=== PATIENT | male | born 1945 | race Hispanic/Latino ===

== ENCOUNTER 2020-08-02 21:23 | Inpatient (IN) | payer MEDICARE ==
--- NOTE | 2020-08-02 21:51 | Emergency Department Report ---
HPI - General Chief Complaint: Weakness Time Seen by Provider: 08/02/20 21:38 - HPI HPI: Room 26 The patient is a 75-year-old male present with a chief complaint of failure to thrive. Family states that the patient lost his job approximate 3 months ago and since then has "given up." They state that the patient has not been eating or drinking for the past 3 months. The patient has lost an estimated 75 pounds over the past 3 months. Patient has become weak to the point where he cannot stand the patient son had to carry him down the stairs. When asked about this the patient states she just feels as though he is "so full of water when I taken a little bit have to get rid of some." Patient states he finds himself spitting all the time. And this is the reason he has not been eating or drinking. Patient denies nausea or vomiting. Patient denies any other complaints ED Past Medical Hx - Past Medical History Hx Hypertension: Yes - Surgical History Past Surgical History?: No - Family History Family history: no significant - Social History Smoking Status: Former Smoker Substance Use Type: None ED Review of Systems ROS: Stated complaint: FAILURE TO THRIVE Other details as noted in HPI Constitutional: weakness Respiratory: no symptoms reported Endocrine: no symptoms reported Gastrointestinal: denies: nausea, vomiting Physical Exam - Physical Exam Physical Exam: GENERAL: The patient is well-developed thin appearing male lying on stretcher in no acute distress. There is no emesis bag or basin present HEENT: Normocephalic. Atraumatic. Extraocular motions are intact. Patient has moist mucous membranes. NECK: Supple. Trachea midline CHEST/LUNGS: Clear to auscultation. There is no respiratory distress noted. HEART/CARDIOVASCULAR: Regular. There is no tachycardia. There is no gallop rub or murmur. ABDOMEN: Abdomen is soft, nontender. Patient has normal bowel sounds. There is no abdominal distention. SKIN: There is no rash. There is no edema. There is no diaphoresis. NEURO: The patient is awake, alert, and oriented. The patient is cooperative. The patient has no focal neurologic deficits. The patient has normal speech MUSCULOSKELETAL: There is no evidence of acute injury. ED Medical Decision Making - Lab Data Result diagrams: 08/02/20 21:56 08/02/20 21:56 Laboratory Tests 08/02/20 08/02/20 21:56 21:56 WBC 8.9 RBC 5.69 H Hgb 18.2 H Hct 53.3 H MCV 94 MCH 32 MCHC 34 RDW 14.4 Plt Count 175 Lymph % (Auto) 7.9 L Pitkin % (Auto) 6.6 Eos % (Auto) 0.0 Baso % (Auto) 0.1 Lymph # (Auto) 0.7 L Pitkin # (Auto) 0.6 Eos # (Auto) 0.0 Baso # (Auto) 0.0 Seg Neutrophils % 85.4 H Seg Neutrophils # 7.6 Sodium 162 H* Potassium 3.2 L Chloride 116.9 H Carbon Dioxide 21 L Anion Gap 27 BUN 94 H Creatinine 2.4 H Estimated GFR 27 BUN/Creatinine Ratio 39 Glucose 164 H Calcium 10.2 Total Bilirubin 5.50 H AST 53 H ALT 205 H Alkaline Phosphatase 99 Total Creatine Kinase 93 CK-MB (CK-2) 5.3 H CK-MB (CK-2) Rel Index 5.6 H Troponin T 0.048 H Total Protein 6.7 Albumin 4.0 Albumin/Globulin Ratio 1.5 Triglycerides 307 H Cholesterol 232 H LDL Cholesterol Direct 132 H HDL Cholesterol 36 L Cholesterol/HDL Ratio 6.44 Lipase 77 H - EKG Data -: EKG Interpreted by Me EKG shows normal: sinus rhythm Rate: normal - EKG Data When compared to previous EKG there are: previous EKG unavailable Interpretation: nonspecific ST-T wave damien (T wave inversions leads II, 3, aVF, V3, V4, V5, V6. Mild ST segment depressions infero-laterally) - Differential Diagnosis Failure to thrive, depression Critical care attestation.: If time is entered above; I have spent that time in minutes in the direct care of this critically ill patient, excluding procedure time. ED Disposition Clinical Impression: Dehydration, Uremia, Failure to thrive, Acute renal failure, Hypernatremia, Elevated troponin Disposition: DC-09 OP ADMIT IP TO THIS HOSP Is pt being admited?: Yes Does the pt Need Aspirin: No Condition: Stable Referrals: PRIMARY CARE, [Primary Care Provider] - 3-5 Days Time of Disposition: 23:46 (Hospitalist paged (Dr Mitchell))
[2020-08-02 22:21] LABS: Basophils % (Auto) 0.1 % (0.0-1.8); Hematocrit 53.3 % (35.5-45.6); Hemoglobin 18.2 gm/dl (11.8-15.2); Lymphocytes # (Auto) 0.7 K/mm3 (1.2-5.4); Lymphocytes % (Auto) 7.9 % (13.4-35.0); Mean Corpuscular HGB Conc 34 % (32-34); Mean Corpuscular Volume 94 fl (84-94); Monocytes # (Auto) 0.6 K/mm3 (0.0-0.8); Monocytes % (Auto) 6.6 % (0.0-7.3); Platelet Count 175 K/mm3 (140-440); Red Blood Count 5.69 M/mm3 (3.65-5.03); Red Cell Distribution Width 14.4 % (13.2-15.2)
[2020-08-02 22:35] LABS: Creatine Kinase MB 5.3 ng/mL (0.0-4.0)
[2020-08-02 22:36] LABS: Calcium 10.2 mg/dL (8.4-10.2)
[2020-08-02] MEDS ORDERED: SODIUM CHLORIDE 0.9% 1000 ML 1,000 ML IV ONE ×2 (22:41)
[2020-08-02 22:58] LABS: Chol/HDL Ratio 6.44 %
[2020-08-02] MEDS ORDERED: DEXTROSE 5% IN WATER 1,000 ML IV SCH (23:00)
[2020-08-03 00:37] LABS: Bilirubin,Urine SM (Negative); Blood,Urine SM (Negative); Color,Urine Amber (Yellow); Hyaline Casts,Urine 1 /LPF; Protein,Urine <15 mg/dL mg/dL (Negative); RBC,Urine < 1.0 /HPF (0.0-6.0)
[2020-08-03] MEDS ORDERED: SODIUM CHLORIDE 0.9% 1000 ML 1,000 ML IV ONE (00:39)
[2020-08-03 00:48] LABS: Ictotest,Urine Negative (Negative)
[2020-08-03] MEDS ORDERED: ONDANSETRON 4 MG/2 ML INJ IV PRN (01:11)
[2020-08-03] MEDS ORDERED: ACETAMINOPHEN 325 MG TAB PO PRN (01:11)
[2020-08-03] MEDS ORDERED: MAGNESIUM HYDROXIDE (MOM) ORAL LIQD UDC PO PRN (01:11)
[2020-08-03] MEDS ORDERED: SODIUM CHLORIDE 0.9% 1000 ML 1,000 ML IV SCH (01:15)
--- NOTE | 2020-08-03 01:27 | History and Physical Report ---
History of Present Illness Date of examination: 08/03/20 Date of admission: 08/03/2020 Chief complaint: Failure to Thrive History of present illness: 75-year-old male with known history of hypertension presenting to the emergency room today with failure to thrive. Patient has had decreased oral intake since he lost his job about 3 months ago. According to family patient is said to have given up and has not been eating or drinking over the past 3 months. He has also lost about 75 pounds over the past 3 months. He has been feeling generally weak. Upon further evaluation patient admits he has been quite depressed but denies any homicidal or suicidal ideations. He also indicates that he has been having difficulty sleeping. He denies any fever or chills, no chest pain or shortness of breath, no nausea or vomiting, no abdominal pain, denies any sick contacts, denies any recent travel and no contact with anyone with COVID-19. Work-up in the emergency room today reveals elevated BUN and creatinine, elevated troponin and hypernatremia. Patient is being admitted for acute kidney injury with dehydration and hypernatremia. Past History Past Medical History: hypertension Past Surgical History: No surgical history Social history: no significant social history Family history: no significant family history Medications and Allergies Allergies Allergy/AdvReac Type Severity Reaction Status Date / Time No Known Allergies Allergy Verified 08/02/20 22:50 Home Medications Medication Instructions Recorded Confirmed Last Taken Type No Known Home Medications [No 08/03/20 08/03/20 Unknown History Reported Home Medications] Active Meds: Active Medications Acetaminophen (Tylenol) 650 mg PO Q4H PRN PRN Reason: Pain MILD(1-3)/Fever >100.5/PATEL Heparin Sodium (Porcine) (Heparin) 5,000 unit SUB-Q Q8HR LUCRECIA Dextrose (D5w) 1,000 mls @ 150 mls/hr IV DIRECT LUCRECIA Last Admin: 08/02/20 23:57 Dose: 150 mls/hr Documented by: Sodium Chloride (Nacl 0.9% 1000 Ml) 1,000 mls @ 999 mls/hr IV BOLUS ONE Stop: 08/03/20 01:39 Sodium Chloride (Nacl 0.9% 1000 Ml) 1,000 mls @ 125 mls/hr IV DIRECT [facility]CRECIA Magnesium Hydroxide (Milk Of Magnesia) 30 ml PO Q4H PRN PRN Reason: Constipation Ondansetron HCl (Zofran) 4 mg IV Q8H PRN PRN Reason: Nausea And Vomiting Sodium Chloride (Sodium Chloride Flush Syringe 10 Ml) 10 ml IV BID LUCRECIA Sodium Chloride (Sodium Chloride Flush Syringe 10 Ml) 10 ml IV PRN PRN PRN Reason: LINE FLUSH Review of Systems Constitutional: poor appetite, no fever, no chills Ears, nose, mouth and throat: no nasal congestion, no sore throat Cardiovascular: no chest pain, no palpitations Respiratory: no cough, no shortness of breath Gastrointestinal: no abdominal pain, no nausea, no vomiting, no diarrhea Genitourinary Male: no dysuria, no hematuria, no flank pain Musculoskeletal: no neck pain, no low back pain Integumentary: no rash, no pruritis Neurological: no headaches, no confusion Psychiatric: insomnia, depression, hopelessness, no anxiety, no confusion Exam - Constitutional Vitals: Temp Pulse Resp BP Pulse Ox 97.6 F 78 20 145/81 100 08/02/20 21:33 08/02/20 22:31 08/03/20 01:15 08/03/20 01:15 08/03/20 01:15 General appearance: Present: no acute distress, cachectic, other (Dry oral Mucosa) - EENT Eyes: Present: PERRL, EOM intact. Absent: scleral icterus ENT: hearing intact, clear oral mucosa, dentition normal - Neck Neck: Present: supple, normal ROM - Respiratory Respiratory effort: normal Respiratory: bilateral: CTA - Cardiovascular Rhythm: regular Heart Sounds: Present: S1 & S2. Absent: gallop, systolic murmur, diastolic murmur, rub - Extremities Extremities: no ischemia, pulses intact, pulses symmetrical, No edema, Full ROM Peripheral Pulses: within normal limits - Abdominal General gastrointestinal: Present: soft, non-tender, non-distended, normal bowel sounds. Absent: mass - Integumentary Integumentary: Present: clear, warm, dry. Absent: rash - Musculoskeletal Musculoskeletal: strength equal bilaterally - Psychiatric Psychiatric: appropriate mood/affect, intact judgment & insight, memory intact, cooperative, other (Flat affect) - Neurologic Neurologic: CNII-XII intact, no focal deficits, moves all extremities HEART Score - HEART Score Troponin: Troponin T 0.048 ng/mL (0.00-0.029) H 08/02/20 21:56 Results - Labs CBC & Chem 7: 08/02/20 21:56 08/02/20 21:56 Labs: Abnormal lab results 08/02/20 08/02/20 Range/Units 21:56 21:56 RBC 5.69 H (3.65-5.03) M/mm3 Hgb 18.2 H (11.8-15.2) gm/dl Hct 53.3 H (35.5-45.6) % Lymph % (Auto) 7.9 L (13.4-35.0) % Lymph # (Auto) 0.7 L (1.2-5.4) K/mm3 Seg Neutrophils % 85.4 H (40.0-70.0) % Sodium 162 H* (137-145) mmol/L Potassium 3.2 L (3.6-5.0) mmol/L Chloride 116.9 H (98-107) mmol/L Carbon Dioxide 21 L (22-30) mmol/L BUN 94 H (9-20) mg/dL Creatinine 2.4 H (0.8-1.3) mg/dL Glucose 164 H (75-100) mg/dL Total Bilirubin 5.50 H (0.1-1.2) mg/dL AST 53 H (5-40) units/L ALT 205 H (7-56) units/L CK-MB (CK-2) 5.3 H (0.0-4.0) ng/mL CK-MB (CK-2) Rel Index 5.6 H (0-4) Troponin T 0.048 H (0.00-0.029) ng/mL Triglycerides 307 H (2-149) mg/dL Cholesterol 232 H (50-199) mg/dL LDL Cholesterol Direct 132 H (50-130) mg/dL HDL Cholesterol 36 L (40-59) mg/dL Lipase 77 H (13-60) units/L Assessment and Plan - Patient Problems (1) Acute renal failure Current Visit: Yes Status: Acute Plan to address problem: Possibly prerenal. Patient started on IV fluid. Will monitor inputs and outputs. Consult placed to nephrology for evaluation. (2) Dehydration Current Visit: Yes Status: Acute Plan to address problem: Secondary to decreased oral intake. We will continue on IV fluid. (3) Elevated troponin Current Visit: Yes Status: Acute Plan to address problem: Possibly secondary to the renal failure. Patient denies any chest pain (4) Failure to thrive Current Visit: Yes Status: Acute Plan to address problem: We will place dietary consult and case management for evaluation. We will also place consult to mental health as patient appears obviously depressed. (5) Hypernatremia Current Visit: Yes Status: Acute Plan to address problem: We will continue on IV fluid and continue to monitor chemistry. (6) DVT prophylaxis Current Visit: Yes Status: Acute Plan to address problem: Patient placed on subcutaneous heparin. (7) Full code status Current Visit: Yes Status: Acute
[2020-08-03] MEDS: HEPARIN 5,000 UNIT/1 ML VIAL SUB-Q SCH ×3 (05:10→21:15)
[2020-08-03] MEDS ORDERED: D5W/0.45% NACL/KCL 40 MEQ 40 MEQ/1,000 ML BAG IV SCH (10:00)
[2020-08-03] MEDS ORDERED: D5W/0.45% NACL 1,000 ML IV SCH (10:00)
--- NOTE | 2020-08-03 11:41 | Event Note ---
Date: 08/03/20 Sign out received from Dr Mitchell. Patient admitted with failure to thrive. noted to have CHRISTIE, hypernatremia. Psych consulted due to depressed mood. Admission labs reviewed. Awaiting AM labs. Received 2L NS in the ED, his vitals are stable Plan Start hypotonic solution Trend Na Nephrology and psych follow up. Elevated troponin likely from CHRISTIE - he has no chest pain. Will monitor for now.
--- NOTE | 2020-08-03 13:04 | Consultation ---
History of Present Illness - Reason for Consult Consult date: 08/03/20 Reason for consult: depression, failure to thrive - History of Present Psychiatric Illness Colt Ca is a 75y/o male patient who presented to the ER for failure to thrive. During my interview with the patient is lying down in bed. He is a/o x 3. He is calm and cooperative. He is conversational. The patient says he was brought to the hospital because "I kept losing weight." He says, "I didn't want to come but I couldn't keep nothing in my stomach." He says, "I choke off thin liquids." When asked how he was feeling he states, "I've been depressed." He says, "I lost my job back in January and my son lost his too." He says "I was helping my son pay his bills and now I can't help him. My son is panicking over that." The patient denies SI/HI or ever having an attempt. He says "Oh no, I don't want to do anything to myself or anybody." The patient states "It's not that I don't want to eat. I can't." He denies hallucinations of any kind. He says he was seeing a psychiatrist and was started on an antidepressant. He says but "after I lost my job I haven't been taking it." He denies any illicit drug use, alcohol or nicotine. PAST PSYCHIATRIC HISTORY Diagnoses: Denies Suicide attempts or Self-harm behavior: Denies Prior psychiatric hospitalizations: Denies Substance Abuse history: Denies Previous psychiatric medications tried: Denies Outpatient treatment: Denies PAST MEDICAL HISTORY: None reported Family Psychiatric History: None reported SOCIAL HISTORY Marital Status: Living Arrangements: with spouse Employment Status: Retired Access to guns/weapons: Denies Education: History of Abuse: No Legal History: Denies REVIEW OF SYSTEMS Constitutional: Negative for weight loss ENT: Negative for stridor Respiratory: Negative for cough or hemoptysis All other systems reviewed and are negative MENTAL STATUS EXAMINATION General Appearance and Behavior: Age appropriate, good hygiene, wearing appropriate clothes, good contact, calm and cooperative polite with questioning. Cooperation: Participating/engaged Mood: "Depressed" Affect and affective range: Restricted Thought Process: Goal directed Thought Content: Logical Speech: normal tone and pace Suicidal Ideation: Denies Homicidal Ideation: Denies Hallucinations: Denies Delusions: None elicited Insight and Judgment: Limited Memory: Limited Orientation: A/O Assessment and Plan Major Depressive Disorder Treatment Plan MEDICATIONS: Fluoxetine liquid 10mg daily Risks, benefits and alternatives of medications discussed with the patient, questions answered and consent obtained from patient. PSYCHOTHERAPY: Supportive psychotherapy provided MEDICAL: Per primary team DELIRIUM PRECAUTIONS: Please re-orient patient frequently, keep lights on during the day, and minimize benzodiazepines and opiates as these medications could worsen patient's confusion. VERIFY REP: Defer to primary DISPOSITION: Do not Recommend acute inpatient psychiatric hospitalization at this time. The patient understands that if suicidal thoughts or tendencies arise that he is to seek immediate assistance including but not limited to the crisis hotline, 911/ER. The manager fine dining is to give the patient resources for outpatient psychiatry, therapy/counseling and medication assistance. Rescue Boat Operator to further discuss safety plan The patient is to follow up with outpatient psych in 7 to 14 days upon discharge Will sign off. Thank you for the consult. Please contact with any questions and/or concerns. Medications and Allergies Allergies Allergy/AdvReac Type Severity Reaction Status Date / Time No Known Allergies Allergy Verified 08/02/20 22:50 Home Medications Medication Instructions Recorded Confirmed Last Taken Type FLUoxetine [Prozac] 10 mg PO QDAY #1 bottle 08/03/20 Unknown Rx Active Meds: Active Medications Acetaminophen (Tylenol) 650 mg PO Q4H PRN PRN Reason: Pain MILD(1-3)/Fever >100.5/PATEL Heparin Sodium (Porcine) (Heparin) 5,000 unit SUB-Q Q8HR LUCRECIA Last Admin: 08/03/20 05:10 Dose: 5,000 unit Documented by: Sodium Chloride (Nacl 0.9% 1000 Ml) 1,000 mls @ 125 mls/hr IV DIRECT LUCRECIA Last Admin: 08/03/20 02:10 Dose: 125 mls/hr Documented by: Dextrose/Sodium Chloride (D5/0.45ns) 1,000 mls @ 100 mls/hr IV DIRECT LUCRECIA Last Admin: 08/03/20 10:22 Dose: 100 mls/hr Documented by: Magnesium Hydroxide (Milk Of Magnesia) 30 ml PO Q4H PRN PRN Reason: Constipation Ondansetron HCl (Zofran) 4 mg IV Q8H PRN PRN Reason: Nausea And Vomiting Sodium Chloride (Sodium Chloride Flush Syringe 10 Ml) 10 ml IV BID LUCRECIA Last Admin: 08/03/20 10:22 Dose: 10 ml Documented by: Sodium Chloride (Sodium Chloride Flush Syringe 10 Ml) 10 ml IV PRN PRN PRN Reason: LINE FLUSH Mental Status Exam - Vital signs Last Vital Signs Temp 97.6 F 08/03/20 11:30 Pulse 67 08/03/20 11:30 Resp 19 08/03/20 11:30 BP 110/80 08/03/20 11:30 Pulse Ox 100 08/03/20 08:19 Results Result Diagrams: 08/02/20 21:56 08/02/20 21:56 Abnormal lab results 08/02/20 08/02/20 Range/Units 21:56 21:56 RBC 5.69 H (3.65-5.03) M/mm3 Hgb 18.2 H (11.8-15.2) gm/dl Hct 53.3 H (35.5-45.6) % Lymph % (Auto) 7.9 L (13.4-35.0) % Lymph # (Auto) 0.7 L (1.2-5.4) K/mm3 Seg Neutrophils % 85.4 H (40.0-70.0) % Sodium 162 H* (137-145) mmol/L Potassium 3.2 L (3.6-5.0) mmol/L Chloride 116.9 H (98-107) mmol/L Carbon Dioxide 21 L (22-30) mmol/L BUN 94 H (9-20) mg/dL Creatinine 2.4 H (0.8-1.3) mg/dL Glucose 164 H (75-100) mg/dL Total Bilirubin 5.50 H (0.1-1.2) mg/dL AST 53 H (5-40) units/L ALT 205 H (7-56) units/L CK-MB (CK-2) 5.3 H (0.0-4.0) ng/mL CK-MB (CK-2) Rel Index 5.6 H (0-4) Troponin T 0.048 H (0.00-0.029) ng/mL Triglycerides 307 H (2-149) mg/dL Cholesterol 232 H (50-199) mg/dL LDL Cholesterol Direct 132 H (50-130) mg/dL HDL Cholesterol 36 L (40-59) mg/dL Lipase 77 H (13-60) units/L All other labs normal.
[2020-08-03 16:53] LABS: Albumin 3.2 g/dL (3.9-5); Calcium 8.6 mg/dL (8.4-10.2)
[2020-08-03] MEDS ORDERED: POTASSIUM CHLORIDE ER 20 MEQ TAB PO ONE (17:30)
--- NOTE | 2020-08-03 18:05 | Consultation ---
History of Present Illness - Reason for Consult Consult date: 08/03/20 hypernatremia - History of Present Illness This is a 75-year-old with history of hypertension and insomnia who presented with generalized weakness and failure to thrive. He lost his job about 3 months ago and since then he has decreased appetite and oral intake resulting in about 75 pound weight loss. Lab work obtained in the emergency department was notable for acute kidney injury and several electrolyte derangements for which he was admitted. he denies NSAID use. He denies headaches, chest pain, shortness of breath, leg swelling, dysuria and hematuria. Past History Past Medical History: hypertension Past Surgical History: No surgical history Social history: no significant social history Family history: no significant family history Medications and Allergies Allergies Allergy/AdvReac Type Severity Reaction Status Date / Time No Known Allergies Allergy Verified 08/02/20 22:50 Home Medications Medication Instructions Recorded Confirmed Last Taken Type FLUoxetine [Prozac] 10 mg PO QDAY #1 bottle 08/03/20 Unknown Rx Active Meds: Active Medications Acetaminophen (Tylenol) 650 mg PO Q4H PRN PRN Reason: Pain MILD(1-3)/Fever >100.5/PATEL Fluoxetine HCl (Prozac) 10 mg PO QDAY LUCRECIA Heparin Sodium (Porcine) (Heparin) 5,000 unit SUB-Q Q8HR LUCRECIA Last Admin: 08/03/20 13:13 Dose: 5,000 unit Documented by: Sodium Chloride (Nacl 0.9% 1000 Ml) 1,000 mls @ 125 mls/hr IV DIRECT LUCRECIA Last Admin: 08/03/20 02:10 Dose: 125 mls/hr Documented by: Dextrose/Sodium Chloride (D5/0.45ns) 1,000 mls @ 100 mls/hr IV DIRECT LUCRECIA Last Admin: 08/03/20 10:22 Dose: 100 mls/hr Documented by: Potassium Chloride (Kcl 10meq/100ml) 10 meq in 100 mls @ 100 mls/hr IV Q1H LUCRECIA Stop: 08/03/20 21:59 Dextrose (D5w) 1,000 mls @ 125 mls/hr IV DIRECT LUCRECIA Magnesium Hydroxide (Milk Of Magnesia) 30 ml PO Q4H PRN PRN Reason: Constipation Ondansetron HCl (Zofran) 4 mg IV Q8H PRN PRN Reason: Nausea And Vomiting Sodium Chloride (Sodium Chloride Flush Syringe 10 Ml) 10 ml IV BID LUCRECIA Last Admin: 08/03/20 10:22 Dose: 10 ml Documented by: Sodium Chloride (Sodium Chloride Flush Syringe 10 Ml) 10 ml IV PRN PRN PRN Reason: LINE FLUSH Review of Systems Constitutional: weight loss, fatigue, weakness Eyes: right: other (denies loss of vision and discharge) Ears, nose, mouth and throat: other (denies nasal congestion and discharge) Cardiovascular: other (denies chest pain and shortness of breath) Respiratory: other (denies cough and hemoptysis) Gastrointestinal: other (notes loss of appetite) Genitourinary Male: other (denies dysuria and hematuria) Musculoskeletal: other (denies numbness and tingling) Integumentary: other (denies rash and pruritus) Neurological: weakness Psychiatric: change in sleep habits, insomnia Endocrine: weight change Allergic/Immunologic: other (denies urticaria and wheezing) Exam - Vital Signs Vital signs: Vital Signs Temp Pulse Resp BP Pulse Ox 97.6 F 87 22 107/81 99 08/02/20 21:33 08/02/20 21:33 08/02/20 21:33 08/02/20 21:33 08/02/20 21:33 - Physical Exam Narrative exam: Vitals: Reviewed General: No acute distress HEENT: Oral mucosa moist, no pharyngeal erythema, no evidence of epistaxis Neck: Supple, no evidence of any JVD, trachea midline, no thyromegaly Chest: Clear to auscultation, no crackles, rales or wheezes Heart: Regular rate and rhythm, S1-S2 heard, no S3-S4, no pericardial rub Abdomen: Soft, nontender, no renal bruit, no suprapubic masses no CVA tenderness Extremity: No peripheral cyanosis, edema and dry skin Neurological: Alert, awake, no asterixis Dermatology; no skin rashes Back: Nontender thoracolumbar spine, no CVA tenderness Psych: No agitation and aggression Musculoskeletal: No joint effusion noted Results - Lab Results 08/02/20 21:56 08/03/20 15:29 Most recent lab results Calcium 8.6 mg/dL (8.4-10.2) D 08/03/20 15:29 Magnesium 2.80 mg/dL (1.7-2.3) H 08/03/20 15:29 Assessment and Plan Assessment * acute kidney injury * Hypernatremia * Hypokalemia * Hyperchloremia * azotemia * hyperbilirubinemia * Transaminitis * insomnia Recommendations * replete potassium, recheck level following repletion * Continue IV hydration * Encourage by mouth intake * Check abdominal ultrasound for kidney and liver evaluation * Recommend gastroenterology consult for elevated LFTs * psych consult * Strict I's and O's * Avoid nephrotoxins * Renally dose medications
[2020-08-03] MEDS: POTASSIUM CHLORIDE 10 MEQ 10 MEQ/100 ML BAG IV SCH ×3 (18:10→22:52)
[2020-08-03] MEDS: DEXTROSE 5% IN WATER 1,000 ML IV SCH (18:11)
[2020-08-04] MEDS: POTASSIUM CHLORIDE 10 MEQ 10 MEQ/100 ML BAG IV SCH ×8 (01:03→23:09)
[2020-08-04] MEDS: HEPARIN 5,000 UNIT/1 ML VIAL SUB-Q SCH ×4 (05:11→20:59)
[2020-08-04 07:51] LABS: Eosinophils % (Auto) 0.1 % (0.0-4.3); Hematocrit 43.8 % (35.5-45.6); Lymphocytes # (Auto) 0.7 K/mm3 (1.2-5.4); Lymphocytes % (Auto) 14.7 % (13.4-35.0); Mean Corpuscular HGB Conc 34 % (32-34); Mean Corpuscular Volume 94 fl (84-94); Monocytes # (Auto) 0.3 K/mm3 (0.0-0.8); Monocytes % (Auto) 6.7 % (0.0-7.3); Platelet Count 118 K/mm3 (140-440); Red Blood Count 4.68 M/mm3 (3.65-5.03); Red Cell Distribution Width 14.5 % (13.2-15.2)
[2020-08-04] MEDS: DEXTROSE 5% IN WATER 1,000 ML IV SCH ×2 (07:56→16:38)
[2020-08-04 08:00] LABS: INR 1.12 (0.87-1.13)
[2020-08-04 08:11] LABS: Calcium 8.7 mg/dL (8.4-10.2)
[2020-08-04] MEDS: FLUoxetine 20 MG/5 ML ORAL LIQD PO SCH (09:20)
[2020-08-04] MEDS ORDERED: POTASSIUM CHLORIDE ER 20 MEQ TAB PO ONE ×3 (11:12→21:00)
--- NOTE | 2020-08-04 11:17 | Progress Note ---
Assessment and Plan Assessment and plan: 75-year-old male with known history of hypertension presenting to the emergency room today with failure to thrive. Patient has had decreased oral intake since he lost his job about 3 months ago. According to family patient is said to have given up and has not been eating or drinking over the past 3 months. He has also lost about 75 pounds over the past 3 months. He has been feeling generally weak. Upon further evaluation patient admits he has been quite depressed but denies any homicidal or suicidal ideations. He also indicates that he has been having difficulty sleeping. He denies any fever or chills, no chest pain or shortness of breath, no nausea or vomiting, no abdominal pain, denies any sick contacts, denies any recent travel and no contact with anyone with COVID-19. Work-up in the emergency room reveals elevated BUN and creatinine, elevated troponin and hypernatremia. Patient is being admitted for acute kidney injury with dehydration and hypernatremia. 08/04. His sodium is slowly improving on IV fluids. Encourage patient to drink water today. Labs showed elevated bilirubin and AST so ultrasound of the abdomen has been ordered to rule out any liver/ductal problem. His renal function continues to improve. Patient has been seen by psych and will need to follow-up with them in the office after discharge as he he is not a candidate inpatient psych admission. He has been started on fluoxetine daily for now. Problem ---Acute renal failure Current Visit: Yes Status: Acute Plan to address problem: From dehydration [vasomotor nephropathy] Renal function continues to improve on IV hydration ---Dehydration Current Visit: Yes Status: Acute Plan to address problem: Secondary to decreased oral intake. Continue IV hydration ---Elevated troponin Current Visit: Yes Status: Acute Plan to address problem: Possibly secondary to the renal failure. Patient denies any chest pain ---Depression Current Visit: Yes Status: Acute Plan to address problem: Seen by psychiatry and has been started on fluoxetine He will follow-up with psychiatry in the office in 1-2 weeks after discharge Patient is not a candidate for inpatient psych admission ---Failure to thrive Current Visit: Yes Status: Acute Plan to address problem: Depression contributing Started on fluoxetine ---Hypernatremia Current Visit: Yes Status: Acute Plan to address problem: Improving. Continue IV hydration --- Elevated bilirubin and elevated liver function tests Current Visit: Yes Status: Acute Plan to address problem: Bilirubin 5.5 on admission but now trended down to 4.8 LFTs also elevated Ultrasound of the abdomen ordered to rule out any liver/ductal problem Lipase slightly elevated on admission. INR within normal limits Patient needs to follow-up with GI for colonoscopy ---DVT prophylaxis Current Visit: Yes Status: Acute Plan to address problem: Patient placed on subcutaneous heparin. ---Full code status Current Visit: Yes Status: Acute History Interval history: Patient seen and examined at bedside this morning His sodium is gradually improving. Still not drinking enough water Advised patient to drink more water today Nephrology following for hypernatremia Labs have been reviewed-sodium 157, potassium 3.1, creatinine 1.3, bilirubin 4.8 and AST/ALT elevated Ultrasound of the abdomen ordered to rule out CBD dilatation Hospitalist Physical - Physical exam Narrative exam: VITAL SIGNS: Reviewed. GENERAL: Awake and alert on response to questions, cachectic HEAD: No signs of head trauma. EYES: Pupils are equal. Extraocular motions intact. EARS: Hearing grossly intact. MOUTH: Oropharynx is normal. NECK: No adenopathy, no JVD. CHEST: Chest with diminished breath sounds bilaterally. No wheezes, rales, or rhonchi. CARDIAC: Regular rate and rhythm. S1 and S2, without murmurs, gallops, or rub s. VASCULAR: No Edema. Peripheral pulses normal and equal in all extremities. ABDOMEN: Soft, non tender and non distended. No rebound or guarding, and no masses palpated. Bowel Sounds normal. MUSCULOSKELETAL: Good range of motion of all major joints. Extremities without clubbing, cyanosis or edema. NEUROLOGIC EXAM: Alert and oriented x3. No focal neurologic deficits PSYCHIATRIC: Stable mood SKIN: No obvious lesions - Constitutional Vitals: Temp Pulse Resp BP Pulse Ox 97.5 F L 74 20 130/85 100 08/04/20 08:12 08/04/20 08:58 08/04/20 08:12 08/04/20 08:12 08/04/20 08:12 General appearance: Present: other (Dry oral Mucosa) HEART Score - HEART Score Troponin: Troponin T 0.048 ng/mL (0.00-0.029) H 08/02/20 21:56 Results - Labs CBC & Chem 7: 08/04/20 06:26 08/04/20 06:26 Labs: Laboratory Last Values WBC 4.6 K/mm3 (4.5-11.0) 08/04/20 06: RBC 4.68 M/mm3 (3.65-5.03) 08/04/20 06: Hgb 15.0 gm/dl (11.8-15.2) D 08/04/20 06: Hct 43.8 % (35.5-45.6) D 08/04/20: MCV 94 fl (84-94) 08/04/20 06: MCH 32 pg (28-32) 08/04/20 06: MCHC 34 % (32-34) 08/04/20 06: RDW 14.5 % (13.2-15.2) 08/04/20: Plt Count 118 K/mm3 (140-440) L 08/04/20 06: Lymph % (Auto) 14.7 % (13.4-35.0) 08/04/20 06: [place] % (Auto) 6.7 % (0.0-7.3) 08/04/20 06: Eos % (Auto) 0.1 % (0.0-4.3) 08/04/20 06: Baso % (Auto) 0.0 % (0.0-1.8) 08/04/20 06: Lymph # (Auto) 0.7 K/mm3 (1.2-5.4) L 08/04/20 06: [place] # (Auto) 0.3 K/mm3 (0.0-0.8) 08/04/20 06: Eos # (Auto) 0.0 K/mm3 (0.0-0.4) 08/04/20 06: Baso # (Auto) 0.0 K/mm3 (0.0-0.1) 08/04/20 06: Seg Neutrophils % 78.5 % (40.0-70.0) H 08/04/20 06: Seg Neutrophils # 3.6 K/mm3 (1.8-7.7) 08/04/20 06: PT 14.5 Sec. (12.2-14.9) 08/04/20 06: INR 1.12 (0.87-1.13) 08/04/20 06:26 Sodium 157 mmol/L (137-145) H 08/04/20 06:26 Potassium 3.1 mmol/L (3.6-5.0) L 08/04/20 06:26 Chloride 121.3 mmol/L (98-107) H 08/04/20 06:26 Carbon Dioxide 27 mmol/L (22-30) 08/04/20 06:26 Anion Gap 12 mmol/L 08/04/20 06:26 BUN 54 mg/dL (9-20) H 08/04/20 06:26 Creatinine 1.3 mg/dL (0.8-1.3) 08/04/20 06:26 Estimated GFR 54 ml/min 08/04/20 06:26 BUN/Creatinine Ratio 42 % 08/04/20 06:26 Glucose 137 mg/dL (75-100) H 08/04/20 06:26 Calcium 8.7 mg/dL (8.4-10.2) 08/04/20 06:26 Magnesium 2.80 mg/dL (1.7-2.3) H 08/03/20 15:29 Total Bilirubin 4.60 mg/dL (0.1-1.2) H 08/03/20 15:29 AST 51 units/L (5-40) H 08/03/20 15:29 ALT 148 units/L (7-56) H 08/03/20 15:29 Alkaline Phosphatase 75 units/L (35-129) 08/03/20 15:29 Total Creatine Kinase 93 units/L (55-170) 08/02/20 21:56 CK-MB (CK-2) 5.3 ng/mL (0.0-4.0) H 08/02/20 21:56 CK-MB (CK-2) Rel Index 5.6 (0-4) H 08/02/20 21:56 Troponin T 0.048 ng/mL (0.00-0.029) H 08/02/20 21:56 Total Protein 5.1 g/dL (6.3-8.2) L D 08/03/20 15:29 Albumin 3.2 g/dL (3.9-5) L 08/03/20 15:29 Albumin/Globulin Ratio 1.7 % 08/03/20 15:29 Triglycerides 307 mg/dL (2-149) H 08/02/20 21:56 Cholesterol 232 mg/dL (50-199) H 08/02/20 21:56 LDL Cholesterol Direct 132 mg/dL (50-130) H 08/02/20 21:56 HDL Cholesterol 36 mg/dL (40-59) L 08/02/20 21:56 Cholesterol/HDL Ratio 6.44 % 08/02/20 21:56 Lipase 77 units/L (13-60) H 08/02/20 21:56 Urine Color Fifi (Yellow) 08/03/20 00:22 Urine Turbidity Clear (Clear) 08/03/20 00:22 Urine pH 5.0 (5.0-7.0) 08/03/20 00:22 Ur Specific [place] 1.021 (1.003-1.030) 08/03/20 00:22 Urine Protein <15 mg/dl mg/dL (Negative) 08/03/20 00:22 Urine Glucose (UA) Neg mg/dL (Negative) 08/03/20 00:22 Urine Ketones Neg mg/dL (Negative) 08/03/20 00:22 Urine Blood Sm (Negative) 08/03/20 00:22 Urine Nitrite Neg (Negative) 08/03/20 00:22 Urine Bilirubin Sm (Negative) 08/03/20 00:22 Urine Ictotest Negative (Negative) 08/03/20 00:22 Urine Urobilinogen 4.0 mg/dL (<2.0) 08/03/20 00:22 Ur Leukocyte Esterase Neg (Negative) 08/03/20 00:22 Urine WBC (Auto) 2.0 /HPF (0.0-6.0) 08/03/20 00:22 Urine RBC (Auto) < 1.0 /HPF (0.0-6.0) 08/03/20 00:22 U Epithel Cells (Auto) < 1.0 /HPF (0-13.0) 08/03/20 00:22 Hyaline Casts 1 /LPF 08/03/20 00:22 Guillen/IV: Voiding Method Urinal IV Catheter Type [left ac] Peripheral IV Active Medications - Current Medications Current Medications: Generic Name Dose Route Start Last Admin Trade Name Freq PRN Reason Stop Dose Admin Acetaminophen 650 mg 08/03/20 01:11 Tylenol PO Q4H PRN Pain MILD(1-3)/Fever >100.5/PATEL Fluoxetine HCl 10 mg 08/04/20 10:00 08/04/20 09:20 Prozac PO 10 mg QDAY LUCRECIA Administration Heparin Sodium (Porcine) 5,000 unit 08/03/20 06:00 08/04/20 05:11 Heparin SUB-Q 5,000 unit Q8HR LUCRECIA Administration Dextrose 1,000 mls @ 125 mls/hr 08/03/20 18:00 08/04/20 07:56 D5w IV 125 mls/hr DIRECT LUCRECIA Administration Potassium Chloride 10 meq in 100 mls @ 100 mls/hr 08/04/20 12:00 Kcl 10meq/100ml IV 08/04/20 15:59 Q1H LUCRECIA Magnesium Hydroxide 30 ml 08/03/20 01:11 Milk Of Magnesia PO Q4H PRN Constipation Ondansetron HCl 4 mg 08/03/20 01:11 Zofran IV Q8H PRN Nausea And Vomiting Potassium Chloride 40 meq 08/04/20 11:12 K-Dur PO 08/04/20 11:13 ONCE ONE Sodium Chloride 10 ml 08/03/20 10:00 08/03/20 21:15 Sodium Chloride Flush Syringe 10 Ml IV 10 ml BID LUCRECIA Administration Sodium Chloride 10 ml 08/03/20 01:11 Sodium Chloride Flush Syringe 10 Ml IV PRN PRN LINE FLUSH Nutrition/Malnutrition Assess - Dietary Evaluation Nutrition/Malnutrition Findings: Nutrition Notes Start: 08/03/20 11:43 Freq: Status: Active Protocol: Document 08/03/20 11:43 (Rec: 08/03/20 11:56 [id number]) Nutrition Notes Need for Assessment generated from: MD Order,dial lathe operator,MST Initial or Follow up Assessment Current Diagnosis Hypertension Other Pertinent Diagnosis Failure to Thrive, Acute CHRISTIE, Dehydration, Depression Current Diet Cardiac Labs/Tests Na 162 K 3.2 TG 307 Pertinent Medications D5 1/2NS at 100 ml/hr NS at 100 ml/hr Height 5 ft 10 in Weight 63.503 kg Usual Body Weight 97.59 kg Allison Body Weight (kg) 75.45 BMI 20.0 Intake Prior to Admission Poor Weight change and time frame 35% wt loss in 3 mo (per chart ) Weight Status Underweight Subjective/Other Information RN screen for MST and MD order for supplements. Pt reports not eating due to "food not going into the right stomach" causing him to be scared to eat. RD encouraged light foods like soup, ONS and pt's favorite foods but he is unwilling to try. Pt is also concerned of the cost of ONS and its sugar content. Pt may need TF if continues to deny food. Percent of energy/protein needs met: 0%/0% Burn Absent Trauma Absent Current % PO Negligible Minimum of two criteria Yes Energy Intake (non-severe) <75% Estimated Energy Requirement >7 days Interpretation of Weight Loss (severe) >7.5% in 3 months Body Fat Depletion Moderate depletion (severe) Muscle Mass Moderate Depletion (severe) Reduced Emulsion Coater Strength Measurably Reduced (severe) #2 Nutrition Diagnosis Inadequate oral intake Etiology mental status As Evidenced by Signs and Symptoms pt denying all foods for past 3 mo #1 Nutrition Diagnosis Malnutrition Etiology mental status As Evidenced by Signs and Symptoms pt reports being anxious about eating, muscle and fat wasting, 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 No Is Patient Ambulatory and/or Out of Bed No REE-([facility]-confined to bed) 1657.968 Kcal/Kg value to use for calculation 30 Approximate Energy Requirements Using 1905 kcal/Kg Calculation Used for Recommendations Kcal/kg Additional Notes Pro: 73-91 (1.2-1.5 g/kg) Fluid: 1 ml/kcal Nutrition Intervention Change Diet Order: Continue Goal #1 Meet at least 75% of energy and protein needs via PO intakes Goal #2 Weight maintanance/gain Anticipated Discharge Needs: Cardaic with ONS Follow-Up By: 08/05/20 Additional Comments FU for intakes and need for TF
[2020-08-04 14:09] LABS: Calcium 8.5 mg/dL (8.4-10.2)
[2020-08-04] MEDS ORDERED: POTASSIUM CHLORIDE 10 MEQ 10 MEQ/100 ML BAG IV SCH (15:00)
--- NOTE | 2020-08-04 18:48 | Progress Note ---
Assessment and Plan Assessment * acute kidney injury - likely pre-renal, improved with IV hydration * Hypernatremia * Hypokalemia * Hyperchloremia * azotemia * hyperbilirubinemia * Transaminitis * insomnia Recommendations * Continue IV hydration, current free water deficit is 3 L * replete potassium, recheck level following repletion * Check urine potassium * may need addition of Spironolactone once more hemodynamically stable and blood pressure permits * Recommend checking abdominal ultrasound for elevated LFTs * psych consult reviewed * Strict I's and O's * Avoid nephrotoxins * Renally dose medications Subjective Date of service: 08/04/20 Principal diagnosis: failure to thrive Interval history: Patient was seen for his renal issues Nursing, interdisciplinary and consult notes were reviewed Vitals, input and output, medications and labs were reviewed urine output - 400 ml charted, patient states he voided 4-5 x Objective - Exam Narrative Exam: Vitals: Reviewed General: No acute distress HEENT: Oral mucosa moist, no pharyngeal erythema, no evidence of epistaxis Neck: Supple, no evidence of any JVD, trachea midline, no thyromegaly Chest: Clear to auscultation, no crackles, rales or wheezes Heart: Regular rate and rhythm, S1-S2 heard, no S3-S4, no pericardial rub Abdomen: Soft, nontender, no renal bruit, no suprapubic masses no CVA tenderness Extremity: No peripheral cyanosis, edema and dry skin Neurological: Alert, awake, no asterixis Dermatology; no skin rashes Back: Nontender thoracolumbar spine, no CVA tenderness Psych: No agitation and aggression Musculoskeletal: No joint effusion noted - Vital Signs Vital signs: Vital Signs - 12hr 08/04/20 08/04/20 08/04/20 08:12 08:58 11:40 Temperature 97.5 F L 98.3 F Pulse Rate 67 74 66 Respiratory 20 20 Rate Blood Pressure 130/85 97/64 O2 Sat by Pulse 100 100 Oximetry 08/04/20 16:08 Temperature 98.1 F Pulse Rate 64 Respiratory 20 Rate Blood Pressure 115/75 O2 Sat by Pulse 99 Oximetry - Lab 08/04/20 06:26 08/04/20 13:22 Most recent lab results Calcium 8.5 mg/dL (8.4-10.2) 08/04/20 13:22 Magnesium 2.80 mg/dL (1.7-2.3) H 08/03/20 15:29 Medications & Allergies - Medications Allergies/Adverse Reactions: Allergies No Known Allergies Allergy (Verified 08/02/20 22:50) Home Medications: Home Medications Medication Instructions Recorded Confirmed Last Taken Type FLUoxetine [Prozac] 10 mg PO QDAY #1 bottle 08/03/20 Unknown Rx Active Medications: Generic Name Dose Route Start Last Admin Trade Name Freq PRN Reason Stop Dose Admin Acetaminophen 650 mg 08/03/20 01:11 Tylenol PO Q4H PRN Pain MILD(1-3)/Fever >100.5/PATEL Fluoxetine HCl 10 mg 08/04/20 10:00 08/04/20 09:20 Prozac PO 10 mg QDAY LUCRECIA Administration Heparin Sodium (Porcine) 5,000 unit 08/03/20 06:00 08/04/20 13:33 Heparin SUB-Q Not Given Q8HR LUCRECIA Dextrose 1,000 mls @ 125 mls/hr 08/03/20 18:00 08/04/20 16:38 D5w IV 125 mls/hr DIRECT LUCRECIA Administration Magnesium Hydroxide 30 ml 08/03/20 01:11 Milk Of Magnesia PO Q4H PRN Constipation Ondansetron HCl 4 mg 08/03/20 01:11 Zofran IV Q8H PRN Nausea And Vomiting Sodium Chloride 10 ml 08/03/20 10:00 08/04/20 11:46 Sodium Chloride Flush Syringe 10 Ml IV Not Given BID LUCRECIA Sodium Chloride 10 ml 08/03/20 01:11 Sodium Chloride Flush Syringe 10 Ml IV PRN PRN LINE FLUSH
[2020-08-04 19:00] LABS: BUN/Creatinine Ratio 36; Blood Urea Nitrogen 40 mg/dL (9-20); Calcium 8.6 mg/dL (8.4-10.2); Hemolysis Index 0
[2020-08-05] MEDS: POTASSIUM CHLORIDE 10 MEQ 10 MEQ/100 ML BAG IV SCH (00:10)
[2020-08-05] MEDS: DEXTROSE 5% IN WATER 1,000 ML IV SCH ×2 (02:11→22:06)
[2020-08-05 02:12] LABS: BUN/Creatinine Ratio 34; Blood Urea Nitrogen 34 mg/dL (9-20); Calcium 8.4 mg/dL (8.4-10.2); Hemolysis Index 3
[2020-08-05] MEDS: HEPARIN 5,000 UNIT/1 ML VIAL SUB-Q SCH ×3 (06:18→22:06)
[2020-08-05 06:36] LABS: Alanine Aminotransferase 157 units/L (7-56); Albumin 2.9 g/dL (3.9-5); BUN/Creatinine Ratio 32; Blood Urea Nitrogen 29 mg/dL (9-20); Calcium 8.2 mg/dL (8.4-10.2); Hemolysis Index 4
[2020-08-05] MEDS ORDERED: POTASSIUM CHLORIDE ER 20 MEQ TAB PO NR (08:49)
--- NOTE | 2020-08-05 08:55 | Progress Note ---
Assessment and Plan Assessment and plan: --Hypokalemia; Current Visit: Yes Status: Acute Plan to address problem: replenished with oral KCl --Acute renal failure Current Visit: Yes Status: Acute Plan to address problem: From dehydration [vasomotor nephropathy] Resolved, creatinine is normal range ---Dehydration Current Visit: Yes Status: Acute Plan to address problem: Improved, continue current management ---Elevated troponin present on admission Current Visit: Yes Status: Acute Plan to address problem: nonspecific, no cardiac symptoms ---Depression Current Visit: Yes Status: Acute Plan to address problem: Improved , denies suicidal thoughts or ideation psychiatry evaluated, patient is on fluoxetine Outpatient follow-up upon discharge ---Failure to thrive Current Visit: Yes Status: Acute Plan to address problem: On regular cardiac diet, With nutritional supplements ---Hypernatremia Current Visit: Yes Status: Acute Plan to address problem: Resolved, continue to encourage free water --Severe malnutrition/hypoalbuminemia; Current Visit: Yes Status: Acute Plan to address problem: 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 Trending down, follow abdominal ultrasound ---DVT prophylaxis Current Visit: Yes Status: Acute Plan to address problem: subcutaneous heparin. ---Full code status Current Visit: Yes Status: Acute We will closely monitor the patient and adjust management as needed Plan of care reviewed with the patient and his nurse History Interval history: I have seen and examined the patient at the bedside Patient's chart and medications reviewed Patient feels slightly better Vital signs noted Hospitalist Physical - Constitutional Vitals: Temp Pulse Resp BP Pulse Ox 97.4 F L 66 18 114/81 100 08/05/20 03:13 08/05/20 03:13 08/05/20 03:13 08/05/20 03:13 08/05/20 03:13 General appearance: Present: no acute distress, cachectic, disheveled, other (Dry oral Mucosa) - EENT Eyes: Present: PERRL, EOM intact - Neck Neck: Present: supple, normal ROM - Respiratory Respiratory effort: normal Respiratory: bilateral: diminished, negative: rales, rhonchi, wheezing - Cardiovascular Rhythm: regular Heart Sounds: Present: S1 & S2 - Extremities Extremities: no ischemia, No edema - Abdominal General gastrointestinal: soft, non-tender, non-distended, normal bowel sounds - Integumentary Integumentary: Present: clear, warm - Psychiatric Psychiatric: appropriate mood/affect, cooperative - Neurologic Neurologic: moves all extremities HEART Score - HEART Score Troponin: Troponin T 0.048 ng/mL (0.00-0.029) H 08/02/20 21:56 Results - Labs CBC & Chem 7: 08/04/20 06:26 08/05/20 19:59 Labs: Laboratory Last Values WBC 4.6 K/mm3 (4.5-11.0) 08/04/20 06: RBC 4.68 M/mm3 (3.65-5.03) 08/04/20 06: Hgb 15.0 gm/dl (11.8-15.2) D 08/04/20 06: Hct 43.8 % (35.5-45.6) D 08/04/20 06: MCV 94 fl (84-94) 08/04/20 06: MCH 32 pg (28-32) 08/04/20 06: MCHC 34 % (32-34) 08/04/20 06: RDW 14.5 % (13.2-15.2) 08/04/20 06: Plt Count 118 K/mm3 (140-440) L 08/04/20 06: Lymph % (Auto) 14.7 % (13.4-35.0) 08/04/20 06: [place] % (Auto) 6.7 % (0.0-7.3) 08/04/20 06: Eos % (Auto) 0.1 % (0.0-4.3) 08/04/20 06: Baso % (Auto) 0.0 % (0.0-1.8) 08/04/20 06: Lymph # (Auto) 0.7 K/mm3 (1.2-5.4) L 08/04/20 06: [place] # (Auto) 0.3 K/mm3 (0.0-0.8) 08/04/20 06:26 Eos # (Auto) 0.0 K/mm3 (0.0-0.4) 08/04/20 06: Baso # (Auto) 0.0 K/mm3 (0.0-0.1) 08/04/20 06:26 Seg Neutrophils % 78.5 % (40.0-70.0) H 08/04/20 06:26 Seg Neutrophils # 3.6 K/mm3 (1.8-7.7) 08/04/20 06:26 PT 14.5 Sec. (12.2-14.9) 08/04/20 06:26 INR 1.12 (0.87-1.13) 08/04/20 06:26 Sodium 144 mmol/L (137-145) 08/05/20 05:58 Potassium 3.0 mmol/L (3.6-5.0) L 08/05/20 05:58 Chloride 108.4 mmol/L (98-107) H 08/05/20 05:58 Carbon Dioxide 24 mmol/L (22-30) 08/05/20 05:58 Anion Gap 15 mmol/L 08/05/20 05:58 BUN 29 mg/dL (9-20) H 08/05/20 05:58 Creatinine 0.9 mg/dL (0.8-1.3) 08/05/20 05:58 Estimated GFR > 60 ml/min 08/05/20 05:58 BUN/Creatinine Ratio 32 % 08/05/20 05:58 Glucose 153 mg/dL (75-100) H 08/05/20 05:58 Calcium 8.2 mg/dL (8.4-10.2) L 08/05/20 05:58 Magnesium 2.80 mg/dL (1.7-2.3) H 08/03/20 15:29 Total Bilirubin 4.30 mg/dL (0.1-1.2) H 08/05/20 05:58 AST 48 units/L (5-40) H 08/05/20 05:58 ALT 157 units/L (7-56) H 08/05/20 05:58 Alkaline Phosphatase 81 units/L (35-129) 08/05/20 05:58 Total Creatine Kinase 93 units/L (55-170) 08/02/20 21:56 CK-MB (CK-2) 5.3 ng/mL (0.0-4.0) H 08/02/20 21:56 CK-MB (CK-2) Rel Index 5.6 (0-4) H 08/02/20 21:56 Troponin T 0.048 ng/mL (0.00-0.029) H 08/02/20 21:56 Total Protein 4.7 g/dL (6.3-8.2) L 08/05/20 05:58 Albumin 2.9 g/dL (3.9-5) L 08/05/20 05:58 Albumin/Globulin Ratio 1.6 % 08/05/20 05:58 Triglycerides 307 mg/dL (2-149) H 08/02/20 21:56 Cholesterol 232 mg/dL (50-199) H 08/02/20 21:56 LDL Cholesterol Direct 132 mg/dL (50-130) H 08/02/20 21:56 HDL Cholesterol 36 mg/dL (40-59) L 08/02/20 21:56 Cholesterol/HDL Ratio 6.44 % 08/02/20 21:56 Lipase 77 units/L (13-60) H 08/02/20 21:56 Urine Color Fifi (Yellow) 08/03/20 00:22 Urine Turbidity Clear (Clear) 08/03/20 00:22 Urine pH 5.0 (5.0-7.0) 08/03/20 00:22 Ur Specific [place] 1.021 (1.003-1.030) 08/03/20 00:22 Urine Protein <15 mg/dl mg/dL (Negative) 08/03/20 00:22 Urine Glucose (UA) Neg mg/dL (Negative) 08/03/20 00:22 Urine Ketones Neg mg/dL (Negative) 08/03/20 00: Urine Blood Sm (Negative) 08/03/20 00:22 Urine Nitrite Neg (Negative) 08/03/20 00:22 Urine Bilirubin Sm (Negative) 08/03/20 00:22 Urine Ictotest Negative (Negative) 08/03/20 00: Urine Urobilinogen 4.0 mg/dL (<2.0) 08/03/20 00:22 Ur Leukocyte Esterase Neg (Negative) 08/03/20 00:22 Urine WBC (Auto) 2.0 /HPF (0.0-6.0) 08/03/20 00:22 Urine RBC (Auto) < 1.0 /HPF (0.0-6.0) 08/03/20 00:22 U Epithel Cells (Auto) < 1.0 /HPF (0-13.0) 08/03/20 00:22 Hyaline Casts 1 /LPF 08/03/20 00:22 Guillen/IV: Voiding Method Urinal IV Catheter Type [left ac] Peripheral IV Active Medications - Current Medications Current Medications: Generic Name Dose Route Start Last Admin Trade Name Freq PRN Reason Stop Dose Admin Acetaminophen 650 mg 08/03/20 01:11 Tylenol PO Q4H PRN Pain MILD(1-3)/Fever >100.5/PATEL Fluoxetine HCl 10 mg 08/04/20 10:00 08/04/20 09:20 Prozac PO 10 mg QDAY LUCRECIA Administration Heparin Sodium (Porcine) 5,000 unit 08/03/20 06:00 08/05/20 06:18 Heparin SUB-Q 5,000 unit Q8HR LUCRECIA Administration Dextrose 1,000 mls @ 125 mls/hr 08/03/20 18:00 08/05/20 02:11 D5w IV 125 mls/hr DIRECT LUCRECIA Administration Magnesium Hydroxide 30 ml 08/03/20 01:11 Milk Of Magnesia PO Q4H PRN Constipation Ondansetron HCl 4 mg 08/03/20 01:11 Zofran IV Q8H PRN Nausea And Vomiting Potassium Chloride 40 meq 08/05/20 08:49 K-Dur PO 08/05/20 08:50 ONCE ONE Sodium Chloride 10 ml 08/03/20 10:00 08/04/20 21:00 Sodium Chloride Flush Syringe 10 Ml IV 10 ml BID LUCRECIA Administration Sodium Chloride 10 ml 08/03/20 01:11 Sodium Chloride Flush Syringe 10 Ml IV PRN PRN LINE FLUSH Nutrition/Malnutrition Assess - Dietary Evaluation Nutrition/Malnutrition Findings: Nutrition Notes Start: 08/03/20 11:43 Freq: Status: Active Protocol: Document 08/03/20 11:43 LINDEN (Rec: 08/03/20 11:56 LINDEN [id number]) Nutrition Notes Need for Assessment generated from: 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 Pt reports not eating due to "food not going into the right stomach" causing him to be scared to eat. RD encouraged light foods like soup, ONS and pt's favorite foods but he is unwilling to try. Pt is also concerned of the cost of ONS and its sugar content. Pt may need TF if continues to deny food. Percent of energy/protein needs met: 0%/0% Burn Absent Trauma Absent Current % PO Negligible Minimum of two criteria Yes Energy Intake (non-severe) <75% Estimated Energy Requirement >7 days Interpretation of Weight Loss (severe) >7.5% in 3 months Body Fat Depletion Moderate depletion (severe) Muscle Mass Moderate Depletion (severe) Reduced Home And Family Living Professor Strength Measurably Reduced (severe) #2 Nutrition Diagnosis Inadequate oral intake Etiology mental status As Evidenced by Signs and Symptoms pt denying all foods for past 3 mo #1 Nutrition Diagnosis Malnutrition Etiology mental status As Evidenced by Signs and Symptoms pt reports being anxious about eating, muscle and fat wasting, 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 No Is Patient Ambulatory and/or Out of Bed No REE-([place]-confined to bed) 1657.968 Kcal/Kg value to use for calculation 30 Approximate Energy Requirements Using 1905 kcal/Kg Calculation Used for Recommendations Kcal/kg Additional Notes Pro: 73-91 (1.2-1.5 g/kg) Fluid: 1 ml/kcal Nutrition Intervention Change Diet Order: Continue Goal #1 Meet at least 75% of energy and protein needs via PO intakes Goal #2 Weight maintanance/gain Anticipated Discharge Needs: Cardaic with ONS Follow-Up By: 08/05/20 Additional Comments FU for intakes and need for TF
--- NOTE | 2020-08-05 09:39 | Progress Note ---
Subjective Principal diagnosis: failure to thrive Interval history: Patient was seen today for follow-up of multiple renal related issues No complaints of any chest pain pressure or shortness of breath Interdisciplinary notes that also reviewed Events of 24 hours vitals labs intake output medications were reviewed Past medical history: Reviewed Family history: Reviewed Social history: Reviewed Allergies: Reviewed Physical examination: Vitals: Reviewed HEENT: No pallor or icterus oral mucosa moist Neck: Supple no JVD no thyromegaly Chest: Bilateral clear to auscultation anteriorly Heart: Regular rate and rhythm S1-S2 heard no S3-S4 Abdomen: Soft nontender no voluntary guarding rigidity rebound Extremity: Dry skin less than 1+ peripheral edema Psychiatric: No evidence of agitation and aggression noted Dermatology: No petechial rashes Labs and x-rays: Reviewed from today Assessment and plan Acute kidney injury, appears to be doing better with IV hydration alone Hypernatremia: To monitor and follow will periodically check sodium osmolality and uric acid level, if needed current sodium is satisfactory at 144 Hypokalemia: Continue to monitor and follow current potassium 3.0, should benefit from spironolactone therapy, continue to replace and monitor magnesium level periodically Blood pressure seems to be stable Admitted with adult failure to thrive-like picture was not eating or drinking for past 3 months 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 All nonrenal related issues to be followed by primary team Patient was adequately counseled and educated regarding all the renal related issues We'll continue to follow and make recommendation for renal standpoint Objective - Vital Signs Vital signs: Vital Signs - 12hr 08/04/20 08/04/20 08/05/20 22:00 23:01 02:00 Temperature 97.7 F Pulse Rate 62 62 Pulse Rate [ 72 From Monitor] Respiratory 16 18 Rate Blood Pressure 117/77 O2 Sat by Pulse 100 Oximetry 08/05/20 08/05/20 03:13 07:51 Temperature 97.4 F L 97.3 F L Pulse Rate 66 57 L Pulse Rate [ From Monitor] Respiratory 18 18 Rate Blood Pressure 114/81 108/71 O2 Sat by Pulse 100 99 Oximetry - Lab 08/04/20 06:26 08/05/20 14:10 Most recent lab results Calcium 8.2 mg/dL (8.4-10.2) L 08/05/20 05:58 Magnesium 2.80 mg/dL (1.7-2.3) H 08/03/20 15:29 Medications & Allergies - Medications Allergies/Adverse Reactions: Allergies No Known Allergies Allergy (Verified 08/02/20 22:50) Home Medications: Home Medications Medication Instructions Recorded Confirmed Last Taken Type RX: FLUoxetine [Prozac] 10 mg PO QDAY #1 bottle 08/03/20 Unknown Rx Active Medications: Generic Name Dose Route Start Last Admin Trade Name Freq PRN Reason Stop Dose Admin Acetaminophen 650 mg 08/03/20 01:11 Tylenol PO Q4H PRN Pain MILD(1-3)/Fever >100.5/PATEL Fluoxetine HCl 10 mg 08/04/20 10:00 08/04/20 09:20 Prozac PO 10 mg QDAY LUCRECIA Administration Heparin Sodium (Porcine) 5,000 unit 08/03/20 06:00 08/05/20 06:18 Heparin SUB-Q 5,000 unit Q8HR LUCRECIA Administration Dextrose 1,000 mls @ 125 mls/hr 08/03/20 18:00 08/05/20 02:11 D5w IV 125 mls/hr DIRECT ULCRECIA Administration Magnesium Hydroxide 30 ml 08/03/20 01:11 Milk Of Magnesia PO Q4H PRN Constipation Ondansetron HCl 4 mg 08/03/20 01:11 Zofran IV Q8H PRN Nausea And Vomiting Potassium Chloride 40 meq 08/05/20 08:49 K-Dur PO 08/05/20 12:00 ONCE NR Sodium Chloride 10 ml 08/03/20 10:00 08/04/20 21:00 Sodium Chloride Flush Syringe 10 Ml IV 10 ml BID LUCRECIA Administration Sodium Chloride 10 ml 08/03/20 01:11 Sodium Chloride Flush Syringe 10 Ml IV PRN PRN LINE FLUSH
--- NOTE | 2020-08-05 09:46 | Ultrasound Report ---
ULTRASOUND ABDOMEN, COMPLETE INDICATION: Elevate bilirubin - evaluate CBD COMPARISON: None available. FINDINGS: Pancreas: Normal. Abdominal Aorta: Normal. IVC: Normal. Liver: Normal. Gallbladder: The gallbladder is not well-visualized. In the expected location of the gallbladder yg a, there is "dirty shadowing". In addition, there is a 2.2 cm cystic focus with peripheral echogenic focus in the right upper quadrant. Bile ducts: Normal. Common Bile Duct measures 3 mm. Right Kidney: No acute findings. There is a 2.3 cm simple cyst. Left Kidney: Normal. Spleen: Normal. Free fluid: None. Additional Findings: None. IMPRESSION: 1. The gallbladder is not well visualized. In the gallbladder fossa, there is "dirty shadowing" which could be a loop of bowel or diffusely abnormal gallbladder with multiple stones or even gallbladder wall gas. 2.2 cm cystic focus in the right upper quadrant could be the tip of the gallbladder fundus. Given the history of elevated bilirubin, this abnormal appearance, and normal caliber of the common duct, CT with contrast is recommended to better characterize the gallbladder. Signer Name: Moo Cheng MD Signed: 08/05/2020 9:41 AM Workstation Name: [id number]
[2020-08-05] MEDS: FLUoxetine 20 MG/5 ML ORAL LIQD PO SCH (09:59)
[2020-08-05 13:18] LABS: Hepatitis B Surface Antigen Non-Reactive (Negative); Hepatitis C Virus Antibody Non-Reactive (NonReactive)
[2020-08-05 15:13] LABS: BUN/Creatinine Ratio 29; Blood Urea Nitrogen 26 mg/dL (9-20); Calcium 8.1 mg/dL (8.4-10.2); Hemolysis Index 18
[2020-08-05 20:30] LABS: BUN/Creatinine Ratio 34; Blood Urea Nitrogen 27 mg/dL (9-20); Calcium 8.6 mg/dL (8.4-10.2); Hemolysis Index 13
[2020-08-05] MEDS ORDERED: POTASSIUM CHLORIDE ER 20 MEQ TAB PO ONE (21:16)
[2020-08-06] MEDS ORDERED: HEPARIN 5,000 UNIT/1 ML VIAL ONE (05:22)
[2020-08-06] MEDS ORDERED: DIPHENOXYLATE/ATROPINE TAB PO PRN (11:30)
[2020-08-06] MEDS ORDERED: DIPHENOXYLATE/ATROPINE TAB PO ONE (11:30)
[2020-08-06] MEDS: DEXTROSE 5% IN WATER 1,000 ML IV SCH (19:34)
--- NOTE | 2020-08-06 20:00 | Progress Note ---
Assessment and Plan Assessment and plan: --Hypokalemia; Current Visit: Yes Status: Acute Plan to address problem: replenished with oral KCl --Acute renal failure Current Visit: Yes Status: Acute Plan to address problem: From dehydration [vasomotor nephropathy] Resolved, creatinine is normal range ---Dehydration Current Visit: Yes Status: Acute Plan to address problem: Improved, continue current management ---Elevated troponin present on admission Current Visit: Yes Status: Acute Plan to address problem: nonspecific, no cardiac symptoms ---Depression Current Visit: Yes Status: Acute Plan to address problem: Improved , denies suicidal thoughts or ideation psychiatry evaluated, patient is on fluoxetine Outpatient follow-up upon discharge ---Failure to thrive Current Visit: Yes Status: Acute Plan to address problem: On regular cardiac diet, With nutritional supplements ---Hypernatremia Current Visit: Yes Status: Acute Plan to address problem: Resolved, continue to encourage free water --Severe malnutrition/hypoalbuminemia; Current Visit: Yes Status: Acute Plan to address problem: 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 Trending down, follow abdominal ultrasound ---DVT prophylaxis Current Visit: Yes Status: Acute Plan to address problem: subcutaneous heparin. ---Full code status Current Visit: Yes Status: Acute We will closely monitor the patient and adjust management as needed Plan of care reviewed with the patient and his nurse History Interval history: I have seen and examined the patient this morning Patient's chart and medications reviewed Patient is depressed, complains of generalized weakness Vital signs noted Hospitalist Physical - Constitutional Vitals: Temp Pulse Resp BP Pulse Ox 98.0 F 68 16 92/62 99 08/05/20 22:27 08/05/20 22:40 08/05/20 22:27 08/05/20 22:40 08/05/20 22:27 General appearance: Present: no acute distress, cachectic, disheveled - EENT Eyes: Present: PERRL, EOM intact - Neck Neck: Present: supple, normal ROM - Respiratory Respiratory effort: normal Respiratory: bilateral: diminished, negative: rales, rhonchi, wheezing - Cardiovascular Rhythm: regular Heart Sounds: Present: S1 & S2 - Extremities Extremities: no ischemia, No edema - Abdominal General gastrointestinal: soft, non-tender, non-distended, normal bowel sounds - Integumentary Integumentary: Present: clear, warm - Psychiatric Psychiatric: cooperative, depressed - Neurologic Neurologic: moves all extremities HEART Score - HEART Score Troponin: Troponin T 0.048 ng/mL (0.00-0.029) H 08/02/20 21:56 Results - Labs CBC & Chem 7: 08/04/20 06:26 08/07/20 04:41 Labs: Laboratory Last Values WBC 4.6 K/mm3 (4.5-11.0) 08/04/20 06: RBC 4.68 M/mm3 (3.65-5.03) 08/04/20 06: Hgb 15.0 gm/dl (11.8-15.2) D 08/04/20 06: Hct 43.8 % (35.5-45.6) D 08/04/20 06: MCV 94 fl (84-94) 08/04/20 06: MCH 32 pg (28-32) 08/04/20 06: MCHC 34 % (32-34) 08/04/20 06:26 RDW 14.5 % (13.2-15.2) 08/04/20 06:26 Plt Count 118 K/mm3 (140-440) L 08/04/20 06: Lymph % (Auto) 14.7 % (13.4-35.0) 08/04/20 06: [place] % (Auto) 6.7 % (0.0-7.3) 08/04/20 06: Eos % (Auto) 0.1 % (0.0-4.3) 08/04/20 06: Baso % (Auto) 0.0 % (0.0-1.8) 08/04/20 06: Lymph # (Auto) 0.7 K/mm3 (1.2-5.4) L 08/04/20 06: [place] # (Auto) 0.3 K/mm3 (0.0-0.8) 08/04/20 06: Eos # (Auto) 0.0 K/mm3 (0.0-0.4) 08/04/20 06: Baso # (Auto) 0.0 K/mm3 (0.0-0.1) 08/04/20 06:26 Seg Neutrophils % 78.5 % (40.0-70.0) H 08/04/20 06:26 Seg Neutrophils # 3.6 K/mm3 (1.8-7.7) 08/04/20 06:26 PT 14.5 Sec. (12.2-14.9) 08/04/20 06:26 INR 1.12 (0.87-1.13) 08/04/20 06:26 Sodium 142 mmol/L (137-145) 08/05/20 19:59 Potassium 3.4 mmol/L (3.6-5.0) L 08/05/20 19:59 Chloride 106.6 mmol/L (98-107) 08/05/20 19:59 Carbon Dioxide 23 mmol/L (22-30) 08/05/20 19:59 Anion Gap 16 mmol/L 08/05/20 19:59 BUN 27 mg/dL (9-20) H 08/05/20 19:59 Creatinine 0.8 mg/dL (0.8-1.3) 08/05/20 19:59 Estimated GFR > 60 ml/min 08/05/20 19:59 BUN/Creatinine Ratio 34 % 08/05/20 19:59 Glucose 145 mg/dL (75-100) H 08/05/20 19:59 Calcium 8.6 mg/dL (8.4-10.2) 08/05/20 19:59 Magnesium 2.80 mg/dL (1.7-2.3) H 08/03/20 15:29 Total Bilirubin 4.30 mg/dL (0.1-1.2) H 08/05/20 05:58 AST 48 units/L (5-40) H 08/05/20 05:58 ALT 157 units/L (7-56) H 08/05/20 05:58 Alkaline Phosphatase 81 units/L (35-129) 08/05/20 05:58 Total Creatine Kinase 93 units/L (55-170) 08/02/20 21:56 CK-MB (CK-2) 5.3 ng/mL (0.0-4.0) H 08/02/20 21:56 CK-MB (CK-2) Rel Index 5.6 (0-4) H 08/02/20 21:56 Troponin T 0.048 ng/mL (0.00-0.029) H 08/02/20 21:56 Total Protein 4.7 g/dL (6.3-8.2) L 08/05/20 05:58 Albumin 2.9 g/dL (3.9-5) L 08/05/20 05:58 Albumin/Globulin Ratio 1.6 % 08/05/20 05:58 Triglycerides 307 mg/dL (2-149) H 08/02/20 21:56 Cholesterol 232 mg/dL (50-199) H 08/02/20 21:56 LDL Cholesterol Direct 132 mg/dL (50-130) H 08/02/20 21:56 HDL Cholesterol 36 mg/dL (40-59) L 08/02/20 21:56 Cholesterol/HDL Ratio 6.44 % 08/02/20 21:56 Lipase 77 units/L (13-60) H 08/02/20 21:56 Urine Color Fifi (Yellow) 08/03/20 00:22 Urine Turbidity Clear (Clear) 08/03/20 00:22 Urine pH 5.0 (5.0-7.0) 08/03/20 00:22 Ur Specific [place] 1.021 (1.003-1.030) 08/03/20 00:22 Urine Protein <15 mg/dl mg/dL (Negative) 08/03/20:22 Urine Glucose (UA) Neg mg/dL (Negative) 08/03/20 00:22 Urine Ketones Neg mg/dL (Negative) 08/03/20 00: Urine Blood Sm (Negative) 08/03/20: Urine Nitrite Neg (Negative) 08/03/20 00:22 Urine Bilirubin Sm (Negative) 08/03/20 00:22 Urine Ictotest Negative (Negative) 08/03/20: Urine Urobilinogen 4.0 mg/dL (<2.0) 08/03/20:22 Ur Leukocyte Esterase Neg (Negative) 08/03/20 00:22 Urine WBC (Auto) 2.0 /HPF (0.0-6.0) 08/03/20 00:22 Urine RBC (Auto) < 1.0 /HPF (0.0-6.0) 10/24/20 00:22 U Epithel Cells (Auto) < 1.0 /HPF (0-13.0) 08/03/20 00:22 Hyaline Casts 1 /LPF 08/03/20 00:22 Hepatitis A IgM Ab Non-reactive (NonReactive) 08/05/20 09:25 Hep Bs Antigen Non-reactive (Negative) 08/05/20 09:25 Hep B Core IgM Ab Non-reactive (NonReactive) 08/05/20 09:25 Hepatitis C Antibody Non-reactive (NonReactive) 08/05/20 09:25 Guillen/IV: Voiding Method Urinal IV Catheter Type [left ac] Peripheral IV Active Medications - Current Medications Current Medications: Generic Name Dose Route Start Last Admin Trade Name Freq PRN Reason Stop Dose Admin Acetaminophen 650 mg 08/03/20 01:11 Tylenol PO Q4H PRN Pain MILD(1-3)/Fever >100.5/PATEL Fluoxetine HCl 10 mg 08/04/20 10:00 08/05/20 09:59 Prozac PO 10 mg QDAY LUCRECIA Administration Heparin Sodium (Porcine) 5,000 unit 08/03/20 06:00 08/05/20 22:06 Heparin SUB-Q 5,000 unit Q8HR LUCRECIA Administration Dextrose 1,000 mls @ 125 mls/hr 08/03/20 18:00 08/06/20 19:34 D5w IV 125 mls/hr DIRECT LUCRECIA Administration Magnesium Hydroxide 30 ml 08/03/20 01:11 Milk Of Magnesia PO Q4H PRN Constipation Ondansetron HCl 4 mg 08/03/20 01:11 Zofran IV Q8H PRN Nausea And Vomiting Sodium Chloride 10 ml 08/03/20 10:00 08/05/20 22:12 Sodium Chloride Flush Syringe 10 Ml IV 10 ml BID LUCRECIA Administration Sodium Chloride 10 ml 08/03/20 01:11 Sodium Chloride Flush Syringe 10 Ml IV PRN PRN LINE FLUSH Nutrition/Malnutrition Assess - Dietary Evaluation Nutrition/Malnutrition Findings: Nutrition Notes Start: 08/03/20 11:43 Freq: Status: Active Protocol: Document 08/05/20 11:58 MK (Rec: 08/05/20 12:07 [id number]) Nutrition Notes Initial or Follow up Reassessment Current Diagnosis Hypertension Other Pertinent Diagnosis Failure to Thrive, Acute CHRISTIE, Dehydration, Depression Current Diet Cardiac Labs/Tests K 3.0 BUN 29 Pertinent Medications K-Dur 40 mEq D5w at 125 ml/hr Height 5 ft 10 in Weight 62.2 kg [place] Body Weight (kg) 75.45 BMI 19.6 Weight change and time frame 2% wt loss 2 days Weight Status Underweight Subjective/Other Information FU for intakes. Per RN, pt not eating meals. RN observed pt drank 50% of 1 Ensure. Pt states Ensure is going in wrong stomach. RD encourged pt to keep trying to drink and eat. 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 No Is Patient Ambulatory and/or Out of Bed No REE-([place]-confined to bed) 1642.356 Kcal/Kg value to use for calculation 30 Approximate Energy Requirements Using 1866 kcal/Kg Calculation Used for Recommendations Kcal/kg Additional Notes Pro: 73-91 (1.2-1.5 g/kg) Fluid: 1 ml/kcal Nutrition Intervention Change Diet Order: Continue Add Supplement/Snack (indicate name/kcal Ensure Enlive TID /protein ) Provides kCal: 1,050 Provides Protein (gm) 60 Goal #1 Meet at least 75% of energy and protein needs via PO and ONS intakes Goal #2 Weight maintanance/gain Anticipated Discharge Needs: Cardaic with ONS Follow-Up By: 08/07/20 Additional Comments FU for intakes and ONS tolerance
--- NOTE | 2020-08-06 20:51 | Progress Note ---
Subjective Principal diagnosis: failure to thrive Interval history: Patient was seen today for follow-up of multiple renal related issues,around 9:15 in the morning No complaints of any chest pain pressure or shortness of breath Interdisciplinary notes that also reviewed Events of 24 hours vitals labs intake output medications were reviewed Past medical history: Reviewed Family history: Reviewed Social history: Reviewed Allergies: Reviewed Physical examination: Vitals: Reviewed HEENT: No pallor or icterus oral mucosa moist Neck: Supple no JVD no thyromegaly Chest: Bilateral clear to auscultation anteriorly Heart: Regular rate and rhythm S1-S2 heard no S3-S4 Abdomen: Soft nontender no voluntary guarding rigidity rebound Extremity: Dry skin less than 1+ peripheral edema Psychiatric: No evidence of agitation and aggression noted Dermatology: No petechial rashes Labs and x-rays: Reviewed from today Assessment and plan Acute kidney injury, appears to be doing better with IV hydration alone encourage oral hydration as well as nutrition, electrolyte imbalance is to monitor and follow Blood pressure seems to be stable Admitted with adult failure to thrive-like picture was not eating or drinking for past 3 months lost 75 pounds weight reference services head to follow, regarding 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 All nonrenal related issues to be followed by primary team Patient was adequately counseled and educated regarding all the renal related issues We'll continue to follow and make recommendation for renal standpoint Objective - Vital Signs Vital signs: Vital Signs - 12hr 08/06/20 08/06/20 08/06/20 19:05 20:02 20:39 Temperature 97.4 F L Pulse Rate 76 Respiratory 18 20 Rate Blood Pressure 88/64 Blood Pressure 99/69 [right arm] O2 Sat by Pulse 99 Oximetry - Lab 08/04/20 06:26 08/05/20 19:59 Most recent lab results Calcium 8.6 mg/dL (8.4-10.2) 08/05/20 19:59 Magnesium 2.80 mg/dL (1.7-2.3) H 08/03/20 15:29 Medications & Allergies - Medications Allergies/Adverse Reactions: Allergies No Known Allergies Allergy (Verified 08/02/20 22:50) Home Medications: Home Medications Medication Instructions Recorded Confirmed Last Taken Type FLUoxetine [Prozac] 10 mg PO QDAY #1 bottle 08/03/20 Unknown Rx Active Medications: Generic Name Dose Route Start Last Admin Trade Name Freq PRN Reason Stop Dose Admin Acetaminophen 650 mg 08/03/20 01:11 Tylenol PO Q4H PRN Pain MILD(1-3)/Fever >100.5/PATEL Fluoxetine HCl 10 mg 08/04/20 10:00 08/05/20 09:59 Prozac PO 10 mg QDAY LUCRECIA Administration Heparin Sodium (Porcine) 5,000 unit 08/03/20 06:00 08/05/20 22:06 Heparin SUB-Q 5,000 unit Q8HR LUCRECIA Administration Dextrose 1,000 mls @ 125 mls/hr 08/03/20 18:00 08/06/20 19:34 D5w IV 125 mls/hr DIRECT LUCRECIA Administration Magnesium Hydroxide 30 ml 08/03/20 01:11 Milk Of Magnesia PO Q4H PRN Constipation Ondansetron HCl 4 mg 08/03/20 01:11 Zofran IV Q8H PRN Nausea And Vomiting Sodium Chloride 10 ml 08/03/20 10:00 08/05/20 22:12 Sodium Chloride Flush Syringe 10 Ml IV 10 ml BID LUCRECIA Administration Sodium Chloride 10 ml 08/03/20 01:11 Sodium Chloride Flush Syringe 10 Ml IV PRN PRN LINE FLUSH
[2020-08-06] MEDS: HEPARIN 5,000 UNIT/1 ML VIAL SUB-Q SCH ×3 (21:56→22:03)
[2020-08-06] MEDS: FLUoxetine 20 MG/5 ML ORAL LIQD PO SCH (22:04)
[2020-08-07] MEDS: HEPARIN 5,000 UNIT/1 ML VIAL SUB-Q SCH ×3 (05:46→21:02)
[2020-08-07] MEDS: NACL IV SCH ×2 (05:47→22:05)
[2020-08-07] MEDS: D5W IV SCH ×2 (05:47→22:05)
[2020-08-07] MEDS: POTASSIUM CHLORIDE IV SCH ×2 (05:47→22:05)
[2020-08-07 06:10] LABS: Alanine Aminotransferase 104 units/L (7-56); Albumin 2.7 g/dL (3.9-5); BUN/Creatinine Ratio 20; Blood Urea Nitrogen 16 mg/dL (9-20); Calcium 8.1 mg/dL (8.4-10.2); Hemolysis Index 5
--- NOTE | 2020-08-07 08:06 | Progress Note ---
Subjective Principal diagnosis: failure to thrive Interval history: Patient was seen today for follow-up of multiple renal related issues,along with his nurse, he still continues to feel weak appetite remains poor Events of 24 hours vitals labs intake output medications were reviewed Past medical history: Reviewed Family history: Reviewed Social history: Reviewed Allergies: Reviewed Physical examination: Vitals: Reviewed HEENT: No pallor or icterus oral mucosa moist Neck: Supple no JVD no thyromegaly Chest: Bilateral clear to auscultation anteriorly Heart: Regular rate and rhythm S1-S2 heard no S3-S4 Abdomen: Soft nontender no voluntary guarding rigidity rebound Extremity: Dry skin less than 1+ peripheral edema Psychiatric: No evidence of agitation and aggression noted Dermatology: No petechial rashes Labs and x-rays: Reviewed from today Assessment and plan Acute kidney injury: Currently in complete remission Hypokalemia appears to have resolved current potassium is around 3.6 Patient in general feels very weak and tired should be considered for physical therapy and possible rehab Malnutrition current albumin is around 2.7, needs high-protein diet close follow-up May benefit from psychiatric evaluation We will sign off the case please call if needed Objective - Vital Signs Vital signs: Vital Signs - 12hr 08/06/20 08/06/20 08/06/20 20:39 22:00 23:00 Temperature 97.4 F L Pulse Rate 74 75 Respiratory 20 16 Rate Blood Pressure 109/64 O2 Sat by Pulse 99 Oximetry 08/07/20 03:21 Temperature 97.4 F L Pulse Rate 68 Respiratory 16 Rate Blood Pressure 136/94 O2 Sat by Pulse 100 Oximetry - Lab 08/04/20 06:26 08/07/20 04:41 Most recent lab results Calcium 8.1 mg/dL (8.4-10.2) L 08/07/20 04:41 Magnesium 2.80 mg/dL (1.7-2.3) H 08/03/20 15:29 Medications & Allergies - Medications Allergies/Adverse Reactions: Allergies No Known Allergies Allergy (Verified 08/02/20 22:50) Home Medications: Home Medications Medication Instructions Recorded Confirmed Last Taken Type FLUoxetine [Prozac] 10 mg PO QDAY #1 bottle 08/03/20 Unknown Rx Active Medications: Generic Name Dose Route Start Last Admin Trade Name Freq PRN Reason Stop Dose Admin Acetaminophen 650 mg 08/03/20 01:11 Tylenol PO Q4H PRN Pain MILD(1-3)/Fever >100.5/PATEL Diphenoxylate HCl/Atropine 2 tab 08/06/20 11:30 Lomotil PO TID PRN Diarrhea Fluoxetine HCl 10 mg 08/04/20 10:00 08/06/20 22:04 Prozac PO Not Given QDAY LUCRECIA Heparin Sodium (Porcine) 5,000 unit 08/03/20 06:00 08/07/20 05:46 Heparin SUB-Q 5,000 unit Q8HR LUCRECIA Administration Potassium Chloride 40 meq/ 1,020 mls @ 75 mls/hr 08/06/20 21:00 08/07/20 05:47 Dextrose/Sodium Chloride IV 75 mls/hr DIRECT LUCRECIA Administration Magnesium Hydroxide 30 ml 08/03/20 01:11 Milk Of Magnesia PO Q4H PRN Constipation Ondansetron HCl 4 mg 08/03/20 01:11 Zofran IV Q8H PRN Nausea And Vomiting Sodium Chloride 10 ml 08/03/20 10:00 08/06/20 22:04 Sodium Chloride Flush Syringe 10 Ml IV Not Given BID LUCRECIA Sodium Chloride 10 ml 08/03/20 01:11 Sodium Chloride Flush Syringe 10 Ml IV PRN PRN LINE FLUSH
[2020-08-07] MEDS: FLUoxetine 20 MG/5 ML ORAL LIQD PO SCH (09:37)
--- NOTE | 2020-08-07 20:12 | Progress Note ---
Assessment and Plan Assessment and plan: --Hypokalemia; Current Visit: Yes Status: Acute Plan to address problem: Resolved, monitor electrolytes --Acute renal failure Current Visit: Yes Status: Acute Plan to address problem: From dehydration [vasomotor nephropathy] Resolved, avoid nephrotoxins ---Dehydration Current Visit: Yes Status: Acute Plan to address problem: Improved, continue current management ---Elevated troponin present on admission Current Visit: Yes Status: Acute Plan to address problem: nonspecific, no cardiac symptoms ---Depression Current Visit: Yes Status: Acute Plan to address problem: Improved , denies suicidal thoughts or ideation psychiatry evaluated, patient is on fluoxetine Outpatient follow-up upon discharge ---Failure to thrive Current Visit: Yes Status: Acute Plan to address problem: On regular cardiac diet, With nutritional supplements ---Hypernatremia Current Visit: Yes Status: Acute Plan to address problem: Resolved, continue to encourage free water --Severe malnutrition/hypoalbuminemia; Current Visit: Yes Status: Acute Plan to address problem: Nutrition supplements, business management specialist following Supportive care --- Elevated bilirubin and elevated liver function tests Current Visit: Yes Status: Acute Plan to address problem: Transaminitis, hyperbilirubinemia, unknown etiology. Trending down, follow abdominal ultrasound --General debility/failure to thrive in an adult Current Visit: Yes Status: Acute Plan to address problem: physical therapy, Occupational Therapy Evaluated, recommend acute rehab Acute rehab consult placed ---DVT prophylaxis Current Visit: Yes Status: Acute Plan to address problem: subcutaneous heparin. ---Full code status Current Visit: Yes Status: Acute We will closely monitor the patient and adjust management as needed Plan of care reviewed with the patient, case management and his nurse No acute rehab evaluation, and possible discharge to ARU if accepted Hospitalist Physical - Constitutional Vitals: Temp Pulse Resp BP Pulse Ox 98.3 F 74 20 96/63 98 08/07/20 15:03 08/07/20 15:03 08/07/20 15:03 08/07/20 15:03 08/07/20 15:03 General appearance: Present: no acute distress, cachectic, disheveled, other (Depressed) - EENT Eyes: Present: PERRL, EOM intact - Neck Neck: Present: supple, normal ROM - Respiratory Respiratory effort: normal Respiratory: bilateral: diminished, negative: rales, rhonchi, wheezing - Cardiovascular Rhythm: regular Heart Sounds: Present: S1 & S2 - Extremities Extremities: no ischemia, No edema - Abdominal General gastrointestinal: soft, non-tender, non-distended, normal bowel sounds - Integumentary Integumentary: Present: clear, warm - Psychiatric Psychiatric: cooperative, depressed - Neurologic Neurologic: moves all extremities, other (Lysed weakness and general debility) HEART Score - HEART Score Troponin: Troponin T 0.048 ng/mL (0.00-0.029) H 08/02/20 21:56 Results - Labs CBC & Chem 7: 08/04/20 06:26 08/07/20 04:41 Labs: Laboratory Last Values WBC 4.6 K/mm3 (4.5-11.0) 08/04/20 06: RBC 4.68 M/mm3 (3.65-5.03) 08/04/20 06:26 Hgb 15.0 gm/dl (11.8-15.2) D 08/04/20 06: Hct 43.8 % (35.5-45.6) D 08/04/20 06: MCV 94 fl (84-94) 08/04/20 06: MCH 32 pg (28-32) 08/04/20 06: MCHC 34 % (32-34) 08/04/20 06: RDW 14.5 % (13.2-15.2) 08/04/20 06:26 Plt Count 118 K/mm3 (140-440) L 08/04/20 06: Lymph % (Auto) 14.7 % (13.4-35.0) 08/04/20 06: [place] % (Auto) 6.7 % (0.0-7.3) 08/04/20 06: Eos % (Auto) 0.1 % (0.0-4.3) 08/04/20 06: Baso % (Auto) 0.0 % (0.0-1.8) 08/04/20 06: Lymph # (Auto) 0.7 K/mm3 (1.2-5.4) L 08/04/20 06: [place] # (Auto) 0.3 K/mm3 (0.0-0.8) 08/04/20 06:26 Eos # (Auto) 0.0 K/mm3 (0.0-0.4) 08/04/20 06:26 Baso # (Auto) 0.0 K/mm3 (0.0-0.1) 08/04/20 06:26 Seg Neutrophils % 78.5 % (40.0-70.0) H 08/04/20 06:26 Seg Neutrophils # 3.6 K/mm3 (1.8-7.7) 08/04/20 06:26 PT 14.5 Sec. (12.2-14.9) 08/04/20 06:26 INR 1.12 (0.87-1.13) 08/04/20 06:26 Sodium 140 mmol/L (137-145) 08/07/20 04:41 Potassium 3.6 mmol/L (3.6-5.0) 08/07/20 04:41 Chloride 104.5 mmol/L (98-107) 08/07/20 04:41 Carbon Dioxide 28 mmol/L (22-30) 08/07/20 04:41 Anion Gap 11 mmol/L 08/07/20 04:41 BUN 16 mg/dL (9-20) 08/07/20 04:41 Creatinine 0.8 mg/dL (0.8-1.3) 08/07/20 04:41 Estimated GFR > 60 ml/min 08/07/20 04:41 BUN/Creatinine Ratio 20 % 08/07/20 04:41 Glucose 132 mg/dL (75-100) H 08/07/20 04:41 Calcium 8.1 mg/dL (8.4-10.2) L 08/07/20 04:41 Magnesium 2.80 mg/dL (1.7-2.3) H 08/03/20 15:29 Total Bilirubin 3.30 mg/dL (0.1-1.2) H 08/07/20 04:41 AST 25 units/L (5-40) 08/07/20 04:41 ALT 104 units/L (7-56) H 08/07/20 04:41 Alkaline Phosphatase 84 units/L (35-129) 08/07/20 04:41 Total Creatine Kinase 93 units/L (55-170) 08/02/20 21:56 CK-MB (CK-2) 5.3 ng/mL (0.0-4.0) H 08/02/20 21:56 CK-MB (CK-2) Rel Index 5.6 (0-4) H 08/02/20 21:56 Troponin T 0.048 ng/mL (0.00-0.029) H 08/02/20 21:56 Total Protein 4.6 g/dL (6.3-8.2) L 08/07/20 04:41 Albumin 2.7 g/dL (3.9-5) L 08/07/20 04:41 Albumin/Globulin Ratio 1.4 % 08/07/20 04:41 Triglycerides 307 mg/dL (2-149) H 08/02/20 21:56 Cholesterol 232 mg/dL (50-199) H 08/02/20 21:56 LDL Cholesterol Direct 132 mg/dL (50-130) H 08/02/20 21:56 HDL Cholesterol 36 mg/dL (40-59) L 08/02/20 21:56 Cholesterol/HDL Ratio 6.44 % 08/02/20 21:56 Lipase 77 units/L (13-60) H 08/02/20 21:56 Urine Color Fifi (Yellow) 08/03/20 00:22 Urine Turbidity Clear (Clear) 08/03/20 00:22 Urine pH 5.0 (5.0-7.0) 08/03/20 00:22 Ur Specific [place] 1.021 (1.003-1.030) 08/03/20 00:22 Urine Protein <15 mg/dl mg/dL (Negative) 08/03/20 00:22 Urine Glucose (UA) Neg mg/dL (Negative) 08/03/20 00:22 Urine Ketones Neg mg/dL (Negative) 08/03/20 00:22 Urine Blood Sm (Negative) 08/03/20 00:22 Urine Nitrite Neg (Negative) 08/03/20 00: Urine Bilirubin Sm (Negative) 08/03/20:22 Urine Ictotest Negative (Negative) 08/03/20 00:22 Urine Urobilinogen 4.0 mg/dL (<2.0) 08/03/20 00:22 Ur Leukocyte Esterase Neg (Negative) 08/03/20 00:22 Urine WBC (Auto) 2.0 /HPF (0.0-6.0) 08/03/20 00:22 Urine RBC (Auto) < 1.0 /HPF (0.0-6.0) 08/03/20 00:22 U Epithel Cells (Auto) < 1.0 /HPF (0-13.0) 08/03/20 00:22 Hyaline Casts 1 /LPF 08/03/20 00:22 Hepatitis A IgM Ab Non-reactive (NonReactive) 08/05/20 09:25 Hep Bs Antigen Non-reactive (Negative) 08/05/20 09:25 Hep B Core IgM Ab Non-reactive (NonReactive) 08/05/20 09:25 Hepatitis C Antibody Non-reactive (NonReactive) 08/05/20 09:25 Guillen/IV: Voiding Method Urinal IV Catheter Type [left ac] Peripheral IV Active Medications - Current Medications Current Medications: Generic Name Dose Route Start Last Admin Trade Name Freq PRN Reason Stop Dose Admin Acetaminophen 650 mg 08/03/20 01:11 Tylenol PO Q4H PRN Pain MILD(1-3)/Fever >100.5/PATEL Diphenoxylate HCl/Atropine 2 tab 08/06/20 11:30 Lomotil PO TID PRN Diarrhea Fluoxetine HCl 10 mg 08/04/20 10:00 08/07/20 09:37 Prozac PO 10 mg QDAY LUCRECIA Administration Heparin Sodium (Porcine) 5,000 unit 08/03/20 06:00 08/07/20 13:23 Heparin SUB-Q Not Given Q8HR LUCRECIA Potassium Chloride 40 meq/ 1,020 mls @ 75 mls/hr 08/06/20 21:00 08/07/20 05:47 Dextrose/Sodium Chloride IV 75 mls/hr DIRECT LUCRECIA Administration Magnesium Hydroxide 30 ml 08/03/20 01:11 Milk Of Magnesia PO Q4H PRN Constipation Ondansetron HCl 4 mg 08/03/20 01:11 Zofran IV Q8H PRN Nausea And Vomiting Sodium Chloride 10 ml 08/03/20 10:00 08/07/20 09:38 Sodium Chloride Flush Syringe 10 Ml IV 10 ml BID LUCRECIA Administration Sodium Chloride 10 ml 08/03/20 01:11 Sodium Chloride Flush Syringe 10 Ml IV PRN PRN LINE FLUSH Nutrition/Malnutrition Assess - Dietary Evaluation Nutrition/Malnutrition Findings: Nutrition Notes Start: 08/03/20 11:43 Freq: Status: Active Protocol: Document 08/07/20 10:53 KAMI (Rec: 08/07/20 11:03 KAMI [id number]) Co-Sign 08/07/20 10:53 LM Nutrition Notes Initial or Follow up Reassessment Current Diagnosis Hypertension Other Pertinent Diagnosis Failure to Thrive, Acute CHRISTIE, Dehydration, Depression Current Diet Cardiac Labs/Tests Bili 3.3 Pertinent Medications 40 mEq KCl in D5NS at 75 ml/hr Height 5 ft 10 in Weight 64.4 kg [place] Body Weight (kg) 75.45 BMI 20.3 Weight change and time frame 3% wt gain in 2 days Weight Status Underweight Subjective/Other Information F/U for intakes. Pt reports consuming very little PO/ONS. Pt repeated concerns of sugar content in Ensure and expresses having no energy. Pt states his "small stomach can only digest mucus." DI encouraged pt to try to eat and addressed concerns about Ensure. DI observed 2 unopened Ensures in room. Percent of energy/protein needs met: 0%/0% Burn Absent Trauma Absent GI Symptoms None Current % PO Negligible Minimum of two criteria Yes Energy Intake (non-severe) <75% Estimated Energy Requirement >7 days Interpretation of Weight Loss (severe) >7.5% in 3 months Body Fat Depletion Moderate depletion (severe) Muscle Mass Moderate Depletion (severe) Reduced Toll Operator Strength Measurably Reduced (severe) #2 Nutrition Diagnosis Inadequate oral intake As Evidenced by Signs and Symptoms pt consuming 0% PO/ONS Diagnosis Progress(for reassessment Worsened documentation) #1 Nutrition Diagnosis Malnutrition Diagnosis Progress(for reassessment Continues documentation) Is patient on ventilator? No Is Patient Ambulatory and/or Out of Bed No REE-([facility]-confined to bed) 1668.732 Kcal/Kg value to use for calculation 30 Approximate Energy Requirements Using 1932 kcal/Kg Calculation Used for Recommendations Kcal/kg Additional Notes Pro: 73-91 (1.2-1.5 g/kg) Fluid: 1 ml/kcal Nutrition Intervention Change Diet Order: Continue cardiac or TF if pt intakes remain 0% Add Supplement/Snack (indicate name/kcal Ensure Enlive Daily /protein ) Provides kCal: 350 Provides Protein (gm) 20 Goal #1 Meet at least 75% of energy and protein needs via PO and ONS intakes Goal #2 Weight maintanance/gain Anticipated Discharge Needs: Cardiac with ONS Follow-Up By: 10/30/20 Additional Comments F/U for PO/ONS intakes
[2020-08-08] MEDS: HEPARIN 5,000 UNIT/1 ML VIAL SUB-Q SCH ×3 (05:11→21:39)
[2020-08-08] MEDS: FLUoxetine 20 MG/5 ML ORAL LIQD PO SCH (09:26)
[2020-08-08] MEDS: NACL IV SCH (10:59)
[2020-08-08] MEDS: POTASSIUM CHLORIDE IV SCH (10:59)
[2020-08-08] MEDS: D5W IV SCH (10:59)
--- NOTE | 2020-08-08 15:44 | Progress Note ---
Assessment and Plan Assessment and plan: --Hypokalemia; Current Visit: Yes Status: Acute Plan to address problem: Resolved, monitor electrolytes --Acute renal failure Current Visit: Yes Status: Acute Plan to address problem: From dehydration [vasomotor nephropathy] Resolved, avoid nephrotoxins ---Dehydration Current Visit: Yes Status: Acute Plan to address problem: Improved, continue current management ---Elevated troponin present on admission Current Visit: Yes Status: Acute Plan to address problem: nonspecific, no cardiac symptoms ---Depression Current Visit: Yes Status: Acute Plan to address problem: Improved , denies suicidal thoughts or ideation psychiatry evaluated, patient is on fluoxetine Outpatient follow-up upon discharge ---Failure to thrive Current Visit: Yes Status: Acute Plan to address problem: On regular cardiac diet, With nutritional supplements ---Hypernatremia Current Visit: Yes Status: Acute Plan to address problem: Resolved, continue to encourage free water --Severe malnutrition/hypoalbuminemia; Current Visit: Yes Status: Acute Plan to address problem: 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 Trending down, follow abdominal ultrasound --General debility/failure to thrive in an adult Current Visit: Yes Status: Acute Plan to address problem: physical therapy, Occupational Therapy Evaluated, recommend acute rehab Acute rehab consult placed ---DVT prophylaxis Current Visit: Yes Status: Acute Plan to address problem: subcutaneous heparin. ---Full code status Current Visit: Yes Status: Acute We will closely monitor the patient and adjust management as needed Plan of care reviewed with the patient, case management and his nurse No acute rehab evaluation, and possible discharge to ARU if accepted History Interval history: I have seen and examined the patient at the bedside today Patient complains of generalized weakness, reports that he is unable to walk Chronically ill looking cachectic Vital signs noted Hospitalist Physical - Constitutional Vitals: Temp Pulse Resp BP Pulse Ox 97.5 F L 74 20 106/72 100 08/08/20 12:04 08/08/20 13:39 08/08/20 12:04 08/08/20 12:04 08/08/20 12:04 General appearance: Present: no acute distress, cachectic, disheveled, other (Depressed) - EENT Eyes: Present: PERRL, EOM intact - Neck Neck: Present: supple, normal ROM - Respiratory Respiratory effort: normal Respiratory: bilateral: diminished, negative: rales, rhonchi, wheezing - Cardiovascular Rhythm: regular Heart Sounds: Present: S1 & S2 - Extremities Extremities: no ischemia, No edema - Abdominal General gastrointestinal: soft, non-tender, non-distended, normal bowel sounds - Integumentary Integumentary: Present: clear, warm - Psychiatric Psychiatric: appropriate mood/affect, depressed, other - Neurologic Neurologic: moves all extremities HEART Score - HEART Score Troponin: Troponin T 0.048 ng/mL (0.00-0.029) H 08/02/20 21:56 Results - Labs CBC & Chem 7: 08/04/20 06:26 08/07/20 04:41 Labs: Laboratory Last Values WBC 4.6 K/mm3 (4.5-11.0) 08/04/20 06: RBC 4.68 M/mm3 (3.65-5.03) 08/04/20 06:26 Hgb 15.0 gm/dl (11.8-15.2) D 08/04/20 06:26 Hct 43.8 % (35.5-45.6) D 08/04/20 06:26 MCV 94 fl (84-94) 08/04/20 06:26 MCH 32 pg (28-32) 08/04/20 06:26 MCHC 34 % (32-34) 08/04/20 06:26 RDW 14.5 % (13.2-15.2) 08/04/20 06:26 Plt Count 118 K/mm3 (140-440) L 08/04/20 06:26 Lymph % (Auto) 14.7 % (13.4-35.0) 08/04/20 06: [place] % (Auto) 6.7 % (0.0-7.3) 08/04/20 06: Eos % (Auto) 0.1 % (0.0-4.3) 08/04/20 06:26 Baso % (Auto) 0.0 % (0.0-1.8) 08/04/20 06: Lymph # (Auto) 0.7 K/mm3 (1.2-5.4) L 08/04/20 06:26 [place] # (Auto) 0.3 K/mm3 (0.0-0.8) 08/04/20 06:26 Eos # (Auto) 0.0 K/mm3 (0.0-0.4) 08/04/20 06:26 Baso # (Auto) 0.0 K/mm3 (0.0-0.1) 08/04/20 06:26 Seg Neutrophils % 78.5 % (40.0-70.0) H 08/04/20 06:26 Seg Neutrophils # 3.6 K/mm3 (1.8-7.7) 08/04/20 06:26 PT 14.5 Sec. (12.2-14.9) 08/04/20 06:26 INR 1.12 (0.87-1.13) 08/04/20 06:26 Sodium 140 mmol/L (137-145) 08/07/20 04:41 Potassium 3.6 mmol/L (3.6-5.0) 08/07/20 04:41 Chloride 104.5 mmol/L (98-107) 08/07/20 04:41 Carbon Dioxide 28 mmol/L (22-30) 08/07/20 04:41 Anion Gap 11 mmol/L 08/07/20 04:41 BUN 16 mg/dL (9-20) 08/07/20 04:41 Creatinine 0.8 mg/dL (0.8-1.3) 08/07/20 04:41 Estimated GFR > 60 ml/min 08/07/20 04:41 BUN/Creatinine Ratio 20 % 08/07/20 04:41 Glucose 132 mg/dL (75-100) H 08/07/20 04:41 Calcium 8.1 mg/dL (8.4-10.2) L 08/07/20 04:41 Magnesium 2.80 mg/dL (1.7-2.3) H 08/03/20 15:29 Total Bilirubin 3.30 mg/dL (0.1-1.2) H 08/07/20 04:41 AST 25 units/L (5-40) 08/07/20 04:41 ALT 104 units/L (7-56) H 08/07/20 04:41 Alkaline Phosphatase 84 units/L (35-129) 08/07/20 04:41 Total Creatine Kinase 93 units/L (55-170) 08/02/20 21:56 CK-MB (CK-2) 5.3 ng/mL (0.0-4.0) H 08/02/20 21:56 CK-MB (CK-2) Rel Index 5.6 (0-4) H 08/02/20 21:56 Troponin T 0.048 ng/mL (0.00-0.029) H 08/02/20 21:56 Total Protein 4.6 g/dL (6.3-8.2) L 08/07/20 04:41 Albumin 2.7 g/dL (3.9-5) L 08/07/20 04:41 Albumin/Globulin Ratio 1.4 % 08/07/20 04:41 Triglycerides 307 mg/dL (2-149) H 08/02/20 21:56 Cholesterol 232 mg/dL (50-199) H 08/02/20 21:56 LDL Cholesterol Direct 132 mg/dL (50-130) H 08/02/20 21:56 HDL Cholesterol 36 mg/dL (40-59) L 08/02/20 21:56 Cholesterol/HDL Ratio 6.44 % 08/02/20 21:56 Lipase 77 units/L (13-60) H 08/02/20 21:56 Urine Color Fifi (Yellow) 08/03/20: Urine Turbidity Clear (Clear) 08/03/20 00:22 Urine pH 5.0 (5.0-7.0) 08/03/20 00:22 Ur Specific [place] 1.021 (1.003-1.030) 08/03/20: Urine Protein <15 mg/dl mg/dL (Negative) 08/03/20:22 Urine Glucose (UA) Neg mg/dL (Negative) 08/03/20: Urine Ketones Neg mg/dL (Negative) 08/03/20: Urine Blood Sm (Negative) 08/03/20: Urine Nitrite Neg (Negative) 08/03/20: Urine Bilirubin Sm (Negative) 08/03/20: Urine Ictotest Negative (Negative) 08/03/20: Urine Urobilinogen 4.0 mg/dL (<2.0) 10/24/20 00:22 Ur Leukocyte Esterase Neg (Negative) 08/03/20 00:22 Urine WBC (Auto) 2.0 /HPF (0.0-6.0) 08/03/20 00:22 Urine RBC (Auto) < 1.0 /HPF (0.0-6.0) 08/03/20 00:22 U Epithel Cells (Auto) < 1.0 /HPF (0-13.0) 08/03/20 00:22 Hyaline Casts 1 /LPF 08/03/20 00:22 Hepatitis A IgM Ab Non-reactive (NonReactive) 08/05/20 09:25 Hep Bs Antigen Non-reactive (Negative) 08/05/20 09:25 Hep B Core IgM Ab Non-reactive (NonReactive) 08/05/20 09:25 Hepatitis C Antibody Non-reactive (NonReactive) 08/05/20 09:25 Guillen/IV: Voiding Method Incontinent IV Catheter Type [left ac] Peripheral IV Active Medications - Current Medications Current Medications: Generic Name Dose Route Start Last Admin Trade Name Freq PRN Reason Stop Dose Admin Acetaminophen 650 mg 08/03/20 01:11 Tylenol PO Q4H PRN Pain MILD(1-3)/Fever >100.5/PATEL Diphenoxylate HCl/Atropine 2 tab 08/06/20 11:30 08/08/20 09:37 Lomotil PO 2 tab TID PRN Administration Diarrhea Fluoxetine HCl 10 mg 08/04/20 10:00 08/08/20 09:26 Prozac PO 10 mg QDAY LUCRECIA Administration Heparin Sodium (Porcine) 5,000 unit 08/03/20 06:00 08/08/20 13:21 Heparin SUB-Q 5,000 unit Q8HR LUCRECIA Administration Potassium Chloride 40 meq/ 1,020 mls @ 75 mls/hr 08/06/20 21:00 08/08/20 10:59 Dextrose/Sodium Chloride IV 75 mls/hr DIRECT LUCRECIA Administration Magnesium Hydroxide 30 ml 08/03/20 01:11 Milk Of Magnesia PO Q4H PRN Constipation Ondansetron HCl 4 mg 08/03/20 01:11 Zofran IV Q8H PRN Nausea And Vomiting Sodium Chloride 10 ml 08/03/20 10:00 08/08/20 09:28 Sodium Chloride Flush Syringe 10 Ml IV 10 ml BID LUCRECIA Administration Sodium Chloride 10 ml 08/03/20 01:11 Sodium Chloride Flush Syringe 10 Ml IV PRN PRN LINE FLUSH Nutrition/Malnutrition Assess - Dietary Evaluation Nutrition/Malnutrition Findings: Nutrition Notes Start: 08/03/20 11:43 Freq: Status: Active Protocol: Document 08/07/20 10:53 KAMI (Rec: 08/07/20 11:03 KAMI [id number]) Co-Sign 08/07/20 10:53 LM Nutrition Notes Initial or Follow up Reassessment Current Diagnosis Hypertension Other Pertinent Diagnosis Failure to Thrive, Acute CHRISTIE, Dehydration, Depression Current Diet Cardiac Labs/Tests Bili 3.3 Pertinent Medications 40 mEq KCl in D5NS at 75 ml/hr Height 5 ft 10 in Weight 64.4 kg [place] Body Weight (kg) 75.45 BMI 20.3 Weight change and time frame 3% wt gain in 2 days Weight Status Underweight Subjective/Other Information F/U for intakes. Pt reports consuming very little PO/ONS. Pt repeated concerns of sugar content in Ensure and expresses having no energy. Pt states his "small stomach can only digest mucus." DI encouraged pt to try to eat and addressed concerns about Ensure. DI observed 2 unopened Ensures in room. 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 No Is Patient Ambulatory and/or Out of Bed No REE-([facility]-confined to bed) 1668.732 Kcal/Kg value to use for calculation 30 Approximate Energy Requirements Using 1932 kcal/Kg Calculation Used for Recommendations Kcal/kg Additional Notes Pro: 73-91 (1.2-1.5 g/kg) Fluid: 1 ml/kcal Nutrition Intervention Change Diet Order: Continue cardiac or TF if pt intakes remain 0% Add Supplement/Snack (indicate name/kcal Ensure Enlive Daily /protein ) Provides kCal: 350 Provides Protein (gm) 20 Goal #1 Meet at least 75% of energy and protein needs via PO and ONS intakes Goal #2 Weight maintanance/gain Anticipated Discharge Needs: Cardiac with ONS Follow-Up By: 08/09/20 Additional Comments F/U for PO/ONS intakes
[2020-08-09] MEDS: HEPARIN 5,000 UNIT/1 ML VIAL SUB-Q SCH ×3 (05:02→22:11)
--- NOTE | 2020-08-09 09:30 | Progress Note ---
Assessment and Plan Assessment and plan: --Hypokalemia; Current Visit: Yes Status: Acute Plan to address problem: Resolved, monitor electrolytes --Acute renal failure Current Visit: Yes Status: Acute Plan to address problem: From dehydration [vasomotor nephropathy] Resolved, avoid nephrotoxins ---Dehydration Current Visit: Yes Status: Acute Plan to address problem: Improved, continue current management ---Elevated troponin present on admission Current Visit: Yes Status: Acute Plan to address problem: nonspecific, no cardiac symptoms ---Depression Current Visit: Yes Status: Acute Plan to address problem: Improved , denies suicidal thoughts or ideation psychiatry evaluated, patient is on fluoxetine Outpatient follow-up upon discharge ---Failure to thrive Current Visit: Yes Status: Acute Plan to address problem: On regular cardiac diet, With nutritional supplements ---Hypernatremia Current Visit: Yes Status: Acute Plan to address problem: Resolved, continue to encourage free water --Severe malnutrition/hypoalbuminemia; Current Visit: Yes Status: Acute Plan to address problem: 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 Trending down, follow abdominal ultrasound --General debility/failure to thrive in an adult Current Visit: Yes Status: Acute Plan to address problem: physical therapy, Occupational Therapy Evaluated, recommend acute rehab Acute rehab consult placed ---DVT prophylaxis Current Visit: Yes Status: Acute Plan to address problem: subcutaneous heparin. ---Full code status Current Visit: Yes Status: Acute 08/09/2020. Physical therapy recommends acute rehab. Await case management evaluation for placement. History Interval history: No new issues overnight. Hospitalist Physical - Constitutional Vitals: Temp Pulse Resp BP Pulse Ox 97.0 F L 73 20 125/76 99 08/09/20 07:22 08/09/20 07:26 08/09/20 07:22 08/09/20 07:22 08/09/20 07:26 General appearance: Present: no acute distress, cachectic, disheveled, other (Depressed) - EENT Eyes: Present: PERRL, EOM intact ENT: hearing intact, clear oral mucosa, dentition normal - Neck Neck: Present: supple, normal ROM - Respiratory Respiratory effort: normal Respiratory: bilateral: CTA - Cardiovascular Rhythm: regular Heart Sounds: Present: S1 & S2. Absent: gallop, rub - Extremities Extremities: no ischemia, No edema, Full ROM - Abdominal General gastrointestinal: soft, non-tender, non-distended, normal bowel sounds - Integumentary Integumentary: Present: clear, warm, dry - Neurologic Neurologic: CNII-XII intact, moves all extremities HEART Score - HEART Score Troponin: Troponin T 0.048 ng/mL (0.00-0.029) H 08/02/20 21:56 Results - Labs CBC & Chem 7: 08/04/20 06:26 08/07/20 04:41 Labs: Laboratory Last Values WBC 4.6 K/mm3 (4.5-11.0) 08/04/20 06: RBC 4.68 M/mm3 (3.65-5.03) 08/04/20 06:26 Hgb 15.0 gm/dl (11.8-15.2) D 08/04/20 06: Hct 43.8 % (35.5-45.6) D 08/04/20 06: MCV 94 fl (84-94) 08/04/20 06: MCH 32 pg (28-32) 08/04/20 06: MCHC 34 % (32-34) 08/04/20 06: RDW 14.5 % (13.2-15.2) 08/04/20 06:26 Plt Count 118 K/mm3 (140-440) L 08/04/20 06: Lymph % (Auto) 14.7 % (13.4-35.0) 08/04/20 06: [place] % (Auto) 6.7 % (0.0-7.3) 08/04/20 06: Eos % (Auto) 0.1 % (0.0-4.3) 08/04/20 06: Baso % (Auto) 0.0 % (0.0-1.8) 08/04/20 06: Lymph # (Auto) 0.7 K/mm3 (1.2-5.4) L 08/04/20 06: [place] # (Auto) 0.3 K/mm3 (0.0-0.8) 08/04/20 06: Eos # (Auto) 0.0 K/mm3 (0.0-0.4) 08/04/20 06:26 Baso # (Auto) 0.0 K/mm3 (0.0-0.1) 08/04/20 06:26 Seg Neutrophils % 78.5 % (40.0-70.0) H 08/04/20 06:26 Seg Neutrophils # 3.6 K/mm3 (1.8-7.7) 08/04/20 06:26 PT 14.5 Sec. (12.2-14.9) 08/04/20 06:26 INR 1.12 (0.87-1.13) 08/04/20 06:26 Sodium 140 mmol/L (137-145) 08/07/20 04:41 Potassium 3.6 mmol/L (3.6-5.0) 08/07/20 04:41 Chloride 104.5 mmol/L (98-107) 08/07/20 04:41 Carbon Dioxide 28 mmol/L (22-30) 08/07/20 04:41 Anion Gap 11 mmol/L 08/07/20 04:41 BUN 16 mg/dL (9-20) 08/07/20 04:41 Creatinine 0.8 mg/dL (0.8-1.3) 08/07/20 04:41 Estimated GFR > 60 ml/min 08/07/20 04:41 BUN/Creatinine Ratio 20 % 08/07/20 04:41 Glucose 132 mg/dL (75-100) H 08/07/20 04:41 Calcium 8.1 mg/dL (8.4-10.2) L 08/07/20 04:41 Magnesium 2.80 mg/dL (1.7-2.3) H 08/03/20 15:29 Total Bilirubin 3.30 mg/dL (0.1-1.2) H 08/07/20 04:41 AST 25 units/L (5-40) 08/07/20 04:41 ALT 104 units/L (7-56) H 08/07/20 04:41 Alkaline Phosphatase 84 units/L (35-129) 08/07/20 04:41 Total Creatine Kinase 93 units/L (55-170) 08/02/20 21:56 CK-MB (CK-2) 5.3 ng/mL (0.0-4.0) H 08/02/20 21:56 CK-MB (CK-2) Rel Index 5.6 (0-4) H 08/02/20 21:56 Troponin T 0.048 ng/mL (0.00-0.029) H 08/02/20 21:56 Total Protein 4.6 g/dL (6.3-8.2) L 08/07/20 04:41 Albumin 2.7 g/dL (3.9-5) L 08/07/20 04:41 Albumin/Globulin Ratio 1.4 % 08/07/20 04:41 Triglycerides 307 mg/dL (2-149) H 08/02/20 21:56 Cholesterol 232 mg/dL (50-199) H 08/02/20 21:56 LDL Cholesterol Direct 132 mg/dL (50-130) H 08/02/20 21:56 HDL Cholesterol 36 mg/dL (40-59) L 08/02/20 21:56 Cholesterol/HDL Ratio 6.44 % 08/02/20 21:56 Lipase 77 units/L (13-60) H 08/02/20 21:56 Urine Color Fifi (Yellow) 08/03/20 00:22 Urine Turbidity Clear (Clear) 08/03/20:22 Urine pH 5.0 (5.0-7.0) 08/03/20:22 Ur Specific [place] 1.021 (1.003-1.030) 08/03/20 00:22 Urine Protein <15 mg/dl mg/dL (Negative) 08/03/20:22 Urine Glucose (UA) Neg mg/dL (Negative) 08/03/20:22 Urine Ketones Neg mg/dL (Negative) 08/03/20 00:22 Urine Blood Sm (Negative) 08/03/20 00: Urine Nitrite Neg (Negative) 08/03/20: Urine Bilirubin Sm (Negative) 08/03/20: Urine Ictotest Negative (Negative) 08/03/20: Urine Urobilinogen 4.0 mg/dL (<2.0) 08/03/20 00:22 Ur Leukocyte Esterase Neg (Negative) 08/03/20:22 Urine WBC (Auto) 2.0 /HPF (0.0-6.0) 08/03/20 00:22 Urine RBC (Auto) < 1.0 /HPF (0.0-6.0) 08/03/20 00:22 U Epithel Cells (Auto) < 1.0 /HPF (0-13.0) 08/03/20 00:22 Hyaline Casts 1 /LPF 08/03/20 00:22 Hepatitis A IgM Ab Non-reactive (NonReactive) 08/05/20 09:25 Hep Bs Antigen Non-reactive (Negative) 08/05/20 09:25 Hep B Core IgM Ab Non-reactive (NonReactive) 08/05/20 09:25 Hepatitis C Antibody Non-reactive (NonReactive) 08/05/20 09:25 Guillen/IV: Voiding Method Urinal IV Catheter Type [left ac] Peripheral IV Active Medications - Current Medications Current Medications: Generic Name Dose Route Start Last Admin Trade Name Freq PRN Reason Stop Dose Admin Acetaminophen 650 mg 08/03/20 01:11 Tylenol PO Q4H PRN Pain MILD(1-3)/Fever >100.5/PATEL Diphenoxylate HCl/Atropine 2 tab 08/06/20 11:30 08/08/20 09:37 Lomotil PO 2 tab TID PRN Administration Diarrhea Fluoxetine HCl 10 mg 08/04/20 10:00 08/08/20 09:26 Prozac PO 10 mg QDAY LUCRECIA Administration Heparin Sodium (Porcine) 5,000 unit 08/03/20 06:00 08/09/20 05:02 Heparin SUB-Q 5,000 unit Q8HR LUCRECIA Administration Potassium Chloride 40 meq/ 1,020 mls @ 75 mls/hr 08/09/20 01:00 Dextrose/Sodium Chloride IV DIRECT LUCRECIA Magnesium Hydroxide 30 ml 08/03/20 01:11 Milk Of Magnesia PO Q4H PRN Constipation Ondansetron HCl 4 mg 08/03/20 01:11 Zofran IV Q8H PRN Nausea And Vomiting Sodium Chloride 10 ml 08/03/20 10:00 08/08/20 21:39 Sodium Chloride Flush Syringe 10 Ml IV 10 ml BID LUCRECIA Administration Sodium Chloride 10 ml 08/03/20 01:11 Sodium Chloride Flush Syringe 10 Ml IV PRN PRN LINE FLUSH Nutrition/Malnutrition Assess - Dietary Evaluation Nutrition/Malnutrition Findings: Nutrition Notes Start: 08/03/20 11:43 Freq: Status: Active Protocol: Document 08/07/20 10:53 KAMI (Rec: 08/07/20 11:03 KAMI [id number]) Co-Sign 08/07/20 10:53 LM Nutrition Notes Initial or Follow up Reassessment Current Diagnosis Hypertension Other Pertinent Diagnosis Failure to Thrive, Acute CHRISTIE, Dehydration, Depression Current Diet Cardiac Labs/Tests Bili 3.3 Pertinent Medications 40 mEq KCl in D5NS at 75 ml/hr Height 5 ft 10 in Weight 64.4 kg [place] Body Weight (kg) 75.45 BMI 20.3 Weight change and time frame 3% wt gain in 2 days Weight Status Underweight Subjective/Other Information F/U for intakes. Pt reports consuming very little PO/ONS. Pt repeated concerns of sugar content in Ensure and expresses having no energy. Pt states his "small stomach can only digest mucus." DI encouraged pt to try to eat and addressed concerns about Ensure. DI observed 2 unopened Ensures in room. 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 No Is Patient Ambulatory and/or Out of Bed No REE-([facility]-confined to bed) 1668.732 Kcal/Kg value to use for calculation 30 Approximate Energy Requirements Using 1932 kcal/Kg Calculation Used for Recommendations Kcal/kg Additional Notes Pro: 73-91 (1.2-1.5 g/kg) Fluid: 1 ml/kcal Nutrition Intervention Change Diet Order: Continue cardiac or TF if pt intakes remain 0% Add Supplement/Snack (indicate name/kcal Ensure Enlive Daily /protein ) Provides kCal: 350 Provides Protein (gm) 20 Goal #1 Meet at least 75% of energy and protein needs via PO and ONS intakes Goal #2 Weight maintanance/gain Anticipated Discharge Needs: Cardiac with ONS Follow-Up By: 08/09/20 Additional Comments F/U for PO/ONS intakes
[2020-08-09] MEDS: FLUoxetine 20 MG/5 ML ORAL LIQD PO SCH (09:32)
[2020-08-09] MEDS: POTASSIUM CHLORIDE IV SCH (14:55)
[2020-08-09] MEDS: NACL IV SCH (14:55)
[2020-08-09] MEDS: D5W IV SCH (14:55)
[2020-08-10] MEDS: NACL IV SCH ×2 (05:42→17:55)
[2020-08-10] MEDS: D5W IV SCH ×2 (05:42→17:55)
[2020-08-10] MEDS: POTASSIUM CHLORIDE IV SCH ×2 (05:42→17:55)
[2020-08-10] MEDS: HEPARIN 5,000 UNIT/1 ML VIAL SUB-Q SCH ×4 (05:43→21:36)
[2020-08-10] MEDS: FLUoxetine 20 MG/5 ML ORAL LIQD PO SCH (09:37)
--- NOTE | 2020-08-10 10:38 | Progress Note ---
Assessment and Plan Assessment and plan: --Hypokalemia; Resolved, monitor electrolytes --Acute renal failure From dehydration [vasomotor nephropathy] Resolved, avoid nephrotoxins ---Dehydration Improved, continue current management ---Elevated troponin present on admission nonspecific, no cardiac symptoms ---Depression Improved , denies suicidal thoughts or ideation psychiatry evaluated, patient is on fluoxetine Outpatient follow-up upon discharge ---Failure to thrive On regular cardiac diet, With nutritional supplements ---Hypernatremia Resolved, continue to encourage free water --Severe malnutrition/hypoalbuminemia; Nutrition supplements, 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 Trending down, follow abdominal ultrasound --General debility/failure to thrive in an adult physical therapy, Occupational Therapy Evaluated, recommend acute rehab Acute rehab consult placed ---DVT prophylaxis subcutaneous heparin. ---Full code status 08/09/2020. Physical therapy recommends acute rehab. Await case management evaluation for placement. 08/10/2020. Awaiting subacute rehab placement. History Interval history: No new issues overnight. Hospitalist Physical - Constitutional Vitals: Temp Pulse Resp BP Pulse Ox 97.9 F 72 20 127/72 100 08/10/20 05:18 08/10/20 05:18 08/10/20 05:18 08/10/20 05:18 08/10/20 05:18 General appearance: Present: no acute distress, cachectic, disheveled, other (Depressed) - EENT Eyes: Present: PERRL, EOM intact ENT: hearing intact, clear oral mucosa, dentition normal - Neck Neck: Present: supple, normal ROM - Respiratory Respiratory effort: normal Respiratory: bilateral: CTA - Cardiovascular Rhythm: regular Heart Sounds: Present: S1 & S2. Absent: gallop, rub - Extremities Extremities: no ischemia, No edema, Full ROM - Abdominal General gastrointestinal: soft, non-tender, non-distended, normal bowel sounds - Integumentary Integumentary: Present: clear, warm, dry - Neurologic Neurologic: CNII-XII intact, moves all extremities HEART Score - HEART Score Troponin: Troponin T 0.048 ng/mL (0.00-0.029) H 08/02/20 21:56 Results - Labs CBC & Chem 7: 08/04/20 06:26 08/07/20 04:41 Labs: Laboratory Last Values WBC 4.6 K/mm3 (4.5-11.0) 08/04/20 06: RBC 4.68 M/mm3 (3.65-5.03) 08/04/20 06: Hgb 15.0 gm/dl (11.8-15.2) D 08/04/20 06: Hct 43.8 % (35.5-45.6) D 08/04/20 06: MCV 94 fl (84-94) 08/04/20 06: MCH 32 pg (28-32) 08/04/20 06: MCHC 34 % (32-34) 08/04/20 06: RDW 14.5 % (13.2-15.2) 08/04/20 06: Plt Count 118 K/mm3 (140-440) L 08/04/20 06: Lymph % (Auto) 14.7 % (13.4-35.0) 08/04/20 06: [place] % (Auto) 6.7 % (0.0-7.3) 08/04/20 06: Eos % (Auto) 0.1 % (0.0-4.3) 08/04/20 06: Baso % (Auto) 0.0 % (0.0-1.8) 08/04/20 06: Lymph # (Auto) 0.7 K/mm3 (1.2-5.4) L 08/04/20 06: [place] # (Auto) 0.3 K/mm3 (0.0-0.8) 08/04/20 06: Eos # (Auto) 0.0 K/mm3 (0.0-0.4) 08/04/20 06: Baso # (Auto) 0.0 K/mm3 (0.0-0.1) 08/04/20 06: Seg Neutrophils % 78.5 % (40.0-70.0) H 08/04/20 06: Seg Neutrophils # 3.6 K/mm3 (1.8-7.7) 08/04/20 06: PT 14.5 Sec. (12.2-14.9) 08/04/20 06:26 INR 1.12 (0.87-1.13) 08/04/20 06:26 Sodium 140 mmol/L (137-145) 08/07/20 04:41 Potassium 3.6 mmol/L (3.6-5.0) 08/07/20 04:41 Chloride 104.5 mmol/L (98-107) 08/07/20 04:41 Carbon Dioxide 28 mmol/L (22-30) 08/07/20 04:41 Anion Gap 11 mmol/L 08/07/20 04:41 BUN 16 mg/dL (9-20) 08/07/20 04:41 Creatinine 0.8 mg/dL (0.8-1.3) 08/07/20 04:41 Estimated GFR > 60 ml/min 08/07/20 04:41 BUN/Creatinine Ratio 20 % 08/07/20 04:41 Glucose 132 mg/dL (75-100) H 08/07/20 04:41 Calcium 8.1 mg/dL (8.4-10.2) L 08/07/20 04:41 Magnesium 2.80 mg/dL (1.7-2.3) H 08/03/20 15:29 Total Bilirubin 3.30 mg/dL (0.1-1.2) H 08/07/20 04:41 AST 25 units/L (5-40) 08/07/20 04:41 ALT 104 units/L (7-56) H 08/07/20 04:41 Alkaline Phosphatase 84 units/L (35-129) 08/07/20 04:41 Total Creatine Kinase 93 units/L (55-170) 08/02/20 21:56 CK-MB (CK-2) 5.3 ng/mL (0.0-4.0) H 08/02/20 21:56 CK-MB (CK-2) Rel Index 5.6 (0-4) H 08/02/20 21:56 Troponin T 0.048 ng/mL (0.00-0.029) H 08/02/20 21:56 Total Protein 4.6 g/dL (6.3-8.2) L 08/07/20 04:41 Albumin 2.7 g/dL (3.9-5) L 08/07/20 04:41 Albumin/Globulin Ratio 1.4 % 08/07/20 04:41 Triglycerides 307 mg/dL (2-149) H 08/02/20 21:56 Cholesterol 232 mg/dL (50-199) H 08/02/20 21:56 LDL Cholesterol Direct 132 mg/dL (50-130) H 08/02/20 21:56 HDL Cholesterol 36 mg/dL (40-59) L 08/02/20 21:56 Cholesterol/HDL Ratio 6.44 % 08/02/20 21:56 Lipase 77 units/L (13-60) H 08/02/20 21:56 Urine Color Fifi (Yellow) 08/03/20:22 Urine Turbidity Clear (Clear) 08/03/20 00:22 Urine pH 5.0 (5.0-7.0) 08/03/20:22 Ur Specific [place] 1.021 (1.003-1.030) 08/03/20:22 Urine Protein <15 mg/dl mg/dL (Negative) 08/03/20 00:22 Urine Glucose (UA) Neg mg/dL (Negative) 08/03/20 Urine Ketones Neg mg/dL (Negative) 08/03/20: Urine Blood Sm (Negative) 08/03/20: Urine Nitrite Neg (Negative) 08/03/20: Urine Bilirubin Sm (Negative) 08/03/20: Urine Ictotest Negative (Negative) 08/03/20: Urine Urobilinogen 4.0 mg/dL (<2.0) 08/03/20 00:22 Ur Leukocyte Esterase Neg (Negative) 08/03/20 00: Urine WBC (Auto) 2.0 /HPF (0.0-6.0) 08/03/20 00:22 Urine RBC (Auto) < 1.0 /HPF (0.0-6.0) 08/03/20 00: U Epithel Cells (Auto) < 1.0 /HPF (0-13.0) 08/03/20: Hyaline Casts 1 /LPF 08/03/20 00:22 Hepatitis A IgM Ab Non-reactive (NonReactive) 08/05/20 09:25 Hep Bs Antigen Non-reactive (Negative) 08/05/20 09:25 Hep B Core IgM Ab Non-reactive (NonReactive) 08/05/20 09:25 Hepatitis C Antibody Non-reactive (NonReactive) 08/05/20 09:25 Guillen/IV: Voiding Method Condom Catheter IV Catheter Type [left ac] Peripheral IV Active Medications - Current Medications Current Medications: Generic Name Dose Route Start Last Admin Trade Name Freq PRN Reason Stop Dose Admin Acetaminophen 650 mg 08/03/20 01:11 08/09/20 22:17 Tylenol PO 650 mg Q4H PRN Administration Pain MILD(1-3)/Fever >100.5/PATEL Diphenoxylate HCl/Atropine 2 tab 08/06/20 11:30 08/08/20 09:37 Lomotil PO 2 tab TID PRN Administration Diarrhea Fluoxetine HCl 10 mg 08/04/20 10:00 08/10/20 09:37 Prozac PO Not Given QDAY LUCRECIA Heparin Sodium (Porcine) 5,000 unit 08/03/20 06:00 08/10/20 05:45 Heparin SUB-Q Not Given Q8HR LUCRECIA Potassium Chloride 40 meq/ 1,020 mls @ 75 mls/hr 08/09/20 01:00 08/10/20 05:42 Dextrose/Sodium Chloride IV 75 mls/hr DIRECT LUCRECIA Administration Magnesium Hydroxide 30 ml 08/03/20 01:11 Milk Of Magnesia PO Q4H PRN Constipation Ondansetron HCl 4 mg 08/03/20 01:11 Zofran IV Q8H PRN Nausea And Vomiting Sodium Chloride 10 ml 08/03/20 10:00 08/10/20 09:37 Sodium Chloride Flush Syringe 10 Ml IV 10 ml BID LUCRECIA Administration Sodium Chloride 10 ml 08/03/20 01:11 Sodium Chloride Flush Syringe 10 Ml IV PRN PRN LINE FLUSH Nutrition/Malnutrition Assess - Dietary Evaluation Nutrition/Malnutrition Findings: Nutrition Notes Start: 08/03/20 11:43 Freq: Status: Active Protocol: Document 08/09/20 10:25 KAMI (Rec: 08/09/20 10:29 KAMI [id number]) Co-Sign 08/09/20 10:25 LM Nutrition Notes Initial or Follow up Reassessment Current Diagnosis Hypertension Other Pertinent Diagnosis Failure to Thrive, Acute CHRISTIE, Dehydration, Depression Current Diet Cardiac Labs/Tests No new labs Pertinent Medications Reviewed Height 5 ft 10 in Weight 66.4 kg [place] Body Weight (kg) 75.45 BMI 20.9 Weight change and time frame Wt change noted Weight Status Underweight Subjective/Other Information F/U for intakes. DI observed breakfast tray, 0% PO/ONS consumed. Per chart, pt having difficulty swallowing and keeping food down. DOOR TO DOOR LEAD GENERATION evaluation ordered. Percent of energy/protein needs met: 0%/0% Burn Absent Trauma Absent GI Symptoms None Difficulty In Swallowing Current % PO Negligible Minimum of two criteria Yes Energy Intake (non-severe) <75% Estimated Energy Requirement >7 days Interpretation of Weight Loss (severe) >7.5% in 3 months Body Fat Depletion Moderate depletion (severe) Muscle Mass Moderate Depletion (severe) Reduced Jumpbasting Canvas Baster Strength Measurably Reduced (severe) #2 Nutrition Diagnosis Inadequate oral intake Diagnosis Progress(for reassessment Continues documentation) #1 Nutrition Diagnosis Malnutrition Diagnosis Progress(for reassessment Continues documentation) Is patient on ventilator? No Is Patient Ambulatory and/or Out of Bed No REE-([facility]-confined to bed) 1692.708 Kcal/Kg value to use for calculation 30 Approximate Energy Requirements Using 1992 kcal/Kg Calculation Used for Recommendations Kcal/kg Additional Notes Pro: 73-91 (1.2-1.5 g/kg) Fluid: 1 ml/kcal Nutrition Intervention Change Diet Order: Continue Cardiac or per DOOR TO DOOR LEAD GENERATION Add Supplement/Snack (indicate name/kcal Ensure Enlive Daily /protein ) Provides kCal: 350 Provides Protein (gm) 20 Goal #1 Meet at least 75% of energy and protein needs via PO and ONS intakes Goal #2 Weight maintanance/gain Anticipated Discharge Needs: Cardiac with ONS Follow-Up By: 08/13/20 Additional Comments F/U for PO/ONS intakes and DOOR TO DOOR LEAD GENERATION recommendations
[2020-08-11] MEDS: HEPARIN 5,000 UNIT/1 ML VIAL SUB-Q SCH ×4 (05:11→21:36)
[2020-08-11] MEDS: POTASSIUM CHLORIDE IV SCH ×2 (06:15→22:04)
[2020-08-11] MEDS: D5W IV SCH ×2 (06:15→22:04)
[2020-08-11] MEDS: NACL IV SCH ×2 (06:15→22:04)
--- NOTE | 2020-08-11 08:53 | Progress Note ---
Assessment and Plan Assessment and plan: --Hypokalemia; Resolved, monitor electrolytes --Acute renal failure From dehydration [vasomotor nephropathy] Resolved, avoid nephrotoxins ---Dehydration Improved, continue current management ---Elevated troponin present on admission nonspecific, no cardiac symptoms ---Depression Improved , denies suicidal thoughts or ideation psychiatry evaluated, patient is on fluoxetine Outpatient follow-up upon discharge ---Failure to thrive On regular cardiac diet, With nutritional supplements ---Hypernatremia Resolved, continue to encourage free water --Severe malnutrition/hypoalbuminemia; 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 Trending down, follow abdominal ultrasound --General debility/failure to thrive in an adult physical therapy, Occupational Therapy Evaluated, recommend acute rehab Acute rehab consult placed ---DVT prophylaxis subcutaneous heparin. ---Full code status 08/09/2020. Physical therapy recommends acute rehab. Await case management evaluation for placement. 08/10/2020. Awaiting subacute rehab placement. 08/11/2020. Awaiting subacute rehab placement. History Interval history: No new issues overnight. Hospitalist Physical - Constitutional Vitals: Temp Pulse Resp BP Pulse Ox 97.7 F 72 18 120/72 100 08/11/20 07:20 08/11/20 07:20 08/11/20 07:20 08/11/20 07:20 08/11/20 07:20 General appearance: Present: no acute distress, cachectic, disheveled, other (Depressed) - EENT Eyes: Present: PERRL, EOM intact ENT: hearing intact, clear oral mucosa, dentition normal - Neck Neck: Present: supple, normal ROM - Respiratory Respiratory effort: normal Respiratory: bilateral: CTA - Cardiovascular Rhythm: regular Heart Sounds: Present: S1 & S2. Absent: gallop, rub - Extremities Extremities: no ischemia, No edema, Full ROM - Abdominal General gastrointestinal: soft, non-tender, non-distended, normal bowel sounds - Integumentary Integumentary: Present: clear, warm, dry - Neurologic Neurologic: CNII-XII intact, moves all extremities HEART Score - HEART Score Troponin: Troponin T 0.048 ng/mL (0.00-0.029) H 08/02/20 21:56 Results - Labs CBC & Chem 7: 08/04/20 06:26 08/07/20 04:41 Labs: Laboratory Last Values WBC 4.6 K/mm3 (4.5-11.0) 08/04/20 06: RBC 4.68 M/mm3 (3.65-5.03) 08/04/20 06:26 Hgb 15.0 gm/dl (11.8-15.2) D 08/04/20 06: Hct 43.8 % (35.5-45.6) D 08/04/20 06: MCV 94 fl (84-94) 08/04/20 06: MCH 32 pg (28-32) 08/04/20 06: MCHC 34 % (32-34) 08/04/20 06: RDW 14.5 % (13.2-15.2) 08/04/20 06:26 Plt Count 118 K/mm3 (140-440) L 08/04/20 06: Lymph % (Auto) 14.7 % (13.4-35.0) 08/04/20 06: [place] % (Auto) 6.7 % (0.0-7.3) 08/04/20 06: Eos % (Auto) 0.1 % (0.0-4.3) 08/04/20 06: Baso % (Auto) 0.0 % (0.0-1.8) 08/04/20 06: Lymph # (Auto) 0.7 K/mm3 (1.2-5.4) L 08/04/20 06: [place] # (Auto) 0.3 K/mm3 (0.0-0.8) 08/04/20 06: Eos # (Auto) 0.0 K/mm3 (0.0-0.4) 08/04/20 06: Baso # (Auto) 0.0 K/mm3 (0.0-0.1) 08/04/20 06: Seg Neutrophils % 78.5 % (40.0-70.0) H 08/04/20 06: Seg Neutrophils # 3.6 K/mm3 (1.8-7.7) 08/04/20 06: PT 14.5 Sec. (12.2-14.9) 08/04/20 06:26 INR 1.12 (0.87-1.13) 08/04/20 06:26 Sodium 140 mmol/L (137-145) 08/07/20 04:41 Potassium 3.6 mmol/L (3.6-5.0) 08/07/20 04:41 Chloride 104.5 mmol/L (98-107) 08/07/20 04:41 Carbon Dioxide 28 mmol/L (22-30) 08/07/20 04:41 Anion Gap 11 mmol/L 08/07/20 04:41 BUN 16 mg/dL (9-20) 08/07/20 04:41 Creatinine 0.8 mg/dL (0.8-1.3) 08/07/20 04:41 Estimated GFR > 60 ml/min 08/07/20 04:41 BUN/Creatinine Ratio 20 % 08/07/20 04:41 Glucose 132 mg/dL (75-100) H 08/07/20 04:41 Calcium 8.1 mg/dL (8.4-10.2) L 08/07/20 04:41 Magnesium 2.80 mg/dL (1.7-2.3) H 08/03/20 15:29 Total Bilirubin 3.30 mg/dL (0.1-1.2) H 08/07/20 04:41 AST 25 units/L (5-40) 08/07/20 04:41 ALT 104 units/L (7-56) H 08/07/20 04:41 Alkaline Phosphatase 84 units/L (35-129) 08/07/20 04:41 Total Creatine Kinase 93 units/L (55-170) 08/02/20 21:56 CK-MB (CK-2) 5.3 ng/mL (0.0-4.0) H 08/02/20 21:56 CK-MB (CK-2) Rel Index 5.6 (0-4) H 08/02/20 21:56 Troponin T 0.048 ng/mL (0.00-0.029) H 08/02/20 21:56 Total Protein 4.6 g/dL (6.3-8.2) L 08/07/20 04:41 Albumin 2.7 g/dL (3.9-5) L 08/07/20 04:41 Albumin/Globulin Ratio 1.4 % 08/07/20 04:41 Triglycerides 307 mg/dL (2-149) H 08/02/20 21:56 Cholesterol 232 mg/dL (50-199) H 08/02/20 21:56 LDL Cholesterol Direct 132 mg/dL (50-130) H 08/02/20 21:56 HDL Cholesterol 36 mg/dL (40-59) L 08/02/20 21:56 Cholesterol/HDL Ratio 6.44 % 08/02/20 21:56 Lipase 77 units/L (13-60) H 08/02/20 21:56 Urine Color Fifi (Yellow) 08/03/20 00:22 Urine Turbidity Clear (Clear) 08/03/20 00:22 Urine pH 5.0 (5.0-7.0) 08/03/20 00:22 Ur Specific [place] 1.021 (1.003-1.030) 08/03/20 00:22 Urine Protein <15 mg/dl mg/dL (Negative) 08/03/20:22 Urine Glucose (UA) Neg mg/dL (Negative) 08/03/20 00: Urine Ketones Neg mg/dL (Negative) 08/03/20 00:22 Urine Blood Sm (Negative) 08/03/20 00: Urine Nitrite Neg (Negative) 08/03/20:22 Urine Bilirubin Sm (Negative) 08/03/20 00: Urine Ictotest Negative (Negative) 08/03/20 00:22 Urine Urobilinogen 4.0 mg/dL (<2.0) 08/03/20 00:22 Ur Leukocyte Esterase Neg (Negative) 08/03/20 00:22 Urine WBC (Auto) 2.0 /HPF (0.0-6.0) 08/03/20 00:22 Urine RBC (Auto) < 1.0 /HPF (0.0-6.0) 08/03/20 00:22 U Epithel Cells (Auto) < 1.0 /HPF (0-13.0) 08/03/20 00:22 Hyaline Casts 1 /LPF 08/03/20 00:22 Hepatitis A IgM Ab Non-reactive (NonReactive) 08/05/20 09:25 Hep Bs Antigen Non-reactive (Negative) 08/05/20 09:25 Hep B Core IgM Ab Non-reactive (NonReactive) 08/05/20 09:25 Hepatitis C Antibody Non-reactive (NonReactive) 08/05/20 09:25 Guillen/IV: Voiding Method Condom Catheter IV Catheter Type [left ac] Peripheral IV IV Catheter Type [Right Hand] Peripheral IV Active Medications - Current Medications Current Medications: Generic Name Dose Route Start Last Admin Trade Name Freq PRN Reason Stop Dose Admin Acetaminophen 650 mg 08/03/20 01:11 08/09/20 22:17 Tylenol PO 650 mg Q4H PRN Administration Pain MILD(1-3)/Fever >100.5/PATEL Diphenoxylate HCl/Atropine 2 tab 08/06/20 11:30 08/08/20 09:37 Lomotil PO 2 tab TID PRN Administration Diarrhea Fluoxetine HCl 10 mg 08/04/20 10:00 08/10/20 09:37 Prozac PO Not Given QDAY LUCRECIA Heparin Sodium (Porcine) 5,000 unit 08/03/20 06:00 08/11/20 05:11 Heparin SUB-Q 5,000 unit Q8HR LUCRECIA Administration Potassium Chloride 40 meq/ 1,020 mls @ 75 mls/hr 08/09/20 01:00 08/11/20 06:15 Dextrose/Sodium Chloride IV 75 mls/hr DIRECT LUCRECIA Administration Magnesium Hydroxide 30 ml 08/03/20 01:11 Milk Of Magnesia PO Q4H PRN Constipation Ondansetron HCl 4 mg 08/03/20 01:11 Zofran IV Q8H PRN Nausea And Vomiting Sodium Chloride 10 ml 08/03/20 10:00 08/10/20 21:36 Sodium Chloride Flush Syringe 10 Ml IV 10 ml BID LUCRECIA Administration Sodium Chloride 10 ml 08/03/20 01:11 Sodium Chloride Flush Syringe 10 Ml IV PRN PRN LINE FLUSH Nutrition/Malnutrition Assess - Dietary Evaluation Nutrition/Malnutrition Findings: Nutrition Notes Start: 08/03/20 11:43 Freq: Status: Active Protocol: Document 08/09/20 10:25 KAMI (Rec: 08/09/20 10:29 KAMI [id number]) Co-Sign 08/09/20 10:25 LM Nutrition Notes Initial or Follow up Reassessment Current Diagnosis Hypertension Other Pertinent Diagnosis Failure to Thrive, Acute CHRISTIE, Dehydration, Depression Current Diet Cardiac Labs/Tests No new labs Pertinent Medications Reviewed Height 5 ft 10 in Weight 66.4 kg [place] Body Weight (kg) 75.45 BMI 20.9 Weight change and time frame Wt change noted Weight Status Underweight Subjective/Other Information F/U for intakes. DI observed breakfast tray, 0% PO/ONS consumed. Per chart, pt having difficulty swallowing and keeping food down. GROUND SERVICE EQUIPMENT MECHANIC evaluation ordered. Percent of energy/protein needs met: 0%/0% Burn Absent Trauma Absent GI Symptoms None Difficulty In Swallowing Current % PO Negligible Minimum of two criteria Yes Energy Intake (non-severe) <75% Estimated Energy Requirement >7 days Interpretation of Weight Loss (severe) >7.5% in 3 months Body Fat Depletion Moderate depletion (severe) Muscle Mass Moderate Depletion (severe) Reduced Powder Loader Strength Measurably Reduced (severe) #2 Nutrition Diagnosis Inadequate oral intake Diagnosis Progress(for reassessment Continues documentation) #1 Nutrition Diagnosis Malnutrition Diagnosis Progress(for reassessment Continues documentation) Is patient on ventilator? No Is Patient Ambulatory and/or Out of Bed No REE-([place]-confined to bed) 1692.708 Kcal/Kg value to use for calculation 30 Approximate Energy Requirements Using 1992 kcal/Kg Calculation Used for Recommendations Kcal/kg Additional Notes Pro: 73-91 (1.2-1.5 g/kg) Fluid: 1 ml/kcal Nutrition Intervention Change Diet Order: Continue Cardiac or per GROUND SERVICE EQUIPMENT MECHANIC Add Supplement/Snack (indicate name/kcal Ensure Enlive Daily /protein ) Provides kCal: 350 Provides Protein (gm) 20 Goal #1 Meet at least 75% of energy and protein needs via PO and ONS intakes Goal #2 Weight maintanance/gain Anticipated Discharge Needs: Cardiac with ONS Follow-Up By: 08/13/20 Additional Comments F/U for PO/ONS intakes and GROUND SERVICE EQUIPMENT MECHANIC recommendations
[2020-08-11] MEDS: FLUoxetine 20 MG/5 ML ORAL LIQD PO SCH (09:52)
[2020-08-12] MEDS: HEPARIN 5,000 UNIT/1 ML VIAL SUB-Q SCH ×3 (05:14→21:51)
--- NOTE | 2020-08-12 08:39 | Consultation ---
History of Present Illness Consult date: 08/12/20 Requesting physician: AURY CUEVAS Consult reason: arrhythmia (NSVT) History of present illness: Pt is a 75 y.o. male, previously unknown to our practice, who was admitted for mgmt of malnutrition/failure to thrive. Pts son recommended he seek care due to recent decline in activity and decreased PO intake. Pt states he lost his job around January of this year, after which he began experiencing financial difficult ies. He reports feeling depressed over the past several months. Pt previously lived with his ; however, she has since moved in with their son, who also lives in the area. Pt reports decreased appetite and states when I try to eat, food just wont go down. He denies chest pain or chest tightness. Mild SOB reported. Cardiology has been consulted for eval of NSVT. Tele reviewed 33-bt run of VT noted 08/11/20 @ 0710. Pt asymptomatic. Otherwise SR 70-80s. Echo 04/08/2020 - EF 55-60%; grade I diastolic dysfxn; RV mildly dilated; trace MR; mild TR. Lexiscan stress MPI 04/08/2020 - negative for ischemia. Past History Past Medical History: hypertension Social history: , Lives alone. denies: smoking, alcohol abuse Family history: no significant family history Medications and Allergies Allergies Allergy/AdvReac Type Severity Reaction Status Date / Time No Known Allergies Allergy Verified 08/02/20 22:50 Home Medications Medication Instructions Recorded Confirmed Last Taken Type FLUoxetine [Prozac] 10 mg PO QDAY #1 bottle 08/03/20 Unknown Rx Active Meds: Active Medications Acetaminophen (Tylenol) 650 mg PO Q4H PRN PRN Reason: Pain MILD(1-3)/Fever >100.5/PATEL Last Admin: 08/09/20 22:17 Dose: 650 mg Documented by: Diphenoxylate HCl/Atropine (Lomotil) 2 tab PO TID PRN PRN Reason: Diarrhea Last Admin: 08/08/20 09:37 Dose: 2 tab Documented by: Fluoxetine HCl (Prozac) 10 mg PO QDAY [facility] Last Admin: 08/11/20 09:52 Dose: Not Given Documented by: Heparin Sodium (Porcine) (Heparin) 5,000 unit SUB-Q Q8HR [facility] Last Admin: 08/12/20 05:14 Dose: 5,000 unit Documented by: Potassium Chloride 40 meq/ (Dextrose/Sodium Chloride) 1,020 mls @ 75 mls/hr IV DIRECT [facility] Last Admin: 08/11/20 22:04 Dose: 75 mls/hr Documented by: Magnesium Hydroxide (Milk Of Magnesia) 30 ml PO Q4H PRN PRN Reason: Constipation Ondansetron HCl (Zofran) 4 mg IV Q8H PRN PRN Reason: Nausea And Vomiting Sodium Chloride (Sodium Chloride Flush Syringe 10 Ml) 10 ml IV BID [facility] Last Admin: 08/11/20 21:36 Dose: 10 ml Documented by: Sodium Chloride (Sodium Chloride Flush Syringe 10 Ml) 10 ml IV PRN PRN PRN Reason: LINE FLUSH Review of Systems Constitutional: weight loss, fatigue, lethargy, poor appetite, no fever, no chills Ears, nose, mouth and throat: no nasal congestion, no sore throat Cardiovascular: shortness of breath, no chest pain, no orthopnea, no palpitations, no edema, no syncope, no lightheadedness, no dyspnea on exertion, no paroxysmal nocturnal dyspnea, no claudication Respiratory: shortness of breath, no cough, no dyspnea on exertion Gastrointestinal: no abdominal pain, no nausea, no vomiting, no diarrhea, no constipation Genitourinary Male: no dysuria, no flank pain Musculoskeletal: no neck stiffness, no neck pain, no myalgias Integumentary: no rash, no wounds Neurological: no head injury, no paralysis, no weakness, no parathesias, no numbness, no tingling, no seizures, no syncope, no vertigo Endocrine: no cold intolerance, no heat intolerance, no polydipsia, no polyuria Hematologic/Lymphatic: no easy bruising, no easy bleeding Allergic/Immunologic: no urticaria Physical Examination Last Vital Signs Temp 97.5 F L 08/12/20 08:58 Pulse 87 08/12/20 08:58 Resp 18 08/12/20 08:58 BP 97/71 08/12/20 08:58 Pulse Ox 100 08/12/20 08:58 General appearance: no acute distress, cachectic HEENT: Positive: EOMI, Normocephaly Neck: Positive: neck supple, trachea midline. Negative: JVD/HJR Cardiac: Positive: Reg Rate and Rhythm, S1/S2. Negative: Audible Murmur Lungs: Positive: clear to auscultation Neuro: Positive: Grossly Intact Abdomen: Positive: Soft, Active Bowel Sounds. Negative: Tender Skin: Negative: Rash Musculoskeletal: No Fluid Collection Extremities: Present: upper extr. pulses, lower extr. pulses. Absent: edema Results 08/04/20 06:26 08/07/20 04:41 - Imaging and Cardiology Echo: report reviewed (04/08/2020 - EF 55-60%; grade I diastolic dysfxn; RV mildly dilated; trace MR; mild TR) EKG: report reviewed, image reviewed - EKG Interpretation EKG: no acute changes EKG interpretations - Telemetry EKG Rhythm: Sinus Rhythm - EKG Sinus rhythms and dysrhythmias: sinus tachycardia Chamber hypertrophy or enlargement: left ventricular hypertro Assessment and Plan Pt recently underwent cardiac workup at [facility]. He was noted to have a short run of NSVT at that time and was started on a low-dose BB. Hesitant to resume PO Lopressor given borderline BPs. Will recheck CMP and consider initiation of PO Amio if labs WNL. Continue tele monitoring. Closely monitor electrolytes, and replete as needed. Will also add statin to current regimen. Pt seen in conjunction with Dr. Angie Zaragoza, who agrees with the assessment and plan of care. - Patient Problems (1) Failure to thrive Current Visit: Yes Status: Acute Qualifiers: Failure to thrive age range: in adult Qualified Code(s): R62.7 - Adult failure to thrive (2) Malnutrition Current Visit: Yes Status: Acute (3) CHRISTIE (acute kidney injury) Current Visit: Yes Status: Resolved (4) NSVT (nonsustained ventricular tachycardia) Current Visit: Yes Status: Acute Plan to address problem: Asymptomatic (5) NSTEMI (non-ST elevated myocardial infarction) Current Visit: Yes Status: Acute Plan to address problem: Type 2 (Pt denies chest pain. No acute ischemic changes on ECG.) (6) HTN (hypertension) Current Visit: Yes Status: Chronic Qualifiers: Hypertension type: essential hypertension Qualified Code(s): I10 - Essential (primary) hypertension (7) HLD (hyperlipidemia) Current Visit: Yes Status: Chronic Qualifiers: Hyperlipidemia type: mixed hyperlipidemia Qualified Code(s): E78.2 - Mixed hyperlipidemia (8) Depression Current Visit: Yes Status: Chronic
--- NOTE | 2020-08-12 08:52 | Fluoroscopy Report ---
MODIFIED BARIUM SWALLOW INDICATION: Aspiration risk TECHNIQUE: Swallowing was evaluated in the lateral position under direct fluoroscopy. FINDINGS: The patient was evaluated with puree, thin liquids and nectar consistencies. There was significant vallecular and piriform sinus residuals during ingestion of puree, thin liquids and nectar consistencies. No penetration or aspiration was witnessed. Please correlate with the repo rt by speech therapy. IMPRESSION: Vallecular and piriform sinus residuals. No aspiration witnessed. Fluoroscopic time: 1.0 minutes Number of fluoroscopic images: 1 Signer Name: Rg Flores Jr, MD Signed: 08/12/2020 8:47 AM Workstation Name: [id number]
--- NOTE | 2020-08-12 09:29 | Progress Note ---
Assessment and Plan Assessment and plan: --NSVT --hypokalemia; Resolved, monitor electrolytes --Acute renal failure From dehydration [vasomotor nephropathy] Resolved, avoid nephrotoxins ---Dehydration Improved, continue current management ---Elevated troponin present on admission nonspecific, no cardiac symptoms ---Depression Improved , denies suicidal thoughts or ideation psychiatry evaluated, patient is on fluoxetine Outpatient follow-up upon discharge ---Failure to thrive On regular cardiac diet, With nutritional supplements ---Hypernatremia Resolved, continue to encourage free water --Severe malnutrition/hypoalbuminemia; Nutrition supplements, shoemaking cutter following 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 Trending down, follow abdominal ultrasound --General debility/failure to thrive in an adult physical therapy, Occupational Therapy Evaluated, recommend acute rehab Acute rehab consult placed ---DVT prophylaxis subcutaneous heparin. ---Full code status 08/09/2020. Physical therapy recommends acute rehab. Await case management evaluation for placement. 08/10/2020. Awaiting subacute rehab placement. 08/11/2020. Awaiting subacute rehab placement. 08/12/2020. Nurse reports a 30 beat run of V. tach that occurred this morning. Cardiology has been consulted for NSVT. Follow-up electrolytes and check echo cardiogram. Speech therapy evaluated the patient with MBS which demonstrated oral pharyngeal dysphagia with laryngeal elevation, severe valleculae retention and an inability to clear the pharynx. Recommendations were for PEG placement. GI consultation. Awaiting subacute rehab placement History Interval history: No new issues overnight. Hospitalist Physical - Constitutional Vitals: Temp Pulse Resp BP Pulse Ox 97.5 F L 87 18 97/71 100 08/12/20 08:58 08/12/20 08:58 08/12/20 08:58 08/12/20 08:58 08/12/20 08:58 General appearance: Present: no acute distress, cachectic, disheveled, other (Depressed) - EENT Eyes: Present: PERRL, EOM intact ENT: hearing intact, clear oral mucosa, dentition normal - Neck Neck: Present: supple, normal ROM - Respiratory Respiratory effort: normal Respiratory: bilateral: CTA - Cardiovascular Rhythm: regular Heart Sounds: Present: S1 & S2. Absent: gallop, rub - Extremities Extremities: no ischemia, No edema, Full ROM - Abdominal General gastrointestinal: soft, non-tender, non-distended, normal bowel sounds - Integumentary Integumentary: Present: clear, warm, dry - Neurologic Neurologic: CNII-XII intact, moves all extremities HEART Score - HEART Score Troponin: Troponin T 0.048 ng/mL (0.00-0.029) H 08/02/20 21:56 Results - Labs CBC & Chem 7: 08/04/20 06:26 08/07/20 04:41 Labs: Laboratory Last Values WBC 4.6 K/mm3 (4.5-11.0) 08/04/20 06: RBC 4.68 M/mm3 (3.65-5.03) 08/04/20 06: Hgb 15.0 gm/dl (11.8-15.2) D 08/04/20 06: Hct 43.8 % (35.5-45.6) D 08/04/20 06: MCV 94 fl (84-94) 08/04/20 06: MCH 32 pg (28-32) 08/04/20 06: MCHC 34 % (32-34) 08/04/20 06: RDW 14.5 % (13.2-15.2) 08/04/20 06: Plt Count 118 K/mm3 (140-440) L 08/04/20 06: Lymph % (Auto) 14.7 % (13.4-35.0) 08/04/20 06: [place] % (Auto) 6.7 % (0.0-7.3) 08/04/20 06: Eos % (Auto) 0.1 % (0.0-4.3) 08/04/20 06: Baso % (Auto) 0.0 % (0.0-1.8) 08/04/20 06: Lymph # (Auto) 0.7 K/mm3 (1.2-5.4) L 08/04/20 06: [place] # (Auto) 0.3 K/mm3 (0.0-0.8) 08/04/20 06: Eos # (Auto) 0.0 K/mm3 (0.0-0.4) 08/04/20 06:26 Baso # (Auto) 0.0 K/mm3 (0.0-0.1) 08/04/20 06:26 Seg Neutrophils % 78.5 % (40.0-70.0) H 08/04/20 06:26 Seg Neutrophils # 3.6 K/mm3 (1.8-7.7) 08/04/20 06:26 PT 14.5 Sec. (12.2-14.9) 08/04/20 06:26 INR 1.12 (0.87-1.13) 08/04/20 06:26 Sodium 140 mmol/L (137-145) 08/07/20 04:41 Potassium 3.6 mmol/L (3.6-5.0) 08/07/20 04:41 Chloride 104.5 mmol/L (98-107) 08/07/20 04:41 Carbon Dioxide 28 mmol/L (22-30) 08/07/20 04:41 Anion Gap 11 mmol/L 08/07/20 04:41 BUN 16 mg/dL (9-20) 08/07/20 04:41 Creatinine 0.8 mg/dL (0.8-1.3) 08/07/20 04:41 Estimated GFR > 60 ml/min 08/07/20 04:41 BUN/Creatinine Ratio 20 % 08/07/20 04:41 Glucose 132 mg/dL (75-100) H 08/07/20 04:41 Calcium 8.1 mg/dL (8.4-10.2) L 08/07/20 04:41 Magnesium 2.80 mg/dL (1.7-2.3) H 08/03/20 15:29 Total Bilirubin 3.30 mg/dL (0.1-1.2) H 08/07/20 04:41 AST 25 units/L (5-40) 08/07/20 04:41 ALT 104 units/L (7-56) H 08/07/20 04:41 Alkaline Phosphatase 84 units/L (35-129) 08/07/20 04:41 Total Creatine Kinase 93 units/L (55-170) 08/02/20 21:56 CK-MB (CK-2) 5.3 ng/mL (0.0-4.0) H 08/02/20 21:56 CK-MB (CK-2) Rel Index 5.6 (0-4) H 08/02/20 21:56 Troponin T 0.048 ng/mL (0.00-0.029) H 08/02/20 21:56 Total Protein 4.6 g/dL (6.3-8.2) L 08/07/20 04:41 Albumin 2.7 g/dL (3.9-5) L 08/07/20 04:41 Albumin/Globulin Ratio 1.4 % 08/07/20 04:41 Triglycerides 307 mg/dL (2-149) H 08/02/20 21:56 Cholesterol 232 mg/dL (50-199) H 08/02/20 21:56 LDL Cholesterol Direct 132 mg/dL (50-130) H 08/02/20 21:56 HDL Cholesterol 36 mg/dL (40-59) L 08/02/20 21:56 Cholesterol/HDL Ratio 6.44 % 08/02/20 21:56 Lipase 77 units/L (13-60) H 08/02/20 21:56 Urine Color Fifi (Yellow) 08/03/20 00:22 Urine Turbidity Clear (Clear) 08/03/20 00:22 Urine pH 5.0 (5.0-7.0) 08/03/20 00:22 Ur Specific [place] 1.021 (1.003-1.030) 08/03/20 00:22 Urine Protein <15 mg/dl mg/dL (Negative) 08/03/20 00:22 Urine Glucose (UA) Neg mg/dL (Negative) 08/03/20 00:22 Urine Ketones Neg mg/dL (Negative) 08/03/20 00: Urine Blood Sm (Negative) 08/03/20 00:22 Urine Nitrite Neg (Negative) 08/03/20 00:22 Urine Bilirubin Sm (Negative) 08/03/20 00:22 Urine Ictotest Negative (Negative) 08/03/20: Urine Urobilinogen 4.0 mg/dL (<2.0) 08/03/20 00:22 Ur Leukocyte Esterase Neg (Negative) 08/03/20 00:22 Urine WBC (Auto) 2.0 /HPF (0.0-6.0) 08/03/20 00:22 Urine RBC (Auto) < 1.0 /HPF (0.0-6.0) 08/03/20 00:22 U Epithel Cells (Auto) < 1.0 /HPF (0-13.0) 08/03/20 00:22 Hyaline Casts 1 /LPF 08/03/20 00:22 Hepatitis A IgM Ab Non-reactive (NonReactive) 08/05/20 09:25 Hep Bs Antigen Non-reactive (Negative) 08/05/20 09:25 Hep B Core IgM Ab Non-reactive (NonReactive) 08/05/20 09:25 Hepatitis C Antibody Non-reactive (NonReactive) 08/05/20 09:25 Guillen/IV: Voiding Method Condom Catheter IV Catheter Type [left ac] Peripheral IV IV Catheter Type [Right Hand] Peripheral IV Active Medications - Current Medications Current Medications: Generic Name Dose Route Start Last Admin Trade Name Freq PRN Reason Stop Dose Admin Acetaminophen 650 mg 08/03/20 01:11 08/09/20 22:17 Tylenol PO 650 mg Q4H PRN Administration Pain MILD(1-3)/Fever >100.5/PATEL Diphenoxylate HCl/Atropine 2 tab 08/06/20 11:30 08/08/20 09:37 Lomotil PO 2 tab TID PRN Administration Diarrhea Fluoxetine HCl 10 mg 08/04/20 10:00 08/11/20 09:52 Prozac PO Not Given QDAY [facility]CR[facility] Heparin Sodium (Porcine) 5,000 unit 08/03/20 06:00 08/12/20 05:14 Heparin SUB-Q 5,000 unit Q8HR [facility] Administration Potassium Chloride 40 meq/ 1,020 mls @ 75 mls/hr 08/09/20 01:00 08/11/20 22:04 Dextrose/Sodium Chloride IV 75 mls/hr DIRECT [facility] Administration Magnesium Hydroxide 30 ml 08/03/20 01:11 Milk Of Magnesia PO Q4H PRN Constipation Ondansetron HCl 4 mg 08/03/20 01:11 Zofran IV Q8H PRN Nausea And Vomiting Sodium Chloride 10 ml 08/03/20 10:00 08/11/20 21:36 Sodium Chloride Flush Syringe 10 Ml IV 10 ml BID [facility] Administration Sodium Chloride 10 ml 08/03/20 01:11 Sodium Chloride Flush Syringe 10 Ml IV PRN PRN LINE FLUSH Nutrition/Malnutrition Assess - Dietary Evaluation Nutrition/Malnutrition Findings: Nutrition Notes Start: 08/03/20 11:43 Freq: Status: Active Protocol: Document 08/09/20 10:25 BK (Rec: 08/09/20 10:29 KAMI [id number]) Co-Sign 08/09/20 10:25 LM Nutrition Notes Initial or Follow up Reassessment Current Diagnosis Hypertension Other Pertinent Diagnosis Failure to Thrive, Acute CHRISTIE, Dehydration, Depression Current Diet Cardiac Labs/Tests No new labs Pertinent Medications Reviewed Height 5 ft 10 in Weight 66.4 kg [place] Body Weight (kg) 75.45 BMI 20.9 Weight change and time frame Wt change noted Weight Status Underweight Subjective/Other Information F/U for intakes. DI observed breakfast tray, 0% PO/ONS consumed. Per chart, pt having difficulty swallowing and keeping food down. CORK TILE FLOOR LAYER evaluation ordered. Percent of energy/protein needs met: 0%/0% Burn Absent Trauma Absent GI Symptoms None Difficulty In Swallowing Current % PO Negligible Minimum of two criteria Yes Energy Intake (non-severe) <75% Estimated Energy Requirement >7 days Interpretation of Weight Loss (severe) >7.5% in 3 months Body Fat Depletion Moderate depletion (severe) Muscle Mass Moderate Depletion (severe) Reduced Ballistic Expert Strength Measurably Reduced (severe) #2 Nutrition Diagnosis Inadequate oral intake Diagnosis Progress(for reassessment Continues documentation) #1 Nutrition Diagnosis Malnutrition Diagnosis Progress(for reassessment Continues documentation) Is patient on ventilator? No Is Patient Ambulatory and/or Out of Bed No REE-([place]-confined to bed) 1692.708 Kcal/Kg value to use for calculation 30 Approximate Energy Requirements Using 1992 kcal/Kg Calculation Used for Recommendations Kcal/kg Additional Notes Pro: 73-91 (1.2-1.5 g/kg) Fluid: 1 ml/kcal Nutrition Intervention Change Diet Order: Continue Cardiac or per CORK TILE FLOOR LAYER Add Supplement/Snack (indicate name/kcal Ensure Enlive Daily /protein ) Provides kCal: 350 Provides Protein (gm) 20 Goal #1 Meet at least 75% of energy and protein needs via PO and ONS intakes Goal #2 Weight maintanance/gain Anticipated Discharge Needs: Cardiac with ONS Follow-Up By: 08/13/20 Additional Comments F/U for PO/ONS intakes and CORK TILE FLOOR LAYER recommendations
[2020-08-12] MEDS: FLUoxetine 20 MG/5 ML ORAL LIQD PO SCH (10:45)
[2020-08-12 12:14] LABS: Alanine Aminotransferase 78 units/L (7-56); Albumin 2.7 g/dL (3.9-5); Blood Urea Nitrogen 8 mg/dL (9-20); Calcium 7.8 mg/dL (8.4-10.2); Hemolysis Index 30
[2020-08-12 12:15] LABS: BUN/Creatinine Ratio 16
[2020-08-12] MEDS: NACL IV SCH (23:10)
[2020-08-12] MEDS: D5W IV SCH (23:10)
[2020-08-12] MEDS: POTASSIUM CHLORIDE IV SCH (23:10)
[2020-08-13] MEDS: HEPARIN 5,000 UNIT/1 ML VIAL SUB-Q SCH ×3 (05:48→22:57)
--- NOTE | 2020-08-13 08:59 | Progress Note ---
Assessment and Plan Assessment and plan: --NSVT --hypokalemia; Resolved, monitor electrolytes --Acute renal failure From dehydration [vasomotor nephropathy] Resolved, avoid nephrotoxins ---Dehydration Improved, continue current management ---Elevated troponin present on admission nonspecific, no cardiac symptoms ---Depression Improved , denies suicidal thoughts or ideation psychiatry evaluated, patient is on fluoxetine Outpatient follow-up upon discharge ---Failure to thrive On regular cardiac diet, With nutritional supplements ---Hypernatremia Resolved, continue to encourage free water --Severe malnutrition/hypoalbuminemia; Nutrition supplements, 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 Trending down, follow abdominal ultrasound --General debility/failure to thrive in an adult physical therapy, Occupational Therapy Evaluated, recommend acute rehab Acute rehab consult placed ---DVT prophylaxis subcutaneous heparin. ---Full code status 08/09/2020. Physical therapy recommends acute rehab. Await case management evaluation for placement. 08/10/2020. Awaiting subacute rehab placement. 08/11/2020. Awaiting subacute rehab placement. 08/12/2020. Nurse reports a 30 beat run of V. tach that occurred this morning. Cardiology has been consulted for NSVT. Follow-up electrolytes and check echo cardiogram. Speech therapy evaluated the patient with MBS which demonstrated oral pharyngeal dysphagia with laryngeal elevation, severe valleculae retention and an inability to clear the pharynx. Recommendations were for PEG placement. GI consultation. Awaiting subacute rehab placement 08/13/2020; Nurse reports a 30 beat run of V. tach yesterday and cardiology evaluated and put her on amiodarone. Speech therapy evaluated the patient with MBS which demonstrated oral pharyngeal dysphagia with laryngeal elevation, severe valleculae retention and an inability to clear the pharynx. Recommendat ions were for PEG placement. GI consulted and discussed with Dr. Rainey and he said the patient wants more time to think about EGD or PEG tube placement. Patient wants Dr Rainey to talk to his daughter and he tried to reach her. Patient has depression and on fluoxetine. Psych evaluated the patient and signed off. History Interval history: Patient was seen and evaluated this morning patient patient is complaining he is feeling weak and could not function He said he is not doing well Hospitalist Physical - Physical exam Narrative exam: Not in cardiopulmonary distress. The patient appeared well nourished and normally developed. Vital signs as documented. Head exam is unremarkable. No scleral icterus . Neck is without jugular venous distension, thyromegaly, or carotid bruits. Lungs are clear to auscultation. Cardiac exam reveals regular rate and Rhythm. Abdominal exam reveals normal bowel sounds, nontender, no organomegaly. Extremities are nonedematous and both femoral and pedal pulses are normal. MALTSTER: Alert and oriented 3. No focal weakness. - Constitutional Vitals: Temp Pulse Resp BP Pulse Ox 97.4 F L 81 20 116/77 100 08/13/20 07:51 08/13/20 07:51 08/13/20 07:51 08/13/20 07:51 08/13/20 07:51 General appearance: Present: no acute distress, cachectic, disheveled, other (Depressed) HEART Score - HEART Score Troponin: Troponin T 0.048 ng/mL (0.00-0.029) H 08/02/20 21:56 Results - Labs CBC & Chem 7: 08/04/20 06:26 08/12/20 11:15 Labs: Laboratory Last Values WBC 4.6 K/mm3 (4.5-11.0) 08/04/20 06:26 RBC 4.68 M/mm3 (3.65-5.03) 08/04/20 06:26 Hgb 15.0 gm/dl (11.8-15.2) D 08/04/20 06:26 Hct 43.8 % (35.5-45.6) D 08/04/20 06:26 MCV 94 fl (84-94) 08/04/20 06:26 MCH 32 pg (28-32) 08/04/20 06:26 MCHC 34 % (32-34) 08/04/20 06:26 RDW 14.5 % (13.2-15.2) 08/04/20 06:26 Plt Count 118 K/mm3 (140-440) L 08/04/20 06:26 Lymph % (Auto) 14.7 % (13.4-35.0) 08/04/20 06:26 [place] % (Auto) 6.7 % (0.0-7.3) 08/04/20 06:26 Eos % (Auto) 0.1 % (0.0-4.3) 08/04/20 06:26 Baso % (Auto) 0.0 % (0.0-1.8) 08/04/20 06:26 Lymph # (Auto) 0.7 K/mm3 (1.2-5.4) L 08/04/20 06:26 [place] # (Auto) 0.3 K/mm3 (0.0-0.8) 08/04/20 06:26 Eos # (Auto) 0.0 K/mm3 (0.0-0.4) 08/04/20 06: Baso # (Auto) 0.0 K/mm3 (0.0-0.1) 08/04/20 06: Seg Neutrophils % 78.5 % (40.0-70.0) H 08/04/20 06: Seg Neutrophils # 3.6 K/mm3 (1.8-7.7) 08/04/20 06: PT 14.5 Sec. (12.2-14.9) 08/04/20 06: INR 1.12 (0.87-1.13) 08/04/20 06:26 Sodium 136 mmol/L (137-145) L 08/12/20 11:15 Potassium 3.6 mmol/L (3.6-5.0) 08/12/20 11:15 Chloride 104.8 mmol/L (98-107) 08/12/20 11:15 Carbon Dioxide 21 mmol/L (22-30) L 08/12/20 11:15 Anion Gap 14 mmol/L 08/12/20 11:15 BUN 8 mg/dL (9-20) L 08/12/20 11:15 Creatinine 0.5 mg/dL (0.8-1.3) L 08/12/20 11:15 Estimated GFR > 60 ml/min 08/12/20 11:15 BUN/Creatinine Ratio 16 % 08/12/20 11:15 Glucose 98 mg/dL (75-100) 08/12/20 11:15 Calcium 7.8 mg/dL (8.4-10.2) L 08/12/20 11:15 Magnesium 2.80 mg/dL (1.7-2.3) H 08/03/20 15:29 Total Bilirubin 2.40 mg/dL (0.1-1.2) H 08/12/20 11:15 AST 22 units/L (5-40) 08/12/20 11:15 ALT 78 units/L (7-56) H 08/12/20 11:15 Alkaline Phosphatase 92 units/L (35-129) 08/12/20 11:15 Total Creatine Kinase 93 units/L (55-170) 08/02/20 21:56 CK-MB (CK-2) 5.3 ng/mL (0.0-4.0) H 08/02/20 21:56 CK-MB (CK-2) Rel Index 5.6 (0-4) H 08/02/20 21:56 Troponin T 0.048 ng/mL (0.00-0.029) H 08/02/20 21:56 Total Protein 4.8 g/dL (6.3-8.2) L 08/12/20 11:15 Albumin 2.7 g/dL (3.9-5) L 08/12/20 11:15 Albumin/Globulin Ratio 1.3 % 08/12/20 11:15 Triglycerides 307 mg/dL (2-149) H 08/02/20 21:56 Cholesterol 232 mg/dL (50-199) H 08/02/20 21:56 LDL Cholesterol Direct 132 mg/dL (50-130) H 08/02/20 21:56 HDL Cholesterol 36 mg/dL (40-59) L 08/02/20 21:56 Cholesterol/HDL Ratio 6.44 % 08/02/20 21:56 Lipase 77 units/L (13-60) H 08/02/20 21:56 Urine Color Fifi (Yellow) 08/03/20 00:22 Urine Turbidity Clear (Clear) 08/03/20 00:22 Urine pH 5.0 (5.0-7.0) 08/03/20 00:22 Ur Specific [place] 1.021 (1.003-1.030) 08/03/20 00:22 Urine Protein <15 mg/dl mg/dL (Negative) 08/03/20 00:22 Urine Glucose (UA) Neg mg/dL (Negative) 08/03/20 00:22 Urine Ketones Neg mg/dL (Negative) 08/03/20 00:22 Urine Blood Sm (Negative) 08/03/20 00:22 Urine Nitrite Neg (Negative) 08/03/20 00:22 Urine Bilirubin Sm (Negative) 08/03/20 00:22 Urine Ictotest Negative (Negative) 08/03/20 00:22 Urine Urobilinogen 4.0 mg/dL (<2.0) 08/03/20 00:22 Ur Leukocyte Esterase Neg (Negative) 08/03/20 00:22 Urine WBC (Auto) 2.0 /HPF (0.0-6.0) 08/03/20 00:22 Urine RBC (Auto) < 1.0 /HPF (0.0-6.0) 08/03/20 00:22 U Epithel Cells (Auto) < 1.0 /HPF (0-13.0) 08/03/20 00:22 Hyaline Casts 1 /LPF 08/03/20 00:22 Hepatitis A IgM Ab Non-reactive (NonReactive) 08/05/20 09:25 Hep Bs Antigen Non-reactive (Negative) 08/05/20 09:25 Hep B Core IgM Ab Non-reactive (NonReactive) 08/05/20 09:25 Hepatitis C Antibody Non-reactive (NonReactive) 08/05/20 09:25 Guillen/IV: Voiding Method Condom Catheter IV Catheter Type [left ac] Peripheral IV IV Catheter Type [Right Hand] Peripheral IV Active Medications - Current Medications Current Medications: Generic Name Dose Route Start Last Admin Trade Name Freq PRN Reason Stop Dose Admin Acetaminophen 650 mg 08/03/20 01:11 08/09/20 22:17 Tylenol PO 650 mg Q4H PRN Administration Pain MILD(1-3)/Fever >100.5/PATEL Amiodarone HCl 200 mg 08/13/20 10:00 Cordarone PO BID LUCRECIA Diphenoxylate HCl/Atropine 2 tab 08/06/20 11:30 08/08/20 09:37 Lomotil PO 2 tab TID PRN Administration Diarrhea Fluoxetine HCl 10 mg 08/04/20 10:00 08/12/20 10:45 Prozac PO Not Given QDAY LUCRECIA Heparin Sodium (Porcine) 5,000 unit 08/03/20 06:00 08/13/20 05:48 Heparin SUB-Q 5,000 unit Q8HR LUCRECIA Administration Potassium Chloride 40 meq/ 1,020 mls @ 75 mls/hr 08/09/20 01:00 08/12/20 23:10 Dextrose/Sodium Chloride IV 75 mls/hr DIRECT LUCRECIA Administration Magnesium Hydroxide 30 ml 08/03/20 01:11 Milk Of Magnesia PO Q4H PRN Constipation Ondansetron HCl 4 mg 08/03/20 01:11 Zofran IV Q8H PRN Nausea And Vomiting Sodium Chloride 10 ml 08/03/20 10:00 08/12/20 21:51 Sodium Chloride Flush Syringe 10 Ml IV 10 ml BID LUCRECIA Administration Sodium Chloride 10 ml 08/03/20 01:11 Sodium Chloride Flush Syringe 10 Ml IV PRN PRN LINE FLUSH Nutrition/Malnutrition Assess - Dietary Evaluation Nutrition/Malnutrition Findings: Nutrition Notes Start: 08/03/20 11:43 Freq: Status: Active Protocol: Document 08/09/20 10:25 KAMI (Rec: 08/09/20 10:29 KAMI [id number]) Co-Sign 08/09/20 10:25 LM Nutrition Notes Initial or Follow up Reassessment Current Diagnosis Hypertension Other Pertinent Diagnosis Failure to Thrive, Acute CHRISTIE, Dehydration, Depression Current Diet Cardiac Labs/Tests No new labs Pertinent Medications Reviewed Height 5 ft 10 in Weight 66.4 kg [place] Body Weight (kg) 75.45 BMI 20.9 Weight change and time frame Wt change noted Weight Status Underweight Subjective/Other Information F/U for intakes. DI observed breakfast tray, 0% PO/ONS consumed. Per chart, pt having difficulty swallowing and keeping food down. HYDRAULIC STRAINER OPERATOR evaluation ordered. Percent of energy/protein needs met: 0%/0% Burn Absent Trauma Absent GI Symptoms None Difficulty In Swallowing Current % PO Negligible Minimum of two criteria Yes Energy Intake (non-severe) <75% Estimated Energy Requirement >7 days Interpretation of Weight Loss (severe) >7.5% in 3 months Body Fat Depletion Moderate depletion (severe) Muscle Mass Moderate Depletion (severe) Reduced Mark Up Designer Strength Measurably Reduced (severe) #2 Nutrition Diagnosis Inadequate oral intake Diagnosis Progress(for reassessment Continues documentation) #1 Nutrition Diagnosis Malnutrition Diagnosis Progress(for reassessment Continues documentation) Is patient on ventilator? No Is Patient Ambulatory and/or Out of Bed No REE-([facility]-confined to bed) 1692.708 Kcal/Kg value to use for calculation 30 Approximate Energy Requirements Using 1992 kcal/Kg Calculation Used for Recommendations Kcal/kg Additional Notes Pro: 73-91 (1.2-1.5 g/kg) Fluid: 1 ml/kcal Nutrition Intervention Change Diet Order: Continue Cardiac or per HYDRAULIC STRAINER OPERATOR Add Supplement/Snack (indicate name/kcal Ensure Enlive Daily /protein ) Provides kCal: 350 Provides Protein (gm) 20 Goal #1 Meet at least 75% of energy and protein needs via PO and ONS intakes Goal #2 Weight maintanance/gain Anticipated Discharge Needs: Cardiac with ONS Follow-Up By: 08/13/20 Additional Comments F/U for PO/ONS intakes and HYDRAULIC STRAINER OPERATOR recommendations
[2020-08-13] MEDS: AMIODARONE 200 MG TAB PO SCH ×2 (10:20→22:54)
[2020-08-13] MEDS: FLUoxetine 20 MG/5 ML ORAL LIQD PO SCH (10:20)
--- NOTE | 2020-08-13 11:28 | Progress Note ---
Assessment and Plan Recent cardiac workup @ [facility] noted (as below). Continue PO Amio BID for now. Recheck CMP in AM. Will consider initiation of statin prior to discharge pending normalization of LFTs. Pt seen in conjunction with Dr. Angie Zaragoza, who agrees with the assessment and plan of care. - Patient Problems (1) Failure to thrive Current Visit: Yes Status: Acute Qualifiers: Failure to thrive age range: in adult Qualified Code(s): R62.7 - Adult failure to thrive (2) Malnutrition Current Visit: Yes Status: Acute (3) NSVT (nonsustained ventricular tachycardia) Current Visit: Yes Status: Acute Plan to address problem: Asymptomatic (4) NSTEMI (non-ST elevated myocardial infarction) Current Visit: Yes Status: Acute Plan to address problem: Type 2 (Pt denies chest pain. No acute ischemic changes on ECG.) (5) HTN (hypertension) Current Visit: No Status: Chronic Qualifiers: Hypertension type: essential hypertension Qualified Code(s): I10 - Essential (primary) hypertension (6) HLD (hyperlipidemia) Current Visit: Yes Status: Chronic Qualifiers: Hyperlipidemia type: mixed hyperlipidemia Qualified Code(s): E78.2 - Mixed hyperlipidemia (7) Depression Current Visit: Yes Status: Chronic Subjective Date of service: 08/13/20 Principal diagnosis: FTT, NSVT Interval history: Pt resting comfortably in bed upon exam. He states he is doing ok but feels tired. No additional complaints. Tele reviewed - SR 70-80s w/no acute events overnight. Barium swallow study findings noted - pt may require PEG tube. Objective Last Vital Signs Temp 97.4 F L 08/13/20 07:51 Pulse 81 08/13/20 07:51 Resp 20 08/13/20 07:51 BP 116/77 08/13/20 07:51 Pulse Ox 100 08/13/20 07:51 - Physical Examination General: No Apparent Distress, Cachectic HEENT: Positive: EOMI, Normocephaly Neck: Positive: neck supple, trachea midline Cardiac: Positive: Reg Rate and Rhythm, S1/S2 Lungs: Positive: Decreased Breath Sounds Neuro: Positive: Grossly Intact Abdomen: Positive: Soft, Active Bowel Sounds. Negative: Tender Skin: Negative: Rash Musculoskeletal: No Fluid Collection Extremities: Present: upper extr. pulses, lower extr. pulses. Absent: edema - Labs and Meds Cardiac Enzymes 08/12/20 Range/Units 11:15 AST 22 (5-40) units/L Comprehensive Metabolic Panel 08/12/20 Range/Units 11:15 Sodium 136 L (137-145) mmol/L Potassium 3.6 (3.6-5.0) mmol/L Chloride 104.8 (98-107) mmol/L Carbon Dioxide 21 L (22-30) mmol/L BUN 8 L (9-20) mg/dL Creatinine 0.5 L (0.8-1.3) mg/dL Glucose 98 (75-100) mg/dL Calcium 7.8 L (8.4-10.2) mg/dL AST 22 (5-40) units/L ALT 78 H (7-56) units/L Alkaline Phosphatase 92 (35-129) units/L Total Protein 4.8 L (6.3-8.2) g/dL Albumin 2.7 L (3.9-5) g/dL - Imaging and Cardiology EKG: report reviewed, image reviewed Pharmacologic stress test: report reviewed (04/08/2020 - negative for ischemia) Echo: report reviewed (04/08/2020 - EF 55-60%; grade I diastolic dysfxn; RV mildly dilated; trace MR; mild TR) - Telemetry EKG Rhythm: Sinus Rhythm - EKG Sinus rhythms and dysrhythmias: sinus tachycardia Chamber hypertrophy or enlargement: left ventricular hypertro
--- NOTE | 2020-08-13 16:16 | Consultation ---
History of Present Illness - Reason for Consult Consult date: 08/13/20 Dysphagia Requesting physician: ASHA CHIRINOS - History of Present Illness 75 yo WM brought to ER for failure to thrive, and weight loss. Pt was evaluated here and had a modified barium swallow which did not show elmo aspiration, but was thought to be consistent with high risk of aspiration due to oropharyngeal retention with failure to clear. Pt has significant depression, since losing job at [email or web address] in 01/2020. He has been losing weight, and states that he saw his PCP, Dr. Cao several weeks ago, and was advised to undergo hospitalization for depression, but declined to do so. Also, he is currently with his son, as his is in [place], [place] with his daughter, Chloé. Pt states that he has QUIQUE, that when he eats, food goes straight to the bottom of his abdomen, and that he has difficulty swallowing at times. History was difficult to obtain, and rambling, with perseveration noted. He denies abd pain, N/V, F/C/NS, cough with eating. Meds reviewed. Past History Past Medical History: hypertension Past Surgical History: No surgical history Social history: , Lives alone. denies: smoking, alcohol abuse Family history: no significant family history Medications and Allergies Allergies Allergy/AdvReac Type Severity Reaction Status Date / Time No Known Allergies Allergy Verified 08/02/20 22:50 Home Medications Medication Instructions Recorded Confirmed Last Taken Type FLUoxetine [Prozac] 10 mg PO QDAY #1 bottle 08/03/20 Unknown Rx Active Meds: Active Medications Acetaminophen (Tylenol) 650 mg PO Q4H PRN PRN Reason: Pain MILD(1-3)/Fever >100.5/PATEL Last Admin: 08/09/20 22:17 Dose: 650 mg Documented by: Amiodarone HCl (Cordarone) 200 mg PO BID [facility] Last Admin: 08/13/20 10:20 Dose: Not Given Documented by: Diphenoxylate HCl/Atropine (Lomotil) 2 tab PO TID PRN PRN Reason: Diarrhea Last Admin: 08/08/20 09:37 Dose: 2 tab Documented by: Fluoxetine HCl (Prozac) 10 mg PO QDAY [facility] Last Admin: 08/13/20 10:20 Dose: Not Given Documented by: Heparin Sodium (Porcine) (Heparin) 5,000 unit SUB-Q Q8HR [facility] Last Admin: 08/13/20 05:48 Dose: 5,000 unit Documented by: Potassium Chloride 40 meq/ (Dextrose/Sodium Chloride) 1,020 mls @ 75 mls/hr IV DIRECT [facility] Last Admin: 08/12/20 23:10 Dose: 75 mls/hr Documented by: Magnesium Hydroxide (Milk Of Magnesia) 30 ml PO Q4H PRN PRN Reason: Constipation Ondansetron HCl (Zofran) 4 mg IV Q8H PRN PRN Reason: Nausea And Vomiting Sodium Chloride (Sodium Chloride Flush Syringe 10 Ml) 10 ml IV BID [facility] Last Admin: 08/13/20 10:43 Dose: 10 ml Documented by: Sodium Chloride (Sodium Chloride Flush Syringe 10 Ml) 10 ml IV PRN PRN PRN Reason: LINE FLUSH Review of Systems All systems: negative (as noted in HPI. Pt has lost weight.) Exam - Constitutional Vitals: Temp Pulse Resp BP Pulse Ox 97.1 F L 82 20 88/63 100 08/13/20 11:42 08/13/20 11:42 08/13/20 11:42 08/13/20 11:42 08/13/20 11:42 General appearance: Present: no acute distress, other (thin) - EENT Eyes: Present: PERRL, EOM intact ENT: hearing intact - Respiratory Respiratory effort: normal Respiratory: bilateral: CTA - Cardiovascular Rhythm: regular Heart Sounds: Present: S1 & S2 - Extremities Extremities: No edema - Abdominal General gastrointestinal: Present: soft, non-tender - Psychiatric Psychiatric: depressed Results - Labs CBC & Chem 7: 08/04/20 06:26 08/12/20 11:15 Assessment and Plan 1. Abnormal modified barium swallow - may be due to oropharyngeal dysphagia from impending dementia, severe depression, or progressive neurologic disease. Recommendation for G-tube noted. - discussed with pt, and advised that if he improved, he may resume oral diet. - if he does not want PEG placed, offered EGD to exclude other pathology. - pt uncertain, and wants to think it over. Message left on daughterChloé's, phone. Also tried calling sonWes. 2. Weight loss - may be due to above, or to depression. - depression management as per Hospitalist.
[2020-08-13] MEDS: D5W IV SCH (17:52)
[2020-08-13] MEDS: NACL IV SCH (17:52)
[2020-08-13] MEDS: POTASSIUM CHLORIDE IV SCH (17:52)
[2020-08-14 05:55] LABS: Alanine Aminotransferase 55 units/L (7-56); Albumin 2.4 g/dL (3.9-5); Blood Urea Nitrogen 11 mg/dL (9-20); Calcium 7.9 mg/dL (8.4-10.2); Hemolysis Index 4
[2020-08-14 06:00] LABS: BUN/Creatinine Ratio 18
[2020-08-14] MEDS: POTASSIUM CHLORIDE IV SCH (06:09)
[2020-08-14] MEDS: D5W IV SCH (06:09)
[2020-08-14] MEDS: NACL IV SCH (06:09)
[2020-08-14] MEDS: HEPARIN 5,000 UNIT/1 ML VIAL SUB-Q SCH ×3 (06:10→22:24)
--- NOTE | 2020-08-14 09:04 | Progress Note ---
Assessment and Plan Assessment and plan: --NSVT --hypokalemia; Resolved, monitor electrolytes --Acute renal failure From dehydration [vasomotor nephropathy] Resolved, avoid nephrotoxins ---Dehydration Improved, continue current management ---Elevated troponin present on admission nonspecific, no cardiac symptoms ---Depression Improved , denies suicidal thoughts or ideation psychiatry evaluated, patient is on fluoxetine Outpatient follow-up upon discharge ---Failure to thrive On regular cardiac diet, With nutritional supplements ---Hypernatremia Resolved, continue to encourage free water --Severe malnutrition/hypoalbuminemia; 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 Trending down, follow abdominal ultrasound --General debility/failure to thrive in an adult physical therapy, Occupational Therapy Evaluated, recommend acute rehab Acute rehab consult placed ---DVT prophylaxis subcutaneous heparin. ---Full code status 08/09/2020. Physical therapy recommends acute rehab. Await case management evaluation for placement. 08/10/2020. Awaiting subacute rehab placement. 08/11/2020. Awaiting subacute rehab placement. 08/12/2020. Nurse reports a 30 beat run of V. tach that occurred this morning. Cardiology has been consulted for NSVT. Follow-up electrolytes and check echo cardiogram. Speech therapy evaluated the patient with MBS which demonstrated oral pharyngeal dysphagia with laryngeal elevation, severe valleculae retention and an inability to clear the pharynx. Recommendations were for PEG placement. GI consultation. Awaiting subacute rehab placement 08/13/2020; Nurse reports a 30 beat run of V. tach yesterday and cardiology evaluated and put her on amiodarone. Speech therapy evaluated the patient with MBS which demonstrated oral pharyngeal dysphagia with laryngeal elevation, severe valleculae retention and an inability to clear the pharynx. Recommendat ions were for PEG placement. GI consulted and discussed with Dr. Rainey and he said the patient wants more time to think about EGD or PEG tube placement. Patient wants Dr Rainey to talk to his daughter and he tried to reach her. Patient has depression and on fluoxetine. Psych evaluated the patient and signed off. 08/14/2020 Nurse reports a 30 beat run of V. tach yesterday and cardiology carlos luated and put her on amiodarone. Speech therapy evaluated the patient with MBS which demonstrated oral pharyngeal dysphagia with laryngeal elevation, severe valleculae retention and an inability to clear the pharynx. Recommendations were for PEG placement. GI consulted and discussed with Dr. Rainey and he said the patient wants more time to think about EGD or PEG tube placement. Patient wants Dr Rainey to talk to his daughter and he tried to reach her. Patient has depression and on fluoxetine. Psych evaluated the patient and signed off. History Interval history: Patient was seen and evaluated this morning patient patient is complaining he is feeling weak and could not function He said he is not doing well Hospitalist Physical - Physical exam Narrative exam: Not in cardiopulmonary distress. The patient appeared well nourished and normally developed. Vital signs as documented. Head exam is unremarkable. No scleral icterus . Neck is without jugular venous distension, thyromegaly, or carotid bruits. Lungs are clear to auscultation. Cardiac exam reveals regular rate and Rhythm. Abdominal exam reveals normal bowel sounds, nontender, no organomegaly. Extremities are nonedematous and both femoral and pedal pulses are normal. 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 No focal weakness. - Constitutional Vitals: Temp Pulse Resp BP Pulse Ox 98.6 F 74 20 103/63 99 08/14/20 07:41 08/14/20 07:41 08/14/20 07:41 08/14/20 07:41 08/14/20 07:41 General appearance: Present: no acute distress, other (thin) HEART Score - HEART Score Troponin: Troponin T 0.048 ng/mL (0.00-0.029) H 08/02/20 21:56 Results - Labs CBC & Chem 7: 08/04/20 06:26 08/14/20 05:10 Labs: Laboratory Last Values WBC 4.6 K/mm3 (4.5-11.0) 08/04/20 06:26 RBC 4.68 M/mm3 (3.65-5.03) 08/04/20 06:26 Hgb 15.0 gm/dl (11.8-15.2) D 08/04/20 06:26 Hct 43.8 % (35.5-45.6) D 08/04/20 06:26 MCV 94 fl (84-94) 08/04/20 06:26 MCH 32 pg (28-32) 08/04/20 06: MCHC 34 % (32-34) 08/04/20 06:26 RDW 14.5 % (13.2-15.2) 08/04/20 06:26 Plt Count 118 K/mm3 (140-440) L 08/04/20 06:26 Lymph % (Auto) 14.7 % (13.4-35.0) 08/04/20 06:26 [place] % (Auto) 6.7 % (0.0-7.3) 08/04/20 06: Eos % (Auto) 0.1 % (0.0-4.3) 08/04/20 06: Baso % (Auto) 0.0 % (0.0-1.8) 08/04/20 06: Lymph # (Auto) 0.7 K/mm3 (1.2-5.4) L 08/04/20 06:26 [place] # (Auto) 0.3 K/mm3 (0.0-0.8) 08/04/20 06: Eos # (Auto) 0.0 K/mm3 (0.0-0.4) 08/04/20 06:26 Baso # (Auto) 0.0 K/mm3 (0.0-0.1) 08/04/20 06: Seg Neutrophils % 78.5 % (40.0-70.0) H 08/04/20 06: Seg Neutrophils # 3.6 K/mm3 (1.8-7.7) 08/04/20 06: PT 14.5 Sec. (12.2-14.9) 08/04/20 06:26 INR 1.12 (0.87-1.13) 08/04/20 06:26 Sodium 141 mmol/L (137-145) 08/14/20 05:10 Potassium 4.0 mmol/L (3.6-5.0) 08/14/20 05:10 Chloride 108.5 mmol/L (98-107) H 08/14/20 05:10 Carbon Dioxide 24 mmol/L (22-30) 08/14/20 05:10 Anion Gap 13 mmol/L 08/14/20 05:10 BUN 11 mg/dL (9-20) 08/14/20 05:10 Creatinine 0.6 mg/dL (0.8-1.3) L 08/14/20 05:10 Estimated GFR > 60 ml/min 08/14/20 05:10 BUN/Creatinine Ratio 18 % 08/14/20 05:10 Glucose 117 mg/dL (75-100) H 08/14/20 05:10 Calcium 7.9 mg/dL (8.4-10.2) L 08/14/20 05:10 Magnesium 2.80 mg/dL (1.7-2.3) H 08/03/20 15:29 Total Bilirubin 1.80 mg/dL (0.1-1.2) H 08/14/20 05:10 AST 16 units/L (5-40) 08/14/20 05:10 ALT 55 units/L (7-56) 08/14/20 05:10 Alkaline Phosphatase 75 units/L (35-129) 08/14/20 05:10 Total Creatine Kinase 93 units/L (55-170) 08/02/20 21:56 CK-MB (CK-2) 5.3 ng/mL (0.0-4.0) H 08/02/20 21:56 CK-MB (CK-2) Rel Index 5.6 (0-4) H 08/02/20 21:56 Troponin T 0.048 ng/mL (0.00-0.029) H 08/02/20 21:56 Total Protein 4.3 g/dL (6.3-8.2) L 08/14/20 05:10 Albumin 2.4 g/dL (3.9-5) L 08/14/20 05:10 Albumin/Globulin Ratio 1.3 % 08/14/20 05:10 Triglycerides 307 mg/dL (2-149) H 08/02/20 21:56 Cholesterol 232 mg/dL (50-199) H 08/02/20 21:56 LDL Cholesterol Direct 132 mg/dL (50-130) H 08/02/20 21:56 HDL Cholesterol 36 mg/dL (40-59) L 08/02/20 21:56 Cholesterol/HDL Ratio 6.44 % 08/02/20 21:56 Lipase 77 units/L (13-60) H 08/02/20 21:56 Urine Color Fifi (Yellow) 08/03/20 00:22 Urine Turbidity Clear (Clear) 08/03/20 00:22 Urine pH 5.0 (5.0-7.0) 08/03/20 00:22 Ur Specific [place] 1.021 (1.003-1.030) 08/03/20 00:22 Urine Protein <15 mg/dl mg/dL (Negative) 08/03/20 00:22 Urine Glucose (UA) Neg mg/dL (Negative) 08/03/20 00: Urine Ketones Neg mg/dL (Negative) 08/03/20 00: Urine Blood Sm (Negative) 08/03/20: Urine Nitrite Neg (Negative) 08/03/20: Urine Bilirubin Sm (Negative) 08/03/20: Urine Ictotest Negative (Negative) 08/03/20 00: Urine Urobilinogen 4.0 mg/dL (<2.0) 08/03/20 00:22 Ur Leukocyte Esterase Neg (Negative) 08/03/20 00:22 Urine WBC (Auto) 2.0 /HPF (0.0-6.0) 08/03/20 00: Urine RBC (Auto) < 1.0 /HPF (0.0-6.0) 08/03/20 00:22 U Epithel Cells (Auto) < 1.0 /HPF (0-13.0) 08/03/20 00: Hyaline Casts 1 /LPF 08/03/20 00:22 Hepatitis A IgM Ab Non-reactive (NonReactive) 08/05/20 09:25 Hep Bs Antigen Non-reactive (Negative) 08/05/20 09:25 Hep B Core IgM Ab Non-reactive (NonReactive) 08/05/20 09:25 Hepatitis C Antibody Non-reactive (NonReactive) 08/05/20 09:25 Guillen/IV: Voiding Method Condom Catheter IV Catheter Type [left ac] Peripheral IV IV Catheter Type [Right Hand] Peripheral IV Active Medications - Current Medications Current Medications: Generic Name Dose Route Start Last Admin Trade Name Freq PRN Reason Stop Dose Admin Acetaminophen 650 mg 08/03/20 01:11 08/09/20 22:17 Tylenol PO 650 mg Q4H PRN Administration Pain MILD(1-3)/Fever >100.5/PATEL Amiodarone HCl 200 mg 08/13/20 10:00 08/13/20 22:54 Cordarone PO Not Given BID LUCRECIA Diphenoxylate HCl/Atropine 2 tab 08/06/20 11:30 08/08/20 09:37 Lomotil PO 2 tab TID PRN Administration Diarrhea Fluoxetine HCl 10 mg 08/04/20 10:00 08/13/20 10:20 Prozac PO Not Given QDAY LUCRECIA Heparin Sodium (Porcine) 5,000 unit 08/03/20 06:00 08/14/20 06:10 Heparin SUB-Q 5,000 unit Q8HR LUCRECIA Administration Potassium Chloride 40 meq/ 1,020 mls @ 75 mls/hr 08/13/20 17:00 08/14/20 06:09 Dextrose/Sodium Chloride IV 75 mls/hr DIRECT LUCRECIA Administration Magnesium Hydroxide 30 ml 08/03/20 01:11 Milk Of Magnesia PO Q4H PRN Constipation Ondansetron HCl 4 mg 08/03/20 01:11 Zofran IV Q8H PRN Nausea And Vomiting Sodium Chloride 10 ml 08/03/20 10:00 08/13/20 22:57 Sodium Chloride Flush Syringe 10 Ml IV 10 ml BID LUCRECIA Administration Sodium Chloride 10 ml 08/03/20 01:11 Sodium Chloride Flush Syringe 10 Ml IV PRN PRN LINE FLUSH Nutrition/Malnutrition Assess - Dietary Evaluation Nutrition/Malnutrition Findings: Nutrition Notes Start: 08/03/20 11:43 Freq: Status: Active Protocol: Document 08/13/20 12:07 EN (Rec: 08/13/20 12:12 EN [email or web address]) Co-Sign 08/13/20 12:07 LP Nutrition Notes Need for Assessment generated from: MD Order,commodity broker Initial or Follow up Brief Note Current Diagnosis Hypertension Other Pertinent Diagnosis Failure to Thrive, Acute CHRISTIE, Dehydration, Depression Current Diet NPO Subjective/Other Information Pt not in room, RD unable to see. 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
--- NOTE | 2020-08-14 11:23 | Progress Note ---
Assessment and Plan Recent cardiac workup @ [facility] noted (as below). No further evidence of NSVT on tele. Continue PO Amio BID for now. Barium swallow study findings noted. Per GI, pt is currently contemplating PEG vs EGD. LFTs have normalized. Continue to trend labs. Will consider initiation of statin at some point prior to discharge pending clinical course. Pt seen in conjunction with Dr. Angie Zaragoza, who agrees with the assessment and plan of care. - Patient Problems (1) Failure to thrive Current Visit: Yes Status: Acute Qualifiers: Failure to thrive age range: in adult Qualified Code(s): R62.7 - Adult failure to thrive (2) Malnutrition Current Visit: Yes Status: Acute (3) NSVT (nonsustained ventricular tachycardia) Current Visit: Yes Status: Acute Plan to address problem: 33-bt run of VT noted 08/11/20 @ 0710 (asymptomatic) (4) NSTEMI (non-ST elevated myocardial infarction) Current Visit: Yes Status: Acute Plan to address problem: Type 2 (Pt denies chest pain. No acute ischemic changes on ECG.) (5) HTN (hypertension) Current Visit: No Status: Chronic Qualifiers: Hypertension type: essential hypertension Qualified Code(s): I10 - Essential (primary) hypertension (6) HLD (hyperlipidemia) Current Visit: Yes Status: Chronic Qualifiers: Hyperlipidemia type: mixed hyperlipidemia Qualified Code(s): E78.2 - Mixed hyperlipidemia (7) Depression Current Visit: Yes Status: Chronic Subjective Date of service: 08/14/20 Principal diagnosis: Failure To Thrive/Depression, NSVT Interval history: Pt resting comfortably in bed upon exam. He remains tired and removed. No cardiac complaints. Tele reviewed - SR 70-80s w/PACs, no acute events overnight. Objective Last Vital Signs Temp 98.6 F 08/14/20 07:41 Pulse 74 08/14/20 07:41 Resp 20 08/14/20 07:41 BP 103/63 08/14/20 07:41 Pulse Ox 99 08/14/20 07:41 - Physical Examination General: No Apparent Distress, Cachectic HEENT: Positive: EOMI, Normocephaly Neck: Positive: neck supple, trachea midline Cardiac: Positive: Reg Rate and Rhythm, S1/S2 Lungs: Positive: clear to auscultation Neuro: Positive: Grossly Intact Abdomen: Positive: Soft, Active Bowel Sounds. Negative: Tender Skin: Negative: Rash Musculoskeletal: No Fluid Collection Extremities: Present: upper extr. pulses, lower extr. pulses. Absent: edema - Labs and Meds Cardiac Enzymes 08/14/20 Range/Units 05:10 AST 16 (5-40) units/L Comprehensive Metabolic Panel 08/14/20 Range/Units 05:10 Sodium 141 (137-145) mmol/L Potassium 4.0 (3.6-5.0) mmol/L Chloride 108.5 H (98-107) mmol/L Carbon Dioxide 24 (22-30) mmol/L BUN 11 (9-20) mg/dL Creatinine 0.6 L (0.8-1.3) mg/dL Glucose 117 H (75-100) mg/dL Calcium 7.9 L (8.4-10.2) mg/dL AST 16 (5-40) units/L ALT 55 (7-56) units/L Alkaline Phosphatase 75 (35-129) units/L Total Protein 4.3 L (6.3-8.2) g/dL Albumin 2.4 L (3.9-5) g/dL - Imaging and Cardiology EKG: report reviewed, image reviewed Pharmacologic stress test: report reviewed (04/08/2020 - negative for ischemia) Echo: report reviewed (04/08/2020 - EF 55-60%; grade I diastolic dysfxn; RV mildly dilated; trace MR; mild TR) - Telemetry EKG Rhythm: Sinus Rhythm - EKG Sinus rhythms and dysrhythmias: sinus tachycardia Chamber hypertrophy or enlargement: left ventricular hypertro
[2020-08-14] MEDS: FLUoxetine 20 MG/5 ML ORAL LIQD PO SCH ×2 (12:00→13:00)
[2020-08-14] MEDS: AMIODARONE 200 MG TAB PO SCH ×3 (12:00→22:24)
--- NOTE | 2020-08-14 14:51 | Progress Note ---
Assessment and Plan 1. Abnormal modified barium swallow - may be due to oropharyngeal dysphagia from impending dementia, severe depression, or progressive neurologic disease. Recommendation for G-tube noted. - discussed with pt, and advised that if he improved, he may resume oral diet. - discussed risk of aspiration with po intake, and risk of pneumonia - pt states he does NOT want PEG placed, offered EGD to exclude other pathology, and he has agreed, so we will proceed. - Message left again on daughterJesus Alberto, phone, [phone]. 2. Weight loss - may be due to above, or to depression. - depression management as per Hospitalist. Subjective Date of service: 08/14/20 Principal diagnosis: FTT, NSVT Interval history: Pt without complaints. States food goes down to stomach and then comes back up. Objective - Constitutional Vitals: Vital Signs - 12hr 08/14/20 08/14/20 08/14/20 04:31 07:41 11:20 Temperature 98.6 F 98.6 F 98.1 F Pulse Rate 83 74 78 Respiratory 20 20 20 Rate Blood Pressure 117/86 103/63 113/74 O2 Sat by Pulse 100 99 100 Oximetry General appearance: Present: no acute distress, cachectic - EENT Eyes: PERRL, EOM intact ENT: hearing intact - Respiratory Respiratory effort: normal - Gastrointestinal General gastrointestinal: Present: soft, non-tender - Labs CBC & Chem 7: 08/04/20 06:26 08/14/20 05:10 Labs: Abnormal lab results 08/14/20 Range/Units 05:10 Chloride 108.5 H (98-107) mmol/L Creatinine 0.6 L (0.8-1.3) mg/dL Glucose 117 H (75-100) mg/dL Calcium 7.9 L (8.4-10.2) mg/dL Total Bilirubin 1.80 H (0.1-1.2) mg/dL Total Protein 4.3 L (6.3-8.2) g/dL Albumin 2.4 L (3.9-5) g/dL Medications & Allergies - Medications Allergies/Adverse Reactions: Allergies No Known Allergies Allergy (Verified 08/02/20 22:50) Home Medications: Home Medications Medication Instructions Recorded Confirmed Last Taken Type FLUoxetine [Prozac] 10 mg PO QDAY #1 bottle 08/03/20 Unknown Rx Active Medications: Generic Name Dose Route Start Last Admin Trade Name Freq PRN Reason Stop Dose Admin Acetaminophen 650 mg 08/03/20 01:11 08/09/20 22:17 Tylenol PO 650 mg Q4H PRN Administration Pain MILD(1-3)/Fever >100.5/PATEL Amiodarone HCl 200 mg 08/13/20 10:00 08/14/20 12:00 Cordarone PO Not Given BID LUCRECIA Diphenoxylate HCl/Atropine 2 tab 08/06/20 11:30 08/08/20 09:37 Lomotil PO 2 tab TID PRN Administration Diarrhea Fluoxetine HCl 10 mg 08/04/20 10:00 08/14/20 13:00 Prozac PO Not Given QDAY LUCRECIA Heparin Sodium (Porcine) 5,000 unit 08/03/20 06:00 08/14/20 13:14 Heparin SUB-Q 5,000 unit Q8HR LUCRECIA Administration Potassium Chloride 40 meq/ 1,020 mls @ 75 mls/hr 08/13/20 17:00 08/14/20 06:09 Dextrose/Sodium Chloride IV 75 mls/hr DIRECT LUCRECIA Administration Magnesium Hydroxide 30 ml 08/03/20 01:11 Milk Of Magnesia PO Q4H PRN Constipation Ondansetron HCl 4 mg 08/03/20 01:11 Zofran IV Q8H PRN Nausea And Vomiting Sodium Chloride 10 ml 08/03/20 10:00 08/14/20 13:05 Sodium Chloride Flush Syringe 10 Ml IV 10 ml BID LUCRECIA Administration Sodium Chloride 10 ml 08/03/20 01:11 Sodium Chloride Flush Syringe 10 Ml IV PRN PRN LINE FLUSH HEART Score - HEART Score Troponin: Troponin T 0.048 ng/mL (0.00-0.029) H 08/02/20 21:56
[2020-08-15] MEDS: HEPARIN 5,000 UNIT/1 ML VIAL SUB-Q SCH ×3 (05:37→20:09)
--- NOTE | 2020-08-15 08:20 | Progress Note ---
Assessment and Plan Assessment and plan: --NSVT --hypokalemia; Resolved, monitor electrolytes --Acute renal failure From dehydration [vasomotor nephropathy] Resolved, avoid nephrotoxins ---Dehydration Improved, continue current management ---Elevated troponin present on admission nonspecific, no cardiac symptoms ---Depression Improved , denies suicidal thoughts or ideation psychiatry evaluated, patient is on fluoxetine Outpatient follow-up upon discharge ---Failure to thrive On regular cardiac diet, With nutritional supplements ---Hypernatremia Resolved, continue to encourage free water --Severe malnutrition/hypoalbuminemia; Nutrition supplements, director money following 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 Trending down, follow abdominal ultrasound --General debility/failure to thrive in an adult physical therapy, Occupational Therapy Evaluated, recommend acute rehab Acute rehab consult placed ---DVT prophylaxis subcutaneous heparin. ---Full code status 08/09/2020. Physical therapy recommends acute rehab. Await case management evaluation for placement. 08/10/2020. Awaiting subacute rehab placement. 08/11/2020. Awaiting subacute rehab placement. 08/12/2020. Nurse reports a 30 beat run of V. tach that occurred this morning. Cardiology has been consulted for NSVT. Follow-up electrolytes and check echo cardiogram. Speech therapy evaluated the patient with MBS which demonstrated oral pharyngeal dysphagia with laryngeal elevation, severe valleculae retention and an inability to clear the pharynx. Recommendations were for PEG placement. GI consultation. Awaiting subacute rehab placement 08/13/2020; Nurse reports a 30 beat run of V. tach yesterday and cardiology evaluated and put her on amiodarone. Speech therapy evaluated the patient with MBS which demonstrated oral pharyngeal dysphagia with laryngeal elevation, severe valleculae retention and an inability to clear the pharynx. Recommendat ions were for PEG placement. GI consulted and discussed with Dr. Rainey and he said the patient wants more time to think about EGD or PEG tube placement. Patient wants Dr Rainey to talk to his daughter and he tried to reach her. Patient has depression and on fluoxetine. Psych evaluated the patient and signed off. 08/14/2020 Nurse reports a 30 beat run of V. tach yesterday and cardiology carlos luated and put her on amiodarone. Speech therapy evaluated the patient with MBS which demonstrated oral pharyngeal dysphagia with laryngeal elevation, severe valleculae retention and an inability to clear the pharynx. Recommendations were for PEG placement. GI consulted and discussed with Dr. Rainey and he said the patient wants more time to think about EGD or PEG tube placement. Patient wants Dr Rainey to talk to his daughter and he tried to reach her. Patient has depression and on fluoxetine. Psych evaluated the patient and signed off. 08/15/2020; patient refused PEG tube placement but agreed for endoscopy. Plan was endoscopy to be done today. But the daughter called Dr Rainey and insists to have PEG tube to be placed and she claims she has power of immigration attorney. Patient was alert and oriented and looks like he can make his own decision. Patient should have agreed to do the procedure. Endoscopy will be held and risk management will be involved. History Interval history: Patient was seen and evaluated this morning patient patient is complaining he is feeling weak and could not function Hospitalist Physical - Physical exam Narrative exam: Not in cardiopulmonary distress. The patient appeared well nourished and normally developed. Vital signs as documented. Head exam is unremarkable. No scleral icterus . Neck is without jugular venous distension, thyromegaly, or carotid bruits. Lungs are clear to auscultation. Cardiac exam reveals regular rate and Rhythm. Abdominal exam reveals normal bowel sounds, nontender, no organomegaly. Extremities are nonedematous and both femoral and pedal pulses are normal. TELECOMMUNICATIONS SUPPORT: Alert and oriented 3. No focal weakness. - Constitutional Vitals: Temp Pulse Resp BP Pulse Ox 97.9 F 72 20 107/65 99 08/15/20 07:07 08/15/20 07:07 08/15/20 07:07 08/15/20 07:07 08/15/20 07:07 General appearance: Present: no acute distress, cachectic HEART Score - HEART Score Troponin: Troponin T 0.048 ng/mL (0.00-0.029) H 08/02/20 21:56 Results - Labs CBC & Chem 7: 08/04/20 06:26 08/14/20 05:10 Labs: Laboratory Last Values WBC 4.6 K/mm3 (4.5-11.0) 08/04/20 06:26 RBC 4.68 M/mm3 (3.65-5.03) 08/04/20 06: Hgb 15.0 gm/dl (11.8-15.2) D 08/04/20 06: Hct 43.8 % (35.5-45.6) D 08/04/20 06: MCV 94 fl (84-94) 08/04/20 06: MCH 32 pg (28-32) 08/04/20 06: MCHC 34 % (32-34) 08/04/20 06: RDW 14.5 % (13.2-15.2) 08/04/20 06: Plt Count 118 K/mm3 (140-440) L 08/04/20 06: Lymph % (Auto) 14.7 % (13.4-35.0) 08/04/20 06: Collier % (Auto) 6.7 % (0.0-7.3) 08/04/20 06: Eos % (Auto) 0.1 % (0.0-4.3) 08/04/20 06: Baso % (Auto) 0.0 % (0.0-1.8) 08/04/20 06: Lymph # (Auto) 0.7 K/mm3 (1.2-5.4) L 08/04/20 06: Collier # (Auto) 0.3 K/mm3 (0.0-0.8) 08/04/20 06: Eos # (Auto) 0.0 K/mm3 (0.0-0.4) 08/04/20: Baso # (Auto) 0.0 K/mm3 (0.0-0.1) 08/04/20 06: Seg Neutrophils % 78.5 % (40.0-70.0) H 08/04/20 06: Seg Neutrophils # 3.6 K/mm3 (1.8-7.7) 08/04/20 06: PT 14.5 Sec. (12.2-14.9) 08/04/20 06:26 INR 1.12 (0.87-1.13) 08/04/20 06:26 Sodium 141 mmol/L (137-145) 08/14/20 05:10 Potassium 4.0 mmol/L (3.6-5.0) 08/14/20 05:10 Chloride 108.5 mmol/L (98-107) H 08/14/20 05:10 Carbon Dioxide 24 mmol/L (22-30) 08/14/20 05:10 Anion Gap 13 mmol/L 08/14/20 05:10 BUN 11 mg/dL (9-20) 08/14/20 05:10 Creatinine 0.6 mg/dL (0.8-1.3) L 08/14/20 05:10 Estimated GFR > 60 ml/min 08/14/20 05:10 BUN/Creatinine Ratio 18 % 08/14/20 05:10 Glucose 117 mg/dL (75-100) H 08/14/20 05:10 Calcium 7.9 mg/dL (8.4-10.2) L 08/14/20 05:10 Magnesium 2.80 mg/dL (1.7-2.3) H 08/03/20 15:29 Total Bilirubin 1.80 mg/dL (0.1-1.2) H 08/14/20 05:10 AST 16 units/L (5-40) 08/14/20 05:10 ALT 55 units/L (7-56) 08/14/20 05:10 Alkaline Phosphatase 75 units/L (35-129) 08/14/20 05:10 Total Creatine Kinase 93 units/L (55-170) 08/02/20 21:56 CK-MB (CK-2) 5.3 ng/mL (0.0-4.0) H 08/02/20 21:56 CK-MB (CK-2) Rel Index 5.6 (0-4) H 08/02/20 21:56 Troponin T 0.048 ng/mL (0.00-0.029) H 08/02/20 21:56 Total Protein 4.3 g/dL (6.3-8.2) L 08/14/20 05:10 Albumin 2.4 g/dL (3.9-5) L 08/14/20 05:10 Albumin/Globulin Ratio 1.3 % 08/14/20 05:10 Triglycerides 307 mg/dL (2-149) H 08/02/20 21:56 Cholesterol 232 mg/dL (50-199) H 08/02/20 21:56 LDL Cholesterol Direct 132 mg/dL (50-130) H 08/02/20 21:56 HDL Cholesterol 36 mg/dL (40-59) L 08/02/20 21:56 Cholesterol/HDL Ratio 6.44 % 08/02/20 21:56 Lipase 77 units/L (13-60) H 08/02/20 21:56 Urine Color Fifi (Yellow) 08/03/20 00:22 Urine Turbidity Clear (Clear) 08/03/20 00:22 Urine pH 5.0 (5.0-7.0) 08/03/20 00:22 Ur Specific [place] 1.021 (1.003-1.030) 08/03/20:22 Urine Protein <15 mg/dl mg/dL (Negative) 08/03/20: Urine Glucose (UA) Neg mg/dL (Negative) 08/03/20: Urine Ketones Neg mg/dL (Negative) 08/03/20 00:22 Urine Blood Sm (Negative) 08/03/20: Urine Nitrite Neg (Negative) 08/03/20: Urine Bilirubin Sm (Negative) 08/03/20 00: Urine Ictotest Negative (Negative) 08/03/20: Urine Urobilinogen 4.0 mg/dL (<2.0) 08/03/20 00:22 Ur Leukocyte Esterase Neg (Negative) 08/03/20:22 Urine WBC (Auto) 2.0 /HPF (0.0-6.0) 08/03/20 00:22 Urine RBC (Auto) < 1.0 /HPF (0.0-6.0) 08/03/20: U Epithel Cells (Auto) < 1.0 /HPF (0-13.0) 08/03/20: Hyaline Casts 1 /LPF 08/03/20 00:22 Hepatitis A IgM Ab Non-reactive (NonReactive) 08/05/20: Hep Bs Antigen Non-reactive (Negative) 08/05/20: Hep B Core IgM Ab Non-reactive (NonReactive) 08/05/20:25 Hepatitis C Antibody Non-reactive (NonReactive) 08/05/20:25 Guillen/IV: Voiding Method Condom Catheter IV Catheter Type [left ac] Peripheral IV IV Catheter Type [Right Hand] Peripheral IV Active Medications - Current Medications Current Medications: Generic Name Dose Route Start Last Admin Trade Name Freq PRN Reason Stop Dose Admin Acetaminophen 650 mg 08/03/20 01:11 08/09/20 22:17 Tylenol PO 650 mg Q4H PRN Administration Pain MILD(1-3)/Fever >100.5/PATEL Amiodarone HCl 200 mg 08/13/20 10:00 08/14/20 22:24 Cordarone PO Not Given BID LUCRECIA Diphenoxylate HCl/Atropine 2 tab 08/06/20 11:30 08/08/20 09:37 Lomotil PO 2 tab TID PRN Administration Diarrhea Fluoxetine HCl 10 mg 08/04/20 10:00 08/14/20 13:00 Prozac PO Not Given QDAY LUCRECIA Heparin Sodium (Porcine) 5,000 unit 08/03/20 06:00 08/15/20 05:37 Heparin SUB-Q 5,000 unit Q8HR LUCRECIA Administration Potassium Chloride 40 meq/ 1,020 mls @ 75 mls/hr 08/13/20 17:00 08/14/20 06:09 Dextrose/Sodium Chloride IV 75 mls/hr DIRECT LUCRECIA Administration Magnesium Hydroxide 30 ml 08/03/20 01:11 Milk Of Magnesia PO Q4H PRN Constipation Ondansetron HCl 4 mg 08/03/20 01:11 Zofran IV Q8H PRN Nausea And Vomiting Sodium Chloride 10 ml 08/03/20 10:00 08/14/20 22:27 Sodium Chloride Flush Syringe 10 Ml IV 10 ml BID LUCRECIA Administration Sodium Chloride 10 ml 08/03/20 01:11 Sodium Chloride Flush Syringe 10 Ml IV PRN PRN LINE FLUSH Nutrition/Malnutrition Assess - Dietary Evaluation Nutrition/Malnutrition Findings: Nutrition Notes Start: 08/03/20 11:43 Freq: Status: Active Protocol: Document 08/13/20 12:07 EN (Rec: 08/13/20 12:12 EN [email or web address]) Co-Sign 08/13/20 12:07 LP Nutrition Notes Need for Assessment generated from: MD Order,abstract writer Initial or Follow up Brief Note Current Diagnosis Hypertension Other Pertinent Diagnosis Failure to Thrive, Acute CHRISTIE, Dehydration, Depression Current Diet NPO Subjective/Other Information Pt not in room, RD unable to see. CUSTOMER SERVICE ADVISOR recommends PEG placement, waiting for GI consult Nutrition Intervention Follow-Up By: 08/15/20 Additional Comments Follow for possible PEG placement
[2020-08-15] MEDS: AMIODARONE 200 MG TAB PO SCH (10:00)
[2020-08-15] MEDS: FLUoxetine 20 MG/5 ML ORAL LIQD PO SCH (10:13)
[2020-08-15] MEDS ORDERED: SODIUM CHLORIDE 0.9% 1000 ML 1,000 ML ONE ×2 (10:44→13:16)
--- NOTE | 2020-08-15 11:05 | Progress Note ---
Assessment and Plan Recent cardiac workup @ [facility] noted. No further evidence of NSVT on tele. Continue PO Amio BID for now. Barium swallow study findings noted. Per GI, pt is currently contemplating PEG vs EGD. of today, patient refused PEG tube placement but agreed for endoscopy. Endoscopy to be done today. LFTs have normalized. Continue to trend labs. Will consider initiation of statin at some point prior to discharge pending clinical course. Pt seen in conjunction with Dr. Angie Zaragoza, who agrees with the assessment and plan of care. - Patient Problems (1) Failure to thrive Current Visit: Yes Status: Acute Qualifiers: Failure to thrive age range: in adult Qualified Code(s): R62.7 - Adult failure to thrive (2) Malnutrition Current Visit: Yes Status: Acute (3) NSVT (nonsustained ventricular tachycardia) Current Visit: Yes Status: Acute Plan to address problem: 33-bt run of VT noted 08/11/20 @ 0710 (asymptomatic) (4) NSTEMI (non-ST elevated myocardial infarction) Current Visit: Yes Status: Acute Plan to address problem: Type 2 (Pt denies chest pain. No acute ischemic changes on ECG.) (5) HTN (hypertension) Current Visit: No Status: Chronic Qualifiers: Hypertension type: essential hypertension Qualified Code(s): I10 - Essential (primary) hypertension (6) HLD (hyperlipidemia) Current Visit: Yes Status: Chronic Qualifiers: Hyperlipidemia type: mixed hyperlipidemia Qualified Code(s): E78.2 - Mixed hyperlipidemia (7) Depression Current Visit: Yes Status: Chronic Subjective Date of service: 08/15/20 Principal diagnosis: Failure To Thrive/Depression, NSVT Interval history: pt resting in bed, no current cardiac complaints. tele reviewed - in SR HR 70s with [employer] PACs. Objective Last Vital Signs Temp 97.9 F 08/15/20 07:07 Pulse 72 08/15/20 07:07 Resp 20 08/15/20 07:07 BP 107/65 08/15/20 07:07 Pulse Ox 99 08/15/20 07:07 - Physical Examination General: No Apparent Distress, Cachectic HEENT: Positive: EOMI, Normocephaly Neck: Positive: neck supple, trachea midline Cardiac: Positive: Reg Rate and Rhythm, S1/S2 Lungs: Positive: Decreased Breath Sounds Neuro: Positive: Grossly Intact Abdomen: Positive: Soft, Active Bowel Sounds. Negative: Tender Skin: Negative: Rash Musculoskeletal: No Fluid Collection Extremities: Present: upper extr. pulses, lower extr. pulses. Absent: edema - Imaging and Cardiology EKG: report reviewed, image reviewed Echo: report reviewed (04/08/2020 - EF 55-60%; grade I diastolic dysfxn; RV mildly dilated; trace MR; mild TR) - EKG Sinus rhythms and dysrhythmias: sinus tachycardia Chamber hypertrophy or enlargement: left ventricular hypertro
--- NOTE | 2020-08-15 11:07 | Anesthesia Consultation ---
Anesthesia Consult and Med Hx Date of service: 08/15/20 - Airway Anesthetic Teeth Evaluation: Good, Crowns ROM Head & Neck: Adequate Mental/Hyoid Distance: Adequate Mallampati Class: Class II Intubation Access Assessment: Probably Good - Pulmonary Exam CTA: Yes - Cardiac Exam Cardiac Exam: RRR (occasional PVCs/PACs on monitor) - Pre-Operative Health Status ASA Pre-Surgery Classification: ASA3 Proposed Anesthetic Plan: MAC - Pulmonary Hx Smoking: Yes Hx Respiratory Symptoms: No - Cardiovascular System Hx Hypertension: Yes Hx Heart Attack/AMI: No (neg ST and normal EF 03/2020) Hx Percutaneous Transluminal Coronary Angioplasty (PTCA): No Hx Cardia Arrhythmia: Yes (1 episode 30 beat run NSVT this admission; cardiology following) Hx Pacemaker: No Hx Internal Defibrillator: No - Central Nervous System CVA: No Hx Psychiatric Problems: Yes (severe depression) - Gastrointestinal Hx Gastroesophageal Reflux Disease: No - Endocrine Hx Renal Disease: No Hx Liver Disease: No Hx Insulin Dependent Diabetes: No Hx Non-Insulin Dependent Diabetes: No Hx Thyroid Disease: No - Other Systems Hx Obesity: No (failure to thrive) - Additional Comments Anesthesia Medical History Comments: No hx anesthetic complications.
--- NOTE | 2020-08-15 11:07 | Anesthesia Day of Surgery ---
Anesthesia Day of Surgery - Day of Surgery Patient Examined: Yes Patient H&P Reviewed: Yes Patient is NPO: Yes
[2020-08-15] MEDS ORDERED: ONDANSETRON 4 MG/2 ML INJ ONE (12:34)
[2020-08-15] MEDS ORDERED: LIDOCAINE MPF (2%) 20 MG/1 ML VIAL 5 ML ONE (12:34)
[2020-08-15] MEDS ORDERED: propofoL 200 MG/20 ML VIAL IV ONE (12:35)
[2020-08-15] MEDS ORDERED: fentaNYL 100 MCG/2 ML INJ ONE (12:35)
[2020-08-15] MEDS ORDERED: ePHEDrine SULFATE 50 MG/1 ML INJ ONE (12:44)
--- NOTE | 2020-08-15 12:57 | Post Operative Note ---
Pre-op diagnosis: N/V Post-op diagnosis: other (Gastritis, duodenitis) Findings: 1. Moderate gastritis with erythema, biopsied. 2. severe erosive duodenitis, biopsied. 3. Otherwise normal EGD. Procedure: EGD with biopsy Anesthesia: [facility] Surgeon: MARCIAL BURCIAGA Estimated blood loss: none Pathology: list (1. Duodenal biopsy, 2. Gastric biopsy) Specimen disposition: to lab Condition: stable Disposition: floor (PPI bid, adv diet as tolerated since pt refuses PEG tube.)
--- NOTE | 2020-08-15 13:28 | Operative Report ---
PROCEDURE: Upper endoscopy with biopsy. PREOPERATIVE DIAGNOSES: Nausea, vomiting and weight loss. POSTOPERATIVE DIAGNOSIS: Gastritis and duodenitis. SEDATION: MAC by Anesthesia. HISTORY: The patient is a 75-year-old man with severe depression, who failed modified barium swallow in that he did not have elmo aspiration, but was holding things in his mouth, placing him at risk of aspiration. He states that when things go down after a while, he has the urge to have nausea and vomiting. He refused the G-tube, but agreed to endoscopy. This was also discussed with his daughter. DESCRIPTION OF PROCEDURE: Indications, risks, and benefits were explained and consent was obtained. The patient was placed in left lateral decubitus position and sedated. Endoscope was passed through the mouth and oropharynx into the descending duodenum. Scope was then gradually withdrawn with close inspection of the mucosa. FINDINGS: 1. Normal appearing esophagus with sharp Z-line located at 40 cm from the incisors. 2. Moderate gastritis with antral erythema that was patchy. Biopsies obtained. 3. Remainder of stomach is normal appearing. 4. Severe duodenitis with erosions scattered around that were white based. There was edema and erythema as well. Biopsies obtained. Distal duodenum was normal appearing. The patient tolerated the procedure well without immediate complication. IMPRESSION: 1. Gastritis -- biopsied. 2. Duodenitis -- biopsied. 3. Otherwise, normal endoscopy. PLAN: 1. Follow up biopsies. 2. Initiate proton pump inhibitors b.i.d. 3. Repeat psych evaluation per daughter's request if possible. JOB# [id number] HRC/NTS
--- NOTE | 2020-08-15 13:37 | Post Anesthesia Evaluation ---
- Post Anesthesia Evaluation Patient Participated: Yes Airway Patent: Yes Stable Respiratory Function: Yes Nausea/Vomiting: No Temp > 96.8F: Yes Pain Manageable: Yes Adequeate Hydration: Yes Anesthesia Complications: No
[2020-08-15] MEDS: SODIUM CHLORIDE 0.9% 1000 ML 1,000 ML IV SCH (20:08)
[2020-08-16] MEDS: SODIUM CHLORIDE 0.9% 1000 ML 1,000 ML IV SCH ×2 (02:15→21:44)
[2020-08-16] MEDS: AMIODARONE 200 MG TAB PO SCH ×2 (02:17→10:21)
[2020-08-16] MEDS: HEPARIN 5,000 UNIT/1 ML VIAL SUB-Q SCH ×4 (02:17→21:40)
[2020-08-16] MEDS: PANTOPRAZOLE 40 MG INJ IV SCH ×3 (02:20→21:40)
--- NOTE | 2020-08-16 08:37 | Progress Note ---
Assessment and Plan Assessment and plan: --NSVT --hypokalemia; Resolved, monitor electrolytes --Acute renal failure From dehydration [vasomotor nephropathy] Resolved, avoid nephrotoxins ---Dehydration Improved, continue current management ---Elevated troponin present on admission nonspecific, no cardiac symptoms ---Depression Improved , denies suicidal thoughts or ideation psychiatry evaluated, patient is on fluoxetine Outpatient follow-up upon discharge ---Failure to thrive On regular cardiac diet, With nutritional supplements ---Hypernatremia Resolved, continue to encourage free water --Severe malnutrition/hypoalbuminemia; Nutrition supplements, or rn following 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 Trending down, follow abdominal ultrasound --General debility/failure to thrive in an adult physical therapy, Occupational Therapy Evaluated, recommend acute rehab Acute rehab consult placed ---DVT prophylaxis subcutaneous heparin. ---Full code status 08/09/2020. Physical therapy recommends acute rehab. Await case management evaluation for placement. 08/10/2020. Awaiting subacute rehab placement. 08/11/2020. Awaiting subacute rehab placement. 08/12/2020. Nurse reports a 30 beat run of V. tach that occurred this morning. Cardiology has been consulted for NSVT. Follow-up electrolytes and check echo cardiogram. Speech therapy evaluated the patient with MBS which demonstrated oral pharyngeal dysphagia with laryngeal elevation, severe valleculae retention and an inability to clear the pharynx. Recommendations were for PEG placement. GI consultation. Awaiting subacute rehab placement 08/13/2020; Nurse reports a 30 beat run of V. tach yesterday and cardiology evaluated and put her on amiodarone. Speech therapy evaluated the patient with MBS which demonstrated oral pharyngeal dysphagia with laryngeal elevation, severe valleculae retention and an inability to clear the pharynx. Recommendat ions were for PEG placement. GI consulted and discussed with Dr. Rainey and he said the patient wants more time to think about EGD or PEG tube placement. Patient wants Dr Rainey to talk to his daughter and he tried to reach her. Patient has depression and on fluoxetine. Psych evaluated the patient and signed off. 08/14/2020 Nurse reports a 30 beat run of V. tach yesterday and cardiology carlos luated and put her on amiodarone. Speech therapy evaluated the patient with MBS which demonstrated oral pharyngeal dysphagia with laryngeal elevation, severe valleculae retention and an inability to clear the pharynx. Recommendations were for PEG placement. GI consulted and discussed with Dr. Rainey and he said the patient wants more time to think about EGD or PEG tube placement. Patient wants Dr Rainey to talk to his daughter and he tried to reach her. Patient has depression and on fluoxetine. Psych evaluated the patient and signed off. 08/15/2020; patient refused PEG tube placement but agreed for endoscopy. Plan was endoscopy to be done today. But the daughter called Dr Rainey and insists to have PEG tube to be placed and she claims she has power of [place] attorney. Patient was alert and oriented and looks like he can make his own decision. Patient should have agreed to do the procedure. Endoscopy will be held and risk management will be involved. 08/16/2020; patient has EGD yesterday and show extensive esophagitis and gastritis, no other findings. Patient is on IV PPI. Her daughter wants psych placement. Psych have evaluated a week ago and put him on fluoxetine and sign off. I have discussed with psych nurse practitioner Juan Pablo yesterday because the daughter wants to be called by psych and explained to her why he is not going to placed inpatient psych. Juan Pablo said he would let his partner Kristina who saw the patient last week to talk with the patient's daughter. History Interval history: Patient was seen and evaluated this morning patient patient is complaining he is feeling weak and could not function Hospitalist Physical - Physical exam Narrative exam: Not in cardiopulmonary distress. The patient appeared well nourished and normally developed. Vital signs as documented. Head exam is unremarkable. No scleral icterus . Neck is without jugular venous distension, thyromegaly, or carotid bruits. Lungs are clear to auscultation. Cardiac exam reveals regular rate and Rhythm. Abdominal exam reveals normal bowel sounds, nontender, no organomegaly. Extremities are nonedematous and both femoral and pedal pulses are normal. APPLICATION COORDINATOR: Alert and oriented 3. No focal weakness. - Constitutional Vitals: Temp Pulse Resp BP Pulse Ox 98.1 F 45 L 20 110/58 100 08/16/20 00:01 08/16/20 00:01 08/16/20 00:01 08/16/20 00:01 08/16/20 00:01 General appearance: Present: no acute distress, cachectic HEART Score - HEART Score Troponin: Troponin T 0.048 ng/mL (0.00-0.029) H 08/02/20 21:56 Results - Labs CBC & Chem 7: 08/04/20 06:26 08/14/20 05:10 Labs: Laboratory Last Values WBC 4.6 K/mm3 (4.5-11.0) 08/04/20 06: RBC 4.68 M/mm3 (3.65-5.03) 08/04/20 06:26 Hgb 15.0 gm/dl (11.8-15.2) D 08/04/20 06: Hct 43.8 % (35.5-45.6) D 08/04/20 06:26 MCV 94 fl (84-94) 08/04/20 06:26 MCH 32 pg (28-32) 08/04/20 06: MCHC 34 % (32-34) 08/04/20 06: RDW 14.5 % (13.2-15.2) 08/04/20 06:26 Plt Count 118 K/mm3 (140-440) L 08/04/20 06: Lymph % (Auto) 14.7 % (13.4-35.0) 08/04/20 06: Hale % (Auto) 6.7 % (0.0-7.3) 08/04/20 06: Eos % (Auto) 0.1 % (0.0-4.3) 08/04/20 06: Baso % (Auto) 0.0 % (0.0-1.8) 08/04/20 06:26 Lymph # (Auto) 0.7 K/mm3 (1.2-5.4) L 08/04/20 06: Hale # (Auto) 0.3 K/mm3 (0.0-0.8) 08/04/20 06: Eos # (Auto) 0.0 K/mm3 (0.0-0.4) 08/04/20 06:26 Baso # (Auto) 0.0 K/mm3 (0.0-0.1) 08/04/20 06: Seg Neutrophils % 78.5 % (40.0-70.0) H 08/04/20 06:26 Seg Neutrophils # 3.6 K/mm3 (1.8-7.7) 08/04/20 06:26 PT 14.5 Sec. (12.2-14.9) 08/04/20 06:26 INR 1.12 (0.87-1.13) 08/04/20 06:26 Sodium 141 mmol/L (137-145) 08/14/20 05:10 Potassium 4.0 mmol/L (3.6-5.0) 08/14/20 05:10 Chloride 108.5 mmol/L (98-107) H 08/14/20 05:10 Carbon Dioxide 24 mmol/L (22-30) 08/14/20 05:10 Anion Gap 13 mmol/L 08/14/20 05:10 BUN 11 mg/dL (9-20) 08/14/20 05:10 Creatinine 0.6 mg/dL (0.8-1.3) L 08/14/20 05:10 Estimated GFR > 60 ml/min 08/14/20 05:10 BUN/Creatinine Ratio 18 % 08/14/20 05:10 Glucose 117 mg/dL (75-100) H 08/14/20 05:10 Calcium 7.9 mg/dL (8.4-10.2) L 08/14/20 05:10 Magnesium 2.80 mg/dL (1.7-2.3) H 08/03/20 15:29 Total Bilirubin 1.80 mg/dL (0.1-1.2) H 08/14/20 05:10 AST 16 units/L (5-40) 08/14/20 05:10 ALT 55 units/L (7-56) 08/14/20 05:10 Alkaline Phosphatase 75 units/L (35-129) 08/14/20 05:10 Total Creatine Kinase 93 units/L (55-170) 08/02/20 21:56 CK-MB (CK-2) 5.3 ng/mL (0.0-4.0) H 08/02/20 21:56 CK-MB (CK-2) Rel Index 5.6 (0-4) H 08/02/20 21:56 Troponin T 0.048 ng/mL (0.00-0.029) H 08/02/20 21:56 Total Protein 4.3 g/dL (6.3-8.2) L 08/14/20 05:10 Albumin 2.4 g/dL (3.9-5) L 08/14/20 05:10 Albumin/Globulin Ratio 1.3 % 08/14/20 05:10 Triglycerides 307 mg/dL (2-149) H 08/02/20 21:56 Cholesterol 232 mg/dL (50-199) H 08/02/20 21:56 LDL Cholesterol Direct 132 mg/dL (50-130) H 08/02/20 21:56 HDL Cholesterol 36 mg/dL (40-59) L 08/02/20 21:56 Cholesterol/HDL Ratio 6.44 % 08/02/20 21:56 Lipase 77 units/L (13-60) H 08/02/20 21:56 Urine Color Fifi (Yellow) 08/03/20 00:22 Urine Turbidity Clear (Clear) 08/03/20 00:22 Urine pH 5.0 (5.0-7.0) 08/03/20 00:22 Ur Specific [place] 1.021 (1.003-1.030) 08/03/20 00:22 Urine Protein <15 mg/dl mg/dL (Negative) 08/03/20 00:22 Urine Glucose (UA) Neg mg/dL (Negative) 08/03/20 00:22 Urine Ketones Neg mg/dL (Negative) 08/03/20 00:22 Urine Blood Sm (Negative) 08/03/20 00: Urine Nitrite Neg (Negative) 08/03/20 00: Urine Bilirubin Sm (Negative) 08/03/20 00: Urine Ictotest Negative (Negative) 08/03/20 00:22 Urine Urobilinogen 4.0 mg/dL (<2.0) 08/03/20 00:22 Ur Leukocyte Esterase Neg (Negative) 08/03/20 00:22 Urine WBC (Auto) 2.0 /HPF (0.0-6.0) 08/03/20 00:22 Urine RBC (Auto) < 1.0 /HPF (0.0-6.0) 08/03/20 00:22 U Epithel Cells (Auto) < 1.0 /HPF (0-13.0) 08/03/20 00:22 Hyaline Casts 1 /LPF 08/03/20 00:22 Hepatitis A IgM Ab Non-reactive (NonReactive) 08/05/20 09:25 Hep Bs Antigen Non-reactive (Negative) 08/05/20 09:25 Hep B Core IgM Ab Non-reactive (NonReactive) 08/05/20 09:25 Hepatitis C Antibody Non-reactive (NonReactive) 08/05/20 09:25 Guillen/IV: Voiding Method Condom Catheter IV Catheter Type [left ac] Peripheral IV IV Catheter Type [Right Hand] Peripheral IV Active Medications - Current Medications Current Medications: Generic Name Dose Route Start Last Admin Trade Name Freq PRN Reason Stop Dose Admin Acetaminophen 650 mg 08/03/20 01:11 08/09/20 22:17 Tylenol PO 650 mg Q4H PRN Administration Pain MILD(1-3)/Fever >100.5/PATEL Amiodarone HCl 200 mg 08/13/20 10:00 08/16/20 02:17 Cordarone PO Not Given BID [facility] Diphenoxylate HCl/Atropine 2 tab 08/06/20 11:30 08/08/20 09:37 Lomotil PO 2 tab TID PRN Administration Diarrhea Fluoxetine HCl 10 mg 08/04/20 10:00 08/15/20 10:13 Prozac PO Not Given QDAY [facility] Heparin Sodium (Porcine) 5,000 unit 08/03/20 06:00 08/16/20 06:08 Heparin SUB-Q 5,000 unit Q8HR [facility] Administration Sodium Chloride 1,000 mls @ 50 mls/hr 08/15/20 10:00 08/16/20 02:15 Nacl 0.9% 1000 Ml IV 50 mls/hr DIRECT [facility] Administration Magnesium Hydroxide 30 ml 08/03/20 01:11 Milk Of Magnesia PO Q4H PRN Constipation Ondansetron HCl 4 mg 08/03/20 01:11 Zofran IV Q8H PRN Nausea And Vomiting Pantoprazole Sodium 40 mg 08/16/20 01:34 08/16/20 02:20 Protonix IV 40 mg BID [facility] Administration Sodium Chloride 10 ml 08/03/20 10:00 08/16/20 02:20 Sodium Chloride Flush Syringe 10 Ml IV 10 ml BID [facility] Administration Sodium Chloride 10 ml 08/03/20 01:11 Sodium Chloride Flush Syringe 10 Ml IV PRN PRN LINE FLUSH Nutrition/Malnutrition Assess - Dietary Evaluation Nutrition/Malnutrition Findings: Nutrition Notes Start: 08/03/20 11:43 Freq: Status: Active Protocol: Document 08/15/20 10:08 EN (Rec: 08/15/20 10:13 EN [email or web address]) Co-Sign 08/15/20 10:08 LM Nutrition Notes Initial or Follow up Brief Note Current Diagnosis Hypertension Other Pertinent Diagnosis Failure to Thrive, Acute CHRISTIE, Dehydration, Depression Current Diet NPO Subjective/Other Information Pt currently NPO. GI recommended PEG placement. Pt would like more time to think about it before making a decision. Pt awaiting EGD. Nutrition Intervention Follow-Up By: 08/19/20 Additional Comments Follow for possible PEG placement
[2020-08-16] MEDS: FLUoxetine 20 MG/5 ML ORAL LIQD PO SCH (10:22)
--- NOTE | 2020-08-16 10:40 | Progress Note ---
Assessment and Plan Recent cardiac workup @ [facility] noted. S/p endoscopy yesterday, pt refusing PEG. Diet advanced per GI team. Currently stable cardiac status. Reduce PO amio to 200mg daily. Nothing further to add from cardiac perspective at this time. Will sign off. Recommend follow up in our office with Dr. Vernell Zaragoza within 2 weeks of discharge ([phone]). Pt seen in conjunction with Dr. Angie Zaragoza, who agrees with the assessment and plan of care. - Patient Problems (1) Failure to thrive Current Visit: Yes Status: Acute Qualifiers: Failure to thrive age range: in adult Qualified Code(s): R62.7 - Adult failure to thrive (2) Malnutrition Current Visit: Yes Status: Acute (3) Hypokalemia Current Visit: Yes Status: Resolved (4) Hypernatremia Current Visit: Yes Status: Resolved (5) NSVT (nonsustained ventricular tachycardia) Current Visit: Yes Status: Acute Plan to address problem: longest run 33 beats noted 08/11/20 @ 0710 (asymptomatic) (6) NSTEMI (non-ST elevated myocardial infarction) Current Visit: Yes Status: Acute Plan to address problem: Type 2 (Pt denies chest pain. No acute ischemic changes on ECG.) (7) HTN (hypertension) Current Visit: No Status: Chronic Qualifiers: Hypertension type: essential hypertension Qualified Code(s): I10 - Essential (primary) hypertension (8) HLD (hyperlipidemia) Current Visit: Yes Status: Chronic Qualifiers: Hyperlipidemia type: mixed hyperlipidemia Qualified Code(s): E78.2 - Mixed hyperlipidemia (9) Depression Current Visit: Yes Status: Chronic Subjective Date of service: 08/16/20 Principal diagnosis: Failure To Thrive/Depression, NSVT Interval history: pt resting in bed, no current cardiac complaints. tele reviewed - in SR HR 70s with freq PACs, 2 bouts of 2 beat NSVT noted overnight, pt asymptomatic. Objective Last Vital Signs Temp 97.6 F 08/16/20 08:26 Pulse 88 08/16/20 08:26 Resp 18 08/16/20 08:26 BP 114/60 08/16/20 08:26 Pulse Ox 90 08/16/20 08:26 - Physical Examination General: No Apparent Distress, Cachectic HEENT: Positive: EOMI, Normocephaly Neck: Positive: neck supple, trachea midline Cardiac: Positive: Reg Rate and Rhythm, S1/S2 Lungs: Positive: Decreased Breath Sounds Neuro: Positive: Grossly Intact Abdomen: Positive: Soft, Active Bowel Sounds. Negative: Tender Skin: Negative: Rash Musculoskeletal: No Fluid Collection Extremities: Present: upper extr. pulses, lower extr. pulses. Absent: edema - Imaging and Cardiology EKG: report reviewed, image reviewed Echo: report reviewed (04/08/2020 - EF 55-60%; grade I diastolic dysfxn; RV mildly dilated; trace MR; mild TR) - EKG Sinus rhythms and dysrhythmias: sinus tachycardia Chamber hypertrophy or enlargement: left ventricular hypertro
--- NOTE | 2020-08-16 12:11 | Consultation ---
History of Present Illness - Reason for Consult Consult date: 08/16/20 Reason for consult: depression - History of Present Psychiatric Illness Colt Ca is a 75y/o male patient who presented to the ER for failure to thrive. He is known to me from a consult during this hospital stay. During my interview with the patient is lying down in bed. He is a/o x 3. He is calm and cooperative. He is conversational. The patient verbalizes that he is "depressed because I lost my job." But he consistently denies SI/HI. He says "I really feel like I've been in here too long." He says "my family dependant on me and me having a job, but I'm not suicidal behind it." He denies hallucinations of any kind. I called the patient's daughter to discuss with her the patient's psychiatric condition and progress. She did not picker / packer. Left her a voice message. PAST PSYCHIATRIC HISTORY Diagnoses: Denies Suicide attempts or Self-harm behavior: Denies Prior psychiatric hospitalizations: Denies Substance Abuse history: Denies Previous psychiatric medications tried: Denies Outpatient treatment: Denies PAST MEDICAL HISTORY: None reported Family Psychiatric History: None reported SOCIAL HISTORY Marital Status: Living Arrangements: with spouse Employment Status: Retired Access to guns/weapons: Denies Education: History of Abuse: No Legal History: Denies REVIEW OF SYSTEMS Constitutional: Negative for weight loss ENT: Negative for stridor Respiratory: Negative for cough or hemoptysis All other systems reviewed and are negative MENTAL STATUS EXAMINATION General Appearance and Behavior: Age appropriate, good hygiene, wearing appropriate clothes, good contact, calm and cooperative polite with questioning. Cooperation: Participating/engaged Mood: "Depressed" Affect and affective range: Restricted Thought Process: Goal directed Thought Content: Logical Speech: normal tone and pace Suicidal Ideation: Denies Homicidal Ideation: Denies Hallucinations: Denies Delusions: None elicited Insight and Judgment: Limited Memory: Limited Orientation: A/O Assessment and Plan Major Depressive Disorder Treatment Plan MEDICATIONS: Increase Fluoxetine liquid 20mg daily Risks, benefits and alternatives of medications discussed with the patient, questions answered and consent obtained from patient. PSYCHOTHERAPY: Supportive psychotherapy provided MEDICAL: Per primary team DELIRIUM PRECAUTIONS: Please re-orient patient frequently, keep lights on during the day, and minimize benzodiazepines and opiates as these medications could worsen patient's confusion. UTILIZATION SPECIALIST: Defer to primary DISPOSITION: TBD Will follow. Medications and Allergies Allergies Allergy/AdvReac Type Severity Reaction Status Date / Time No Known Allergies Allergy Verified 08/02/20 22:50 Home Medications Medication Instructions Recorded Confirmed Last Taken Type FLUoxetine [Prozac] 10 mg PO QDAY #1 bottle 08/03/20 Unknown Rx Active Meds: Active Medications Acetaminophen (Tylenol) 650 mg PO Q4H PRN PRN Reason: Pain MILD(1-3)/Fever >100.5/PATEL Last Admin: 08/09/20 22:17 Dose: 650 mg Documented by: Amiodarone HCl (Cordarone) 200 mg PO DAILY [facility] Diphenoxylate HCl/Atropine (Lomotil) 2 tab PO TID PRN PRN Reason: Diarrhea Last Admin: 08/08/20 09:37 Dose: 2 tab Documented by: Fluoxetine HCl (Prozac) 10 mg PO QDAY [facility] Last Admin: 08/16/20 10:22 Dose: Not Given Documented by: Heparin Sodium (Porcine) (Heparin) 5,000 unit SUB-Q Q8HR [facility] Last Admin: 08/16/20 06:08 Dose: 5,000 unit Documented by: Sodium Chloride (Nacl 0.9% 1000 Ml) 1,000 mls @ 50 mls/hr IV DIRECT [facility] Last Admin: 08/16/20 02:15 Dose: 50 mls/hr Documented by: Magnesium Hydroxide (Milk Of Magnesia) 30 ml PO Q4H PRN PRN Reason: Constipation Ondansetron HCl (Zofran) 4 mg IV Q8H PRN PRN Reason: Nausea And Vomiting Pantoprazole Sodium (Protonix) 40 mg IV BID [facility] Last Admin: 08/16/20 10:22 Dose: 40 mg Documented by: Sodium Chloride (Sodium Chloride Flush Syringe 10 Ml) 10 ml IV BID [facility] Last Admin: 08/16/20 02:20 Dose: 10 ml Documented by: Sodium Chloride (Sodium Chloride Flush Syringe 10 Ml) 10 ml IV PRN PRN PRN Reason: LINE FLUSH Mental Status Exam - Vital signs Last Vital Signs Temp 97.6 F 08/16/20 08:26 Pulse 88 08/16/20 08:26 Resp 18 08/16/20 08:26 BP 114/60 08/16/20 08:26 Pulse Ox 90 08/16/20 08:26 Results Result Diagrams: 08/04/20 06:26 08/14/20 05:10 All other labs normal.
[2020-08-16] MEDS ORDERED: FLUoxetine 20 MG/5 ML ORAL LIQD PO ONE (14:16)
--- NOTE | 2020-08-16 14:52 | Progress Note ---
Assessment and Plan 1. Abnormal modified barium swallow - likely due to depression and failure to initiate swallow properly. - discussed with pt, and advised that if he improved, he may resume oral diet. - discussed risk of aspiration with po intake, and risk of pneumonia - pt states he does NOT want PEG placed - EGD shows no esophageal pathology 2. Weight loss - may be due to above, or to depression. - depression management as per Hospitalist/Psychiatry. - pt refusing to eat, and if medications ineffective, or he refuses to take them, options are G-tube vs TPN vs Dobhoff - can consider Marinol to stimulate appetite when pt willing to swallow 3. Duodenitis - on PPI IV. - change to po when able Will sign off. Please call if decision made for G-tube, or can be of further assistance. Subjective Date of service: 08/16/20 Principal diagnosis: Failure To Thrive/Depression, NSVT Interval history: Pt depressed. Per RN, refusing to eat. Objective - Constitutional Vitals: Vital Signs - 12hr 08/16/20 08:26 Temperature 97.6 F Pulse Rate 88 Respiratory 18 Rate Blood Pressure 114/60 O2 Sat by Pulse 90 Oximetry General appearance: Present: no acute distress - EENT Eyes: PERRL, EOM intact ENT: hearing intact - Respiratory Respiratory effort: normal - Gastrointestinal General gastrointestinal: Present: soft, non-tender - Labs CBC & Chem 7: 08/04/20 06:26 08/14/20 05:10 Medications & Allergies - Medications Allergies/Adverse Reactions: Allergies No Known Allergies Allergy (Verified 08/02/20 22:50) Home Medications: Home Medications Medication Instructions Recorded Confirmed Last Taken Type FLUoxetine [Prozac] 10 mg PO QDAY #1 bottle 08/03/20 Unknown Rx Active Medications: Generic Name Dose Route Start Last Admin Trade Name Freq PRN Reason Stop Dose Admin Acetaminophen 650 mg 08/03/20 01:11 08/09/20 22:17 Tylenol PO 650 mg Q4H PRN Administration Pain MILD(1-3)/Fever >100.5/PATEL Amiodarone HCl 200 mg 08/17/20 10:00 Cordarone PO DAILY [facility] Diphenoxylate HCl/Atropine 2 tab 08/06/20 11:30 08/08/20 09:37 Lomotil PO 2 tab TID PRN Administration Diarrhea Heparin Sodium (Porcine) 5,000 unit 08/03/20 06:00 08/16/20 14:39 Heparin SUB-Q 5,000 unit Q8HR [facility] Administration Sodium Chloride 1,000 mls @ 50 mls/hr 08/15/20 10:00 08/16/20 02:15 Nacl 0.9% 1000 Ml IV 50 mls/hr DIRECT [facility] Administration Magnesium Hydroxide 30 ml 08/03/20 01:11 Milk Of Magnesia PO Q4H PRN Constipation Ondansetron HCl 4 mg 08/03/20 01:11 Zofran IV Q8H PRN Nausea And Vomiting Pantoprazole Sodium 40 mg 08/16/20 01:34 08/16/20 10:22 Protonix IV 40 mg BID [facility] Administration Sodium Chloride 10 ml 08/03/20 10:00 08/16/20 02:20 Sodium Chloride Flush Syringe 10 Ml IV 10 ml BID [facility] Administration Sodium Chloride 10 ml 08/03/20 01:11 Sodium Chloride Flush Syringe 10 Ml IV PRN PRN LINE FLUSH HEART Score - HEART Score Troponin: Troponin T 0.048 ng/mL (0.00-0.029) H 08/02/20 21:56
[2020-08-17] MEDS: HEPARIN 5,000 UNIT/1 ML VIAL SUB-Q SCH ×3 (05:14→21:33)
--- NOTE | 2020-08-17 08:25 | Progress Note ---
Assessment and Plan Assessment and plan: --NSVT --hypokalemia; Resolved, monitor electrolytes --Acute renal failure From dehydration [vasomotor nephropathy] Resolved, avoid nephrotoxins ---Dehydration Improved, continue current management ---Elevated troponin present on admission nonspecific, no cardiac symptoms ---Depression Improved , denies suicidal thoughts or ideation psychiatry evaluated, patient is on fluoxetine Outpatient follow-up upon discharge ---Failure to thrive On regular cardiac diet, With nutritional supplements ---Hypernatremia Resolved, continue to encourage free water --Severe malnutrition/hypoalbuminemia; Nutrition supplements, nurse transitional following 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 Trending down, follow abdominal ultrasound --General debility/failure to thrive in an adult physical therapy, Occupational Therapy Evaluated, recommend acute rehab Acute rehab consult placed ---DVT prophylaxis subcutaneous heparin. ---Full code status 08/09/2020. Physical therapy recommends acute rehab. Await case management evaluation for placement. 08/10/2020. Awaiting subacute rehab placement. 08/11/2020. Awaiting subacute rehab placement. 08/12/2020. Nurse reports a 30 beat run of V. tach that occurred this morning. Cardiology has been consulted for NSVT. Follow-up electrolytes and check echo cardiogram. Speech therapy evaluated the patient with MBS which demonstrated oral pharyngeal dysphagia with laryngeal elevation, severe valleculae retention and an inability to clear the pharynx. Recommendations were for PEG placement. GI consultation. Awaiting subacute rehab placement 08/13/2020; Nurse reports a 30 beat run of V. tach yesterday and cardiology evaluated and put her on amiodarone. Speech therapy evaluated the patient with MBS which demonstrated oral pharyngeal dysphagia with laryngeal elevation, severe valleculae retention and an inability to clear the pharynx. Recommendat ions were for PEG placement. GI consulted and discussed with Dr. Rainey and he said the patient wants more time to think about EGD or PEG tube placement. Patient wants Dr Rainey to talk to his daughter and he tried to reach her. Patient has depression and on fluoxetine. Psych evaluated the patient and signed off. 08/14/2020 Nurse reports a 30 beat run of V. tach yesterday and cardiology carlos luated and put her on amiodarone. Speech therapy evaluated the patient with MBS which demonstrated oral pharyngeal dysphagia with laryngeal elevation, severe valleculae retention and an inability to clear the pharynx. Recommendations were for PEG placement. GI consulted and discussed with Dr. Rainey and he said the patient wants more time to think about EGD or PEG tube placement. Patient wants Dr Rainey to talk to his daughter and he tried to reach her. Patient has depression and on fluoxetine. Psych evaluated the patient and signed off. 08/15/2020; patient refused PEG tube placement but agreed for endoscopy. Plan was endoscopy to be done today. But the daughter called Dr Rainey and insists to have PEG tube to be placed and she claims she has power of civil litigation attorney. Patient was alert and oriented and looks like he can make his own decision. Patient should have agreed to do the procedure. Endoscopy will be held and risk management will be involved. 08/16/2020; patient has EGD yesterday and show extensive esophagitis and gastritis, no other findings. Patient is on IV PPI. Her daughter wants psych placement. Psych have evaluated a week ago and put him on fluoxetine and sign off. I have discussed with psych nurse practitioner Juan Pablo yesterday because the daughter wants to be called by psych and explained to her why he is not going to placed inpatient psych. Juan Pablo said he would let his partner Kristina who saw the patient last week to talk with the patient's daughter. 08/17/2020; patient had EGD and showed extensive esophagitis, and patient is on PPI. Patient is not eating well and refused PEG tube placement. Patient has social issues and he is more concerned about financial difficulties and living situations. Case management and social insurance specialist consulted. Patient has severe depression and is currently on fluoxetine. Daughter has questions about why the patient is not placed to inpatient psych, I reconsulted psych and they try to reach to the daughter to explain that the daughter did not peanut picker the phone. His diet is advanced full liquid diet, patient is on Marinol to increase her appetite. Follow-up with case management. History Interval history: Patient was seen and evaluated this morning patient patient is complaining he is feeling weak and could not function Hospitalist Physical - Physical exam Narrative exam: Not in cardiopulmonary distress. The patient appeared well nourished and normally developed. Vital signs as documented. Head exam is unremarkable. No scleral icterus . Neck is without jugular venous distension, thyromegaly, or carotid bruits. Lungs are clear to auscultation. Cardiac exam reveals regular rate and Rhythm. Abdominal exam reveals normal bowel sounds, nontender, no organomegaly. Extremities are nonedematous and both femoral and pedal pulses are normal. 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 No focal weakness. - Constitutional Vitals: Temp Pulse Resp BP Pulse Ox 97.6 F 64 18 113/59 100 08/17/20 08:11 08/17/20 08:11 08/17/20 08:11 08/17/20 08:11 08/17/20 08:11 General appearance: Present: no acute distress HEART Score - HEART Score Troponin: Troponin T 0.048 ng/mL (0.00-0.029) H 08/02/20 21:56 Results - Labs CBC & Chem 7: 08/04/20 06:26 08/14/20 05:10 Labs: Laboratory Last Values WBC 4.6 K/mm3 (4.5-11.0) 08/04/20 06:26 RBC 4.68 M/mm3 (3.65-5.03) 08/04/20 06:26 Hgb 15.0 gm/dl (11.8-15.2) D 08/04/20 06:26 Hct 43.8 % (35.5-45.6) D 08/04/20 06:26 MCV 94 fl (84-94) 08/04/20 06:26 MCH 32 pg (28-32) 08/04/20 06:26 MCHC 34 % (32-34) 08/04/20 06:26 RDW 14.5 % (13.2-15.2) 08/04/20 06:26 Plt Count 118 K/mm3 (140-440) L 08/04/20 06:26 Lymph % (Auto) 14.7 % (13.4-35.0) 08/04/20 06:26 Mclean % (Auto) 6.7 % (0.0-7.3) 08/04/20 06:26 Eos % (Auto) 0.1 % (0.0-4.3) 08/04/20 06:26 Baso % (Auto) 0.0 % (0.0-1.8) 08/04/20 06:26 Lymph # (Auto) 0.7 K/mm3 (1.2-5.4) L 08/04/20 06:26 Mclean # (Auto) 0.3 K/mm3 (0.0-0.8) 08/04/20 06:26 Eos # (Auto) 0.0 K/mm3 (0.0-0.4) 08/04/20 06:26 Baso # (Auto) 0.0 K/mm3 (0.0-0.1) 08/04/20 06:26 Seg Neutrophils % 78.5 % (40.0-70.0) H 08/04/20 06:26 Seg Neutrophils # 3.6 K/mm3 (1.8-7.7) 08/04/20 06:26 PT 14.5 Sec. (12.2-14.9) 08/04/20 06:26 INR 1.12 (0.87-1.13) 08/04/20 06:26 Sodium 141 mmol/L (137-145) 08/14/20 05:10 Potassium 4.0 mmol/L (3.6-5.0) 08/14/20 05:10 Chloride 108.5 mmol/L (98-107) H 08/14/20 05:10 Carbon Dioxide 24 mmol/L (22-30) 08/14/20 05:10 Anion Gap 13 mmol/L 08/14/20 05:10 BUN 11 mg/dL (9-20) 08/14/20 05:10 Creatinine 0.6 mg/dL (0.8-1.3) L 08/14/20 05:10 Estimated GFR > 60 ml/min 08/14/20 05:10 BUN/Creatinine Ratio 18 % 08/14/20 05:10 Glucose 117 mg/dL (75-100) H 08/14/20 05:10 Calcium 7.9 mg/dL (8.4-10.2) L 08/14/20 05:10 Magnesium 2.80 mg/dL (1.7-2.3) H 08/03/20 15:29 Total Bilirubin 1.80 mg/dL (0.1-1.2) H 08/14/20 05:10 AST 16 units/L (5-40) 08/14/20 05:10 ALT 55 units/L (7-56) 08/14/20 05:10 Alkaline Phosphatase 75 units/L (35-129) 08/14/20 05:10 Total Creatine Kinase 93 units/L (55-170) 08/02/20 21:56 CK-MB (CK-2) 5.3 ng/mL (0.0-4.0) H 08/02/20 21:56 CK-MB (CK-2) Rel Index 5.6 (0-4) H 08/02/20 21:56 Troponin T 0.048 ng/mL (0.00-0.029) H 08/02/20 21:56 Total Protein 4.3 g/dL (6.3-8.2) L 08/14/20 05:10 Albumin 2.4 g/dL (3.9-5) L 08/14/20 05:10 Albumin/Globulin Ratio 1.3 % 08/14/20 05:10 Triglycerides 307 mg/dL (2-149) H 08/02/20 21:56 Cholesterol 232 mg/dL (50-199) H 08/02/20 21:56 LDL Cholesterol Direct 132 mg/dL (50-130) H 08/02/20 21:56 HDL Cholesterol 36 mg/dL (40-59) L 08/02/20 21:56 Cholesterol/HDL Ratio 6.44 % 08/02/20 21:56 Lipase 77 units/L (13-60) H 08/02/20 21:56 Urine Color Fifi (Yellow) 08/03/20 00:22 Urine Turbidity Clear (Clear) 08/03/20 00:22 Urine pH 5.0 (5.0-7.0) 08/03/20 00:22 Ur Specific [place] 1.021 (1.003-1.030) 08/03/20 00:22 Urine Protein <15 mg/dl mg/dL (Negative) 08/03/20 00:22 Urine Glucose (UA) Neg mg/dL (Negative) 08/03/20 00:22 Urine Ketones Neg mg/dL (Negative) 08/03/20 00:22 Urine Blood Sm (Negative) 08/03/20 00:22 Urine Nitrite Neg (Negative) 08/03/20 00:22 Urine Bilirubin Sm (Negative) 08/03/20 00:22 Urine Ictotest Negative (Negative) 08/03/20 00:22 Urine Urobilinogen 4.0 mg/dL (<2.0) 08/03/20 00:22 Ur Leukocyte Esterase Neg (Negative) 08/03/20 00:22 Urine WBC (Auto) 2.0 /HPF (0.0-6.0) 08/03/20 00:22 Urine RBC (Auto) < 1.0 /HPF (0.0-6.0) 08/03/20 00:22 U Epithel Cells (Auto) < 1.0 /HPF (0-13.0) 08/03/20 00:22 Hyaline Casts 1 /LPF 08/03/20 00:22 Hepatitis A IgM Ab Non-reactive (NonReactive) 08/05/20 09:25 Hep Bs Antigen Non-reactive (Negative) 08/05/20 09:25 Hep B Core IgM Ab Non-reactive (NonReactive) 08/05/20 09:25 Hepatitis C Antibody Non-reactive (NonReactive) 08/05/20 09:25 Guillen/IV: Voiding Method External Female Catheter IV Catheter Type [left ac] Peripheral IV IV Catheter Type [Right Hand] Peripheral IV Active Medications - Current Medications Current Medications: Generic Name Dose Route Start Last Admin Trade Name Freq PRN Reason Stop Dose Admin Acetaminophen 650 mg 08/03/20 01:11 08/09/20 22:17 Tylenol PO 650 mg Q4H PRN Administration Pain MILD(1-3)/Fever >100.5/PATEL Amiodarone HCl 200 mg 08/17/20 10:00 Cordarone PO DAILY LUCRECIA Diphenoxylate HCl/Atropine 2 tab 08/06/20 11:30 08/08/20 09:37 Lomotil PO 2 tab TID PRN Administration Diarrhea Dronabinol 2.5 mg 08/17/20 10:00 Marinol PO BID LUCRECIA Heparin Sodium (Porcine) 5,000 unit 08/03/20 06:00 08/17/20 05:14 Heparin SUB-Q 5,000 unit Q8HR LUCRECIA Administration Sodium Chloride 1,000 mls @ 50 mls/hr 08/15/20 10:00 08/16/20 21:44 Nacl 0.9% 1000 Ml IV 50 mls/hr DIRECT LUCRECIA Administration Magnesium Hydroxide 30 ml 08/03/20 01:11 Milk Of Magnesia PO Q4H PRN Constipation Ondansetron HCl 4 mg 08/03/20 01:11 Zofran IV Q8H PRN Nausea And Vomiting Pantoprazole Sodium 40 mg 08/16/20 01:34 08/16/20 21:40 Protonix IV 40 mg BID LUCRECIA Administration Sodium Chloride 10 ml 08/03/20 10:00 08/17/20 07:08 Sodium Chloride Flush Syringe 10 Ml IV Not Given BID LUCRECIA Sodium Chloride 10 ml 08/03/20 01:11 Sodium Chloride Flush Syringe 10 Ml IV PRN PRN LINE FLUSH Nutrition/Malnutrition Assess - Dietary Evaluation Nutrition/Malnutrition Findings: Nutrition Notes Start: 08/03/20 11: 43 Freq: Status: Active Protocol: Document 08/15/20 10:08 EN (Rec: 08/15/20 10:13 EN [email or web address]) Co-Sign 08/15/20 10:08 LM Nutrition Notes Initial or Follow up Brief Note Current Diagnosis Hypertension Other Pertinent Diagnosis Failure to Thrive, Acute CHRISTIE, Dehydration, Depression Current Diet NPO Subjective/Other Information Pt currently NPO. GI recommended PEG placement. Pt would like more time to think about it before making a decision. Pt awaiting EGD. Nutrition Intervention Follow-Up By: 08/19/20 Additional Comments Follow for possible PEG placement
[2020-08-17] MEDS: PANTOPRAZOLE 40 MG INJ IV SCH (09:51)
[2020-08-17] MEDS: AMIODARONE 200 MG TAB PO SCH (09:51)
[2020-08-17] MEDS ORDERED: DRONABINOL 2.5 MG CAP PO SCH (10:00)
--- NOTE | 2020-08-17 10:49 | Progress Note ---
Subjective - Reason for Consult Consult date: 08/17/20 Reason for consult: depression - Chief Complaint Chief complaint: During my interview with the patient, he is lying in bed awake. He is a/o x 3. He is calm and cooperative. When asking the patient how he was feeling he states, "I just cant seem to get anything to stay down." He says "I spit up a lot no matter what it is." The patient says "I feel stable mentally. My mind is normal, but I can't seem to get my stomach together." He has consistently denied SI/HI, stating, "I want to live. I don't' want to hurt myself." He says, "I lost my job and that has me depressed cause I need to help my ." He says, "but my daughter has been helping her so that relives me some." He denies hallucinations of any kind. He says "It's just my appetite that is the problem." REVIEW OF SYSTEMS Constitutional: Negative for weight loss ENT: Negative for stridor Respiratory: Negative for cough or hemoptysis All other systems reviewed and are negative MENTAL STATUS EXAMINATION General Appearance and Behavior: Age appropriate, good hygiene, wearing appropriate clothes, good eye contact, calm and cooperative polite with questioning. Cooperation: Participating/engaged Mood: "Depressed" Affect and affective range: Restricted Thought Process: Goal directed Thought Content: Logical Speech: normal tone and pace Suicidal Ideation: Denies Homicidal Ideation: Denies Hallucinations: Denies Delusions: None elicited Insight and Judgment: Limited Memory: Limited Orientation: A/O Assessment and Plan Major Depressive Disorder Treatment Plan MEDICATIONS: Continue current fluoxetine dose Risks, benefits and alternatives of medications discussed with the patient, questions answered and consent obtained from patient. PSYCHOTHERAPY: Supportive psychotherapy provided MEDICAL: Per primary team DELIRIUM PRECAUTIONS: Please re-orient patient frequently, keep lights on during the day, and minimize benzodiazepines and opiates as these medications could worsen patient's confusion. 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 The patient has consistently denies any thoughts or fear of self harm. He is lucid and has not exhibited any psychosis. He understands that if feeling of endangerment or thoughts of self harm arise, he is to seek immediate assistance, including but not limited to the crisis hotline, 911/ER. The patient's depression can be managed on an outpatient basis. The special duty nurse to further discuss the safety plan, give outpatient resources. The patient is to follow up with outpatient psych in 7 to 14 days upon discharge. Will sign off. Please re-consult if needed at a later date. Thank you for this consult. Mental Status Exam - Vital signs Last Vital Signs Temp 97.6 F 08/17/20 08:11 Pulse 64 08/17/20 08:11 Resp 18 08/17/20 08:11 BP 113/59 08/17/20 08:11 Pulse Ox 100 08/17/20 08:11
[2020-08-17] MEDS: DRONABINOL 2.5 MG CAP PO SCH ×2 (12:07→18:00)
--- NOTE | 2020-08-17 17:54 | Gastroenterology Progress Note ---
Assessment and Plan - Patient Problems (1) Abnormal loss of weight Current Visit: Yes Status: Acute Plan to address problem: - Patient with significant depression (on tx) but no signs of organic disease at present. - Will get CT of A/P given elevated LFTs (patient says he had at [facility], but I find no record of this). - Will advance diet, and add librax for the abdominal cramps. - Add nutritional supplements and MVI daily. - BMI > 20, so no critical need for assisted feeding at present. (2) Elevated liver enzymes Current Visit: Yes Status: Acute Plan to address problem: - Hepatitis panel negative, and RUQ US negative. - Will monitor, raad with patient on amiodarone. - Will check TSH, given weight loss as well. Subjective Date of service: 08/17/20 Principal diagnosis: Abnormal Loss of Weight Interval history: The patient is tolerating a clear liquid diet, though he states his stomach if "full" and can't handle the food. There has been no witnessed vomiting, and today he had a large BM without blood. He denies abdominal pain, just discomfort from the bloating. Objective - Constitutional Vitals: Temp Pulse Resp BP Pulse Ox 98.3 F 70 20 87/47 100 08/17/20 12:20 08/17/20 12:20 08/17/20 12:20 08/17/20 12:22 08/17/20 12:20 General appearance: no acute distress - Neck Neck: supple, normal ROM - Respiratory Respiratory effort: normal Respiratory: bilateral: CTA - Cardiovascular Rhythm: regular Heart Sounds: Present: S1 & S2 - Extremities Extremities: no ischemia, No edema - Gastrointestinal General gastrointestinal: Present: soft, non-tender, non-distended - Labs CBC & Chem 7: 08/04/20 06:26 08/14/20 05:10
[2020-08-17] MEDS: SODIUM CHLORIDE 0.9% 1000 ML 1,000 ML IV SCH ×2 (18:00→23:43)
--- NOTE | 2020-08-17 20:46 | Cat Scan Report ---
CT ABDOMEN AND PELVIS WITH CONTRAST INDICATION / CLINICAL INFORMATION: weight loss, abdominal pain. TECHNIQUE: Axial CT images were obtained through the abdomen and pelvis after 100 mL Omnipaque [address] scans at this location are performed using CT dose reduction for ALARA by means of automated exposure control. COMPARISON: Abdominal ultrasound 08/04/2020 FINDINGS: LOWER CHEST: Small right pleural effusion and small pericardial effusion. LIVER: No significant abnormality. BILIARY SYSTEM: The gallbladder is distended but without evidence of wall thickening or pericholecyst ic inflammation. The appearance of the gallbladder on recent ultrasound was likely secondary to sludg e within the lumen. PANCREAS: No significant abnormality. SPLEEN: No significant abnormality. ADRENALS: There is a 2.4 cm benign-appearing cyst in the right adrenal gland with a mural calcificati on. KIDNEYS and URETERS: No significant abnormality. STOMACH / BOWEL: No significant abnormality. PERITONEUM: Small ascites. No free air. No fluid collection. LYMPH NODES: No significant adenopathy. VASCULAR STRUCTURES: No significant abnormality. URINARY BLADDER: Mildly distended but otherwise unremarkable. REPRODUCTIVE ORGANS: Coarse prostatic calcifications. ADDITIONAL FINDINGS: None. SKELETAL SYSTEM: Multilevel degenerative change of the spine. Mild wedging of the superior endplate o f L1. IMPRESSION: 1. No acute process identified within the abdomen or pelvis to account for patient's abdominal pain a nd weight loss. 2. The gallbladder is mildly distended and filled with sludge. This likely accounts for the recent so nographic finding. 3. Small right pleural effusion, small pericardial effusion, and small ascites. Signer Name: Mine Tejeda MD Signed: 08/17/2020 8:41 PM Workstation Name: [id number]
[2020-08-18 00:33] LABS: Blood Urea Nitrogen 9 mg/dL (9-20); Hemolysis Index 5
[2020-08-18 01:12] LABS: BUN/Creatinine Ratio 18
[2020-08-18] MEDS ORDERED: POTASSIUM PHOSPHATE 40 MMOL in SODIUM CHLORIDE 0.9% 500 ML 500 ML IV ONE (01:56)
[2020-08-18] MEDS ORDERED: POTASSIUM CHLORIDE ER 20 MEQ TAB PO ONE (01:57)
[2020-08-18] MEDS ORDERED: MAGNESIUM SULFATE 4 GM/100 ML BAG IV ONE (01:57)
[2020-08-18] MEDS: HEPARIN 5,000 UNIT/1 ML VIAL SUB-Q SCH ×3 (05:23→21:00)
[2020-08-18] MEDS ORDERED: PANTOPRAZOLE 40 MG TAB PO SCH (10:00)
[2020-08-18] MEDS: AMIODARONE 200 MG TAB PO SCH (10:57)
[2020-08-18] MEDS: MULTIVITAMINS ,THERAPEUTIC TAB PO SCH (10:57)
[2020-08-18] MEDS: DRONABINOL 2.5 MG CAP PO SCH ×2 (10:57→16:03)
[2020-08-18] MEDS: PANTOPRAZOLE 40 MG TAB PO SCH (10:57)
--- NOTE | 2020-08-18 13:47 | Progress Note ---
Assessment and Plan . Physical therapy recommends acute rehab. Await case management evaluation for placement. 08/10/2020. Awaiting subacute rehab placement. 08/11/2020. Awaiting subacute rehab placement. 08/12/2020. Nurse reports a 30 beat run of V. tach that occurred this morning. Cardiology has been consulted for NSVT. Follow-up electrolytes and check echocardiogram. Speech therapy evaluated the patient with MBS which demonstrated oral pharyngeal dysphagia with laryngeal elevation, severe valleculae retention and an inability to clear the pharynx. Recommendations were for PEG placement. GI consultation. Awaiting subacute rehab placement 08/13/2020; Nurse reports a 30 beat run of V. tach yesterday and cardiology evaluated and put her on amiodarone. Speech therapy evaluated the patient with MBS which demonstrated oral pharyngeal dysphagia with laryngeal elevation, severe valleculae retention and an inability to clear the pharynx. Recommendations were for PEG placement. GI consulted and discussed with Dr. Rainey and he said the patient wants more time to think about EGD or PEG tube placement. Patient wants Dr Rainey to talk to his daughter and he tried to reach her. Patient has depression and on fluoxetine. Psych evaluated the patient and signed off. 08/14/2020 Nurse reports a 30 beat run of V. tach yesterday and cardiology evaluated and put her on amiodarone. Speech therapy evaluated the patient with MBS which demonstrated oral pharyngeal dysphagia with laryngeal elevation, severe valleculae retention and an inability to clear the pharynx. Recommendations were for PEG placement. GI consulted and discussed with Dr. Rainey and he said the patient wants more time to think about EGD or PEG tube placement. Patient wants Dr Rainey to talk to his daughter and he tried to reach her. Patient has depression and on fluoxetine. Psych evaluated the patient and signed off. 08/15/2020; patient refused PEG tube placement but agreed for endoscopy. Plan was endoscopy to be done today. But the daughter called Dr Rainey and insists to have PEG tube to be placed and she claims she has power of assistant attorney general. Patient was alert and oriented and looks like he can make his own decision. Patient should have agreed to do the procedure. Endoscopy will be held and risk management will be involved. 08/16/2020; patient has EGD yesterday and show extensive esophagitis and gastritis, no other findings. Patient is on IV PPI. Her daughter wants psych placement. Psych have evaluated a week ago and put him on fluoxetine and sign off. I have discussed with psych nurse practitioner Juan Pablo yesterday because t he daughter wants to be called by psych and explained to her why he is not going to placed inpatient psych. Juan Pablo said he would let his partner Kristina who saw the patient last week to talk with the patient's daughter. 08/17/2020; patient had EGD and showed extensive esophagitis, and patient is on PPI. Patient is not eating well and refused PEG tube placement. Patient has social issues and he is more concerned about financial difficulties and living situations. Case management and social security assessor consulted. Patient has severe depression and is currently on fluoxetine. Daughter has questions about why the patient is not placed to inpatient psych, I reconsulted psych and they try to re ach to the daughter to explain that the daughter did not cotton picker the phone. His diet is advanced full liquid diet, patient is on Marinol to increase her appetite. Follow-up with case management. August 18, 2020. EGD showed extensive esophagitis. Placed on PPI most likely reason patient is not eating. Patient does not want a PEG tube placement just wants rehab. Discussed this again. Patient states depression is not causing him not to eat. Currently being treated for depression. Tolerating advancing diet at this point. History - Patient Problems (1) Abnormal loss of weight Current Visit: Yes Status: Acute Plan to address problem: Patient maintaining weight continue diabetic supplementation. Most likely secondary to decreased p.o. intake from severe gastritis. On PPI now. (2) Acute renal failure Current Visit: Yes Status: Acute Plan to address problem: Secondary to prerenal azotemia ATN. Vasomotor nephropathy. Corrected with IV antibiotics which she is getting now. (3) Dehydration Current Visit: Yes Status: Acute Plan to address problem: Resolved. (4) Failure to thrive Current Visit: Yes Status: Acute Qualifiers: Failure to thrive age range: in adult Qualified Code(s): R62.7 - Adult failure to thrive Plan to address problem: Multifactorial depression present gastritis. Patient now on Marinol as well as being treated for depression with fluoxetine. Should improve. Should take lenka ral weeks. (5) Malnutrition Current Visit: Yes Status: Acute (6) Depression Current Visit: Yes Status: Chronic Plan to address problem: Patient on serotonin reuptake inhibitor. Not a candidate for inpatient psych. Would benefit from long term facility. Subjective Date of service: 08/18/20 Principal diagnosis: Abnormal Loss of Weight Interval history: Patient presents with abnormal weight loss and debility unable to hold food down. Patient states he still is unable to hold food down. Patient was treated for depression. Currently has dietitian supplementation. Seems to be doing fairly well. Current plan have patient to long term facility for further rehab. Objective - Constitutional Vitals: Vital Signs - 12hr 08/18/20 08/18/20 08/18/20 05:05 07:30 07:45 Temperature 98.0 F 98.0 F Pulse Rate 83 78 81 Respiratory 18 20 Rate Blood Pressure 98/69 116/73 O2 Sat by Pulse 99 100 Oximetry 08/18/20 11:24 Temperature 97.8 F Pulse Rate 84 Respiratory 20 Rate Blood Pressure 104/64 O2 Sat by Pulse 100 Oximetry General appearance: Present: no acute distress, well-nourished - EENT Eyes: PERRL, EOM intact ENT: hearing intact, clear oral mucosa Ears: bilateral: normal - Neck Neck: supple, normal ROM - Respiratory Respiratory effort: normal Respiratory: bilateral: CTA - Breasts Breasts: normal - Cardiovascular Rhythm: regular Heart Sounds: Present: S1 & S2. Absent: gallop, rub Extremities: pulses intact, No edema, normal color, Full ROM Extremity abnormal: other (Atrophy at calf and quadricep muscles. Minimal.) - Gastrointestinal General gastrointestinal: Present: soft, non-tender, non-distended, normal bowel sounds - Genitourinary Male genitourinary: normal - Integumentary Integumentary: clear, warm, dry - Musculoskeletal Musculoskeletal: 1, strength equal bilaterally - Neurologic Neurologic: moves all extremities - Psychiatric Psychiatric: memory intact, appropriate mood/affect, intact judgment & insight - Labs CBC & Chem 7: 08/04/20 06:26 08/17/20 23:35 Labs: Abnormal lab results 08/17/20 08/17/20 Range/Units 23:35 23:35 Potassium 2.6 L* D (3.6-5.0) mmol/L Carbon Dioxide 19 L (22-30) mmol/L Creatinine 0.5 L (0.8-1.3) mg/dL Calcium 8.0 L (8.4-10.2) mg/dL Phosphorus 2.10 L (2.5-4.5) mg/dL Magnesium 1.20 L (1.7-2.3) mg/dL HEART Score - HEART Score Troponin: Troponin T 0.048 ng/mL (0.00-0.029) H 08/02/20 21:56
--- NOTE | 2020-08-18 14:58 | Gastroenterology Progress Note ---
Assessment and Plan - Patient Problems (1) Abnormal loss of weight Current Visit: Yes Status: Acute Plan to address problem: - Patient with significant depression (on tx) but no signs of organic disease at present. - CT of A/P negative. - Will continue regular diet, and marinol as markedly improved in last 24 hours. - Add nutritional supplements and MVI daily. - BMI > 20, so no critical need for assisted feeding at present. - Inability to eat appears resolved, and I am OK with d/c to Rehab or Psych facility tomorrow. (2) Elevated liver enzymes Current Visit: Yes Status: Acute Plan to address problem: - Hepatitis panel negative, and RUQ US as well as CT negative. - Will monitor, raad with patient on amiodarone. - TSH WNL. Subjective Date of service: 08/18/20 Principal diagnosis: Abnormal Loss of Weight Interval history: The patient tolerated at least 50% of his lunch, and all of his breakfast (as well as can of Enlive). He says his stomach feels better today, and the CT scan was reviewed with him. Objective - Constitutional Vitals: Temp Pulse Resp BP Pulse Ox 97.8 F 84 20 104/64 100 08/18/20 11:24 08/18/20 11:24 08/18/20 11:24 08/18/20 11:24 08/18/20 11:24 General appearance: no acute distress - Respiratory Respiratory effort: normal Respiratory: bilateral: CTA - Cardiovascular Rhythm: regular Heart Sounds: Present: S1 & S2 - Gastrointestinal General gastrointestinal: Present: soft, non-tender, non-distended - Labs CBC & Chem 7: 08/04/20 06:26 08/17/20 23:35 Labs: Laboratory Results - last 24 hr 08/17/20 08/17/20 08/18/20 23:35 23:35 05:36 Sodium 139 Potassium 2.6 L* D Chloride 102.7 Carbon Dioxide 19 L Anion Gap 20 BUN 9 Creatinine 0.5 L Estimated GFR > 60 BUN/Creatinine Ratio 18 Glucose 82 Calcium 8.0 L Phosphorus 2.10 L Magnesium 1.20 L TSH 2.380
[2020-08-19] MEDS: HEPARIN 5,000 UNIT/1 ML VIAL SUB-Q SCH ×3 (05:06→21:03)
[2020-08-19] MEDS: SODIUM CHLORIDE 0.9% 1000 ML 1,000 ML IV SCH ×2 (05:07→23:54)
[2020-08-19] MEDS: PANTOPRAZOLE 40 MG TAB PO SCH (08:30)
[2020-08-19] MEDS: MULTIVITAMINS ,THERAPEUTIC TAB PO SCH (10:56)
[2020-08-19] MEDS: AMIODARONE 200 MG TAB PO SCH (10:56)
[2020-08-19] MEDS: DRONABINOL 2.5 MG CAP PO SCH ×2 (10:57→16:01)
--- NOTE | 2020-08-19 12:25 | Progress Note ---
Assessment and Plan . Physical therapy recommends acute rehab. Await case management evaluation for placement. 08/10/2020. Awaiting subacute rehab placement. 08/11/2020. Awaiting subacute rehab placement. 08/12/2020. Nurse reports a 30 beat run of V. tach that occurred this morning. Cardiology has been consulted for NSVT. Follow-up electrolytes and check echocardiogram. Speech therapy evaluated the patient with MBS which demonstrated oral pharyngeal dysphagia with laryngeal elevation, severe valleculae retention and an inability to clear the pharynx. Recommendations were for PEG placement. GI consultation. Awaiting subacute rehab placement 08/13/2020; Nurse reports a 30 beat run of V. tach yesterday and cardiology evaluated and put her on amiodarone. Speech therapy evaluated the patient with MBS which demonstrated oral pharyngeal dysphagia with laryngeal elevation, severe valleculae retention and an inability to clear the pharynx. Recommendations were for PEG placement. GI consulted and discussed with Dr. Rainey and he said the patient wants more time to think about EGD or PEG tube placement. Patient wants Dr Rainey to talk to his daughter and he tried to reach her. Patient has depression and on fluoxetine. Psych evaluated the patient and signed off. 08/14/2020 Nurse reports a 30 beat run of V. tach yesterday and cardiology evaluated and put her on amiodarone. Speech therapy evaluated the patient with MBS which demonstrated oral pharyngeal dysphagia with laryngeal elevation, severe valleculae retention and an inability to clear the pharynx. Recommendations were for PEG placement. GI consulted and discussed with Dr. Rainey and he said the patient wants more time to think about EGD or PEG tube placement. Patient wants Dr Rainey to talk to his daughter and he tried to reach her. Patient has depression and on fluoxetine. Psych evaluated the patient and signed off. 08/15/2020; patient refused PEG tube placement but agreed for endoscopy. Plan was endoscopy to be done today. But the daughter called Dr Rainey and insists to have PEG tube to be placed and she claims she has power of commonwealth attorney. Patient was alert and oriented and looks like he can make his own decision. Patient should have agreed to do the procedure. Endoscopy will be held and risk management will be involved. 08/16/2020; patient has EGD yesterday and show extensive esophagitis and gastritis, no other findings. Patient is on IV PPI. Her daughter wants psych placement. Psych have evaluated a week ago and put him on fluoxetine and sign off. I have discussed with psych nurse practitioner Juan Pablo yesterday because t he daughter wants to be called by psych and explained to her why he is not going to placed inpatient psych. Juan Pablo said he would let his partner Kristina who saw the patient last week to talk with the patient's daughter. 08/17/2020; patient had EGD and showed extensive esophagitis, and patient is on PPI. Patient is not eating well and refused PEG tube placement. Patient has social issues and he is more concerned about financial difficulties and living situations. Case management and child protective services social worker consulted. Patient has severe depression and is currently on fluoxetine. Daughter has questions about why the patient is not placed to inpatient psych, I reconsulted psych and they try to re ach to the daughter to explain that the daughter did not slate picker the phone. His diet is advanced full liquid diet, patient is on Marinol to increase her appetite. Follow-up with case management. August 18, 2020. EGD showed extensive esophagitis. Placed on PPI most likely reason patient is not eating. Patient does not want a PEG tube placement just wants rehab. Discussed this again. Patient states depression is not causing him not to eat. Currently being treated for depression. Tolerating advancing diet at this point. History aug pt is doing better clinically about the same awaiting placement - Patient Problems (1) Abnormal loss of weight Current Visit: Yes Status: Acute Plan to address problem: Patient maintaining weight continue diabetic supplementation. Most likely secondary to decreased p.o. intake from severe gastritis. On PPI now. (2) Acute renal failure Current Visit: Yes Status: Acute Plan to address problem: Secondary to prerenal azotemia ATN. Vasomotor nephropathy. Corrected with IV antibiotics which she is getting now. (3) Dehydration Current Visit: Yes Status: Acute Plan to address problem: resolved (4) Failure to thrive Current Visit: Yes Status: Acute Qualifiers: Failure to thrive age range: in adult Qualified Code(s): R62.7 - Adult failure to thrive Plan to address problem: Multifactorial depression present gastritis. Patient now on Marinol as well as being treated for depression with fluoxetine. Should improve. Should take several weeks. (5) Malnutrition Current Visit: Yes Status: Acute (6) Depression Current Visit: Yes Status: Chronic Plan to address problem: seems yo be more depressed today Subjective Date of service: 08/19/20 Principal diagnosis: Abnormal Loss of Weight Interval history: no new concerns pat states can not walk ok to go to rehab Objective - Constitutional Vitals: Vital Signs - 12hr 08/19/20 08/19/20 08/19/20 00:23 05:17 08:14 Temperature 98.0 F 98.0 F 98.0 F Pulse Rate 70 72 72 Respiratory 18 18 20 Rate Blood Pressure 110/56 118/75 97/60 Blood Pressure [right arm] O2 Sat by Pulse 99 100 96 Oximetry 08/19/20 12:01 Temperature 97.8 F Pulse Rate 86 Respiratory 15 Rate Blood Pressure Blood Pressure 134/86 [right arm] O2 Sat by Pulse 97 Oximetry General appearance: Present: no acute distress, well-nourished - EENT Eyes: PERRL, EOM intact ENT: hearing intact, clear oral mucosa Ears: bilateral: normal - Neck Neck: supple, normal ROM - Respiratory Respiratory effort: normal Respiratory: bilateral: CTA - Breasts Breasts: normal - Cardiovascular Rhythm: regular Heart Sounds: Present: S1 & S2. Absent: gallop, rub Extremities: pulses intact, No edema, normal color, Full ROM - Gastrointestinal General gastrointestinal: Present: soft, non-tender, non-distended, hypoactive bowel sounds - Genitourinary Male genitourinary: normal - Integumentary Integumentary: clear, warm, dry - Musculoskeletal Musculoskeletal: strength equal bilaterally, generalized weakness - Neurologic Neurologic: moves all extremities - Psychiatric Psychiatric: memory intact, appropriate mood/affect, intact judgment & insight - Labs CBC & Chem 7: 08/04/20 06:26 08/17/20 23:35 HEART Score - HEART Score Troponin: Troponin T 0.048 ng/mL (0.00-0.029) H 08/02/20 21:56
--- NOTE | 2020-08-19 14:53 | Gastroenterology Progress Note ---
Assessment and Plan - Patient Problems (1) Abnormal loss of weight Current Visit: Yes Status: Acute Plan to address problem: - Patient with significant depression (on tx) but no signs of organic disease at present. - CT of A/P negative. - Will continue regular diet, and marinol as markedly improved in last 24 hours. - Add nutritional supplements and MVI daily. - BMI > 20, so no critical need for assisted feeding at present. - Inability to eat appears resolved, and I am OK with d/c to Rehab or Psych facility tomorrow. - Will sign off; please call if needed. (2) Elevated liver enzymes Current Visit: Yes Status: Acute Plan to address problem: - Hepatitis panel negative, and RUQ US as well as CT negative. - Will monitor, raad with patient on amiodarone. - TSH WNL. Subjective Date of service: 08/19/20 Principal diagnosis: Abnormal Loss of Weight Interval history: The patient again ate over 50% of his tray today. He still c/o intermittent abdominal pain, but there is no emesis, and he is having a BM daily without blood. Objective - Constitutional Vitals: Temp Pulse Resp BP Pulse Ox 97.8 F 86 15 134/86 97 08/19/20 12:01 08/19/20 12:01 08/19/20 12:01 08/19/20 12:01 08/19/20 12:01 General appearance: no acute distress - Respiratory Respiratory effort: normal Respiratory: bilateral: CTA - Cardiovascular Rhythm: regular Heart Sounds: Present: S1 & S2 - Gastrointestinal General gastrointestinal: Present: soft, non-tender, non-distended - Labs CBC & Chem 7: 08/04/20 06:26 08/17/20 23:35
[2020-08-19 16:50] LABS: Alanine Aminotransferase 30 units/L (7-56); Albumin 2.3 g/dL (3.9-5); Blood Urea Nitrogen 11 mg/dL (9-20); Calcium 7.6 mg/dL (8.4-10.2); Hemolysis Index 12
[2020-08-19 16:54] LABS: BUN/Creatinine Ratio 22
[2020-08-19] MEDS: POTASSIUM CHLORIDE 10 MEQ 10 MEQ/100 ML BAG IV SCH ×4 (17:39→21:03)
[2020-08-20] MEDS: HEPARIN 5,000 UNIT/1 ML VIAL SUB-Q SCH ×3 (05:00→22:05)
[2020-08-20] MEDS: MULTIVITAMINS ,THERAPEUTIC TAB PO SCH (09:48)
[2020-08-20] MEDS: AMIODARONE 200 MG TAB PO SCH (09:49)
[2020-08-20] MEDS: PANTOPRAZOLE 40 MG TAB PO SCH (09:49)
[2020-08-20] MEDS: DRONABINOL 2.5 MG CAP PO SCH ×2 (12:02→15:28)
--- NOTE | 2020-08-20 19:13 | Progress Note ---
Assessment and Plan . Physical therapy recommends acute rehab. Await case management evaluation for placement. 08/10/2020. Awaiting subacute rehab placement. 08/11/2020. Awaiting subacute rehab placement. 08/12/2020. Nurse reports a 30 beat run of V. tach that occurred this morning. Cardiology has been consulted for NSVT. Follow-up electrolytes and check echocardiogram. Speech therapy evaluated the patient with MBS which demonstrated oral pharyngeal dysphagia with laryngeal elevation, severe valleculae retention and an inability to clear the pharynx. Recommendations were for PEG placement. GI consultation. Awaiting subacute rehab placement 08/13/2020; Nurse reports a 30 beat run of V. tach yesterday and cardiology evaluated and put her on amiodarone. Speech therapy evaluated the patient with MBS which demonstrated oral pharyngeal dysphagia with laryngeal elevation, severe valleculae retention and an inability to clear the pharynx. Recommendations were for PEG placement. GI consulted and discussed with Dr. Rainey and he said the patient wants more time to think about EGD or PEG tube placement. Patient wants Dr Rainey to talk to his daughter and he tried to reach her. Patient has depression and on fluoxetine. Psych evaluated the patient and signed off. 08/14/2020 Nurse reports a 30 beat run of V. tach yesterday and cardiology evaluated and put her on amiodarone. Speech therapy evaluated the patient with MBS which demonstrated oral pharyngeal dysphagia with laryngeal elevation, severe valleculae retention and an inability to clear the pharynx. Recommendations were for PEG placement. GI consulted and discussed with Dr. Rainey and he said the patient wants more time to think about EGD or PEG tube placement. Patient wants Dr Rainey to talk to his daughter and he tried to reach her. Patient has depression and on fluoxetine. Psych evaluated the patient and signed off. 08/15/2020; patient refused PEG tube placement but agreed for endoscopy. Plan was endoscopy to be done today. But the daughter called Dr Rainey and insists to have PEG tube to be placed and she claims she has power of finance attorney. Patient was alert and oriented and looks like he can make his own decision. Patient should have agreed to do the procedure. Endoscopy will be held and risk management will be involved. 08/16/2020; patient has EGD yesterday and show extensive esophagitis and gastritis, no other findings. Patient is on IV PPI. Her daughter wants psych placement. Psych have evaluated a week ago and put him on fluoxetine and sign off. I have discussed with psych nurse practitioner Juan Pablo yesterday because t he daughter wants to be called by psych and explained to her why he is not going to placed inpatient psych. Juan Pablo said he would let his partner Kristina who saw the patient last week to talk with the patient's daughter. 08/17/2020; patient had EGD and showed extensive esophagitis, and patient is on PPI. Patient is not eating well and refused PEG tube placement. Patient has social issues and he is more concerned about financial difficulties and living situations. Case management and social work supervisor consulted. Patient has severe depression and is currently on fluoxetine. Daughter has questions about why the patient is not placed to inpatient psych, I reconsulted psych and they try to re ach to the daughter to explain that the daughter did not garbage pick up worker the phone. His diet is advanced full liquid diet, patient is on Marinol to increase her appetite. Follow-up with case management. August 18, 2020. EGD showed extensive esophagitis. Placed on PPI most likely reason patient is not eating. Patient does not want a PEG tube placement just wants rehab. Discussed this again. Patient states depression is not causing him not to eat. Currently being treated for depression. Tolerating advancing diet at this point. History aug pt is doing better clinically about the same awaiting placement - Patient Problems (1) Abnormal loss of weight Current Visit: Yes Status: Acute Plan to address problem: Patient maintaining weight continue diabetic supplementation. Most likely secondary to decreased p.o. intake from severe gastritis. On PPI now. (2) Acute renal failure Current Visit: Yes Status: Acute Plan to address problem: Secondary to prerenal azotemia ATN. Vasomotor nephropathy. Corrected with IV antibiotics which she is getting now. (3) Dehydration Current Visit: Yes Status: Acute Plan to address problem: resolved (4) Failure to thrive Current Visit: Yes Status: Acute Qualifiers: Failure to thrive age range: in adult Qualified Code(s): R62.7 - Adult failure to thrive Plan to address problem: Multifactorial depression present gastritis. Patient now on Marinol as well as being treated for depression with fluoxetine. Should improve. Should take several weeks. (5) Malnutrition Current Visit: Yes Status: Acute Plan to address problem: Patient appetite appears to be improving with Marinol. His depression may not say so however patient has witnessed meal. (6) Depression Current Visit: Yes Status: Chronic Plan to address problem: Continue antidepressants at this time. Continue mental health. (7) Hypokalemia Current Visit: Yes Status: Acute Plan to address problem: We will treat with 40 mEq IV today. Recheck a.m. Subjective Date of service: 08/20/20 Principal diagnosis: Abnormal Loss of Weight Interval history: no new concerns pending transfer patient awaiting transfer to shelter facility. Patient is currently eating better. Appetite is picked up. Objective - Constitutional Vitals: Vital Signs - 12hr 08/20/20 08/20/20 08/20/20 07:50 10:00 11:47 Temperature 96.8 F L 98.0 F Pulse Rate 84 77 Pulse Rate [ Left Dorsalis Pedis] Pulse Rate [ Left Radial] Pulse Rate [ Right Dorsalis Pedis] Pulse Rate [ Right Radial] Respiratory 16 18 Rate Blood Pressure 106/58 106/70 Blood Pressure [right arm] O2 Sat by Pulse 98 Oximetry 08/20/20 08/20/20 14:24 17:18 Temperature 98.1 F Pulse Rate 77 Pulse Rate [ 79 Left Dorsalis Pedis] Pulse Rate [ 79 Left Radial] Pulse Rate [ 79 Right Dorsalis Pedis] Pulse Rate [ 79 Right Radial] Respiratory 16 16 Rate Blood Pressure Blood Pressure 118/66 [right arm] O2 Sat by Pulse 99 99 Oximetry General appearance: Present: no acute distress, well-nourished - EENT Eyes: PERRL, EOM intact - Respiratory Respiratory effort: normal Respiratory: bilateral: CTA - Cardiovascular Rhythm: regular Heart Sounds: Present: S1 & S2. Absent: gallop, rub Extremities: pulses intact, No edema, normal color, Full ROM - Gastrointestinal General gastrointestinal: Present: soft, non-tender, non-distended, normal bowel sounds - Neurologic Neurologic: moves all extremities - Psychiatric Psychiatric: memory intact, appropriate mood/affect, intact judgment & insight - Labs CBC & Chem 7: 08/04/20 06:26 08/19/20 15:55 HEART Score - HEART Score Troponin: Troponin T 0.048 ng/mL (0.00-0.029) H 08/02/20 21:56
[2020-08-20 20:07] LABS: Alanine Aminotransferase 30 units/L (7-56); Albumin 2.2 g/dL (3.9-5); Blood Urea Nitrogen 14 mg/dL (9-20); Calcium 7.7 mg/dL (8.4-10.2); Hemolysis Index 11
[2020-08-20 20:08] LABS: BUN/Creatinine Ratio 28
[2020-08-20] MEDS ORDERED: POTASSIUM CHLORIDE ER 20 MEQ TAB PO ONE (21:54)
[2020-08-20] MEDS: POTASSIUM CHLORIDE 10 MEQ 10 MEQ/100 ML BAG IV SCH ×2 (22:06→23:01)
[2020-08-21] MEDS: POTASSIUM CHLORIDE 10 MEQ 10 MEQ/100 ML BAG IV SCH ×2 (00:08→01:08)
[2020-08-21] MEDS: HEPARIN 5,000 UNIT/1 ML VIAL SUB-Q SCH ×3 (06:22→21:42)
[2020-08-21 07:04] LABS: Blood Urea Nitrogen 10 mg/dL (9-20); Calcium 7.9 mg/dL (8.4-10.2); Hemolysis Index 9
[2020-08-21 07:14] LABS: BUN/Creatinine Ratio 25
[2020-08-21] MEDS: MULTIVITAMINS ,THERAPEUTIC TAB PO SCH (10:57)
[2020-08-21] MEDS: PANTOPRAZOLE 40 MG TAB PO SCH (11:06)
[2020-08-21] MEDS: AMIODARONE 200 MG TAB PO SCH (11:07)
[2020-08-21] MEDS: DRONABINOL 2.5 MG CAP PO SCH ×2 (11:18→17:52)
--- NOTE | 2020-08-21 13:06 | Progress Note ---
Assessment and Plan Assessment and plan - Patient Problems (1) Abnormal loss of weight Current Visit: Yes Status: Acute Plan to address problem: Patient maintaining weight continue diabetic supplementation. Most likely secondary to decreased p.o. intake from severe gastritis. On PPI now. Patient waiting for subacute rehab Coronavirus PCR ordered for tomorrow (2) Acute renal failure Current Visit: Yes Status: Acute Plan to address problem: Secondary to prerenal azotemia ATN. Vasomotor nephropathy. Corrected with IV antibiotics which she is getting now. (3) Dehydration Current Visit: Yes Status: Acute Plan to address problem: resolved (4) Failure to thrive Current Visit: Yes Status: Acute Qualifiers: Failure to thrive age range: in adult Qualified Code(s): R62.7 - Adult failure to thrive Plan to address problem: Multifactorial depression present gastritis. Patient now on Marinol as well as being treated for depression with fluoxetine. Should improve. Should take several weeks. (5) Malnutrition Current Visit: Yes Status: Acute Plan to address problem: Patient appetite appears to be improving with Marinol. His depression may not say so however patient has witnessed meal. (6) Depression Current Visit: Yes Status: Chronic Plan to address problem: Continue antidepressants at this time. Continue mental health.b 7)Hypokalemia supplement 8)Discharge planning issues waiting for subacute rehab placement 9)DVT prophylaxis On heparin and GI prophylaxis I Subjective Date of service: 08/21/20 Principal diagnosis: Abnormal Loss of Weight Interval history: Subjective 08/19/2020 75-year-old male with known history of hypertension presenting to the emergency room today with failure to thrive. Patient has had decreased oral intake since he lost his job about 3 months ago. According to family patient is said to have given up and has not been eating or drinking over the past 3 months. He has also lost about 75 pounds over the past 3 months. He has been feeling generally weak. Upon further evaluation patient admits he has been quite depressed but denies any homicidal or suicidal ideations. He also indicates that he has been having difficulty sleeping. He denies any fever or chills, no chest pain or shortness of breath, no nausea or vomiting, no abdominal pain, denies any sick contacts, denies any recent travel and no contact with anyone with COVID-19. Work-up in the emergency room today reveals elevated BUN and creatinine, elevated troponin and hypernatremia. Patient is being admitted for acute kidney injury with dehydration and hypernatremia. 08/09/2020. Physical therapy recommends acute rehab. Await case management evaluation for placement. 08/10/2020. Awaiting subacute rehab placement. 08/11/2020. Awaiting subacute rehab placement. 08/12/2020. Nurse reports a 30 beat run of V. tach that occurred this morning. Cardiology has been consulted for NSVT. Follow-up electrolytes and check echocardiogram. Speech therapy evaluated the patient with MBS which demonstrated oral pharyngeal dysphagia with laryngeal elevation, severe valleculae retention and an inability to clear the pharynx. Recommendations were for PEG placement. GI consultation. Awaiting subacute rehab placement 08/13/2020; Nurse reports a 30 beat run of V. tach yesterday and cardiology evaluated and put her on amiodarone. Speech therapy evaluated the patient with MBS which demonstrated oral pharyngeal dysphagia with laryngeal elevation, severe valleculae retention and an inability to clear the pharynx. Recommendations were for PEG placement. GI consulted and discussed with Dr. aRiney and he said the patient wants more time to think about EGD or PEG tube placement. Patient wants Dr Rainey to talk to his daughter and he tried to reach her. Patient has depression and on fluoxetine. Psych evaluated the patient and signed off. 08/14/2020 Nurse reports a 30 beat run of V. tach yesterday and cardiology evaluated and put her on amiodarone. Speech therapy evaluated the patient with MBS which demonstrated oral pharyngeal dysphagia with laryngeal elevation, severe valleculae retention and an inability to clear the pharynx. Recommendations were for PEG placement. GI consulted and discussed with Dr. Rainey and he said the patient wants more time to think about EGD or PEG tube placement. Patient wants Dr Rainey to talk to his daughter and he tried to reach her. Patient has depression and on fluoxetine. Psych evaluated the patient and signed off. 08/15/2020; patient refused PEG tube placement but agreed for endoscopy. Plan was endoscopy to be done today. But the daughter called Dr Rainey and insists to have PEG tube to be placed and she claims she has power of contracts attorney. Patient was alert and oriented and looks like he can make his own decision. Patient should have agreed to do the procedure. Endoscopy will be held and risk management will be involved. 08/16/2020; patient has EGD yesterday and show extensive esophagitis and gastritis, no other findings. Patient is on IV PPI. Her daughter wants psych placement. Psych have evaluated a week ago and put him on fluoxetine and sign off. I have discussed with psych nurse practitioner Juan Pablo yesterday because the daughter wants to be called by psych and explained to her why he is not going to placed inpatient psych. Juan Pablo said he would let his partner Kristina who saw the patient last week to talk with the patient's daughter. 08/17/2020; patient had EGD and showed extensive esophagitis, and patient is on PPI. Patient is not eating well and refused PEG tube placement. Patient has social issues and he is more concerned about financial difficulties and living situations. Case management and social media campaign manager consulted. Patient has severe depression and is currently on fluoxetine. Daughter has questions about why the patient is not placed to inpatient psych, I reconsulted psych and they try to reach to the daughter to explain that the daughter did not apple picker the phone. His diet is advanced full liquid diet, patient is on Marinol to increase her appetite. Follow-up with case management. August 18, 2020. EGD showed extensive esophagitis. Placed on PPI most likely reason patient is not eating. Patient does not want a PEG tube placement just wants rehab. Discussed this again. Patient states depression is not causing him not to eat. Currently being treated for depression. Tolerating advancing diet at this point. 08/30/2020 Patient had extensive erosive esophagitis Patient refuses PEG Patient waiting for subacute rehab Coronavirus test ordered in case he gets accepted at any subacute facility May have to be repeated again depending on when he is accepted Objective - Constitutional Vitals: Vital Signs - 12hr 08/21/20 08/21/20 03:25 08:33 Temperature 98.1 F 98.1 F Pulse Rate 72 77 Respiratory 16 18 Rate Blood Pressure 113/72 109/68 O2 Sat by Pulse 100 99 Oximetry General appearance: Present: no acute distress, well-nourished - EENT Eyes: PERRL, EOM intact ENT: hearing intact, clear oral mucosa Ears: bilateral: normal - Neck Neck: supple, normal ROM - Respiratory Respiratory effort: normal Respiratory: bilateral: CTA - Breasts Breasts: normal - Cardiovascular Heart rate: 78 Rhythm: regular Heart Sounds: Present: S1 & S2. Absent: gallop, rub Extremities: pulses intact, No edema, normal color, Full ROM - Gastrointestinal General gastrointestinal: Present: soft, non-tender, non-distended, normal bowel sounds - Genitourinary Male genitourinary: deferred, normal - Integumentary Integumentary: clear, warm, dry - Musculoskeletal Musculoskeletal: 1, strength equal bilaterally - Neurologic Neurologic: moves all extremities - Psychiatric Psychiatric: memory intact, appropriate mood/affect, intact judgment & insight - Labs CBC & Chem 7: 08/04/20 06:26 08/21/20 05:53 Labs: Abnormal lab results 08/20/20 08/21/20 Range/Units 19:24 05:53 Sodium 136 L (137-145) mmol/L Potassium 2.7 L* 3.4 L D (3.6-5.0) mmol/L Chloride 107.6 H (98-107) mmol/L Carbon Dioxide 21 L (22-30) mmol/L Creatinine 0.5 L 0.4 L (0.8-1.3) mg/dL Calcium 7.7 L 7.9 L (8.4-10.2) mg/dL Total Protein 4.1 L (6.3-8.2) g/dL Albumin 2.2 L (3.9-5) g/dL HEART Score - HEART Score Troponin: Troponin T 0.048 ng/mL (0.00-0.029) H 08/02/20 21:56
[2020-08-21] MEDS ORDERED: POTASSIUM CHLORIDE ER 20 MEQ TAB PO ONE (14:14)
[2020-08-21] MEDS: SODIUM CHLORIDE 0.9% 1000 ML 1,000 ML IV SCH (17:52)
[2020-08-22] MEDS: HEPARIN 5,000 UNIT/1 ML VIAL SUB-Q SCH ×3 (05:38→21:32)
[2020-08-22 06:14] LABS: Blood Urea Nitrogen 10 mg/dL (9-20); Calcium 8.2 mg/dL (8.4-10.2); Hemolysis Index 6
[2020-08-22 06:16] LABS: BUN/Creatinine Ratio 20
--- NOTE | 2020-08-22 09:11 | Progress Note ---
Assessment and Plan Assessment and plan: --NSVT --hypokalemia; Resolved, monitor electrolytes --Acute renal failure From dehydration [vasomotor nephropathy] Resolved, avoid nephrotoxins ---Dehydration Improved, continue current management ---Elevated troponin present on admission nonspecific, no cardiac symptoms ---Depression Improved , denies suicidal thoughts or ideation psychiatry evaluated, patient is on fluoxetine Outpatient follow-up upon discharge ---Failure to thrive/abnormal weight loss Patient maintaining weight continue diabetic supplementation. Most likely secondary to decreased p.o. intake from severe gastritis. On PPI now. 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 Trending down, follow abdominal ultrasound --General debility/failure to thrive in an adult physical therapy, Occupational Therapy Evaluated, recommend acute rehab Acute rehab consult placed ---DVT prophylaxis subcutaneous heparin. ---Full code status 08/09/2020. Physical therapy recommends acute rehab. Await case management evaluation for placement. 08/10/2020. Awaiting subacute rehab placement. 08/11/2020. Awaiting subacute rehab placement. 08/12/2020. Nurse reports a 30 beat run of V. tach that occurred this morning. Cardiology has been consulted for NSVT. Follow-up electrolytes and check echocardiogram. Speech therapy evaluated the patient with MBS which demonstrated oral pharyngeal dysphagia with laryngeal elevation, severe valleculae retention and an inability to clear the pharynx. Recommendations were for PEG placement. GI consultation. Awaiting subacute rehab placement 08/13/2020; Nurse reports a 30 beat run of V. tach yesterday and cardiology evaluated and put her on amiodarone. Speech therapy evaluated the patient with MBS which demonstrated oral pharyngeal dysphagia with laryngeal elevation, severe valleculae retention and an inability to clear the pharynx. Recommendations were for PEG placement. GI consulted and discussed with Dr. Rainey and he said the patient wants more time to think about EGD or PEG tube placement. Patient wants Dr Rainey to talk to his daughter and he tried to reach her. Patient has depression and on fluoxetine. Psych evaluated the patient and signed off. 08/14/2020 Nurse reports a 30 beat run of V. tach yesterday and cardiology evaluated and put her on amiodarone. Speech therapy evaluated the patient with MBS which demonstrated oral pharyngeal dysphagia with laryngeal elevation, severe valleculae retention and an inability to clear the pharynx. Recommendations were for PEG placement. GI consulted and discussed with Dr. Rainey and he said the patient wants more time to think about EGD or PEG tube placement. Patient wants Dr Rainey to talk to his daughter and he tried to reach her. Patient has depression and on fluoxetine. Psych evaluated the patient and signed off. 08/15/2020; patient refused PEG tube placement but agreed for endoscopy. Plan was endoscopy to be done today. But the daughter called Dr Rainey and insists to have PEG tube to be placed and she claims she has power of commercial real estate attorney. Patient was alert and oriented and looks like he can make his own decision. Patient should have agreed to do the procedure. Endoscopy will be held and risk management will be involved. 08/16/2020; patient has EGD yesterday and show extensive esophagitis and gastritis, no other findings. Patient is on IV PPI. Her daughter wants psych placement. Psych have evaluated a week ago and put him on fluoxetine and sign off. I have discussed with psych nurse practitioner Juan Pablo yesterday because the daughter wants to be called by psych and explained to her why he is not going to placed inpatient psych. Juan Pablo said he would let his partner Kristina who saw the patient last week to talk with the patient's daughter. 08/17/2020; patient had EGD and showed extensive esophagitis, and patient is on PPI. Patient is not eating well and refused PEG tube placement. Patient has social issues and he is more concerned about financial difficulties and living situations. Case management and social service director consulted. Patient has severe depression and is currently on fluoxetine. Daughter has questions about why the patient is not placed to inpatient psych, I reconsulted psych and they try to reach to the daughter to explain that the daughter did not quill picking machine operator the phone. His diet is advanced full liquid diet, patient is on Marinol to increase her appetite. Follow-up with case management. August 18, 2020. EGD showed extensive esophagitis. Placed on PPI most likely reason patient is not eating. Patient does not want a PEG tube placement just wants rehab. Discussed this again. Patient states depression is not causing him not to eat. Currently being treated for depression. Tolerating advancing diet at this point. 08/21/2020 Patient had extensive erosive esophagitis Patient refuses PEG Patient waiting for subacute rehab Coronavirus test ordered in case he gets accepted at any subacute facility May have to be repeated again depending on when he is accepted 08/21/2020. GI with work-up of abnormal weight loss/adult failure to thrive. CT abdomen pelvis was negative. GI recommends continue regular diet and Marinol with evidence of improvement last 48 hours. Continue nutritional supplements and MVI daily. BMI > 20, so no critical need for assisted feeding at present. Inability to eat appears resolved, and GI OK with d/c to Rehab. History Interval history: No new issues overnight. Hospitalist Physical - Constitutional Vitals: Temp Pulse Resp BP Pulse Ox 98.0 F 79 20 103/62 98 08/22/20 07:41 08/22/20 07:41 08/22/20 07:41 08/22/20 07:41 08/22/20 07:41 General appearance: Present: no acute distress, well-nourished - EENT Eyes: Present: PERRL, EOM intact ENT: hearing intact, clear oral mucosa, dentition normal - Neck Neck: Present: supple, normal ROM - Respiratory Respiratory effort: normal Respiratory: bilateral: CTA - Cardiovascular Rhythm: regular Heart Sounds: Present: S1 & S2. Absent: gallop, rub - Extremities Extremities: no ischemia, No edema, Full ROM - Abdominal General gastrointestinal: soft, non-tender, non-distended, normal bowel sounds - Integumentary Integumentary: Present: clear, warm, dry - Neurologic Neurologic: CNII-XII intact, moves all extremities HEART Score - HEART Score Troponin: Troponin T 0.048 ng/mL (0.00-0.029) H 08/02/20 21:56 Results - Labs CBC & Chem 7: 08/04/20 06:26 08/22/20 05:32 Labs: Laboratory Last Values WBC 4.6 K/mm3 (4.5-11.0) 08/04/20 06:26 RBC 4.68 M/mm3 (3.65-5.03) 08/04/20 06:26 Hgb 15.0 gm/dl (11.8-15.2) D 08/04/20 06:26 Hct 43.8 % (35.5-45.6) D 08/04/20 06: MCV 94 fl (84-94) 08/04/20 06: MCH 32 pg (28-32) 08/04/20 06: MCHC 34 % (32-34) 08/04/20 06: RDW 14.5 % (13.2-15.2) 08/04/20 06:26 Plt Count 118 K/mm3 (140-440) L 08/04/20 06:26 Lymph % (Auto) 14.7 % (13.4-35.0) 08/04/20 06: [place] % (Auto) 6.7 % (0.0-7.3) 08/04/20 06: Eos % (Auto) 0.1 % (0.0-4.3) 08/04/20 06: Baso % (Auto) 0.0 % (0.0-1.8) 08/04/20 06: Lymph # (Auto) 0.7 K/mm3 (1.2-5.4) L 08/04/20 06:26 [place] # (Auto) 0.3 K/mm3 (0.0-0.8) 08/04/20 06: Eos # (Auto) 0.0 K/mm3 (0.0-0.4) 08/04/20 06:26 Baso # (Auto) 0.0 K/mm3 (0.0-0.1) 08/04/20 06: Seg Neutrophils % 78.5 % (40.0-70.0) H 08/04/20 06: Seg Neutrophils # 3.6 K/mm3 (1.8-7.7) 08/04/20 06:26 PT 14.5 Sec. (12.2-14.9) 08/04/20 06:26 INR 1.12 (0.87-1.13) 08/04/20 06:26 Sodium 138 mmol/L (137-145) 08/22/20 05:32 Potassium 3.2 mmol/L (3.6-5.0) L 08/22/20 05:32 Chloride 106.4 mmol/L (98-107) 08/22/20 05:32 Carbon Dioxide 23 mmol/L (22-30) 08/22/20 05:32 Anion Gap 12 mmol/L 08/22/20 05:32 BUN 10 mg/dL (9-20) 08/22/20 05:32 Creatinine 0.5 mg/dL (0.8-1.3) L 08/22/20 05:32 Estimated GFR > 60 ml/min 08/22/20 05:32 BUN/Creatinine Ratio 20 % 08/22/20 05:32 Glucose 91 mg/dL (75-100) 08/22/20 05:32 Calcium 8.2 mg/dL (8.4-10.2) L 08/22/20 05:32 Phosphorus 2.10 mg/dL (2.5-4.5) L 08/17/20 23:35 Magnesium 1.20 mg/dL (1.7-2.3) L 08/17/20 23:35 Total Bilirubin 1.00 mg/dL (0.1-1.2) 08/20/20 19:24 AST 17 units/L (5-40) 08/20/20 19:24 ALT 30 units/L (7-56) 08/20/20 19:24 Alkaline Phosphatase 63 units/L (35-129) 08/20/20 19:24 Total Creatine Kinase 93 units/L (55-170) 08/02/20 21:56 CK-MB (CK-2) 5.3 ng/mL (0.0-4.0) H 08/02/20 21:56 CK-MB (CK-2) Rel Index 5.6 (0-4) H 08/02/20 21:56 Troponin T 0.048 ng/mL (0.00-0.029) H 08/02/20 21:56 Total Protein 4.1 g/dL (6.3-8.2) L 08/20/20 19:24 Albumin 2.2 g/dL (3.9-5) L 08/20/20 19:24 Albumin/Globulin Ratio 1.2 % 08/20/20 19:24 Triglycerides 307 mg/dL (2-149) H 08/02/20 21:56 Cholesterol 232 mg/dL (50-199) H 08/02/20 21:56 LDL Cholesterol Direct 132 mg/dL (50-130) H 08/02/20 21:56 HDL Cholesterol 36 mg/dL (40-59) L 08/02/20 21:56 Cholesterol/HDL Ratio 6.44 % 08/02/20 21:56 Lipase 77 units/L (13-60) H 08/02/20 21:56 TSH 2.380 mlU/mL (0.270-4.200) 08/18/20 05:36 Total Cortisol 25.5 mcg/dL () 08/18/20 05:36 Urine Color Fifi (Yellow) 08/03/20 00:22 Urine Turbidity Clear (Clear) 08/03/20 00:22 Urine pH 5.0 (5.0-7.0) 08/03/20 00:22 Ur Specific [place] 1.021 (1.003-1.030) 08/03/20 00: Urine Protein <15 mg/dl mg/dL (Negative) 08/03/20 00:22 Urine Glucose (UA) Neg mg/dL (Negative) 08/03/20 00: Urine Ketones Neg mg/dL (Negative) 08/03/20 00: Urine Blood Sm (Negative) 08/03/20 00: Urine Nitrite Neg (Negative) 08/03/20 00: Urine Bilirubin Sm (Negative) 08/03/20 00: Urine Ictotest Negative (Negative) 08/03/20 00: Urine Urobilinogen 4.0 mg/dL (<2.0) 08/03/20 00:22 Ur Leukocyte Esterase Neg (Negative) 08/03/20 00:22 Urine WBC (Auto) 2.0 /HPF (0.0-6.0) 08/03/20 00:22 Urine RBC (Auto) < 1.0 /HPF (0.0-6.0) 08/03/20 00:22 U Epithel Cells (Auto) < 1.0 /HPF (0-13.0) 08/03/20: Hyaline Casts 1 /LPF 08/03/20 00:22 Hepatitis A IgM Ab Non-reactive (NonReactive) 08/05/20 09:25 Hep Bs Antigen Non-reactive (Negative) 08/05/20 09:25 Hep B Core IgM Ab Non-reactive (NonReactive) 08/05/20 09:25 Hepatitis C Antibody Non-reactive (NonReactive) 08/05/20 09:25 Guillen/IV: Voiding Method Toilet IV Catheter Type [left ac] Peripheral IV IV Catheter Type [Right Peripheral IV Forearm] IV Catheter Type [Right Hand] Peripheral IV Active Medications - Current Medications Current Medications: Generic Name Dose Route Start Last Admin Trade Name Freq PRN Reason Stop Dose Admin Acetaminophen 650 mg 08/03/20 01:11 08/09/20 22:17 Tylenol PO 650 mg Q4H PRN Administration Pain MILD(1-3)/Fever >100.5/PATEL Amiodarone HCl 200 mg 08/17/20 10:00 08/21/20 11:07 Cordarone PO 200 mg DAILY LUCRECIA Administration Dronabinol 2.5 mg 08/17/20 11:05 08/21/20 17:52 Marinol PO 2.5 mg BID@1100,1600 LUCRECIA Administration Heparin Sodium (Porcine) 5,000 unit 08/03/20 06:00 08/22/20 05:38 Heparin SUB-Q 5,000 unit Q8HR LUCRECIA Administration Sodium Chloride 1,000 mls @ 50 mls/hr 08/15/20 10:00 08/21/20 17:52 Nacl 0.9% 1000 Ml IV 50 mls/hr DIRECT LUCRECIA Administration Magnesium Hydroxide 30 ml 08/03/20 01:11 Milk Of Magnesia PO Q4H PRN Constipation Multivitamins 1 each 08/18/20 10:00 08/21/20 10:57 Theragran Tab PO 1 each QDAY LUCRECIA Administration Ondansetron HCl 4 mg 08/03/20 01:11 Zofran IV Q8H PRN Nausea And Vomiting Pantoprazole Sodium 40 mg 08/18/20 07:30 08/21/20 11:06 Protonix PO 40 mg QDAC LUCRECIA Administration Sodium Chloride 10 ml 08/03/20 10:00 08/21/20 21:42 Sodium Chloride Flush Syringe 10 Ml IV 10 ml BID LUCRECIA Administration Sodium Chloride 10 ml 08/03/20 01:11 Sodium Chloride Flush Syringe 10 Ml IV PRN PRN LINE FLUSH Nutrition/Malnutrition Assess - Dietary Evaluation Nutrition/Malnutrition Findings: Nutrition Notes Start: 08/03/20 11:43 Freq: Status: Active Protocol: Document 08/21/20 11:37 EN (Rec: 08/21/20 11:49 EN [email or web address]) Co-Sign 08/21/20 11:37 LM Nutrition Notes Initial or Follow up Reassessment Current Diagnosis Hypertension Other Pertinent Diagnosis Failure to Thrive, Acute CHRISTIE, Dehydration, Depression, Esophagitis,Gastritis Current Diet Regular + Ensure Enlive Chocolate daily Labs/Tests KCl 10meq in 100ml at 100 ml/ hr Pertinent Medications K+ 3.4, Cr 0.4 Height 5 ft 10 in Weight 66.9 kg [place] Body Weight (kg) 75.45 BMI 21.1 Weight change and time frame Wt change noted Weight Status Underweight Subjective/Other Information F/u for plan of care and intakes. Pt declining PEG at this time. Pt states that he does not have difficulty chewing or swallowing. Pt reports good appetite. Pt states that when he eats or drinks, he has a bowel movement. Pt believes that he is not able to eat or drink because of this. Pt declines N /V/D and reports tolerating 50 -75% of a chicken lunch two days ago. Pt states that he does not have any issues with the Ensure and that he would like to drink it, but that he cannot because he would have a bowel movement and his "other systems would not work properly". Ensure unopened at bedside. 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 No Is Patient Ambulatory and/or Out of Bed No REE-([facility]-confined to bed) 1698.696 Kcal/Kg value to use for calculation 30 Approximate Energy Requirements Using 2007 kcal/Kg Calculation Used for Recommendations Kcal/kg Additional Notes Pro: 80-100 (1.2-1.5 g/kg) Fluid: 1 ml/kcal Nutrition Intervention Change Diet Order: Continue current or TF if pt gives consent Add Supplement/Snack (indicate name/kcal Ensure Enlive Daily /protein ) Provides kCal: 350 Provides Protein (gm) 20 Goal #1 Meet at least 75% of energy and protein needs via PO and ONS intakes Goal #2 Weight gain/maintanance Anticipated Discharge Needs: Cardiac with ONS or TF Follow-Up By: 08/23/20 Additional Comments FU for plan of care and intakes
[2020-08-22] MEDS: SODIUM CHLORIDE 0.9% 1000 ML 1,000 ML IV SCH (09:14)
[2020-08-22] MEDS: AMIODARONE 200 MG TAB PO SCH (09:14)
[2020-08-22] MEDS: PANTOPRAZOLE 40 MG TAB PO SCH (09:15)
[2020-08-22] MEDS: MULTIVITAMINS ,THERAPEUTIC TAB PO SCH (09:15)
[2020-08-22] MEDS: DRONABINOL 2.5 MG CAP PO SCH (13:35)
[2020-08-23] MEDS: HEPARIN 5,000 UNIT/1 ML VIAL SUB-Q SCH ×3 (06:25→22:05)
[2020-08-23] MEDS: SODIUM CHLORIDE 0.9% 1000 ML 1,000 ML IV SCH (06:25)
[2020-08-23] MEDS: MULTIVITAMINS ,THERAPEUTIC TAB PO SCH (09:18)
[2020-08-23] MEDS: PANTOPRAZOLE 40 MG TAB PO SCH (09:18)
[2020-08-23] MEDS: AMIODARONE 200 MG TAB PO SCH (09:19)
--- NOTE | 2020-08-23 10:16 | Progress Note ---
Assessment and Plan Assessment and plan: --NSVT --hypokalemia; Resolved, monitor electrolytes --Acute renal failure From dehydration [vasomotor nephropathy] Resolved, avoid nephrotoxins ---Dehydration Improved, continue current management ---Elevated troponin present on admission nonspecific, no cardiac symptoms ---Depression Improved , denies suicidal thoughts or ideation psychiatry evaluated, patient is on fluoxetine Outpatient follow-up upon discharge ---Failure to thrive/abnormal weight loss Patient maintaining weight continue diabetic supplementation. Most likely secondary to decreased p.o. intake from severe gastritis. On PPI now. 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 Trending down, follow abdominal ultrasound --General debility/failure to thrive in an adult physical therapy, Occupational Therapy Evaluated, recommend acute rehab Acute rehab consult placed ---DVT prophylaxis subcutaneous heparin. ---Full code status 08/09/2020. Physical therapy recommends acute rehab. Await case management evaluation for placement. 08/10/2020. Awaiting subacute rehab placement. 08/11/2020. Awaiting subacute rehab placement. 08/12/2020. Nurse reports a 30 beat run of V. tach that occurred this morning. Cardiology has been consulted for NSVT. Follow-up electrolytes and check echocardiogram. Speech therapy evaluated the patient with MBS which demonstrated oral pharyngeal dysphagia with laryngeal elevation, severe valleculae retention and an inability to clear the pharynx. Recommendations were for PEG placement. GI consultation. Awaiting subacute rehab placement 08/13/2020; Nurse reports a 30 beat run of V. tach yesterday and cardiology evaluated and put her on amiodarone. Speech therapy evaluated the patient with MBS which demonstrated oral pharyngeal dysphagia with laryngeal elevation, severe valleculae retention and an inability to clear the pharynx. Recommendations were for PEG placement. GI consulted and discussed with Dr. Rainey and he said the patient wants more time to think about EGD or PEG tube placement. Patient wants Dr Rainey to talk to his daughter and he tried to reach her. Patient has depression and on fluoxetine. Psych evaluated the patient and signed off. 08/14/2020 Nurse reports a 30 beat run of V. tach yesterday and cardiology evaluated and put her on amiodarone. Speech therapy evaluated the patient with MBS which demonstrated oral pharyngeal dysphagia with laryngeal elevation, severe valleculae retention and an inability to clear the pharynx. Recommendations were for PEG placement. GI consulted and discussed with Dr. Rainey and he said the patient wants more time to think about EGD or PEG tube placement. Patient wants Dr Rainey to talk to his daughter and he tried to reach her. Patient has depression and on fluoxetine. Psych evaluated the patient and signed off. 08/15/2020; patient refused PEG tube placement but agreed for endoscopy. Plan was endoscopy to be done today. But the daughter called Dr Rainey and insists to have PEG tube to be placed and she claims she has power of immigration attorney. Patient was alert and oriented and looks like he can make his own decision. Patient should have agreed to do the procedure. Endoscopy will be held and risk management will be involved. 08/16/2020; patient has EGD yesterday and show extensive esophagitis and gastritis, no other findings. Patient is on IV PPI. Her daughter wants psych placement. Psych have evaluated a week ago and put him on fluoxetine and sign off. I have discussed with psych nurse practitioner Juan Pablo yesterday because the daughter wants to be called by psych and explained to her why he is not going to placed inpatient psych. Juan Pablo said he would let his partner Kristina who saw the patient last week to talk with the patient's daughter. 08/17/2020; patient had EGD and showed extensive esophagitis, and patient is on PPI. Patient is not eating well and refused PEG tube placement. Patient has social issues and he is more concerned about financial difficulties and living situations. Case management and social services designee consulted. Patient has severe depression and is currently on fluoxetine. Daughter has questions about why the patient is not placed to inpatient psych, I reconsulted psych and they try to reach to the daughter to explain that the daughter did not brain picker the phone. His diet is advanced full liquid diet, patient is on Marinol to increase her appetite. Follow-up with case management. August 18, 2020. EGD showed extensive esophagitis. Placed on PPI most likely reason patient is not eating. Patient does not want a PEG tube placement just wants rehab. Discussed this again. Patient states depression is not causing him not to eat. Currently being treated for depression. Tolerating advancing diet at this point. 08/21/2020 Patient had extensive erosive esophagitis Patient refuses PEG Patient waiting for subacute rehab Coronavirus test ordered in case he gets accepted at any subacute facility May have to be repeated again depending on when he is accepted 08/21/2020. GI with work-up of abnormal weight loss/adult failure to thrive. CT abdomen pelvis was negative. GI recommends continue regular diet and Marinol with evidence of improvement last 48 hours. Continue nutritional supplements and MVI daily. BMI > 20, so no critical need for assisted feeding at present. Inability to eat appears resolved, and GI OK with d/c to Rehab. 08/22/2020. Await rehab placement. History Interval history: No new issues overnight. Hospitalist Physical - Constitutional Vitals: Temp Pulse Resp BP Pulse Ox 97.9 F 75 18 105/64 100 08/23/20 07:25 08/23/20 07:25 08/23/20 07:25 08/23/20 07:25 08/23/20 07:25 General appearance: Present: no acute distress, well-nourished - EENT Eyes: Present: PERRL, EOM intact ENT: hearing intact, clear oral mucosa, dentition normal - Neck Neck: Present: supple, normal ROM - Respiratory Respiratory effort: normal Respiratory: bilateral: CTA - Cardiovascular Rhythm: regular Heart Sounds: Present: S1 & S2. Absent: gallop, rub - Extremities Extremities: no ischemia, No edema, Full ROM - Abdominal General gastrointestinal: soft, non-tender, non-distended, normal bowel sounds - Integumentary Integumentary: Present: clear, warm, dry - Neurologic Neurologic: CNII-XII intact, moves all extremities HEART Score - HEART Score Troponin: Troponin T 0.048 ng/mL (0.00-0.029) H 08/02/20 21:56 Results - Labs CBC & Chem 7: 08/04/20 06:26 08/22/20 05:32 Labs: Laboratory Last Values WBC 4.6 K/mm3 (4.5-11.0) 08/04/20 06:26 RBC 4.68 M/mm3 (3.65-5.03) 08/04/20 06:26 Hgb 15.0 gm/dl (11.8-15.2) D 10/25/20 06: Hct 43.8 % (35.5-45.6) D 08/04/20 06: MCV 94 fl (84-94) 08/04/20 06: MCH 32 pg (28-32) 08/04/20 06: MCHC 34 % (32-34) 08/04/20 06: RDW 14.5 % (13.2-15.2) 08/04/20 06: Plt Count 118 K/mm3 (140-440) L 08/04/20 06:26 Lymph % (Auto) 14.7 % (13.4-35.0) 08/04/20 06: [place] % (Auto) 6.7 % (0.0-7.3) 08/04/20 06: Eos % (Auto) 0.1 % (0.0-4.3) 08/04/20 06: Baso % (Auto) 0.0 % (0.0-1.8) 08/04/20 06: Lymph # (Auto) 0.7 K/mm3 (1.2-5.4) L 08/04/20 06:26 [place] # (Auto) 0.3 K/mm3 (0.0-0.8) 08/04/20 06:26 Eos # (Auto) 0.0 K/mm3 (0.0-0.4) 08/04/20 06: Baso # (Auto) 0.0 K/mm3 (0.0-0.1) 08/04/20 06: Seg Neutrophils % 78.5 % (40.0-70.0) H 08/04/20 06: Seg Neutrophils # 3.6 K/mm3 (1.8-7.7) 08/04/20 06: PT 14.5 Sec. (12.2-14.9) 08/04/20 06:26 INR 1.12 (0.87-1.13) 08/04/20 06:26 Sodium 138 mmol/L (137-145) 08/22/20 05:32 Potassium 3.2 mmol/L (3.6-5.0) L 08/22/20 05:32 Chloride 106.4 mmol/L (98-107) 08/22/20 05:32 Carbon Dioxide 23 mmol/L (22-30) 08/22/20 05:32 Anion Gap 12 mmol/L 08/22/20 05:32 BUN 10 mg/dL (9-20) 08/22/20 05:32 Creatinine 0.5 mg/dL (0.8-1.3) L 08/22/20 05:32 Estimated GFR > 60 ml/min 08/22/20 05:32 BUN/Creatinine Ratio 20 % 08/22/20 05:32 Glucose 91 mg/dL (75-100) 08/22/20 05:32 Calcium 8.2 mg/dL (8.4-10.2) L 08/22/20 05:32 Phosphorus 2.10 mg/dL (2.5-4.5) L 08/17/20 23:35 Magnesium 1.20 mg/dL (1.7-2.3) L 08/17/20 23:35 Total Bilirubin 1.00 mg/dL (0.1-1.2) 08/20/20 19:24 AST 17 units/L (5-40) 08/20/20 19:24 ALT 30 units/L (7-56) 08/20/20 19:24 Alkaline Phosphatase 63 units/L (35-129) 08/20/20 19:24 Total Creatine Kinase 93 units/L (55-170) 08/02/20 21:56 CK-MB (CK-2) 5.3 ng/mL (0.0-4.0) H 08/02/20 21:56 CK-MB (CK-2) Rel Index 5.6 (0-4) H 08/02/20 21:56 Troponin T 0.048 ng/mL (0.00-0.029) H 08/02/20 21:56 Total Protein 4.1 g/dL (6.3-8.2) L 08/20/20 19:24 Albumin 2.2 g/dL (3.9-5) L 08/20/20 19:24 Albumin/Globulin Ratio 1.2 % 08/20/20 19:24 Triglycerides 307 mg/dL (2-149) H 08/02/20 21:56 Cholesterol 232 mg/dL (50-199) H 08/02/20 21:56 LDL Cholesterol Direct 132 mg/dL (50-130) H 08/02/20 21:56 HDL Cholesterol 36 mg/dL (40-59) L 08/02/20 21:56 Cholesterol/HDL Ratio 6.44 % 08/02/20 21:56 Lipase 77 units/L (13-60) H 08/02/20 21:56 TSH 2.380 mlU/mL (0.270-4.200) 08/18/20 05:36 Total Cortisol 25.5 mcg/dL () 08/18/20 05:36 Urine Color Fifi (Yellow) 08/03/20 00:22 Urine Turbidity Clear (Clear) 08/03/20 00:22 Urine pH 5.0 (5.0-7.0) 08/03/20 00:22 Ur Specific [place] 1.021 (1.003-1.030) 08/03/20 00:22 Urine Protein <15 mg/dl mg/dL (Negative) 08/03/20 00:22 Urine Glucose (UA) Neg mg/dL (Negative) 08/03/20 00: Urine Ketones Neg mg/dL (Negative) 08/03/20 00:22 Urine Blood Sm (Negative) 08/03/20 00: Urine Nitrite Neg (Negative) 08/03/20 00: Urine Bilirubin Sm (Negative) 08/03/20:22 Urine Ictotest Negative (Negative) 08/03/20 00: Urine Urobilinogen 4.0 mg/dL (<2.0) 08/03/20 00:22 Ur Leukocyte Esterase Neg (Negative) 08/03/20 00:22 Urine WBC (Auto) 2.0 /HPF (0.0-6.0) 08/03/20 00:22 Urine RBC (Auto) < 1.0 /HPF (0.0-6.0) 08/03/20 00:22 U Epithel Cells (Auto) < 1.0 /HPF (0-13.0) 08/03/20:22 Hyaline Casts 1 /LPF 08/03/20 00:22 Hepatitis A IgM Ab Non-reactive (NonReactive) 08/05/20 09:25 Hep Bs Antigen Non-reactive (Negative) 08/05/20 09:25 Hep B Core IgM Ab Non-reactive (NonReactive) 08/05/20 09:25 Hepatitis C Antibody Non-reactive (NonReactive) 08/05/20 09:25 Guillen/IV: Voiding Method Urinal IV Catheter Type [left ac] Peripheral IV IV Catheter Type [Right Peripheral IV Forearm] IV Catheter Type [Right Hand] Peripheral IV Active Medications - Current Medications Current Medications: Generic Name Dose Route Start Last Admin Trade Name Freq PRN Reason Stop Dose Admin Acetaminophen 650 mg 08/03/20 01:11 08/09/20 22:17 Tylenol PO 650 mg Q4H PRN Administration Pain MILD(1-3)/Fever >100.5/PATEL Amiodarone HCl 200 mg 08/17/20 10:00 08/23/20 09:19 Cordarone PO 200 mg DAILY LUCRECIA Administration Dronabinol 2.5 mg 08/17/20 11:05 08/22/20 13:35 Marinol PO Not Given BID@1100,1600 LUCRECIA Heparin Sodium (Porcine) 5,000 unit 08/03/20 06:00 08/23/20 06:25 Heparin SUB-Q 5,000 unit Q8HR LUCRECIA Administration Sodium Chloride 1,000 mls @ 50 mls/hr 08/15/20 10:00 08/23/20 06:25 Nacl 0.9% 1000 Ml IV 50 mls/hr DIRECT LUCRECIA Administration Magnesium Hydroxide 30 ml 08/03/20 01:11 Milk Of Magnesia PO Q4H PRN Constipation Multivitamins 1 each 08/18/20 10:00 08/23/20 09:18 Theragran Tab PO 1 each QDAY LUCRECIA Administration Ondansetron HCl 4 mg 08/03/20 01:11 Zofran IV Q8H PRN Nausea And Vomiting Pantoprazole Sodium 40 mg 08/18/20 07:30 08/23/20 09:18 Protonix PO 40 mg QDAC LUCRECIA Administration Sodium Chloride 10 ml 08/03/20 10:00 08/23/20 09:19 Sodium Chloride Flush Syringe 10 Ml IV 10 ml BID LUCRECIA Administration Sodium Chloride 10 ml 08/03/20 01:11 Sodium Chloride Flush Syringe 10 Ml IV PRN PRN LINE FLUSH Nutrition/Malnutrition Assess - Dietary Evaluation Nutrition/Malnutrition Findings: Nutrition Notes Start: 08/03/20 11:43 Freq: Status: Active Protocol: Document 08/21/20 11:37 EN (Rec: 08/21/20 11:49 EN [email or web address]) Co-Sign 08/21/20 11:37 LM Nutrition Notes Initial or Follow up Reassessment Current Diagnosis Hypertension Other Pertinent Diagnosis Failure to Thrive, Acute CHRISTIE, Dehydration, Depression, Esophagitis,Gastritis Current Diet Regular + Ensure Enlive Chocolate daily Labs/Tests KCl 10meq in 100ml at 100 ml/ hr Pertinent Medications K+ 3.4, Cr 0.4 Height 5 ft 10 in Weight 66.9 kg [place] Body Weight (kg) 75.45 BMI 21.1 Weight change and time frame Wt change noted Weight Status Underweight Subjective/Other Information F/u for plan of care and intakes. Pt declining PEG at this time. Pt states that he does not have difficulty chewing or swallowing. Pt reports good appetite. Pt states that when he eats or drinks, he has a bowel movement. Pt believes that he is not able to eat or drink because of this. Pt declines N /V/D and reports tolerating 50 -75% of a chicken lunch two days ago. Pt states that he does not have any issues with the Ensure and that he would like to drink it, but that he cannot because he would have a bowel movement and his "other systems would not work properly". Ensure unopened at bedside. ADL report states 25- 50% meal consumption Percent of energy/protein needs met: 46%/45% average of the last 3 days Burn Absent Trauma Absent GI Symptoms None Food Allergy No Current % PO Poor (25-49%) Minimum of two criteria Yes Energy Intake (non-severe) <75% Estimated Energy Requirement >7 days Interpretation of Weight Loss (severe) >7.5% in 3 months Body Fat Depletion Moderate depletion (severe) Muscle Mass Moderate Depletion (severe) Reduced Airline Reservation Agent Strength Measurably Reduced (severe) #2 Nutrition Diagnosis Inadequate oral intake Diagnosis Progress(for reassessment Continues documentation) #1 Nutrition Diagnosis Malnutrition Diagnosis Progress(for reassessment Continues documentation) Is patient on ventilator? No Is Patient Ambulatory and/or Out of Bed No REE-([facility]-confined to bed) 5678.696 Kcal/Kg value to use for calculation 30 Approximate Energy Requirements Using 2007 kcal/Kg Calculation Used for Recommendations Kcal/kg Additional Notes Pro: 80-100 (1.2-1.5 g/kg) Fluid: 1 ml/kcal Nutrition Intervention Change Diet Order: Continue current or TF if pt gives consent Add Supplement/Snack (indicate name/kcal Ensure Enlive Daily /protein ) Provides kCal: 350 Provides Protein (gm) 20 Goal #1 Meet at least 75% of energy and protein needs via PO and ONS intakes Goal #2 Weight gain/maintanance Anticipated Discharge Needs: Cardiac with ONS or TF Follow-Up By: 08/23/20 Additional Comments FU for plan of care and intakes
[2020-08-23] MEDS: DRONABINOL 2.5 MG CAP PO SCH ×2 (12:02→16:02)
[2020-08-24] MEDS: HEPARIN 5,000 UNIT/1 ML VIAL SUB-Q SCH ×3 (05:29→22:00)
[2020-08-24] MEDS: MULTIVITAMINS ,THERAPEUTIC TAB PO SCH (11:02)
[2020-08-24] MEDS: AMIODARONE 200 MG TAB PO SCH (11:02)
[2020-08-24] MEDS: PANTOPRAZOLE 40 MG TAB PO SCH (11:03)
[2020-08-24] MEDS: DRONABINOL 2.5 MG CAP PO SCH ×2 (11:04→15:52)
--- NOTE | 2020-08-24 11:09 | Progress Note ---
Assessment and Plan Assessment and plan: --NSVT --hypokalemia; Resolved, monitor electrolytes --Acute renal failure From dehydration [vasomotor nephropathy] Resolved, avoid nephrotoxins ---Dehydration Improved, continue current management ---Elevated troponin present on admission nonspecific, no cardiac symptoms ---Depression Improved , denies suicidal thoughts or ideation psychiatry evaluated, patient is on fluoxetine Outpatient follow-up upon discharge ---Failure to thrive/abnormal weight loss Patient maintaining weight continue diabetic supplementation. Most likely secondary to decreased p.o. intake from severe gastritis. On PPI now. 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 Trending down, follow abdominal ultrasound --General debility/failure to thrive in an adult physical therapy, Occupational Therapy Evaluated, recommend acute rehab Acute rehab consult placed ---DVT prophylaxis subcutaneous heparin. ---Full code status 08/09/2020. Physical therapy recommends acute rehab. Await case management evaluation for placement. 08/10/2020. Awaiting subacute rehab placement. 08/11/2020. Awaiting subacute rehab placement. 08/12/2020. Nurse reports a 30 beat run of V. tach that occurred this morning. Cardiology has been consulted for NSVT. Follow-up electrolytes and check echocardiogram. Speech therapy evaluated the patient with MBS which demonstrated oral pharyngeal dysphagia with laryngeal elevation, severe valleculae retention and an inability to clear the pharynx. Recommendations were for PEG placement. GI consultation. Awaiting subacute rehab placement 08/13/2020; Nurse reports a 30 beat run of V. tach yesterday and cardiology evaluated and put her on amiodarone. Speech therapy evaluated the patient with MBS which demonstrated oral pharyngeal dysphagia with laryngeal elevation, severe valleculae retention and an inability to clear the pharynx. Recommendations were for PEG placement. GI consulted and discussed with Dr. Rainey and he said the patient wants more time to think about EGD or PEG tube placement. Patient wants Dr Rainey to talk to his daughter and he tried to reach her. Patient has depression and on fluoxetine. Psych evaluated the patient and signed off. 08/14/2020 Nurse reports a 30 beat run of V. tach yesterday and cardiology evaluated and put her on amiodarone. Speech therapy evaluated the patient with MBS which demonstrated oral pharyngeal dysphagia with laryngeal elevation, severe valleculae retention and an inability to clear the pharynx. Recommendations were for PEG placement. GI consulted and discussed with Dr. Rainey and he said the patient wants more time to think about EGD or PEG tube placement. Patient wants Dr Rainey to talk to his daughter and he tried to reach her. Patient has depression and on fluoxetine. Psych evaluated the patient and signed off. 08/15/2020; patient refused PEG tube placement but agreed for endoscopy. Plan was endoscopy to be done today. But the daughter called Dr Rainey and insists to have PEG tube to be placed and she claims she has power of commonwealth attorney. Patient was alert and oriented and looks like he can make his own decision. Patient should have agreed to do the procedure. Endoscopy will be held and risk management will be involved. 08/16/2020; patient has EGD yesterday and show extensive esophagitis and gastritis, no other findings. Patient is on IV PPI. Her daughter wants psych placement. Psych have evaluated a week ago and put him on fluoxetine and sign off. I have discussed with psych nurse practitioner Juan Pablo yesterday because the daughter wants to be called by psych and explained to her why he is not going to placed inpatient psych. Juan Pablo said he would let his partner Kristina who saw the patient last week to talk with the patient's daughter. 08/17/2020; patient had EGD and showed extensive esophagitis, and patient is on PPI. Patient is not eating well and refused PEG tube placement. Patient has social issues and he is more concerned about financial difficulties and living situations. Case management and social work nurse consulted. Patient has severe depression and is currently on fluoxetine. Daughter has questions about why the patient is not placed to inpatient psych, I reconsulted psych and they try to reach to the daughter to explain that the daughter did not pickers material handlers the phone. His diet is advanced full liquid diet, patient is on Marinol to increase her appetite. Follow-up with case management. August 18, 2020. EGD showed extensive esophagitis. Placed on PPI most likely reason patient is not eating. Patient does not want a PEG tube placement just wants rehab. Discussed this again. Patient states depression is not causing him not to eat. Currently being treated for depression. Tolerating advancing diet at this point. 08/21/2020 Patient had extensive erosive esophagitis Patient refuses PEG Patient waiting for subacute rehab Coronavirus test ordered in case he gets accepted at any subacute facility May have to be repeated again depending on when he is accepted 08/21/2020. GI with work-up of abnormal weight loss/adult failure to thrive. CT abdomen pelvis was negative. GI recommends continue regular diet and Marinol with evidence of improvement last 48 hours. Continue nutritional supplements and MVI daily. BMI > 20, so no critical need for assisted feeding at present. Inability to eat appears resolved, and GI OK with d/c to Rehab. 08/22/2020. Await rehab placement. 08/23/2020. Awaiting rehab placement. I discussed with case management who reports Met with patient's spouse to further discuss subacute rehab placement. Provided spouse a listing of potential facilities who could provide services to patient. Several facilities are reviewing patient's therapy notes to determine whether they can meet her needs. Spouse's preference was [facility], however, upon contact they did not have a female bed available. Continue to follow. History Interval history: No new issues overnight. Hospitalist Physical - Constitutional Vitals: Temp Pulse Resp BP Pulse Ox 97.6 F 77 20 109/67 99 08/24/20 04:19 08/24/20 04:19 08/24/20 04:19 08/24/20 04:19 08/24/20 04:19 General appearance: Present: no acute distress, well-nourished - EENT Eyes: Present: PERRL, EOM intact ENT: hearing intact, clear oral mucosa, dentition normal - Neck Neck: Present: supple, normal ROM - Respiratory Respiratory effort: normal Respiratory: bilateral: CTA - Cardiovascular Rhythm: regular Heart Sounds: Present: S1 & S2. Absent: gallop, rub - Extremities Extremities: no ischemia, No edema, Full ROM - Abdominal General gastrointestinal: soft, non-tender, non-distended, normal bowel sounds - Integumentary Integumentary: Present: clear, warm, dry - Neurologic Neurologic: CNII-XII intact, moves all extremities HEART Score - HEART Score Troponin: Troponin T 0.048 ng/mL (0.00-0.029) H 08/02/20 21:56 Results - Labs CBC & Chem 7: 08/04/20 06:26 08/22/20 05:32 Labs: Laboratory Last Values WBC 4.6 K/mm3 (4.5-11.0) 08/04/20 06: RBC 4.68 M/mm3 (3.65-5.03) 08/04/20 06:26 Hgb 15.0 gm/dl (11.8-15.2) D 08/04/20 06: Hct 43.8 % (35.5-45.6) D 08/04/20 06:26 MCV 94 fl (84-94) 08/04/20 06: MCH 32 pg (28-32) 08/04/20 06: MCHC 34 % (32-34) 08/04/20 06: RDW 14.5 % (13.2-15.2) 08/04/20 06:26 Plt Count 118 K/mm3 (140-440) L 08/04/20 06: Lymph % (Auto) 14.7 % (13.4-35.0) 08/04/20 06: [place] % (Auto) 6.7 % (0.0-7.3) 08/04/20 06: Eos % (Auto) 0.1 % (0.0-4.3) 08/04/20 06: Baso % (Auto) 0.0 % (0.0-1.8) 08/04/20 06: Lymph # (Auto) 0.7 K/mm3 (1.2-5.4) L 08/04/20 06: [place] # (Auto) 0.3 K/mm3 (0.0-0.8) 08/04/20 06: Eos # (Auto) 0.0 K/mm3 (0.0-0.4) 08/04/20 06: Baso # (Auto) 0.0 K/mm3 (0.0-0.1) 08/04/20 06: Seg Neutrophils % 78.5 % (40.0-70.0) H 08/04/20 06: Seg Neutrophils # 3.6 K/mm3 (1.8-7.7) 08/04/20 06: PT 14.5 Sec. (12.2-14.9) 08/04/20 06:26 INR 1.12 (0.87-1.13) 08/04/20 06:26 Sodium 138 mmol/L (137-145) 08/22/20 05:32 Potassium 3.2 mmol/L (3.6-5.0) L 08/22/20 05:32 Chloride 106.4 mmol/L (98-107) 08/22/20 05:32 Carbon Dioxide 23 mmol/L (22-30) 08/22/20 05:32 Anion Gap 12 mmol/L 08/22/20 05:32 BUN 10 mg/dL (9-20) 08/22/20 05:32 Creatinine 0.5 mg/dL (0.8-1.3) L 08/22/20 05:32 Estimated GFR > 60 ml/min 08/22/20 05:32 BUN/Creatinine Ratio 20 % 08/22/20 05:32 Glucose 91 mg/dL (75-100) 08/22/20 05:32 Calcium 8.2 mg/dL (8.4-10.2) L 08/22/20 05:32 Phosphorus 2.10 mg/dL (2.5-4.5) L 08/17/20 23:35 Magnesium 1.20 mg/dL (1.7-2.3) L 08/17/20 23:35 Total Bilirubin 1.00 mg/dL (0.1-1.2) 08/20/20 19:24 AST 17 units/L (5-40) 08/20/20 19:24 ALT 30 units/L (7-56) 08/20/20 19:24 Alkaline Phosphatase 63 units/L (35-129) 08/20/20 19:24 Total Creatine Kinase 93 units/L (55-170) 08/02/20 21:56 CK-MB (CK-2) 5.3 ng/mL (0.0-4.0) H 08/02/20 21:56 CK-MB (CK-2) Rel Index 5.6 (0-4) H 08/02/20 21:56 Troponin T 0.048 ng/mL (0.00-0.029) H 08/02/20 21:56 Total Protein 4.1 g/dL (6.3-8.2) L 08/20/20 19:24 Albumin 2.2 g/dL (3.9-5) L 08/20/20 19:24 Albumin/Globulin Ratio 1.2 % 08/20/20 19:24 Triglycerides 307 mg/dL (2-149) H 08/02/20 21:56 Cholesterol 232 mg/dL (50-199) H 08/02/20 21:56 LDL Cholesterol Direct 132 mg/dL (50-130) H 08/02/20 21:56 HDL Cholesterol 36 mg/dL (40-59) L 08/02/20 21:56 Cholesterol/HDL Ratio 6.44 % 08/02/20 21:56 Lipase 77 units/L (13-60) H 08/02/20 21:56 TSH 2.380 mlU/mL (0.270-4.200) 08/18/20 05:36 Total Cortisol 25.5 mcg/dL () 08/18/20 05:36 Urine Color Fifi (Yellow) 08/03/20 00:22 Urine Turbidity Clear (Clear) 08/03/20 00:22 Urine pH 5.0 (5.0-7.0) 08/03/20 00:22 Ur Specific [place] 1.021 (1.003-1.030) 08/03/20 00:22 Urine Protein <15 mg/dl mg/dL (Negative) 08/03/20 00:22 Urine Glucose (UA) Neg mg/dL (Negative) 08/03/20 00:22 Urine Ketones Neg mg/dL (Negative) 08/03/20 00:22 Urine Blood Sm (Negative) 08/03/20 00:22 Urine Nitrite Neg (Negative) 08/03/20 00:22 Urine Bilirubin Sm (Negative) 08/03/20 00:22 Urine Ictotest Negative (Negative) 08/03/20 00: Urine Urobilinogen 4.0 mg/dL (<2.0) 08/03/20 00:22 Ur Leukocyte Esterase Neg (Negative) 08/03/20 00:22 Urine WBC (Auto) 2.0 /HPF (0.0-6.0) 08/03/20 00:22 Urine RBC (Auto) < 1.0 /HPF (0.0-6.0) 08/03/20 00:22 U Epithel Cells (Auto) < 1.0 /HPF (0-13.0) 08/03/20 00:22 Hyaline Casts 1 /LPF 08/03/20 00:22 Hepatitis A IgM Ab Non-reactive (NonReactive) 08/05/20 09:25 Hep Bs Antigen Non-reactive (Negative) 08/05/20 09:25 Hep B Core IgM Ab Non-reactive (NonReactive) 08/05/20 09:25 Hepatitis C Antibody Non-reactive (NonReactive) 08/05/20 09:25 Guillen/IV: Voiding Method Condom Catheter IV Catheter Type [left ac] Peripheral IV IV Catheter Type [Right Peripheral IV Forearm] IV Catheter Type [Right Hand] Peripheral IV Active Medications - Current Medications Current Medications: Generic Name Dose Route Start Last Admin Trade Name Freq PRN Reason Stop Dose Admin Acetaminophen 650 mg 08/03/20 01:11 08/09/20 22:17 Tylenol PO 650 mg Q4H PRN Administration Pain MILD(1-3)/Fever >100.5/PATEL Amiodarone HCl 200 mg 08/17/20 10:00 08/24/20 11:02 Cordarone PO 200 mg DAILY LUCRECIA Administration Dronabinol 2.5 mg 08/17/20 11:05 08/24/20 11:04 Marinol PO Not Given BID@1100,1600 LUCRECIA Heparin Sodium (Porcine) 5,000 unit 08/03/20 06:00 08/24/20 05:29 Heparin SUB-Q 5,000 unit Q8HR LUCRECIA Administration Sodium Chloride 1,000 mls @ 50 mls/hr 08/15/20 10:00 08/23/20 06:25 Nacl 0.9% 1000 Ml IV 50 mls/hr DIRECT LUCRECIA Administration Magnesium Hydroxide 30 ml 08/03/20 01:11 Milk Of Magnesia PO Q4H PRN Constipation Multivitamins 1 each 08/18/20 10:00 08/24/20 11:02 Theragran Tab PO 1 each QDAY LUCRECIA Administration Ondansetron HCl 4 mg 08/03/20 01:11 Zofran IV Q8H PRN Nausea And Vomiting Pantoprazole Sodium 40 mg 08/18/20 07:30 08/24/20 11:03 Protonix PO 40 mg QDAC LUCRECIA Administration Sodium Chloride 10 ml 08/03/20 10:00 08/24/20 11:02 Sodium Chloride Flush Syringe 10 Ml IV 10 ml BID LUCRECIA Administration Sodium Chloride 10 ml 08/03/20 01:11 Sodium Chloride Flush Syringe 10 Ml IV PRN PRN LINE FLUSH Nutrition/Malnutrition Assess - Dietary Evaluation Nutrition/Malnutrition Findings: Nutrition Notes Start: 08/03/20 11:43 Freq: Status: Active Protocol: Document 08/23/20 11:31 EN (Rec: 08/23/20 11:39 EN [email or web address]) Co-Sign 08/23/20 11:31 LM Nutrition Notes Initial or Follow up Reassessment Current Diagnosis Hypertension Other Pertinent Diagnosis Failure to Thrive, Acute CHRISTIE, Dehydration, Depression, Esophagitis,Gastritis Current Diet Regular + Ensure Enlive Chocolate daily Labs/Tests 08/22: K+ 3.2, Cr 0.5 Pertinent Medications Ns at 50 ml/hr Height 5 ft 10 in Weight 69 kg Bowman Body Weight (kg) 75.45 BMI 21.8 Weight change and time frame Wt change noted Weight Status Underweight Subjective/Other Information F/u for intakes. Pt reports eating 100% of breakfast and drinking 100% of Ensure this morning. Pt reports eating 0% of dinner and drinking 0% of supplement yesterday. Pt denies N/V/D and states that he will continue to try to eat . Percent of energy/protein needs met: 64%/66% average of the last 2 days Burn Absent Trauma Absent GI Symptoms None Food Allergy No Current % PO Fair (50-74%) Minimum of two criteria Yes Energy Intake (non-severe) <75% Estimated Energy Requirement >7 days Interpretation of Weight Loss (severe) >7.5% in 3 months Body Fat Depletion Moderate depletion (severe) Muscle Mass Moderate Depletion (severe) Reduced Put In Beat Adjuster Strength Measurably Reduced (severe) #2 Nutrition Diagnosis Inadequate oral intake As Evidenced by Signs and Symptoms Pt consuming 50% meals and 50% ONS average over the past 2 days Diagnosis Progress(for reassessment Improved documentation) #1 Nutrition Diagnosis Malnutrition Diagnosis Progress(for reassessment Continues documentation) Is patient on ventilator? No Is Patient Ambulatory and/or Out of Bed No REE-([facility]-confined to bed) 1723.872 Kcal/Kg value to use for calculation 30 Approximate Energy Requirements Using 2070 kcal/Kg Calculation Used for Recommendations Kcal/kg Additional Notes Pro: 83-104 (1.2-1.5 g/kg) Fluid: 1 ml/kcal Nutrition Intervention Change Diet Order: Continue current Add Supplement/Snack (indicate name/kcal Ensure Enlive Daily /protein ) Provides kCal: 350 Provides Protein (gm) 20 Goal #1 Meet at least 75% of energy and protein needs via PO and ONS intakes Goal #2 Weight gain/maintanance Anticipated Discharge Needs: Cardiac with ONS as needed Follow-Up By: 08/28/20 Additional Comments FU for plan of care and intakes
[2020-08-25] MEDS: HEPARIN 5,000 UNIT/1 ML VIAL SUB-Q SCH ×3 (05:15→21:43)
--- NOTE | 2020-08-25 09:05 | Progress Note ---
Assessment and Plan Assessment and plan: --NSVT --hypokalemia; Resolved, monitor electrolytes --Acute renal failure From dehydration [vasomotor nephropathy] Resolved, avoid nephrotoxins ---Dehydration Improved, continue current management ---Elevated troponin present on admission nonspecific, no cardiac symptoms ---Depression Improved , denies suicidal thoughts or ideation psychiatry evaluated, patient is on fluoxetine Outpatient follow-up upon discharge ---Failure to thrive/abnormal weight loss Patient maintaining weight continue diabetic supplementation. Most likely secondary to decreased p.o. intake from severe gastritis. On PPI now. ---Hypernatremia Resolved, continue to encourage free water --Severe malnutrition/hypoalbuminemia; Nutrition supplements, manager architecture following 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 Trending down, follow abdominal ultrasound --General debility/failure to thrive in an adult physical therapy, Occupational Therapy Evaluated, recommend acute rehab Acute rehab consult placed ---DVT prophylaxis subcutaneous heparin. ---Full code status 08/09/2020. Physical therapy recommends acute rehab. Await case management evaluation for placement. 08/10/2020. Awaiting subacute rehab placement. 08/11/2020. Awaiting subacute rehab placement. 08/12/2020. Nurse reports a 30 beat run of V. tach that occurred this morning. Cardiology has been consulted for NSVT. Follow-up electrolytes and check echocardiogram. Speech therapy evaluated the patient with MBS which demonstrated oral pharyngeal dysphagia with laryngeal elevation, severe valleculae retention and an inability to clear the pharynx. Recommendations were for PEG placement. GI consultation. Awaiting subacute rehab placement 08/13/2020; Nurse reports a 30 beat run of V. tach yesterday and cardiology evaluated and put her on amiodarone. Speech therapy evaluated the patient with MBS which demonstrated oral pharyngeal dysphagia with laryngeal elevation, severe valleculae retention and an inability to clear the pharynx. Recommendations were for PEG placement. GI consulted and discussed with Dr. Rainey and he said the patient wants more time to think about EGD or PEG tube placement. Patient wants Dr Rainey to talk to his daughter and he tried to reach her. Patient has depression and on fluoxetine. Psych evaluated the patient and signed off. 08/14/2020 Nurse reports a 30 beat run of V. tach yesterday and cardiology evaluated and put her on amiodarone. Speech therapy evaluated the patient with MBS which demonstrated oral pharyngeal dysphagia with laryngeal elevation, severe valleculae retention and an inability to clear the pharynx. Recommendations were for PEG placement. GI consulted and discussed with Dr. Rainey and he said the patient wants more time to think about EGD or PEG tube placement. Patient wants Dr Rainey to talk to his daughter and he tried to reach her. Patient has depression and on fluoxetine. Psych evaluated the patient and signed off. 08/15/2020; patient refused PEG tube placement but agreed for endoscopy. Plan was endoscopy to be done today. But the daughter called Dr Rainey and insists to have PEG tube to be placed and she claims she has power of commercial attorney. Patient was alert and oriented and looks like he can make his own decision. Patient should have agreed to do the procedure. Endoscopy will be held and risk management will be involved. 08/16/2020; patient has EGD yesterday and show extensive esophagitis and gastritis, no other findings. Patient is on IV PPI. Her daughter wants psych placement. Psych have evaluated a week ago and put him on fluoxetine and sign off. I have discussed with psych nurse practitioner Juan Pablo yesterday because the daughter wants to be called by psych and explained to her why he is not going to placed inpatient psych. Juan Pablo said he would let his partner Kristina who saw the patient last week to talk with the patient's daughter. 08/17/2020; patient had EGD and showed extensive esophagitis, and patient is on PPI. Patient is not eating well and refused PEG tube placement. Patient has social issues and he is more concerned about financial difficulties and living situations. Case management and social media marketing specialist consulted. Patient has severe depression and is currently on fluoxetine. Daughter has questions about why the patient is not placed to inpatient psych, I reconsulted psych and they try to reach to the daughter to explain that the daughter did not cone picker the phone. His diet is advanced full liquid diet, patient is on Marinol to increase her appetite. Follow-up with case management. August 18, 2020. EGD showed extensive esophagitis. Placed on PPI most likely reason patient is not eating. Patient does not want a PEG tube placement just wants rehab. Discussed this again. Patient states depression is not causing him not to eat. Currently being treated for depression. Tolerating advancing diet at this point. 08/21/2020 Patient had extensive erosive esophagitis Patient refuses PEG Patient waiting for subacute rehab Coronavirus test ordered in case he gets accepted at any subacute facility May have to be repeated again depending on when he is accepted 08/21/2020. GI with work-up of abnormal weight loss/adult failure to thrive. CT abdomen pelvis was negative. GI recommends continue regular diet and Marinol with evidence of improvement last 48 hours. Continue nutritional supplements and MVI daily. BMI > 20, so no critical need for assisted feeding at present. Inability to eat appears resolved, and GI OK with d/c to Rehab. 08/22/2020. Await rehab placement. 08/24/2020. Awaiting rehab placement. Case management reports meeting with patient's spouse to further discuss subacute rehab placement. Provided spouse a listing of potential facilities who could provide services to patient. Several facilities are reviewing patient's therapy notes to determine whether they can meet her needs. Spouse's preference was [facility], however, upon contact they did not have a female bed available. Continue to follow. 08/25/2020. No new issues overnight. Await rehab placement and recommendations by case management History Interval history: No new issues overnight. Hospitalist Physical - Constitutional Vitals: Temp Pulse Resp BP Pulse Ox 98.1 F 71 18 123/77 99 08/25/20 07:31 08/25/20 07:31 08/25/20 07:31 08/25/20 07:31 08/25/20 07:31 General appearance: Present: no acute distress, well-nourished - EENT Eyes: Present: PERRL, EOM intact ENT: hearing intact, clear oral mucosa, dentition normal - Neck Neck: Present: supple, normal ROM - Respiratory Respiratory effort: normal Respiratory: bilateral: CTA - Cardiovascular Rhythm: regular Heart Sounds: Present: S1 & S2. Absent: gallop, rub - Extremities Extremities: no ischemia, No edema, Full ROM - Abdominal General gastrointestinal: soft, non-tender, non-distended, normal bowel sounds - Integumentary Integumentary: Present: clear, warm, dry - Neurologic Neurologic: CNII-XII intact, moves all extremities HEART Score - HEART Score Troponin: Troponin T 0.048 ng/mL (0.00-0.029) H 08/02/20 21:56 Results - Labs CBC & Chem 7: 08/04/20 06:26 08/22/20 05:32 Labs: Laboratory Last Values WBC 4.6 K/mm3 (4.5-11.0) 08/04/20 06:26 RBC 4.68 M/mm3 (3.65-5.03) 08/04/20 06:26 Hgb 15.0 gm/dl (11.8-15.2) D 08/04/20 06:26 Hct 43.8 % (35.5-45.6) D 08/04/20 06:26 MCV 94 fl (84-94) 08/04/20 06: MCH 32 pg (28-32) 08/04/20 06: MCHC 34 % (32-34) 08/04/20 06: RDW 14.5 % (13.2-15.2) 08/04/20 06:26 Plt Count 118 K/mm3 (140-440) L 08/04/20 06: Lymph % (Auto) 14.7 % (13.4-35.0) 08/04/20 06: [place] % (Auto) 6.7 % (0.0-7.3) 08/04/20 06: Eos % (Auto) 0.1 % (0.0-4.3) 08/04/20 06: Baso % (Auto) 0.0 % (0.0-1.8) 08/04/20 06: Lymph # (Auto) 0.7 K/mm3 (1.2-5.4) L 08/04/20 06: [place] # (Auto) 0.3 K/mm3 (0.0-0.8) 08/04/20 06:26 Eos # (Auto) 0.0 K/mm3 (0.0-0.4) 08/04/20 06: Baso # (Auto) 0.0 K/mm3 (0.0-0.1) 08/04/20 06: Seg Neutrophils % 78.5 % (40.0-70.0) H 08/04/20 06: Seg Neutrophils # 3.6 K/mm3 (1.8-7.7) 08/04/20 06:26 PT 14.5 Sec. (12.2-14.9) 08/04/20 06:26 INR 1.12 (0.87-1.13) 08/04/20 06:26 Sodium 138 mmol/L (137-145) 08/22/20 05:32 Potassium 3.2 mmol/L (3.6-5.0) L 08/22/20 05:32 Chloride 106.4 mmol/L (98-107) 08/22/20 05:32 Carbon Dioxide 23 mmol/L (22-30) 08/22/20 05:32 Anion Gap 12 mmol/L 08/22/20 05:32 BUN 10 mg/dL (9-20) 08/22/20 05:32 Creatinine 0.5 mg/dL (0.8-1.3) L 08/22/20 05:32 Estimated GFR > 60 ml/min 08/22/20 05:32 BUN/Creatinine Ratio 20 % 08/22/20 05:32 Glucose 91 mg/dL (75-100) 08/22/20 05:32 Calcium 8.2 mg/dL (8.4-10.2) L 08/22/20 05:32 Phosphorus 2.10 mg/dL (2.5-4.5) L 08/17/20 23:35 Magnesium 1.20 mg/dL (1.7-2.3) L 08/17/20 23:35 Total Bilirubin 1.00 mg/dL (0.1-1.2) 08/20/20 19:24 AST 17 units/L (5-40) 08/20/20 19:24 ALT 30 units/L (7-56) 08/20/20 19:24 Alkaline Phosphatase 63 units/L (35-129) 08/20/20 19:24 Total Creatine Kinase 93 units/L (55-170) 08/02/20 21:56 CK-MB (CK-2) 5.3 ng/mL (0.0-4.0) H 08/02/20 21:56 CK-MB (CK-2) Rel Index 5.6 (0-4) H 08/02/20 21:56 Troponin T 0.048 ng/mL (0.00-0.029) H 08/02/20 21:56 Total Protein 4.1 g/dL (6.3-8.2) L 08/20/20 19:24 Albumin 2.2 g/dL (3.9-5) L 08/20/20 19:24 Albumin/Globulin Ratio 1.2 % 08/20/20 19:24 Triglycerides 307 mg/dL (2-149) H 08/02/20 21:56 Cholesterol 232 mg/dL (50-199) H 08/02/20 21:56 LDL Cholesterol Direct 132 mg/dL (50-130) H 08/02/20 21:56 HDL Cholesterol 36 mg/dL (40-59) L 08/02/20 21:56 Cholesterol/HDL Ratio 6.44 % 08/02/20 21:56 Lipase 77 units/L (13-60) H 08/02/20 21:56 TSH 2.380 mlU/mL (0.270-4.200) 08/18/20 05:36 Total Cortisol 25.5 mcg/dL () 08/18/20 05:36 Urine Color Ffii (Yellow) 08/03/20 00:22 Urine Turbidity Clear (Clear) 08/03/20 00:22 Urine pH 5.0 (5.0-7.0) 08/03/20 00:22 Ur Specific [place] 1.021 (1.003-1.030) 08/03/20 00:22 Urine Protein <15 mg/dl mg/dL (Negative) 08/03/20 00:22 Urine Glucose (UA) Neg mg/dL (Negative) 08/03/20 00:22 Urine Ketones Neg mg/dL (Negative) 08/03/20 00: Urine Blood Sm (Negative) 08/03/20 00:22 Urine Nitrite Neg (Negative) 08/03/20 00:22 Urine Bilirubin Sm (Negative) 08/03/20 00:22 Urine Ictotest Negative (Negative) 08/03/20 00: Urine Urobilinogen 4.0 mg/dL (<2.0) 08/03/20 00:22 Ur Leukocyte Esterase Neg (Negative) 08/03/20 00:22 Urine WBC (Auto) 2.0 /HPF (0.0-6.0) 08/03/20 00:22 Urine RBC (Auto) < 1.0 /HPF (0.0-6.0) 08/03/20 00:22 U Epithel Cells (Auto) < 1.0 /HPF (0-13.0) 08/03/20 00:22 Hyaline Casts 1 /LPF 08/03/20 00:22 Hepatitis A IgM Ab Non-reactive (NonReactive) 08/05/20 09:25 Hep Bs Antigen Non-reactive (Negative) 08/05/20 09:25 Hep B Core IgM Ab Non-reactive (NonReactive) 08/05/20 09:25 Hepatitis C Antibody Non-reactive (NonReactive) 08/05/20 09:25 Guillen/IV: Voiding Method Toilet IV Catheter Type [left ac] Peripheral IV IV Catheter Type [Right Peripheral IV Forearm] IV Catheter Type [Right Hand] Peripheral IV Active Medications - Current Medications Current Medications: Generic Name Dose Route Start Last Admin Trade Name Freq PRN Reason Stop Dose Admin Acetaminophen 650 mg 08/03/20 01:11 08/09/20 22:17 Tylenol PO 650 mg Q4H PRN Administration Pain MILD(1-3)/Fever >100.5/PATEL Amiodarone HCl 200 mg 08/17/20 10:00 08/24/20 11:02 Cordarone PO 200 mg DAILY LUCRECIA Administration Dronabinol 2.5 mg 08/17/20 11:05 08/24/20 15:52 Marinol PO Not Given BID@1100,1600 LUCRECIA Heparin Sodium (Porcine) 5,000 unit 08/03/20 06:00 08/25/20 05:15 Heparin SUB-Q 5,000 unit Q8HR LUCRECIA Administration Magnesium Hydroxide 30 ml 08/03/20 01:11 Milk Of Magnesia PO Q4H PRN Constipation Multivitamins 1 each 08/18/20 10:00 08/24/20 11:02 Theragran Tab PO 1 each QDAY LUCRECIA Administration Ondansetron HCl 4 mg 08/03/20 01:11 Zofran IV Q8H PRN Nausea And Vomiting Pantoprazole Sodium 40 mg 08/18/20 07:30 08/24/20 11:03 Protonix PO 40 mg QDAC LUCRECIA Administration Sodium Chloride 10 ml 08/03/20 10:00 08/24/20 22:33 Sodium Chloride Flush Syringe 10 Ml IV 10 ml BID LUCRECIA Administration Sodium Chloride 10 ml 08/03/20 01:11 Sodium Chloride Flush Syringe 10 Ml IV PRN PRN LINE FLUSH Nutrition/Malnutrition Assess - Dietary Evaluation Nutrition/Malnutrition Findings: Nutrition Notes Start: 08/03/20 11:43 Freq: Status: Active Protocol: Document 08/23/20 11:31 EN (Rec: 08/23/20 11:39 EN [email or web address]) Co-Sign 08/23/20 11:31 LM Nutrition Notes Initial or Follow up Reassessment Current Diagnosis Hypertension Other Pertinent Diagnosis Failure to Thrive, Acute CHRISTIE, Dehydration, Depression, Esophagitis,Gastritis Current Diet Regular + Ensure Enlive Chocolate daily Labs/Tests 08/22: K+ 3.2, Cr 0.5 Pertinent Medications Ns at 50 ml/hr Height 5 ft 10 in Weight 69 kg [place] Body Weight (kg) 75.45 BMI 21.8 Weight change and time frame Wt change noted Weight Status Underweight Subjective/Other Information F/u for intakes. Pt reports eating 100% of breakfast and drinking 100% of Ensure this morning. Pt reports eating 0% of dinner and drinking 0% of supplement yesterday. Pt denies N/V/D and states that he will continue to try to eat . Percent of energy/protein needs met: 64%/66% average of the last 2 days Burn Absent Trauma Absent GI Symptoms None Food Allergy No Current % PO Fair (50-74%) Minimum of two criteria Yes Energy Intake (non-severe) <75% Estimated Energy Requirement >7 days Interpretation of Weight Loss (severe) >7.5% in 3 months Body Fat Depletion Moderate depletion (severe) Muscle Mass Moderate Depletion (severe) Reduced [place] Strength Measurably Reduced (severe) #2 Nutrition Diagnosis Inadequate oral intake As Evidenced by Signs and Symptoms Pt consuming 50% meals and 50% ONS average over the past 2 days Diagnosis Progress(for reassessment Improved documentation) #1 Nutrition Diagnosis Malnutrition Diagnosis Progress(for reassessment Continues documentation) Is patient on ventilator? No Is Patient Ambulatory and/or Out of Bed No REE-([facility]-confined to bed) 1723.872 Kcal/Kg value to use for calculation 30 Approximate Energy Requirements Using 2070 kcal/Kg Calculation Used for Recommendations Kcal/kg Additional Notes Pro: 83-104 (1.2-1.5 g/kg) Fluid: 1 ml/kcal Nutrition Intervention Change Diet Order: Continue current Add Supplement/Snack (indicate name/kcal Ensure Enlive Daily /protein ) Provides kCal: 350 Provides Protein (gm) 20 Goal #1 Meet at least 75% of energy and protein needs via PO and ONS intakes Goal #2 Weight gain/maintanance Anticipated Discharge Needs: Cardiac with ONS as needed Follow-Up By: 08/28/20 Additional Comments FU for plan of care and intakes
[2020-08-25] MEDS: DRONABINOL 2.5 MG CAP PO SCH ×2 (10:25→17:41)
[2020-08-25] MEDS: MULTIVITAMINS ,THERAPEUTIC TAB PO SCH (10:26)
[2020-08-25] MEDS: AMIODARONE 200 MG TAB PO SCH (10:26)
[2020-08-25] MEDS: PANTOPRAZOLE 40 MG TAB PO SCH (10:28)
[2020-08-26] MEDS: HEPARIN 5,000 UNIT/1 ML VIAL SUB-Q SCH ×3 (05:44→21:25)
--- NOTE | 2020-08-26 10:34 | Event Note ---
Date: 09/02/20 hypokalemia noted, no labs since 08/22, will repeat stat labs today and follow up
[2020-08-26] MEDS: AMIODARONE 200 MG TAB PO SCH (11:04)
[2020-08-26] MEDS: PANTOPRAZOLE 40 MG TAB PO SCH (11:04)
[2020-08-26] MEDS: MULTIVITAMINS ,THERAPEUTIC TAB PO SCH (11:04)
[2020-08-26] MEDS: DRONABINOL 2.5 MG CAP PO SCH ×2 (11:05→15:55)
--- NOTE | 2020-08-26 11:34 | Progress Note ---
Assessment and Plan Assessment and plan: --NSVT --hypokalemia; Resolved, monitor electrolytes --Acute renal failure From dehydration [vasomotor nephropathy] Resolved, avoid nephrotoxins ---Dehydration Improved, continue current management ---Elevated troponin present on admission nonspecific, no cardiac symptoms ---Depression Improved , denies suicidal thoughts or ideation psychiatry evaluated, patient is on fluoxetine Outpatient follow-up upon discharge ---Failure to thrive/abnormal weight loss Patient maintaining weight continue diabetic supplementation. Most likely secondary to decreased p.o. intake from severe gastritis. On PPI now. 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 Trending down, follow abdominal ultrasound --General debility/failure to thrive in an adult physical therapy, Occupational Therapy Evaluated, recommend acute rehab Acute rehab consult placed ---DVT prophylaxis subcutaneous heparin. ---Full code status 08/09/2020. Physical therapy recommends acute rehab. Await case management evaluation for placement. 08/10/2020. Awaiting subacute rehab placement. 08/11/2020. Awaiting subacute rehab placement. 08/12/2020. Nurse reports a 30 beat run of V. tach that occurred this morning. Cardiology has been consulted for NSVT. Follow-up electrolytes and check echocardiogram. Speech therapy evaluated the patient with MBS which demonstrated oral pharyngeal dysphagia with laryngeal elevation, severe valleculae retention and an inability to clear the pharynx. Recommendations were for PEG placement. GI consultation. Awaiting subacute rehab placement 08/13/2020; Nurse reports a 30 beat run of V. tach yesterday and cardiology evaluated and put her on amiodarone. Speech therapy evaluated the patient with MBS which demonstrated oral pharyngeal dysphagia with laryngeal elevation, severe valleculae retention and an inability to clear the pharynx. Recommendations were for PEG placement. GI consulted and discussed with Dr. Rainey and he said the patient wants more time to think about EGD or PEG tube placement. Patient wants Dr Rainey to talk to his daughter and he tried to reach her. Patient has depression and on fluoxetine. Psych evaluated the patient and signed off. 08/14/2020 Nurse reports a 30 beat run of V. tach yesterday and cardiology evaluated and put her on amiodarone. Speech therapy evaluated the patient with MBS which demonstrated oral pharyngeal dysphagia with laryngeal elevation, severe valleculae retention and an inability to clear the pharynx. Recommendations were for PEG placement. GI consulted and discussed with Dr. Rainey and he said the patient wants more time to think about EGD or PEG tube placement. Patient wants Dr Rainey to talk to his daughter and he tried to reach her. Patient has depression and on fluoxetine. Psych evaluated the patient and signed off. 08/15/2020; patient refused PEG tube placement but agreed for endoscopy. Plan was endoscopy to be done today. But the daughter called Dr Rainey and insists to have PEG tube to be placed and she claims she has power of estate attorney. Patient was alert and oriented and looks like he can make his own decision. Patient should have agreed to do the procedure. Endoscopy will be held and risk management will be involved. 08/16/2020; patient has EGD yesterday and show extensive esophagitis and gastritis, no other findings. Patient is on IV PPI. Her daughter wants psych placement. Psych have evaluated a week ago and put him on fluoxetine and sign off. I have discussed with psych nurse practitioner Juan Pablo yesterday because the daughter wants to be called by psych and explained to her why he is not going to placed inpatient psych. Juan Pablo said he would let his partner Kristina who saw the patient last week to talk with the patient's daughter. 08/17/2020; patient had EGD and showed extensive esophagitis, and patient is on PPI. Patient is not eating well and refused PEG tube placement. Patient has social issues and he is more concerned about financial difficulties and living situations. Case management and pediatric social worker consulted. Patient has severe depression and is currently on fluoxetine. Daughter has questions about why the patient is not placed to inpatient psych, I reconsulted psych and they try to reach to the daughter to explain that the daughter did not berry picker machine operator the phone. His diet is advanced full liquid diet, patient is on Marinol to increase her appetite. Follow-up with case management. August 18, 2020. EGD showed extensive esophagitis. Placed on PPI most likely reason patient is not eating. Patient does not want a PEG tube placement just wants rehab. Discussed this again. Patient states depression is not causing him not to eat. Currently being treated for depression. Tolerating advancing diet at this point. 08/21/2020 Patient had extensive erosive esophagitis Patient refuses PEG Patient waiting for subacute rehab Coronavirus test ordered in case he gets accepted at any subacute facility May have to be repeated again depending on when he is accepted 08/21/2020. GI with work-up of abnormal weight loss/adult failure to thrive. CT abdomen pelvis was negative. GI recommends continue regular diet and Marinol with evidence of improvement last 48 hours. Continue nutritional supplements and MVI daily. BMI > 20, so no critical need for assisted feeding at present. Inability to eat appears resolved, and GI OK with d/c to Rehab. 08/22/2020. Await rehab placement. 08/24/2020. Awaiting rehab placement. Case management reports meeting with patient's spouse to further discuss subacute rehab placement. Provided spouse a listing of potential facilities who could provide services to patient. Several facilities are reviewing patient's therapy notes to determine whether they can meet her needs. Spouse's preference was [facility], however, upon contact they did not have a female bed available. Continue to follow. 08/25/2020. No new issues overnight. Await rehab placement and recommendations by case management 08/26/2020. Awaiting rehab placement. History Interval history: No new issues overnight. Hospitalist Physical - Constitutional Vitals: Temp Pulse Resp BP Pulse Ox 97.5 F L 68 18 106/61 99 08/26/20 08:00 08/26/20 08:00 08/26/20 08:00 08/26/20 08:00 08/26/20 03:26 General appearance: Present: no acute distress, well-nourished - EENT Eyes: Present: PERRL, EOM intact ENT: hearing intact, clear oral mucosa, dentition normal - Neck Neck: Present: supple, normal ROM - Respiratory Respiratory effort: normal Respiratory: bilateral: CTA - Cardiovascular Rhythm: regular Heart Sounds: Present: S1 & S2. Absent: gallop, rub - Extremities Extremities: no ischemia, No edema, Full ROM - Abdominal General gastrointestinal: soft, non-tender, non-distended, normal bowel sounds - Integumentary Integumentary: Present: clear, warm, dry - Neurologic Neurologic: CNII-XII intact, moves all extremities HEART Score - HEART Score Troponin: Troponin T 0.048 ng/mL (0.00-0.029) H 08/02/20 21:56 Results - Labs CBC & Chem 7: 08/04/20 06:26 08/22/20 05:32 Labs: Laboratory Last Values WBC 4.6 K/mm3 (4.5-11.0) 08/04/20 06: RBC 4.68 M/mm3 (3.65-5.03) 08/04/20 06:26 Hgb 15.0 gm/dl (11.8-15.2) D 08/04/20 06:26 Hct 43.8 % (35.5-45.6) D 08/04/20 06:26 MCV 94 fl (84-94) 08/04/20 06:26 MCH 32 pg (28-32) 08/04/20 06: MCHC 34 % (32-34) 08/04/20 06:26 RDW 14.5 % (13.2-15.2) 08/04/20 06:26 Plt Count 118 K/mm3 (140-440) L 08/04/20 06: Lymph % (Auto) 14.7 % (13.4-35.0) 08/04/20 06: [place] % (Auto) 6.7 % (0.0-7.3) 08/04/20 06: Eos % (Auto) 0.1 % (0.0-4.3) 08/04/20 06: Baso % (Auto) 0.0 % (0.0-1.8) 08/04/20 06: Lymph # (Auto) 0.7 K/mm3 (1.2-5.4) L 08/04/20 06: [place] # (Auto) 0.3 K/mm3 (0.0-0.8) 08/04/20 06: Eos # (Auto) 0.0 K/mm3 (0.0-0.4) 08/04/20 06: Baso # (Auto) 0.0 K/mm3 (0.0-0.1) 08/04/20 06: Seg Neutrophils % 78.5 % (40.0-70.0) H 08/04/20 06:26 Seg Neutrophils # 3.6 K/mm3 (1.8-7.7) 08/04/20 06:26 PT 14.5 Sec. (12.2-14.9) 08/04/20 06:26 INR 1.12 (0.87-1.13) 08/04/20 06:26 Sodium 138 mmol/L (137-145) 08/22/20 05:32 Potassium 3.2 mmol/L (3.6-5.0) L 08/22/20 05:32 Chloride 106.4 mmol/L (98-107) 08/22/20 05:32 Carbon Dioxide 23 mmol/L (22-30) 08/22/20 05:32 Anion Gap 12 mmol/L 08/22/20 05:32 BUN 10 mg/dL (9-20) 08/22/20 05:32 Creatinine 0.5 mg/dL (0.8-1.3) L 08/22/20 05:32 Estimated GFR > 60 ml/min 08/22/20 05:32 BUN/Creatinine Ratio 20 % 08/22/20 05:32 Glucose 91 mg/dL (75-100) 08/22/20 05:32 Calcium 8.2 mg/dL (8.4-10.2) L 08/22/20 05:32 Phosphorus 2.10 mg/dL (2.5-4.5) L 08/17/20 23:35 Magnesium 1.20 mg/dL (1.7-2.3) L 08/17/20 23:35 Total Bilirubin 1.00 mg/dL (0.1-1.2) 08/20/20 19:24 AST 17 units/L (5-40) 08/20/20 19:24 ALT 30 units/L (7-56) 08/20/20 19:24 Alkaline Phosphatase 63 units/L (35-129) 08/20/20 19:24 Total Creatine Kinase 93 units/L (55-170) 08/02/20 21:56 CK-MB (CK-2) 5.3 ng/mL (0.0-4.0) H 08/02/20 21:56 CK-MB (CK-2) Rel Index 5.6 (0-4) H 08/02/20 21:56 Troponin T 0.048 ng/mL (0.00-0.029) H 08/02/20 21:56 Total Protein 4.1 g/dL (6.3-8.2) L 08/20/20 19:24 Albumin 2.2 g/dL (3.9-5) L 08/20/20 19:24 Albumin/Globulin Ratio 1.2 % 08/20/20 19:24 Triglycerides 307 mg/dL (2-149) H 08/02/20 21:56 Cholesterol 232 mg/dL (50-199) H 08/02/20 21:56 LDL Cholesterol Direct 132 mg/dL (50-130) H 08/02/20 21:56 HDL Cholesterol 36 mg/dL (40-59) L 08/02/20 21:56 Cholesterol/HDL Ratio 6.44 % 08/02/20 21:56 Lipase 77 units/L (13-60) H 08/02/20 21:56 TSH 2.380 mlU/mL (0.270-4.200) 08/18/20 05:36 Total Cortisol 25.5 mcg/dL () 08/18/20 05:36 Urine Color Fifi (Yellow) 08/03/20 00:22 Urine Turbidity Clear (Clear) 08/03/20 00:22 Urine pH 5.0 (5.0-7.0) 08/03/20 00:22 Ur Specific Sanders 1.021 (1.003-1.030) 08/03/20 00:22 Urine Protein <15 mg/dl mg/dL (Negative) 08/03/20 00:22 Urine Glucose (UA) Neg mg/dL (Negative) 08/03/20 00:22 Urine Ketones Neg mg/dL (Negative) 08/03/20 00:22 Urine Blood Sm (Negative) 08/03/20 00:22 Urine Nitrite Neg (Negative) 08/03/20 00:22 Urine Bilirubin Sm (Negative) 08/03/20 00:22 Urine Ictotest Negative (Negative) 08/03/20 00:22 Urine Urobilinogen 4.0 mg/dL (<2.0) 08/03/20 00:22 Ur Leukocyte Esterase Neg (Negative) 08/03/20 00:22 Urine WBC (Auto) 2.0 /HPF (0.0-6.0) 08/03/20 00:22 Urine RBC (Auto) < 1.0 /HPF (0.0-6.0) 08/03/20 00:22 U Epithel Cells (Auto) < 1.0 /HPF (0-13.0) 08/03/20 00:22 Hyaline Casts 1 /LPF 08/03/20 00:22 Hepatitis A IgM Ab Non-reactive (NonReactive) 08/05/20 09:25 Hep Bs Antigen Non-reactive (Negative) 08/05/20 09:25 Hep B Core IgM Ab Non-reactive (NonReactive) 08/05/20 09:25 Hepatitis C Antibody Non-reactive (NonReactive) 08/05/20 09:25 Guillen/IV: Voiding Method Condom Catheter IV Catheter Type [left ac] Peripheral IV IV Catheter Type [Right Peripheral IV Forearm] IV Catheter Type [Right Hand] Peripheral IV Active Medications - Current Medications Current Medications: Generic Name Dose Route Start Last Admin Trade Name Freq PRN Reason Stop Dose Admin Acetaminophen 650 mg 08/03/20 01:11 08/09/20 22:17 Tylenol PO 650 mg Q4H PRN Administration Pain MILD(1-3)/Fever >100.5/PATEL Amiodarone HCl 200 mg 08/17/20 10:00 08/26/20 11:04 Cordarone PO 200 mg DAILY LUCRECIA Administration Dronabinol 2.5 mg 08/17/20 11:05 08/26/20 11:05 Marinol PO Not Given BID@1100,1600 LUCRECIA Heparin Sodium (Porcine) 5,000 unit 08/03/20 06:00 08/26/20 05:44 Heparin SUB-Q 5,000 unit Q8HR LUCRECIA Administration Magnesium Hydroxide 30 ml 08/03/20 01:11 Milk Of Magnesia PO Q4H PRN Constipation Multivitamins 1 each 08/18/20 10:00 08/26/20 11:04 Theragran Tab PO 1 each QDAY LUCRECIA Administration Ondansetron HCl 4 mg 08/03/20 01:11 Zofran IV Q8H PRN Nausea And Vomiting Pantoprazole Sodium 40 mg 08/18/20 07:30 08/26/20 11:04 Protonix PO 40 mg QDAC LUCRECIA Administration Sodium Chloride 10 ml 08/03/20 10:00 08/26/20 11:04 Sodium Chloride Flush Syringe 10 Ml IV 10 ml BID LUCRECIA Administration Sodium Chloride 10 ml 08/03/20 01:11 Sodium Chloride Flush Syringe 10 Ml IV PRN PRN LINE FLUSH Nutrition/Malnutrition Assess - Dietary Evaluation Nutrition/Malnutrition Findings: Nutrition Notes Start: 08/03/20 11:43 Freq: Status: Active Protocol: Document 08/23/20 11:31 EN (Rec: 08/23/20 11:39 EN [email or web address]) Co-Sign 08/23/20 11:31 LM Nutrition Notes Initial or Follow up Reassessment Current Diagnosis Hypertension Other Pertinent Diagnosis Failure to Thrive, Acute CHRISTIE, Dehydration, Depression, Esophagitis,Gastritis Current Diet Regular + Ensure Enlive Chocolate daily Labs/Tests 08/22: K+ 3.2, Cr 0.5 Pertinent Medications Ns at 50 ml/hr Height 5 ft 10 in Weight 69 kg [place] Body Weight (kg) 75.45 BMI 21.8 Weight change and time frame Wt change noted Weight Status Underweight Subjective/Other Information F/u for intakes. Pt reports eating 100% of breakfast and drinking 100% of Ensure this morning. Pt reports eating 0% of dinner and drinking 0% of supplement yesterday. Pt denies N/V/D and states that he will continue to try to eat . Percent of energy/protein needs met: 64%/66% average of the last 2 days Burn Absent Trauma Absent GI Symptoms None Food Allergy No Current % PO Fair (50-74%) Minimum of two criteria Yes Energy Intake (non-severe) <75% Estimated Energy Requirement >7 days Interpretation of Weight Loss (severe) >7.5% in 3 months Body Fat Depletion Moderate depletion (severe) Muscle Mass Moderate Depletion (severe) Reduced Chief Lending Officer Strength Measurably Reduced (severe) #2 Nutrition Diagnosis Inadequate oral intake As Evidenced by Signs and Symptoms Pt consuming 50% meals and 50% ONS average over the past 2 days Diagnosis Progress(for reassessment Improved documentation) #1 Nutrition Diagnosis Malnutrition Diagnosis Progress(for reassessment Continues documentation) Is patient on ventilator? No Is Patient Ambulatory and/or Out of Bed No REE-([facility]-confined to bed) 1723.872 Kcal/Kg value to use for calculation 30 Approximate Energy Requirements Using 2070 kcal/Kg Calculation Used for Recommendations Kcal/kg Additional Notes Pro: 83-104 (1.2-1.5 g/kg) Fluid: 1 ml/kcal Nutrition Intervention Change Diet Order: Continue current Add Supplement/Snack (indicate name/kcal Ensure Enlive Daily /protein ) Provides kCal: 350 Provides Protein (gm) 20 Goal #1 Meet at least 75% of energy and protein needs via PO and ONS intakes Goal #2 Weight gain/maintanance Anticipated Discharge Needs: Cardiac with ONS as needed Follow-Up By: 08/28/20 Additional Comments FU for plan of care and intakes
[2020-08-26 15:52] LABS: Blood Urea Nitrogen 11 mg/dL (9-20); Hemolysis Index 15
[2020-08-26 15:58] LABS: BUN/Creatinine Ratio 16
[2020-08-26] MEDS ORDERED: POTASSIUM CHLORIDE ER 20 MEQ TAB PO ONE ×2 (17:14→21:15)
[2020-08-27 05:34] LABS: Blood Urea Nitrogen 11 mg/dL (9-20); Calcium 8.5 mg/dL (8.4-10.2); Hemolysis Index 22
[2020-08-27 05:43] LABS: BUN/Creatinine Ratio 16
[2020-08-27] MEDS: HEPARIN 5,000 UNIT/1 ML VIAL SUB-Q SCH ×3 (06:13→21:05)
[2020-08-27] MEDS: PANTOPRAZOLE 40 MG TAB PO SCH (07:30)
--- NOTE | 2020-08-27 09:03 | Progress Note ---
Assessment and Plan Assessment and plan: --NSVT --hypokalemia; Resolved, monitor electrolytes --Acute renal failure From dehydration [vasomotor nephropathy] Resolved, avoid nephrotoxins ---Dehydration Improved, continue current management ---Elevated troponin present on admission nonspecific, no cardiac symptoms ---Depression Improved , denies suicidal thoughts or ideation psychiatry evaluated, patient is on fluoxetine Outpatient follow-up upon discharge ---Failure to thrive On regular cardiac diet, With nutritional supplements ---Hypernatremia Resolved, continue to encourage free water --Severe malnutrition/hypoalbuminemia; Nutrition supplements, nurse case management following 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 Trending down, follow abdominal ultrasound --General debility/failure to thrive in an adult physical therapy, Occupational Therapy Evaluated, recommend acute rehab Acute rehab consult placed ---DVT prophylaxis subcutaneous heparin. ---Full code status 08/09/2020. Physical therapy recommends acute rehab. Await case management evaluation for placement. 08/10/2020. Awaiting subacute rehab placement. 08/11/2020. Awaiting subacute rehab placement. 08/12/2020. Nurse reports a 30 beat run of V. tach that occurred this morning. Cardiology has been consulted for NSVT. Follow-up electrolytes and check echo cardiogram. Speech therapy evaluated the patient with MBS which demonstrated oral pharyngeal dysphagia with laryngeal elevation, severe valleculae retention and an inability to clear the pharynx. Recommendations were for PEG placement. GI consultation. Awaiting subacute rehab placement 08/13/2020; Nurse reports a 30 beat run of V. tach yesterday and cardiology evaluated and put her on amiodarone. Speech therapy evaluated the patient with MBS which demonstrated oral pharyngeal dysphagia with laryngeal elevation, severe valleculae retention and an inability to clear the pharynx. Recommendat ions were for PEG placement. GI consulted and discussed with Dr. Rainey and he said the patient wants more time to think about EGD or PEG tube placement. Patient wants Dr Rainey to talk to his daughter and he tried to reach her. Patient has depression and on fluoxetine. Psych evaluated the patient and signed off. 08/14/2020 Nurse reports a 30 beat run of V. tach yesterday and cardiology carlos luated and put her on amiodarone. Speech therapy evaluated the patient with MBS which demonstrated oral pharyngeal dysphagia with laryngeal elevation, severe valleculae retention and an inability to clear the pharynx. Recommendations were for PEG placement. GI consulted and discussed with Dr. Rainey and he said the patient wants more time to think about EGD or PEG tube placement. Patient wants Dr Rainey to talk to his daughter and he tried to reach her. Patient has depression and on fluoxetine. Psych evaluated the patient and signed off. 08/15/2020; patient refused PEG tube placement but agreed for endoscopy. Plan was endoscopy to be done today. But the daughter called Dr Rainey and insists to have PEG tube to be placed and she claims she has power of ip technology transactions attorney. Patient was alert and oriented and looks like he can make his own decision. Patient should have agreed to do the procedure. Endoscopy will be held and risk management will be involved. 08/16/2020; patient has EGD yesterday and show extensive esophagitis and gastritis, no other findings. Patient is on IV PPI. Her daughter wants psych placement. Psych have evaluated a week ago and put him on fluoxetine and sign off. I have discussed with psych nurse practitioner Juan Pablo yesterday because the daughter wants to be called by psych and explained to her why he is not going to placed inpatient psych. Juan Pablo said he would let his partner Kristina who saw the patient last week to talk with the patient's daughter. 08/17/2020; patient had EGD and showed extensive esophagitis, and patient is on PPI. Patient is not eating well and refused PEG tube placement. Patient has social issues and he is more concerned about financial difficulties and living situations. Case management and social worker psychiatric consulted. Patient has severe depression and is currently on fluoxetine. Daughter has questions about why the patient is not placed to inpatient psych, I reconsulted psych and they try to reach to the daughter to explain that the daughter did not nut picker the phone. His diet is advanced full liquid diet, patient is on Marinol to increase her appetite. Follow-up with case management. August 18, 2020. EGD showed extensive esophagitis. Placed on PPI most likely reason patient is not eating. Patient does not want a PEG tube placement just wants rehab. Discussed this again. Patient states depression is not causing him not to eat. Currently being treated for depression. Tolerating advancing diet at this point. 08/21/2020 Patient had extensive erosive esophagitis Patient refuses PEG Patient waiting for subacute rehab Coronavirus test ordered in case he gets accepted at any subacute facility May have to be repeated again depending on when he is accepted 08/21/2020. GI with work-up of abnormal weight loss/adult failure to thrive. CT abdomen pelvis was negative. GI recommends continue regular diet and Marinol with evidence of improvement last 48 hours. Continue nutritional supplements and MVI daily. BMI > 20, so no critical need for assisted feeding at present. Inability to eat appears resolved, and GI OK with d/c to Rehab. 08/22/2020. Await rehab placement. 08/24/2020. Awaiting rehab placement. Case management reports meeting with patient's spouse to further discuss subacute rehab placement. Provided spouse a listing of potential facilities who could provide services to patient. Several facilities are reviewing patient's therapy notes to determine whether they can meet her needs. Spouse's preference was [facility], however, upon contact they did not have a female bed available. Continue to follow. 08/25/2020. No new issues overnight. Await rehab placement and recommendations by case management 08/26/2020. Awaiting rehab placement. 08/27/20; awaiting rehab placement. History Interval history: Patient was seen and evaluated this morning patient Patient said he started to eat and drink Ensure Hospitalist Physical - Physical exam Narrative exam: Not in cardiopulmonary distress. The patient appeared well nourished and normally developed. Vital signs as documented. Head exam is unremarkable. No scleral icterus . Neck is without jugular venous distension, thyromegaly, or carotid bruits. Lungs are clear to auscultation. Cardiac exam reveals regular rate and Rhythm. Abdominal exam reveals normal bowel sounds, nontender, no organomegaly. Extremities are nonedematous and both femoral and pedal pulses are normal. RN CARE MANAGER: Alert and oriented 3. No focal weakness. - Constitutional Vitals: Temp Pulse Resp BP Pulse Ox 98.1 F 70 17 92/51 100 08/27/20 03:29 08/27/20 03:29 08/27/20 03:29 08/27/20 03:29 08/27/20 03:29 General appearance: Present: no acute distress, well-nourished HEART Score - HEART Score Troponin: Troponin T 0.048 ng/mL (0.00-0.029) H 08/02/20 21:56 Results - Labs CBC & Chem 7: 08/04/20 06:26 08/27/20 04:39 Labs: Laboratory Last Values WBC 4.6 K/mm3 (4.5-11.0) 08/04/20 06: RBC 4.68 M/mm3 (3.65-5.03) 08/04/20 06:26 Hgb 15.0 gm/dl (11.8-15.2) D 08/04/20 06:26 Hct 43.8 % (35.5-45.6) D 08/04/20 06:26 MCV 94 fl (84-94) 08/04/20 06: MCH 32 pg (28-32) 08/04/20 06: MCHC 34 % (32-34) 08/04/20 06: RDW 14.5 % (13.2-15.2) 08/04/20 06:26 Plt Count 118 K/mm3 (140-440) L 08/04/20 06: Lymph % (Auto) 14.7 % (13.4-35.0) 08/04/20 06: [place] % (Auto) 6.7 % (0.0-7.3) 08/04/20 06: Eos % (Auto) 0.1 % (0.0-4.3) 08/04/20 06: Baso % (Auto) 0.0 % (0.0-1.8) 08/04/20 06: Lymph # (Auto) 0.7 K/mm3 (1.2-5.4) L 08/04/20 06:26 [place] # (Auto) 0.3 K/mm3 (0.0-0.8) 08/04/20 06: Eos # (Auto) 0.0 K/mm3 (0.0-0.4) 08/04/20 06: Baso # (Auto) 0.0 K/mm3 (0.0-0.1) 08/04/20 06: Seg Neutrophils % 78.5 % (40.0-70.0) H 08/04/20 06: Seg Neutrophils # 3.6 K/mm3 (1.8-7.7) 08/04/20 06:26 PT 14.5 Sec. (12.2-14.9) 08/04/20 06:26 INR 1.12 (0.87-1.13) 08/04/20 06:26 Sodium 141 mmol/L (137-145) 08/27/20 04:39 Potassium 4.0 mmol/L (3.6-5.0) D 08/27/20 04:39 Chloride 105.5 mmol/L (98-107) 08/27/20 04:39 Carbon Dioxide 27 mmol/L (22-30) 08/27/20 04:39 Anion Gap 13 mmol/L 08/27/20 04:39 BUN 11 mg/dL (9-20) 08/27/20 04:39 Creatinine 0.7 mg/dL (0.8-1.3) L 08/27/20 04:39 Estimated GFR > 60 ml/min 08/27/20 04:39 BUN/Creatinine Ratio 16 % 08/27/20 04:39 Glucose 89 mg/dL (75-100) 08/27/20 04:39 Calcium 8.5 mg/dL (8.4-10.2) 08/27/20 04:39 Phosphorus 2.10 mg/dL (2.5-4.5) L 08/17/20 23:35 Magnesium 1.60 mg/dL (1.7-2.3) L 08/26/20 14:05 Total Bilirubin 1.00 mg/dL (0.1-1.2) 08/20/20 19:24 AST 17 units/L (5-40) 08/20/20 19:24 ALT 30 units/L (7-56) 08/20/20 19:24 Alkaline Phosphatase 63 units/L (35-129) 08/20/20 19:24 Total Creatine Kinase 93 units/L (55-170) 08/02/20 21:56 CK-MB (CK-2) 5.3 ng/mL (0.0-4.0) H 08/02/20 21:56 CK-MB (CK-2) Rel Index 5.6 (0-4) H 08/02/20 21:56 Troponin T 0.048 ng/mL (0.00-0.029) H 08/02/20 21:56 Total Protein 4.1 g/dL (6.3-8.2) L 08/20/20 19:24 Albumin 2.2 g/dL (3.9-5) L 08/20/20 19:24 Albumin/Globulin Ratio 1.2 % 08/20/20 19:24 Triglycerides 307 mg/dL (2-149) H 08/02/20 21:56 Cholesterol 232 mg/dL (50-199) H 08/02/20 21:56 LDL Cholesterol Direct 132 mg/dL (50-130) H 08/02/20 21:56 HDL Cholesterol 36 mg/dL (40-59) L 08/02/20 21:56 Cholesterol/HDL Ratio 6.44 % 08/02/20 21:56 Lipase 77 units/L (13-60) H 08/02/20 21:56 TSH 2.380 mlU/mL (0.270-4.200) 08/18/20 05:36 Total Cortisol 25.5 mcg/dL () 08/18/20 05:36 Urine Color Fifi (Yellow) 08/03/20 00:22 Urine Turbidity Clear (Clear) 08/03/20 00:22 Urine pH 5.0 (5.0-7.0) 08/03/20 00:22 Ur Specific [place] 1.021 (1.003-1.030) 08/03/20 00:22 Urine Protein <15 mg/dl mg/dL (Negative) 08/03/20 00:22 Urine Glucose (UA) Neg mg/dL (Negative) 08/03/20 00:22 Urine Ketones Neg mg/dL (Negative) 08/03/20 00:22 Urine Blood Sm (Negative) 08/03/20 00:22 Urine Nitrite Neg (Negative) 08/03/20 00:22 Urine Bilirubin Sm (Negative) 08/03/20 00:22 Urine Ictotest Negative (Negative) 08/03/20 00: Urine Urobilinogen 4.0 mg/dL (<2.0) 08/03/20 00:22 Ur Leukocyte Esterase Neg (Negative) 08/03/20 00:22 Urine WBC (Auto) 2.0 /HPF (0.0-6.0) 08/03/20 00:22 Urine RBC (Auto) < 1.0 /HPF (0.0-6.0) 08/03/20 00:22 U Epithel Cells (Auto) < 1.0 /HPF (0-13.0) 08/03/20 00:22 Hyaline Casts 1 /LPF 08/03/20 00:22 Hepatitis A IgM Ab Non-reactive (NonReactive) 08/05/20 09:25 Hep Bs Antigen Non-reactive (Negative) 08/05/20 09:25 Hep B Core IgM Ab Non-reactive (NonReactive) 08/05/20 09:25 Hepatitis C Antibody Non-reactive (NonReactive) 08/05/20 09:25 Guill[place]/IV: Voiding Method Condom Catheter IV Catheter Type [left ac] Peripheral IV IV Catheter Type [Right Peripheral IV Forearm] IV Catheter Type [Right Hand] Peripheral IV Active Medications - Current Medications Current Medications: Generic Name Dose Route Start Last Admin Trade Name Freq PRN Reason Stop Dose Admin Acetaminophen 650 mg 08/03/20 01:11 08/09/20 22:17 Tylenol PO 650 mg Q4H PRN Administration Pain MILD(1-3)/Fever >100.5/PATEL Amiodarone HCl 200 mg 08/17/20 10:00 08/26/20 11:04 Cordarone PO 200 mg DAILY LUCRECIA Administration Dronabinol 2.5 mg 08/17/20 11:05 08/26/20 15:55 Marinol PO Not Given BID@1100,1600 LUCRECIA Heparin Sodium (Porcine) 5,000 unit 08/03/20 06:00 08/27/20 06:13 Heparin SUB-Q 5,000 unit Q8HR LUCRECIA Administration Magnesium Hydroxide 30 ml 08/03/20 01:11 Milk Of Magnesia PO Q4H PRN Constipation Multivitamins 1 each 08/18/20 10:00 08/26/20 11:04 Theragran Tab PO 1 each QDAY LUCRECIA Administration Ondansetron HCl 4 mg 08/03/20 01:11 Zofran IV Q8H PRN Nausea And Vomiting Pantoprazole Sodium 40 mg 08/18/20 07:30 08/26/20 11:04 Protonix PO 40 mg QDAC LUCRECIA Administration Sodium Chloride 10 ml 08/03/20 10:00 08/26/20 21:26 Sodium Chloride Flush Syringe 10 Ml IV 10 ml BID LUCRECIA Administration Sodium Chloride 10 ml 08/03/20 01:11 Sodium Chloride Flush Syringe 10 Ml IV PRN PRN LINE FLUSH Nutrition/Malnutrition Assess - Dietary Evaluation Nutrition/Malnutrition Findings: Nutrition Notes Start: 08/03/20 11:43 Freq: Status: Active Protocol: Document 08/23/20 11:31 EN (Rec: 08/23/20 11:39 EN [email or web address]) Co-Sign 08/23/20 11:31 LM Nutrition Notes Initial or Follow up Reassessment Current Diagnosis Hypertension Other Pertinent Diagnosis Failure to Thrive, Acute CHRISTIE, Dehydration, Depression, Esophagitis,Gastritis Current Diet Regular + Ensure Enlive Chocolate daily Labs/Tests 08/22: K+ 3.2, Cr 0.5 Pertinent Medications Ns at 50 ml/hr Height 5 ft 10 in Weight 69 kg [place] Body Weight (kg) 75.45 BMI 21.8 Weight change and time frame Wt change noted Weight Status Underweight Subjective/Other Information F/u for intakes. Pt reports eating 100% of breakfast and drinking 100% of Ensure this morning. Pt reports eating 0% of dinner and drinking 0% of supplement yesterday. Pt denies N/V/D and states that he will continue to try to eat . Percent of energy/protein needs met: 64%/66% average of the last 2 days Burn Absent Trauma Absent GI Symptoms None Food Allergy No Current % PO Fair (50-74%) Minimum of two criteria Yes Energy Intake (non-severe) <75% Estimated Energy Requirement >7 days Interpretation of Weight Loss (severe) >7.5% in 3 months Body Fat Depletion Moderate depletion (severe) Muscle Mass Moderate Depletion (severe) Reduced Panel Maker Strength Measurably Reduced (severe) #2 Nutrition Diagnosis Inadequate oral intake As Evidenced by Signs and Symptoms Pt consuming 50% meals and 50% ONS average over the past 2 days Diagnosis Progress(for reassessment Improved documentation) #1 Nutrition Diagnosis Malnutrition Diagnosis Progress(for reassessment Continues documentation) Is patient on ventilator? No Is Patient Ambulatory and/or Out of Bed No REE-([facility]-confined to bed) 1723.872 Kcal/Kg value to use for calculation 30 Approximate Energy Requirements Using 2070 kcal/Kg Calculation Used for Recommendations Kcal/kg Additional Notes Pro: 83-104 (1.2-1.5 g/kg) Fluid: 1 ml/kcal Nutrition Intervention Change Diet Order: Continue current Add Supplement/Snack (indicate name/kcal Ensure Enlive Daily /protein ) Provides kCal: 350 Provides Protein (gm) 20 Goal #1 Meet at least 75% of energy and protein needs via PO and ONS intakes Goal #2 Weight gain/maintanance Anticipated Discharge Needs: Cardiac with ONS as needed Follow-Up By: 08/28/20 Additional Comments FU for plan of care and intakes
[2020-08-27] MEDS: MULTIVITAMINS ,THERAPEUTIC TAB PO SCH (10:18)
[2020-08-27] MEDS: AMIODARONE 200 MG TAB PO SCH (10:19)
[2020-08-27] MEDS: DRONABINOL 2.5 MG CAP PO SCH ×2 (13:56→18:03)
[2020-08-28] MEDS: HEPARIN 5,000 UNIT/1 ML VIAL SUB-Q SCH ×3 (05:21→21:46)
[2020-08-28 06:13] LABS: Blood Urea Nitrogen 12 mg/dL (9-20); Calcium 9.1 mg/dL (8.4-10.2); Hemolysis Index 3
[2020-08-28 06:14] LABS: BUN/Creatinine Ratio 17
[2020-08-28] MEDS: PANTOPRAZOLE 40 MG TAB PO SCH (08:00)
--- NOTE | 2020-08-28 08:37 | Progress Note ---
Assessment and Plan Assessment and plan: --NSVT --hypokalemia; Resolved, monitor electrolytes --Acute renal failure From dehydration [vasomotor nephropathy] Resolved, avoid nephrotoxins ---Dehydration Improved, continue current management ---Elevated troponin present on admission nonspecific, no cardiac symptoms ---Depression Improved , denies suicidal thoughts or ideation psychiatry evaluated, patient is on fluoxetine Outpatient follow-up upon discharge ---Failure to thrive On regular cardiac diet, With nutritional supplements ---Hypernatremia Resolved, continue to encourage free water --Severe malnutrition/hypoalbuminemia; Nutrition supplements, circulation clerk following 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 Trending down, follow abdominal ultrasound --General debility/failure to thrive in an adult physical therapy, Occupational Therapy Evaluated, recommend acute rehab Acute rehab consult placed ---DVT prophylaxis subcutaneous heparin. ---Full code status 08/09/2020. Physical therapy recommends acute rehab. Await case management evaluation for placement. 08/10/2020. Awaiting subacute rehab placement. 08/11/2020. Awaiting subacute rehab placement. 08/12/2020. Nurse reports a 30 beat run of V. tach that occurred this morning. Cardiology has been consulted for NSVT. Follow-up electrolytes and check echo cardiogram. Speech therapy evaluated the patient with MBS which demonstrated oral pharyngeal dysphagia with laryngeal elevation, severe valleculae retention and an inability to clear the pharynx. Recommendations were for PEG placement. GI consultation. Awaiting subacute rehab placement 08/13/2020; Nurse reports a 30 beat run of V. tach yesterday and cardiology evaluated and put her on amiodarone. Speech therapy evaluated the patient with MBS which demonstrated oral pharyngeal dysphagia with laryngeal elevation, severe valleculae retention and an inability to clear the pharynx. Recommendat ions were for PEG placement. GI consulted and discussed with Dr. Rainey and he said the patient wants more time to think about EGD or PEG tube placement. Patient wants Dr Rainey to talk to his daughter and he tried to reach her. Patient has depression and on fluoxetine. Psych evaluated the patient and signed off. 08/14/2020 Nurse reports a 30 beat run of V. tach yesterday and cardiology carlos luated and put her on amiodarone. Speech therapy evaluated the patient with MBS which demonstrated oral pharyngeal dysphagia with laryngeal elevation, severe valleculae retention and an inability to clear the pharynx. Recommendations were for PEG placement. GI consulted and discussed with Dr. Rainey and he said the patient wants more time to think about EGD or PEG tube placement. Patient wants Dr Rainey to talk to his daughter and he tried to reach her. Patient has depression and on fluoxetine. Psych evaluated the patient and signed off. 08/15/2020; patient refused PEG tube placement but agreed for endoscopy. Plan was endoscopy to be done today. But the daughter called Dr Rainey and insists to have PEG tube to be placed and she claims she has power of talend etl developer. Patient was alert and oriented and looks like he can make his own decision. Patient should have agreed to do the procedure. Endoscopy will be held and risk management will be involved. 08/16/2020; patient has EGD yesterday and show extensive esophagitis and gastritis, no other findings. Patient is on IV PPI. Her daughter wants psych placement. Psych have evaluated a week ago and put him on fluoxetine and sign off. I have discussed with psych nurse practitioner Juan Pablo yesterday because the daughter wants to be called by psych and explained to her why he is not going to placed inpatient psych. Juan Pablo said he would let his partner Kristina who saw the patient last week to talk with the patient's daughter. 08/17/2020; patient had EGD and showed extensive esophagitis, and patient is on PPI. Patient is not eating well and refused PEG tube placement. Patient has social issues and he is more concerned about financial difficulties and living situations. Case management and clinical social worker consulted. Patient has severe depression and is currently on fluoxetine. Daughter has questions about why the patient is not placed to inpatient psych, I reconsulted psych and they try to reach to the daughter to explain that the daughter did not picker feeder the phone. His diet is advanced full liquid diet, patient is on Marinol to increase her appetite. Follow-up with case management. August 18, 2020. EGD showed extensive esophagitis. Placed on PPI most likely reason patient is not eating. Patient does not want a PEG tube placement just wants rehab. Discussed this again. Patient states depression is not causing him not to eat. Currently being treated for depression. Tolerating advancing diet at this point. 08/21/2020 Patient had extensive erosive esophagitis Patient refuses PEG Patient waiting for subacute rehab Coronavirus test ordered in case he gets accepted at any subacute facility May have to be repeated again depending on when he is accepted 08/21/2020. GI with work-up of abnormal weight loss/adult failure to thrive. CT abdomen pelvis was negative. GI recommends continue regular diet and Marinol with evidence of improvement last 48 hours. Continue nutritional supplements and MVI daily. BMI > 20, so no critical need for assisted feeding at present. Inability to eat appears resolved, and GI OK with d/c to Rehab. 08/22/2020. Await rehab placement. 08/24/2020. Awaiting rehab placement. Case management reports meeting with patient's spouse to further discuss subacute rehab placement. Provided spouse a listing of potential facilities who could provide services to patient. Several facilities are reviewing patient's therapy notes to determine whether they can meet her needs. Spouse's preference was [facility], however, upon contact they did not have a female bed available. Continue to follow. 08/25/2020. No new issues overnight. Await rehab placement and recommendations by case management 08/26/2020. Awaiting rehab placement. 08/27/20; awaiting rehab placement. 08/28/2020; patient did not participate with physical therapy yesterday but today he was sitting on side of the bed and willing to participate. Discussed the management plan in detail with the patient and his daughter on the phone. Patient is pending subacute rehab placement. Psych consulted psych and they put him on doxepin and mirtazapine, psych signed off and does not need to be seen as inpatient. Patient can follow-up as an outpatient in 2 weeks. History Interval history: Patient was seen and evaluated this morning patient Patient said he started to eat and drink Ensure Patient was sitting on side of the bed, I have discussed the need to be involved in physical therapy and he agreed Hospitalist Physical - Physical exam Narrative exam: Not in cardiopulmonary distress. The patient appeared well nourished and normally developed. Vital signs as documented. Head exam is unremarkable. No scleral icterus . Neck is without jugular venous distension, thyromegaly, or carotid bruits. Lungs are clear to auscultation. Cardiac exam reveals regular rate and Rhythm. Abdominal exam reveals normal bowel sounds, nontender, no organomegaly. Extremities are nonedematous and both femoral and pedal pulses are normal. COMMISSIONING EDITOR: Alert and oriented 3. No focal weakness. - Constitutional Vitals: Temp Pulse Resp BP Pulse Ox 98.0 F 69 18 97/60 100 08/28/20 04:21 08/28/20 04:21 08/28/20 04:21 08/28/20 04:21 08/28/20 04:21 General appearance: Present: no acute distress, well-nourished HEART Score - HEART Score Troponin: Troponin T 0.048 ng/mL (0.00-0.029) H 08/02/20 21:56 Results - Labs CBC & Chem 7: 08/04/20 06:26 08/28/20 04:35 Labs: Laboratory Last Values WBC 4.6 K/mm3 (4.5-11.0) 08/04/20 06:26 RBC 4.68 M/mm3 (3.65-5.03) 08/04/20 06:26 Hgb 15.0 gm/dl (11.8-15.2) D 08/04/20 06:26 Hct 43.8 % (35.5-45.6) D 08/04/20 06:26 MCV 94 fl (84-94) 08/04/20 06:26 MCH 32 pg (28-32) 08/04/20 06:26 MCHC 34 % (32-34) 08/04/20 06:26 RDW 14.5 % (13.2-15.2) 08/04/20 06:26 Plt Count 118 K/mm3 (140-440) L 08/04/20 06:26 Lymph % (Auto) 14.7 % (13.4-35.0) 08/04/20 06:26 [place] % (Auto) 6.7 % (0.0-7.3) 08/04/20 06:26 Eos % (Auto) 0.1 % (0.0-4.3) 08/04/20 06:26 Baso % (Auto) 0.0 % (0.0-1.8) 08/04/20 06:26 Lymph # (Auto) 0.7 K/mm3 (1.2-5.4) L 08/04/20 06:26 [place] # (Auto) 0.3 K/mm3 (0.0-0.8) 08/04/20 06:26 Eos # (Auto) 0.0 K/mm3 (0.0-0.4) 08/04/20 06:26 Baso # (Auto) 0.0 K/mm3 (0.0-0.1) 08/04/20 06:26 Seg Neutrophils % 78.5 % (40.0-70.0) H 08/04/20 06:26 Seg Neutrophils # 3.6 K/mm3 (1.8-7.7) 08/04/20 06:26 PT 14.5 Sec. (12.2-14.9) 08/04/20 06:26 INR 1.12 (0.87-1.13) 08/04/20 06:26 Sodium 141 mmol/L (137-145) 08/28/20 04:35 Potassium 4.7 mmol/L (3.6-5.0) 08/28/20 04:35 Chloride 104.2 mmol/L (98-107) 08/28/20 04:35 Carbon Dioxide 27 mmol/L (22-30) 08/28/20 04:35 Anion Gap 15 mmol/L 08/28/20 04:35 BUN 12 mg/dL (9-20) 08/28/20 04:35 Creatinine 0.7 mg/dL (0.8-1.3) L 08/28/20 04:35 Estimated GFR > 60 ml/min 08/28/20 04:35 BUN/Creatinine Ratio 17 % 08/28/20 04:35 Glucose 82 mg/dL (75-100) 08/28/20 04:35 Calcium 9.1 mg/dL (8.4-10.2) 08/28/20 04:35 Phosphorus 2.10 mg/dL (2.5-4.5) L 08/17/20 23:35 Magnesium 1.60 mg/dL (1.7-2.3) L 08/26/20 14:05 Total Bilirubin 1.00 mg/dL (0.1-1.2) 08/20/20 19:24 AST 17 units/L (5-40) 08/20/20 19:24 ALT 30 units/L (7-56) 08/20/20 19:24 Alkaline Phosphatase 63 units/L (35-129) 08/20/20 19:24 Total Creatine Kinase 93 units/L (55-170) 08/02/20 21:56 CK-MB (CK-2) 5.3 ng/mL (0.0-4.0) H 08/02/20 21:56 CK-MB (CK-2) Rel Index 5.6 (0-4) H 08/02/20 21:56 Troponin T 0.048 ng/mL (0.00-0.029) H 08/02/20 21:56 Total Protein 4.1 g/dL (6.3-8.2) L 08/20/20 19:24 Albumin 2.2 g/dL (3.9-5) L 08/20/20 19:24 Albumin/Globulin Ratio 1.2 % 08/20/20 19:24 Triglycerides 307 mg/dL (2-149) H 08/02/20 21:56 Cholesterol 232 mg/dL (50-199) H 08/02/20 21:56 LDL Cholesterol Direct 132 mg/dL (50-130) H 08/02/20 21:56 HDL Cholesterol 36 mg/dL (40-59) L 08/02/20 21:56 Cholesterol/HDL Ratio 6.44 % 08/02/20 21:56 Lipase 77 units/L (13-60) H 08/02/20 21:56 TSH 2.380 mlU/mL (0.270-4.200) 08/18/20 05:36 Total Cortisol 25.5 mcg/dL () 08/18/20 05:36 Urine Color Fifi (Yellow) 08/03/20 00:22 Urine Turbidity Clear (Clear) 08/03/20 00:22 Urine pH 5.0 (5.0-7.0) 08/03/20 00:22 Ur Specific [place] 1.021 (1.003-1.030) 08/03/20 00:22 Urine Protein <15 mg/dl mg/dL (Negative) 08/03/20 00:22 Urine Glucose (UA) Neg mg/dL (Negative) 08/03/20 00:22 Urine Ketones Neg mg/dL (Negative) 08/03/20 00:22 Urine Blood Sm (Negative) 08/03/20 00:22 Urine Nitrite Neg (Negative) 08/03/20 00:22 Urine Bilirubin Sm (Negative) 08/03/20 00:22 Urine Ictotest Negative (Negative) 08/03/20 00:22 Urine Urobilinogen 4.0 mg/dL (<2.0) 08/03/20 00:22 Ur Leukocyte Esterase Neg (Negative) 08/03/20 00:22 Urine WBC (Auto) 2.0 /HPF (0.0-6.0) 08/03/20 00:22 Urine RBC (Auto) < 1.0 /HPF (0.0-6.0) 08/03/20 00:22 U Epithel Cells (Auto) < 1.0 /HPF (0-13.0) 08/03/20 00:22 Hyaline Casts 1 /LPF 08/03/20 00:22 Hepatitis A IgM Ab Non-reactive (NonReactive) 08/05/20 09:25 Hep Bs Antigen Non-reactive (Negative) 08/05/20 09:25 Hep B Core IgM Ab Non-reactive (NonReactive) 08/05/20 09:25 Hepatitis C Antibody Non-reactive (NonReactive) 08/05/20 09:25 Guillen/IV: Voiding Method Urinal IV Catheter Type [left ac] Peripheral IV IV Catheter Type [Right Peripheral IV Forearm] IV Catheter Type [Right Hand] Peripheral IV Active Medications - Current Medications Current Medications: Generic Name Dose Route Start Last Admin Trade Name Freq PRN Reason Stop Dose Admin Acetaminophen 650 mg 08/03/20 01:11 08/09/20 22:17 Tylenol PO 650 mg Q4H PRN Administration Pain MILD(1-3)/Fever >100.5/PATEL Amiodarone HCl 200 mg 08/17/20 10:00 08/27/20 10:19 Cordarone PO 200 mg DAILY LUCRECIA Administration Dronabinol 2.5 mg 08/17/20 11:05 08/27/20 18:03 Marinol PO Not Given BID@1100,1600 LUCRECIA Heparin Sodium (Porcine) 5,000 unit 08/03/20 06:00 08/28/20 05:21 Heparin SUB-Q 5,000 unit Q8HR LUCRECIA Administration Magnesium Hydroxide 30 ml 08/03/20 01:11 Milk Of Magnesia PO Q4H PRN Constipation Multivitamins 1 each 08/18/20 10:00 08/27/20 10:18 Theragran Tab PO 1 each QDAY LUCRECIA Administration Ondansetron HCl 4 mg 08/03/20 01:11 Zofran IV Q8H PRN Nausea And Vomiting Pantoprazole Sodium 40 mg 08/18/20 07:30 08/27/20 07:30 Protonix PO 40 mg QDAC LUCRECIA Administration Sodium Chloride 10 ml 08/03/20 10:00 08/27/20 21:05 Sodium Chloride Flush Syringe 10 Ml IV 10 ml BID LUCRECIA Administration Sodium Chloride 10 ml 08/03/20 01:11 Sodium Chloride Flush Syringe 10 Ml IV PRN PRN LINE FLUSH Nutrition/Malnutrition Assess - Dietary Evaluation Nutrition/Malnutrition Findings: Nutrition Notes Start: 08/03/20 11:43 Freq: Status: Active Protocol: Document 08/23/20 11:31 EN (Rec: 08/23/20 11:39 EN [email or web address]) Co-Sign 08/23/20 11:31 LM Nutrition Notes Initial or Follow up Reassessment Current Diagnosis Hypertension Other Pertinent Diagnosis Failure to Thrive, Acute CHRISTIE, Dehydration, Depression, Esophagitis,Gastritis Current Diet Regular + Ensure Enlive Chocolate daily Labs/Tests 08/22: K+ 3.2, Cr 0.5 Pertinent Medications Ns at 50 ml/hr Height 5 ft 10 in Weight 69 kg [place] Body Weight (kg) 75.45 BMI 21.8 Weight change and time frame Wt change noted Weight Status Underweight Subjective/Other Information F/u for intakes. Pt reports eating 100% of breakfast and drinking 100% of Ensure this morning. Pt reports eating 0% of dinner and drinking 0% of supplement yesterday. Pt denies N/V/D and states that he will continue to try to eat . Percent of energy/protein needs met: 64%/66% average of the last 2 days Burn Absent Trauma Absent GI Symptoms None Food Allergy No Current % PO Fair (50-74%) Minimum of two criteria Yes Energy Intake (non-severe) <75% Estimated Energy Requirement >7 days Interpretation of Weight Loss (severe) >7.5% in 3 months Body Fat Depletion Moderate depletion (severe) Muscle Mass Moderate Depletion (severe) Reduced Special Service Representative Strength Measurably Reduced (severe) #2 Nutrition Diagnosis Inadequate oral intake As Evidenced by Signs and Symptoms Pt consuming 50% meals and 50% ONS average over the past 2 days Diagnosis Progress(for reassessment Improved documentation) #1 Nutrition Diagnosis Malnutrition Diagnosis Progress(for reassessment Continues documentation) Is patient on ventilator? No Is Patient Ambulatory and/or Out of Bed No REE-([place]-St. or-confined to bed) 1723.872 Kcal/Kg value to use for calculation 30 Approximate Energy Requirements Using 2070 kcal/Kg Calculation Used for Recommendations Kcal/kg Additional Notes Pro: 83-104 (1.2-1.5 g/kg) Fluid: 1 ml/kcal Nutrition Intervention Change Diet Order: Continue current Add Supplement/Snack (indicate name/kcal Ensure Enlive Daily /protein ) Provides kCal: 350 Provides Protein (gm) 20 Goal #1 Meet at least 75% of energy and protein needs via PO and ONS intakes Goal #2 Weight gain/maintanance Anticipated Discharge Needs: Cardiac with ONS as needed Follow-Up By: 08/28/20 Additional Comments FU for plan of care and intakes
[2020-08-28] MEDS: AMIODARONE 200 MG TAB PO SCH (09:11)
[2020-08-28] MEDS: MULTIVITAMINS ,THERAPEUTIC TAB PO SCH (09:11)
--- NOTE | 2020-08-28 10:34 | Progress Note ---
Subjective - Reason for Consult Consult date: 08/28/20 Reason for consult: MHE Requesting physician: ASHA CHIRINOS - Chief Complaint Chief complaint: Psych progress Patient is a pleasant 75-year-old male who has been seen and evaluated before by the psych which repeat consult for medication reconciliation. Today patient admits to depression says he is worried about all the medical bills that has some drop so far while he has been admitted to this facility, says the money just keeps piling up but he denies suicidal thoughts or suicidal ideations. Patient states that he would like to be discharged from the facility so that he does not have to accrue anymore hospital related bills. Patient also complains of insomnia, as he is tried Ambien in the past REVIEW OF SYSTEMS Constitutional: Negative for weight loss ENT: Negative for stridor Respiratory: Negative for cough or hemoptysis All other systems reviewed and are negative MENTAL STATUS EXAMINATION General Appearance and Behavior: Age appropriate, good hygiene, wearing appropriate clothes, good eye contact, calm and cooperative polite with questioning. Cooperation: Participating/engaged Mood: "Depressed" Affect and affective range: Restricted Thought Process: Goal directed Thought Content: Logical Speech: normal tone and pace Suicidal Ideation: Denies Homicidal Ideation: Denies Hallucinations: Denies Delusions: None elicited Insight and Judgment: Limited Memory: Limited Orientation: A/O Assessment and Plan Major Depressive Disorder Treatment Plan MEDICATIONS: Continue current fluoxetine dose at 20, add doxepin 6mg for sleep maintenance, and remeron 30 QHS Risks, benefits and alternatives of medications discussed with the patient, questions answered and consent obtained from patient. PSYCHOTHERAPY: Supportive psychotherapy provided MEDICAL: Per primary team DELIRIUM PRECAUTIONS: Please re-orient patient frequently, keep lights on during the day, and minimize benzodiazepines and opiates as these medications could worsen patient's confusion. MACHINE I COREMAKER: Defer to primary DISPOSITION: Do not recommend acute inpatient psychiatric treatment. The patient has consistently denies any thoughts or fear of self harm. He is lucid and has not exhibited any psychosis. He understands that if feeling of endangerment or thoughts of self harm arise, he is to seek immediate assistance, including but not limited to the crisis hotline, 911/ER. The patient's depression can be managed on an outpatient basis. The grooming salon manager to further discuss the safety plan, give outpatient resources. The patient is to follow up with outpatient psych in 7 to 14 days upon discharge. Will sign off. Please re-consult if needed at a later date. Thank you for this consult. Mental Status Exam - Vital signs Last Vital Signs Temp 98.0 F 08/28/20 08:15 Pulse 70 08/28/20 08:15 Resp 18 08/28/20 08:15 BP 131/73 08/28/20 08:15 Pulse Ox 100 08/28/20 08:15
[2020-08-28] MEDS: DRONABINOL 2.5 MG CAP PO SCH ×2 (11:00→17:11)
[2020-08-28] MEDS: FLUoxetine 20 MG/5 ML ORAL LIQD PO SCH (12:19)
[2020-08-28] MEDS: MIRTAZAPINE 30 MG TAB PO SCH (21:46)
[2020-08-28] MEDS: DOXEPIN 10 MG CAP PO SCH (21:46)
[2020-08-28] MEDS ORDERED: ZOLPIDEM 5 MG TAB PO SCH (22:00)
[2020-08-28] MEDS ORDERED: MELATONIN 5 MG TAB PO PRN (22:00)
[2020-08-28] MEDS ORDERED: MIRTAZAPINE 15 MG TAB PO SCH (22:00)
[2020-08-29] MEDS: HEPARIN 5,000 UNIT/1 ML VIAL SUB-Q SCH ×3 (05:03→21:21)
[2020-08-29 05:41] LABS: Blood Urea Nitrogen 16 mg/dL (9-20); Calcium 8.8 mg/dL (8.4-10.2); Hemolysis Index 4
[2020-08-29 05:45] LABS: BUN/Creatinine Ratio 23
[2020-08-29] MEDS: PANTOPRAZOLE 40 MG TAB PO SCH (08:00)
--- NOTE | 2020-08-29 08:36 | Progress Note ---
Assessment and Plan Assessment and plan: --NSVT --hypokalemia; Resolved, monitor electrolytes --Acute renal failure From dehydration [vasomotor nephropathy] Resolved, avoid nephrotoxins ---Dehydration Improved, continue current management ---Elevated troponin present on admission nonspecific, no cardiac symptoms ---Depression Improved , denies suicidal thoughts or ideation psychiatry evaluated, patient is on fluoxetine Outpatient follow-up upon discharge ---Failure to thrive On regular cardiac diet, With nutritional supplements ---Hypernatremia Resolved, continue to encourage free water --Severe malnutrition/hypoalbuminemia; Nutrition supplements, phd internship following 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 Trending down, follow abdominal ultrasound --General debility/failure to thrive in an adult physical therapy, Occupational Therapy Evaluated, recommend acute rehab Acute rehab consult placed ---DVT prophylaxis subcutaneous heparin. ---Full code status 08/09/2020. Physical therapy recommends acute rehab. Await case management evaluation for placement. 08/10/2020. Awaiting subacute rehab placement. 08/11/2020. Awaiting subacute rehab placement. 08/12/2020. Nurse reports a 30 beat run of V. tach that occurred this morning. Cardiology has been consulted for NSVT. Follow-up electrolytes and check echo cardiogram. Speech therapy evaluated the patient with MBS which demonstrated oral pharyngeal dysphagia with laryngeal elevation, severe valleculae retention and an inability to clear the pharynx. Recommendations were for PEG placement. GI consultation. Awaiting subacute rehab placement 08/13/2020; Nurse reports a 30 beat run of V. tach yesterday and cardiology evaluated and put her on amiodarone. Speech therapy evaluated the patient with MBS which demonstrated oral pharyngeal dysphagia with laryngeal elevation, severe valleculae retention and an inability to clear the pharynx. Recommendat ions were for PEG placement. GI consulted and discussed with Dr. Rainey and he said the patient wants more time to think about EGD or PEG tube placement. Patient wants Dr Rainey to talk to his daughter and he tried to reach her. Patient has depression and on fluoxetine. Psych evaluated the patient and signed off. 08/14/2020 Nurse reports a 30 beat run of V. tach yesterday and cardiology carlos luated and put her on amiodarone. Speech therapy evaluated the patient with MBS which demonstrated oral pharyngeal dysphagia with laryngeal elevation, severe valleculae retention and an inability to clear the pharynx. Recommendations were for PEG placement. GI consulted and discussed with Dr. Rainey and he said the patient wants more time to think about EGD or PEG tube placement. Patient wants Dr Rainey to talk to his daughter and he tried to reach her. Patient has depression and on fluoxetine. Psych evaluated the patient and signed off. 08/15/2020; patient refused PEG tube placement but agreed for endoscopy. Plan was endoscopy to be done today. But the daughter called Dr Rainey and insists to have PEG tube to be placed and she claims she has power of finance attorney. Patient was alert and oriented and looks like he can make his own decision. Patient should have agreed to do the procedure. Endoscopy will be held and risk management will be involved. 08/16/2020; patient has EGD yesterday and show extensive esophagitis and gastritis, no other findings. Patient is on IV PPI. Her daughter wants psych placement. Psych have evaluated a week ago and put him on fluoxetine and sign off. I have discussed with psych nurse practitioner Juan Pablo yesterday because the daughter wants to be called by psych and explained to her why he is not going to placed inpatient psych. Juan Pablo said he would let his partner Kristina who saw the patient last week to talk with the patient's daughter. 08/17/2020; patient had EGD and showed extensive esophagitis, and patient is on PPI. Patient is not eating well and refused PEG tube placement. Patient has social issues and he is more concerned about financial difficulties and living situations. Case management and delinquency prevention social worker consulted. Patient has severe depression and is currently on fluoxetine. Daughter has questions about why the patient is not placed to inpatient psych, I reconsulted psych and they try to reach to the daughter to explain that the daughter did not pickers material handlers the phone. His diet is advanced full liquid diet, patient is on Marinol to increase her appetite. Follow-up with case management. August 18, 2020. EGD showed extensive esophagitis. Placed on PPI most likely reason patient is not eating. Patient does not want a PEG tube placement just wants rehab. Discussed this again. Patient states depression is not causing him not to eat. Currently being treated for depression. Tolerating advancing diet at this point. 08/21/2020 Patient had extensive erosive esophagitis Patient refuses PEG Patient waiting for subacute rehab Coronavirus test ordered in case he gets accepted at any subacute facility May have to be repeated again depending on when he is accepted 08/21/2020. GI with work-up of abnormal weight loss/adult failure to thrive. CT abdomen pelvis was negative. GI recommends continue regular diet and Marinol with evidence of improvement last 48 hours. Continue nutritional supplements and MVI daily. BMI > 20, so no critical need for assisted feeding at present. Inability to eat appears resolved, and GI OK with d/c to Rehab. 08/22/2020. Await rehab placement. 08/24/2020. Awaiting rehab placement. Case management reports meeting with patient's spouse to further discuss subacute rehab placement. Provided spouse a listing of potential facilities who could provide services to patient. Several facilities are reviewing patient's therapy notes to determine whether they can meet her needs. Spouse's preference was [facility], however, upon contact they did not have a female bed available. Continue to follow. 08/25/2020. No new issues overnight. Await rehab placement and recommendations by case management 08/26/2020. Awaiting rehab placement. 08/27/20; awaiting rehab placement. 08/28/2020; patient did not participate with physical therapy yesterday but today he was sitting on side of the bed and willing to participate. Discussed the management plan in detail with the patient and his daughter on the phone. Patient is pending subacute rehab placement. Psych consulted psych and they put him on doxepin and mirtazapine, psych signed off and does not need to be seen as inpatient. Patient can follow-up as an outpatient in 2 weeks. 08/29/2020; patient is declined by subacute rehab. Daughter was notified by general management. She said she will call [facility] for the patient to be transferred there. Will follow. History Interval history: Patient was seen and evaluated this morning patient Patient said he started to eat and drink Ensure Patient was sitting on side of the bed, I have discussed the need to be involved in physical therapy and he agreed Hospitalist Physical - Physical exam Narrative exam: Not in cardiopulmonary distress. The patient appeared well nourished and normally developed. Vital signs as documented. Head exam is unremarkable. No scleral icterus . Neck is without jugular venous distension, thyromegaly, or carotid bruits. Lungs are clear to auscultation. Cardiac exam reveals regular rate and Rhythm. Abdominal exam reveals normal bowel sounds, nontender, no organomegaly. Extremities are nonedematous and both femoral and pedal pulses are normal. 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 No focal weakness. - Constitutional Vitals: Temp Pulse Resp BP Pulse Ox 97.9 F 70 16 123/81 100 08/29/20 08:27 08/29/20 08:27 08/29/20 08:27 08/29/20 08:27 08/29/20 08:27 General appearance: Present: no acute distress, well-nourished HEART Score - HEART Score Troponin: Troponin T 0.048 ng/mL (0.00-0.029) H 08/02/20 21:56 Results - Labs CBC & Chem 7: 08/04/20 06:26 08/29/20 05:02 Labs: Laboratory Last Values WBC 4.6 K/mm3 (4.5-11.0) 08/04/20 06:26 RBC 4.68 M/mm3 (3.65-5.03) 08/04/20 06:26 Hgb 15.0 gm/dl (11.8-15.2) D 08/04/20 06:26 Hct 43.8 % (35.5-45.6) D 08/04/20 06:26 MCV 94 fl (84-94) 08/04/20 06:26 MCH 32 pg (28-32) 08/04/20 06:26 MCHC 34 % (32-34) 08/04/20 06:26 RDW 14.5 % (13.2-15.2) 08/04/20 06:26 Plt Count 118 K/mm3 (140-440) L 08/04/20 06:26 Lymph % (Auto) 14.7 % (13.4-35.0) 08/04/20 06:26 [place] % (Auto) 6.7 % (0.0-7.3) 08/04/20 06:26 Eos % (Auto) 0.1 % (0.0-4.3) 08/04/20 06:26 Baso % (Auto) 0.0 % (0.0-1.8) 08/04/20 06:26 Lymph # (Auto) 0.7 K/mm3 (1.2-5.4) L 08/04/20 06:26 [place] # (Auto) 0.3 K/mm3 (0.0-0.8) 08/04/20 06:26 Eos # (Auto) 0.0 K/mm3 (0.0-0.4) 08/04/20 06:26 Baso # (Auto) 0.0 K/mm3 (0.0-0.1) 08/04/20 06:26 Seg Neutrophils % 78.5 % (40.0-70.0) H 08/04/20 06:26 Seg Neutrophils # 3.6 K/mm3 (1.8-7.7) 08/04/20 06:26 PT 14.5 Sec. (12.2-14.9) 08/04/20 06:26 INR 1.12 (0.87-1.13) 08/04/20 06:26 Sodium 143 mmol/L (137-145) 08/29/20 05:02 Potassium 3.3 mmol/L (3.6-5.0) L D 08/29/20 05:02 Chloride 106.7 mmol/L (98-107) 08/29/20 05:02 Carbon Dioxide 28 mmol/L (22-30) 08/29/20 05:02 Anion Gap 12 mmol/L 08/29/20 05:02 BUN 16 mg/dL (9-20) 08/29/20 05:02 Creatinine 0.7 mg/dL (0.8-1.3) L 08/29/20 05:02 Estimated GFR > 60 ml/min 08/29/20 05:02 BUN/Creatinine Ratio 23 % 08/29/20 05:02 Glucose 105 mg/dL (75-100) H 08/29/20 05:02 Calcium 8.8 mg/dL (8.4-10.2) 08/29/20 05:02 Phosphorus 2.10 mg/dL (2.5-4.5) L 08/17/20 23:35 Magnesium 1.60 mg/dL (1.7-2.3) L 08/26/20 14:05 Total Bilirubin 1.00 mg/dL (0.1-1.2) 08/20/20 19:24 AST 17 units/L (5-40) 08/20/20 19:24 ALT 30 units/L (7-56) 08/20/20 19:24 Alkaline Phosphatase 63 units/L (35-129) 08/20/20 19:24 Total Creatine Kinase 93 units/L (55-170) 08/02/20 21:56 CK-MB (CK-2) 5.3 ng/mL (0.0-4.0) H 08/02/20 21:56 CK-MB (CK-2) Rel Index 5.6 (0-4) H 08/02/20 21:56 Troponin T 0.048 ng/mL (0.00-0.029) H 08/02/20 21:56 Total Protein 4.1 g/dL (6.3-8.2) L 08/20/20 19:24 Albumin 2.2 g/dL (3.9-5) L 08/20/20 19:24 Albumin/Globulin Ratio 1.2 % 08/20/20 19:24 Triglycerides 307 mg/dL (2-149) H 08/02/20 21:56 Cholesterol 232 mg/dL (50-199) H 08/02/20 21:56 LDL Cholesterol Direct 132 mg/dL (50-130) H 08/02/20 21:56 HDL Cholesterol 36 mg/dL (40-59) L 08/02/20 21:56 Cholesterol/HDL Ratio 6.44 % 08/02/20 21:56 Lipase 77 units/L (13-60) H 08/02/20 21:56 TSH 2.380 mlU/mL (0.270-4.200) 08/18/20 05:36 Total Cortisol 25.5 mcg/dL () 08/18/20 05:36 Urine Color Fifi (Yellow) 08/03/20 00:22 Urine Turbidity Clear (Clear) 08/03/20 00:22 Urine pH 5.0 (5.0-7.0) 08/03/20 00:22 Ur Specific [place] 1.021 (1.003-1.030) 08/03/20 00:22 Urine Protein <15 mg/dl mg/dL (Negative) 08/03/20 00:22 Urine Glucose (UA) Neg mg/dL (Negative) 08/03/20 00:22 Urine Ketones Neg mg/dL (Negative) 08/03/20 00:22 Urine Blood Sm (Negative) 08/03/20 00:22 Urine Nitrite Neg (Negative) 08/03/20 00:22 Urine Bilirubin Sm (Negative) 08/03/20 00:22 Urine Ictotest Negative (Negative) 08/03/20 00:22 Urine Urobilinogen 4.0 mg/dL (<2.0) 08/03/20 00:22 Ur Leukocyte Esterase Neg (Negative) 08/03/20 00:22 Urine WBC (Auto) 2.0 /HPF (0.0-6.0) 08/03/20 00:22 Urine RBC (Auto) < 1.0 /HPF (0.0-6.0) 08/03/20 00:22 U Epithel Cells (Auto) < 1.0 /HPF (0-13.0) 08/03/20 00:22 Hyaline Casts 1 /LPF 08/03/20 00:22 Hepatitis A IgM Ab Non-reactive (NonReactive) 08/05/20 09:25 Hep Bs Antigen Non-reactive (Negative) 08/05/20 09:25 Hep B Core IgM Ab Non-reactive (NonReactive) 08/05/20 09:25 Hepatitis C Antibody Non-reactive (NonReactive) 08/05/20 09:25 Guillen/IV: Voiding Method Urinal IV Catheter Type [left ac] Peripheral IV IV Catheter Type [Right Peripheral IV Forearm] IV Catheter Type [Right Hand] Peripheral IV Active Medications - Current Medications Current Medications: Generic Name Dose Route Start Last Admin Trade Name Freq PRN Reason Stop Dose Admin Acetaminophen 650 mg 08/03/20 01:11 08/09/20 22:17 Tylenol PO 650 mg Q4H PRN Administration Pain MILD(1-3)/Fever >100.5/PATEL Amiodarone HCl 200 mg 08/17/20 10:00 08/28/20 09:11 Cordarone PO 200 mg DAILY LUCRECIA Administration Doxepin HCl 10 mg 08/28/20 21:30 08/28/20 21:46 Sinequan PO 10 mg QHS@2130 LUCRECIA Administration Dronabinol 2.5 mg 08/17/20 11:05 08/28/20 17:11 Marinol PO Not Given BID@1100,1600 LUCRECIA Fluoxetine HCl 20 mg 08/28/20 11:00 08/28/20 12:19 Prozac PO 20 mg QDAY LUCRECIA Administration Heparin Sodium (Porcine) 5,000 unit 08/03/20 06:00 08/29/20 05:03 Heparin SUB-Q 5,000 unit Q8HR LUCRECIA Administration Magnesium Hydroxide 30 ml 08/03/20 01:11 Milk Of Magnesia PO Q4H PRN Constipation Melatonin 5 mg 08/28/20 22:00 Melatonin PO QHS PRN Sleep Mirtazapine 30 mg 08/28/20 22:00 08/28/20 21:46 Remeron PO 30 mg QHS LUCRECIA Administration Multivitamins 1 each 08/18/20 10:00 08/28/20 09:11 Theragran Tab PO 1 each QDAY LUCRECIA Administration Ondansetron HCl 4 mg 08/03/20 01:11 Zofran IV Q8H PRN Nausea And Vomiting Pantoprazole Sodium 40 mg 08/18/20 07:30 08/28/20 08:00 Protonix PO 40 mg QDAC LUCRECIA Administration Sodium Chloride 10 ml 08/03/20 10:00 08/28/20 21:00 Sodium Chloride Flush Syringe 10 Ml IV 10 ml BID LUCRECIA Administration Sodium Chloride 10 ml 08/03/20 01:11 Sodium Chloride Flush Syringe 10 Ml IV PRN PRN LINE FLUSH Nutrition/Malnutrition Assess - Dietary Evaluation Nutrition/Malnutrition Findings: Nutrition Notes Start: 08/03/20 11:43 Freq: Status: Active Protocol: Document 08/28/20 09:59 LM (Rec: 08/28/20 10:12 LM [id number]) Nutrition Notes Initial or Follow up Reassessment Current Diagnosis Hypertension Other Pertinent Diagnosis Failure to Thrive, Acute CHRISTIE, Dehydration, Depression, Esophagitis,Gastritis Current Diet Regular + Ensure Enlive Chocolate daily Labs/Tests Reviewed Pertinent Medications Multivitamins Height 5 ft 10 in Weight 65.4 kg [place] Body Weight (kg) 75.45 BMI 20.7 Weight change and time frame Wt change noted Weight Status Underweight Subjective/Other Information Pt eating apple sauce at time of visit. Breakfast tray was untouched. Pt stated he is avoiding heavy foods. Pt stated he did not eat yesterday but will try and eat today. Burn Absent Trauma Absent GI Symptoms None Food Allergy No Current % PO Poor (25-49%) Minimum of two criteria Yes Energy Intake (non-severe) <75% Estimated Energy Requirement >7 days Interpretation of Weight Loss (severe) >7.5% in 3 months Body Fat Depletion Moderate depletion (severe) Muscle Mass Moderate Depletion (severe) Reduced Pm Technician Strength Measurably Reduced (severe) #2 Nutrition Diagnosis Inadequate oral intake As Evidenced by Signs and Symptoms Pt eating only apple sauce Diagnosis Progress(for reassessment Worsened documentation) #1 Nutrition Diagnosis Malnutrition Diagnosis Progress(for reassessment Continues documentation) Is patient on ventilator? No Is Patient Ambulatory and/or Out of Bed No REE-([facility]-confined to bed) [phone] Kcal/Kg value to use for calculation 30 Approximate Energy Requirements Using 1962 kcal/Kg Calculation Used for Recommendations Kcal/kg Additional Notes Pro: 83-104 (1.2-1.5 g/kg) Fluid: 1 ml/kcal Nutrition Intervention Change Diet Order: Continue current Add Supplement/Snack (indicate name/kcal Ensure Enlive Daily /protein ) Provides kCal: 350 Provides Protein (gm) 20 Goal #1 Meet at least 75% of energy and protein needs via PO and ONS intakes Goal #2 Weight gain/maintanance Anticipated Discharge Needs: Cardiac with ONS as needed Follow-Up By: 08/30/20 Additional Comments FU for plan of care and intakes
[2020-08-29] MEDS ORDERED: POTASSIUM CHLORIDE ER 20 MEQ TAB PO SCH (09:00)
[2020-08-29] MEDS: FLUoxetine 20 MG/5 ML ORAL LIQD PO SCH (09:37)
[2020-08-29] MEDS: MULTIVITAMINS ,THERAPEUTIC TAB PO SCH (09:37)
[2020-08-29] MEDS: AMIODARONE 200 MG TAB PO SCH (09:37)
[2020-08-29] MEDS ORDERED: MAGNESIUM SULFATE 2 GM/50 ML BAG IV ONE (12:00)
[2020-08-29] MEDS: DRONABINOL 2.5 MG CAP PO SCH ×2 (12:16→18:18)
[2020-08-29] MEDS ORDERED: POTASSIUM CHLORIDE ER 20 MEQ TAB PO ONE (14:44)
[2020-08-29] MEDS: DOXEPIN 10 MG CAP PO SCH (21:21)
[2020-08-29] MEDS: MIRTAZAPINE 30 MG TAB PO SCH (21:21)
[2020-08-30] MEDS: HEPARIN 5,000 UNIT/1 ML VIAL SUB-Q SCH ×2 (05:02→15:11)
[2020-08-30 05:58] LABS: BUN/Creatinine Ratio 20; Blood Urea Nitrogen 18 mg/dL (9-20); Calcium 8.7 mg/dL (8.4-10.2); Hemolysis Index 3
[2020-08-30] MEDS: PANTOPRAZOLE 40 MG TAB PO SCH (07:30)
[2020-08-30 08:00] VITALS: BP 123/71
--- NOTE | 2020-08-30 08:12 | Progress Note ---
Assessment and Plan Assessment and plan: --NSVT --hypokalemia; Resolved, monitor electrolytes --Acute renal failure From dehydration [vasomotor nephropathy] Resolved, avoid nephrotoxins ---Dehydration Improved, continue current management ---Elevated troponin present on admission nonspecific, no cardiac symptoms ---Depression Improved , denies suicidal thoughts or ideation psychiatry evaluated, patient is on fluoxetine Outpatient follow-up upon discharge ---Failure to thrive On regular cardiac diet, With nutritional supplements ---Hypernatremia Resolved, continue to encourage free water --Severe malnutrition/hypoalbuminemia; Nutrition supplements, calibrator barometers following 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 Trending down, follow abdominal ultrasound --General debility/failure to thrive in an adult physical therapy, Occupational Therapy Evaluated, recommend acute rehab Acute rehab consult placed ---DVT prophylaxis subcutaneous heparin. ---Full code status 08/09/2020. Physical therapy recommends acute rehab. Await case management evaluation for placement. 08/10/2020. Awaiting subacute rehab placement. 08/11/2020. Awaiting subacute rehab placement. 08/12/2020. Nurse reports a 30 beat run of V. tach that occurred this morning. Cardiology has been consulted for NSVT. Follow-up electrolytes and check echo cardiogram. Speech therapy evaluated the patient with MBS which demonstrated oral pharyngeal dysphagia with laryngeal elevation, severe valleculae retention and an inability to clear the pharynx. Recommendations were for PEG placement. GI consultation. Awaiting subacute rehab placement 08/13/2020; Nurse reports a 30 beat run of V. tach yesterday and cardiology evaluated and put her on amiodarone. Speech therapy evaluated the patient with MBS which demonstrated oral pharyngeal dysphagia with laryngeal elevation, severe valleculae retention and an inability to clear the pharynx. Recommendat ions were for PEG placement. GI consulted and discussed with Dr. Rainey and he said the patient wants more time to think about EGD or PEG tube placement. Patient wants Dr Rainey to talk to his daughter and he tried to reach her. Patient has depression and on fluoxetine. Psych evaluated the patient and signed off. 08/14/2020 Nurse reports a 30 beat run of V. tach yesterday and cardiology carlos luated and put her on amiodarone. Speech therapy evaluated the patient with MBS which demonstrated oral pharyngeal dysphagia with laryngeal elevation, severe valleculae retention and an inability to clear the pharynx. Recommendations were for PEG placement. GI consulted and discussed with Dr. Rainey and he said the patient wants more time to think about EGD or PEG tube placement. Patient wants Dr Rainey to talk to his daughter and he tried to reach her. Patient has depression and on fluoxetine. Psych evaluated the patient and signed off. 08/15/2020; patient refused PEG tube placement but agreed for endoscopy. Plan was endoscopy to be done today. But the daughter called Dr Rainey and insists to have PEG tube to be placed and she claims she has power of housekeeping laundry worker. Patient was alert and oriented and looks like he can make his own decision. Patient should have agreed to do the procedure. Endoscopy will be held and risk management will be involved. 08/16/2020; patient has EGD yesterday and show extensive esophagitis and gastritis, no other findings. Patient is on IV PPI. Her daughter wants psych placement. Psych have evaluated a week ago and put him on fluoxetine and sign off. I have discussed with psych nurse practitioner Juan Pablo yesterday because the daughter wants to be called by psych and explained to her why he is not going to placed inpatient psych. Juan Pablo said he would let his partner Kristina who saw the patient last week to talk with the patient's daughter. 08/17/2020; patient had EGD and showed extensive esophagitis, and patient is on PPI. Patient is not eating well and refused PEG tube placement. Patient has social issues and he is more concerned about financial difficulties and living situations. Case management and psychiatric social worker supervisor consulted. Patient has severe depression and is currently on fluoxetine. Daughter has questions about why the patient is not placed to inpatient psych, I reconsulted psych and they try to reach to the daughter to explain that the daughter did not citrus picker the phone. His diet is advanced full liquid diet, patient is on Marinol to increase her appetite. Follow-up with case management. August 18, 2020. EGD showed extensive esophagitis. Placed on PPI most likely reason patient is not eating. Patient does not want a PEG tube placement just wants rehab. Discussed this again. Patient states depression is not causing him not to eat. Currently being treated for depression. Tolerating advancing diet at this point. 08/21/2020 Patient had extensive erosive esophagitis Patient refuses PEG Patient waiting for subacute rehab Coronavirus test ordered in case he gets accepted at any subacute facility May have to be repeated again depending on when he is accepted 08/21/2020. GI with work-up of abnormal weight loss/adult failure to thrive. CT abdomen pelvis was negative. GI recommends continue regular diet and Marinol with evidence of improvement last 48 hours. Continue nutritional supplements and MVI daily. BMI > 20, so no critical need for assisted feeding at present. Inability to eat appears resolved, and GI OK with d/c to Rehab. 08/22/2020. Await rehab placement. 08/24/2020. Awaiting rehab placement. Case management reports meeting with patient's spouse to further discuss subacute rehab placement. Provided spouse a listing of potential facilities who could provide services to patient. Several facilities are reviewing patient's therapy notes to determine whether they can meet her needs. Spouse's preference was [facility], however, upon contact they did not have a female bed available. Continue to follow. 08/25/2020. No new issues overnight. Await rehab placement and recommendations by case management 08/26/2020. Awaiting rehab placement. 08/27/20; awaiting rehab placement. 08/28/2020; patient did not participate with physical therapy yesterday but today he was sitting on side of the bed and willing to participate. Discussed the management plan in detail with the patient and his daughter on the phone. Patient is pending subacute rehab placement. Psych consulted psych and they put him on doxepin and mirtazapine, psych signed off and does not need to be seen as inpatient. Patient can follow-up as an outpatient in 2 weeks. 08/29/2020; patient is declined by subacute rehab. Daughter was notified by general management. She said she will call [facility] for the patient to be transferred there. Will follow. 08/30/2020; no change. We will continue to follow with case management History Interval history: Patient was seen and evaluated this morning patient Patient said he started to eat and drink Ensure Patient was sitting on side of the bed, I have discussed the need to be involved in physical therapy and he agreed Hospitalist Physical - Physical exam Narrative exam: Not in cardiopulmonary distress. The patient appeared well nourished and normally developed. Vital signs as documented. Head exam is unremarkable. No scleral icterus . Neck is without jugular venous distension, thyromegaly, or carotid bruits. Lungs are clear to auscultation. Cardiac exam reveals regular rate and Rhythm. Abdominal exam reveals normal bowel sounds, nontender, no organomegaly. Extremities are nonedematous and both femoral and pedal pulses are normal. 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 No focal weakness. - Constitutional Vitals: Temp Pulse Resp BP Pulse Ox 97.8 F 75 16 123/71 100 08/30/20 07:44 08/30/20 07:44 08/30/20 07:44 08/30/20 07:44 08/30/20 07:44 General appearance: Present: no acute distress, well-nourished HEART Score - HEART Score Troponin: Troponin T 0.048 ng/mL (0.00-0.029) H 08/02/20 21:56 Results - Labs CBC & Chem 7: 08/04/20 06:26 08/30/20 04:50 Labs: Laboratory Last Values WBC 4.6 K/mm3 (4.5-11.0) 08/04/20 06:26 RBC 4.68 M/mm3 (3.65-5.03) 08/04/20 06:26 Hgb 15.0 gm/dl (11.8-15.2) D 08/04/20 06:26 Hct 43.8 % (35.5-45.6) D 08/04/20 06:26 MCV 94 fl (84-94) 08/04/20 06:26 MCH 32 pg (28-32) 08/04/20 06:26 MCHC 34 % (32-34) 08/04/20 06:26 RDW 14.5 % (13.2-15.2) 08/04/20 06:26 Plt Count 118 K/mm3 (140-440) L 08/04/20 06:26 Lymph % (Auto) 14.7 % (13.4-35.0) 08/04/20 06:26 [place]aden % (Auto) 6.7 % (0.0-7.3) 08/04/20 06:26 Eos % (Auto) 0.1 % (0.0-4.3) 08/04/20 06:26 Baso % (Auto) 0.0 % (0.0-1.8) 08/04/20 06:26 Lymph # (Auto) 0.7 K/mm3 (1.2-5.4) L 08/04/20 06:26 Bladen # (Auto) 0.3 K/mm3 (0.0-0.8) 08/04/20 06:26 Eos # (Auto) 0.0 K/mm3 (0.0-0.4) 08/04/20 06:26 Baso # (Auto) 0.0 K/mm3 (0.0-0.1) 08/04/20 06:26 Seg Neutrophils % 78.5 % (40.0-70.0) H 08/04/20 06: Seg Neutrophils # 3.6 K/mm3 (1.8-7.7) 08/04/20 06:26 PT 14.5 Sec. (12.2-14.9) 08/04/20 06:26 INR 1.12 (0.87-1.13) 08/04/20 06:26 Sodium 146 mmol/L (137-145) H 08/30/20 04:50 Potassium 4.0 mmol/L (3.6-5.0) D 08/30/20 04:50 Chloride 110.0 mmol/L (98-107) H 08/30/20 04:50 Carbon Dioxide 26 mmol/L (22-30) 08/30/20 04:50 Anion Gap 14 mmol/L 08/30/20 04:50 BUN 18 mg/dL (9-20) 08/30/20 04:50 Creatinine 0.9 mg/dL (0.8-1.3) 08/30/20 04:50 Estimated GFR > 60 ml/min 08/30/20 04:50 BUN/Creatinine Ratio 20 % 08/30/20 04:50 Glucose 84 mg/dL (75-100) 08/30/20 04:50 Calcium 8.7 mg/dL (8.4-10.2) 08/30/20 04:50 Phosphorus 2.10 mg/dL (2.5-4.5) L 08/17/20 23:35 Magnesium 1.70 mg/dL (1.7-2.3) 08/29/20 05:02 Total Bilirubin 1.00 mg/dL (0.1-1.2) 08/20/20 19:24 AST 17 units/L (5-40) 08/20/20 19:24 ALT 30 units/L (7-56) 08/20/20 19:24 Alkaline Phosphatase 63 units/L (35-129) 08/20/20 19:24 Total Creatine Kinase 93 units/L (55-170) 08/02/20 21:56 CK-MB (CK-2) 5.3 ng/mL (0.0-4.0) H 08/02/20 21:56 CK-MB (CK-2) Rel Index 5.6 (0-4) H 08/02/20 21:56 Troponin T 0.048 ng/mL (0.00-0.029) H 08/02/20 21:56 Total Protein 4.1 g/dL (6.3-8.2) L 08/20/20 19:24 Albumin 2.2 g/dL (3.9-5) L 08/20/20 19:24 Albumin/Globulin Ratio 1.2 % 08/20/20 19:24 Triglycerides 307 mg/dL (2-149) H 08/02/20 21:56 Cholesterol 232 mg/dL (50-199) H 08/02/20 21:56 LDL Cholesterol Direct 132 mg/dL (50-130) H 08/02/20 21:56 HDL Cholesterol 36 mg/dL (40-59) L 08/02/20 21:56 Cholesterol/HDL Ratio 6.44 % 08/02/20 21:56 Lipase 77 units/L (13-60) H 08/02/20 21:56 TSH 2.380 mlU/mL (0.270-4.200) 08/18/20 05:36 Total Cortisol 25.5 mcg/dL () 08/18/20 05:36 Urine Color Fifi (Yellow) 08/03/20 00:22 Urine Turbidity Clear (Clear) 08/03/20 00:22 Urine pH 5.0 (5.0-7.0) 08/03/20 00:22 Ur Specific [place] 1.021 (1.003-1.030) 08/03/20 00:22 Urine Protein <15 mg/dl mg/dL (Negative) 08/03/20 00:22 Urine Glucose (UA) Neg mg/dL (Negative) 08/03/20 00:22 Urine Ketones Neg mg/dL (Negative) 08/03/20 00:22 Urine Blood Sm (Negative) 08/03/20 00:22 Urine Nitrite Neg (Negative) 08/03/20 00:22 Urine Bilirubin Sm (Negative) 08/03/20 00:22 Urine Ictotest Negative (Negative) 08/03/20 00:22 Urine Urobilinogen 4.0 mg/dL (<2.0) 08/03/20 00:22 Ur Leukocyte Esterase Neg (Negative) 08/03/20 00:22 Urine WBC (Auto) 2.0 /HPF (0.0-6.0) 08/03/20 00:22 Urine RBC (Auto) < 1.0 /HPF (0.0-6.0) 08/03/20 00:22 U Epithel Cells (Auto) < 1.0 /HPF (0-13.0) 08/03/20 00:22 Hyaline Casts 1 /LPF 08/03/20 00:22 Hepatitis A IgM Ab Non-reactive (NonReactive) 08/05/20 09:25 Hep Bs Antigen Non-reactive (Negative) 08/05/20 09:25 Hep B Core IgM Ab Non-reactive (NonReactive) 08/05/20 09:25 Hepatitis C Antibody Non-reactive (NonReactive) 08/05/20 09:25 Guillen/IV: Voiding Method Toilet IV Catheter Type [left ac] Peripheral IV IV Catheter Type [Right Peripheral IV Forearm] IV Catheter Type [Right Hand] Peripheral IV Active Medications - Current Medications Current Medications: Generic Name Dose Route Start Last Admin Trade Name Freq PRN Reason Stop Dose Admin Acetaminophen 650 mg 08/03/20 01:11 08/09/20 22:17 Tylenol PO 650 mg Q4H PRN Administration Pain MILD(1-3)/Fever >100.5/PATEL Amiodarone HCl 200 mg 08/17/20 10:00 08/29/20 09:37 Cordarone PO 200 mg DAILY LUCRECIA Administration Doxepin HCl 10 mg 08/28/20 21:30 08/29/20 21:21 Sinequan PO 10 mg QHS@2130 LUCRECIA Administration Dronabinol 2.5 mg 08/17/20 11:05 08/29/20 18:18 Marinol PO Not Given BID@1100,1600 LUCRECIA Fluoxetine HCl 20 mg 08/28/20 11:00 08/29/20 09:37 Prozac PO 20 mg QDAY LUCRECIA Administration Heparin Sodium (Porcine) 5,000 unit 08/03/20 06:00 08/30/20 05:02 Heparin SUB-Q 5,000 unit Q8HR LUCRECIA Administration Magnesium Hydroxide 30 ml 08/03/20 01:11 Milk Of Magnesia PO Q4H PRN Constipation Melatonin 5 mg 08/28/20 22:00 Melatonin PO QHS PRN Sleep Mirtazapine 30 mg 08/28/20 22:00 08/29/20 21:21 Remeron PO 30 mg QHS LUCRECIA Administration Multivitamins 1 each 08/18/20 10:00 08/29/20 09:37 Theragran Tab PO 1 each QDAY LUCRECIA Administration Ondansetron HCl 4 mg 08/03/20 01:11 Zofran IV Q8H PRN Nausea And Vomiting Pantoprazole Sodium 40 mg 08/18/20 07:30 08/29/20 08:00 Protonix PO 40 mg QDAC LUCRECIA Administration Sodium Chloride 10 ml 08/03/20 10:00 08/29/20 21:21 Sodium Chloride Flush Syringe 10 Ml IV 10 ml BID LUCRECIA Administration Sodium Chloride 10 ml 08/03/20 01:11 Sodium Chloride Flush Syringe 10 Ml IV PRN PRN LINE FLUSH Nutrition/Malnutrition Assess - Dietary Evaluation Nutrition/Malnutrition Findings: Nutrition Notes Start: 08/03/20 11:43 Freq: Status: Active Protocol: Document 08/28/20 09:59 LM (Rec: 08/28/20 10:12 LM [id number]) Nutrition Notes Initial or Follow up Reassessment Current Diagnosis Hypertension Other Pertinent Diagnosis Failure to Thrive, Acute CHRISTIE, Dehydration, Depression, Esophagitis,Gastritis Current Diet Regular + Ensure Enlive Chocolate daily Labs/Tests Reviewed Pertinent Medications Multivitamins Height 5 ft 10 in Weight 65.4 kg [place] Body Weight (kg) 75.45 BMI 20.7 Weight change and time frame Wt change noted Weight Status Underweight Subjective/Other Information Pt eating apple sauce at time of visit. Breakfast tray was untouched. Pt stated he is avoiding heavy foods. Pt stated he did not eat yesterday but will try and eat today. 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 No Is Patient Ambulatory and/or Out of Bed No [facility] [phone] Kcal/Kg value to use for calculation 30 Approximate Energy Requirements Using 1962 kcal/Kg Calculation Used for Recommendations Kcal/kg Additional Notes Pro: 83-104 (1.2-1.5 g/kg) Fluid: 1 ml/kcal Nutrition Intervention Change Diet Order: Continue current Add Supplement/Snack (indicate name/kcal Ensure Enlive Daily /protein ) Provides kCal: 350 Provides Protein (gm) 20 Goal #1 Meet at least 75% of energy and protein needs via PO and ONS intakes Goal #2 Weight gain/maintanance Anticipated Discharge Needs: Cardiac with ONS as needed Follow-Up By: 08/30/20 Additional Comments FU for plan of care and intakes
[2020-08-30] MEDS: AMIODARONE 200 MG TAB PO SCH (10:00)
[2020-08-30] MEDS: FLUoxetine 20 MG/5 ML ORAL LIQD PO SCH (10:01)
[2020-08-30] MEDS: MULTIVITAMINS ,THERAPEUTIC TAB PO SCH (10:01)
[2020-08-30] MEDS: DRONABINOL 2.5 MG CAP PO SCH (11:00)
--- NOTE | 2020-08-30 12:08 | Discharge Summary ---
Providers - Providers Date of Admission: 08/02/20 23:55 Date of discharge: 08/30/20 Attending physician: ASHA CHIRINOS MD 08/03/20 01:11 Consult to Physician [CONS] Routine Comment: Consulting Provider: JESSICA UGALDE Physician Instructions: Reason For Exam: CHRISTIE, UREMIA 08/03/20 01:20 Consult to Case Management [CONS] Routine Services Needed at Discharge: Senior Environmental Scientist Notified:: watch case polisher Additional Physician Instructions: LOSS OF JOB AND NO INCOME. PLEASE EVALUATE Consult to Mental Health [CONS] Routine Reason For Exam: DEPRESSION- FOLLOWING JOB LOSS 08/05/20 08:59 Physical Therapy Evaluation and Treat [CONS] Routine Comment: Reason For Exam: General debility/discharge needs 08/07/20 07:54 Physical Therapy Evaluation and Treat [CONS] Routine Comment: Reason For Exam: Weakness 08/07/20 20:06 Consult Acute Rehabilitation [CONS] Routine Consulting Provider: Physician Instructions: Reason For Exam: IRU Evaluation 08/09/20 09:02 Speech Therapy Evaluation and Treat [CONS] Routine Reason For Exam: swallow eval 08/12/20 10:54 Consult to Physician [CONS] Routine Comment: Consulting Provider: MARCOS SALAMANCA Physician Instructions: Reason For Exam: dysphagia--PEG placement 08/16/20 11:10 Consult to Mental Health [CONS] Routine Reason For Exam: depression, re-evaluation 08/20/20 08:15 Physical Therapy Evaluation and Treat [CONS] Stat Comment: Reason For Exam: debility Date of last referral: 08/20/20 08/27/20 16:04 Consult to Mental Health [CONS] Routine Reason For Exam: depression Primary care physician: [employer] Hospitalization Reason for admission: Major depression, failure to thrive, CHRISTIE, NSVT Condition: Stable Hospital course: 75-year-old male with known history of hypertension presenting to the emergency room today with failure to thrive. Patient has had decreased oral intake since he lost his job about 3 months ago. According to family patient is said to have given up and has not been eating or drinking over the past 3 months. He has also lost about 75 pounds over the past 3 months. He has been feeling generally weak. Upon further evaluation patient admits he has been quite depressed but denies any homicidal or suicidal ideations. He also indicates that he has been having difficulty sleeping. He denies any fever or chills, no chest pain or shortness of breath, no nausea or vomiting, no abdominal pain, denies any sick contacts, denies any recent travel and no contact with anyone with COVID-19. Work-up in the emergency room today reveals elevated BUN and creatinine, elevated troponin and hypernatremia. Patient is being admitted for acute kidney injury with dehydration and hypernatremia. --NSVT --hypokalemia; Resolved, monitor electrolytes --Acute renal failure From dehydration [vasomotor nephropathy] Resolved, avoid nephrotoxins ---Dehydration Improved, continue current management ---Elevated troponin present on admission nonspecific, no cardiac symptoms ---Depression Improved , denies suicidal thoughts or ideation psychiatry evaluated, patient is on fluoxetine Outpatient follow-up upon discharge ---Failure to thrive On regular cardiac diet, With nutritional supplements ---Hypernatremia Resolved, continue to encourage free water --Severe malnutrition/hypoalbuminemia; Nutrition supplements, senior budget analyst following 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 Trending down, follow abdominal ultrasound --General debility/failure to thrive in an adult physical therapy, Occupational Therapy Evaluated, recommend acute rehab Acute rehab consult placed ---DVT prophylaxis subcutaneous heparin. ---Full code status 08/09/2020. Physical therapy recommends acute rehab. Await case management evaluation for placement. 08/10/2020. Awaiting subacute rehab placement. 08/11/2020. Awaiting subacute rehab placement. 08/12/2020. Nurse reports a 30 beat run of V. tach that occurred this morning. Cardiology has been consulted for NSVT. Follow-up electrolytes and check echocardiogram. Speech therapy evaluated the patient with MBS which de monstrated oral pharyngeal dysphagia with laryngeal elevation, severe valleculae retention and an inability to clear the pharynx. Recommendations were for PEG placement. GI consultation. Awaiting subacute rehab placement 08/13/2020; Nurse reports a 30 beat run of V. tach yesterday and cardiology evaluated and put her on amiodarone. Speech therapy evaluated the patient with MBS which demonstrated oral pharyngeal dysphagia with laryngeal elevation, severe valleculae retention and an inability to clear the pharynx. Recommendations were for PEG placement. GI consulted and discussed with Dr. Irma moreno and he said the patient wants more time to think about EGD or PEG tube placement. Patient wants Dr Rainey to talk to his daughter and he tried to reach her. Patient has depression and on fluoxetine. Psych evaluated the patient and signed off. 08/14/2020 Nurse reports a 30 beat run of V. tach yesterday and cardiology evaluated and put her on amiodarone. Speech therapy evaluated the patient with MBS which demonstrated oral pharyngeal dysphagia with laryngeal elevation, severe valleculae retention and an inability to clear the pharynx. Recommendations were for PEG placement. GI consulted and discussed with Dr. Rainey and he said the patient wants more time to think about EGD or PEG tube placement. Patient wants Dr Rainey to talk to his daughter and he tried to reach her. Patient has depression and on fluoxetine. Psych evaluated the patient and signed off. 08/15/2020; patient refused PEG tube placement but agreed for endoscopy. Plan was endoscopy to be done today. But the daughter called Dr Rainey and insists to have PEG tube to be placed and she claims she has power of consumer attorney. Patient was alert and oriented and looks like he can make his own decision. Patient should have agreed to do the procedure. Endoscopy will be held and risk management will be involved. 08/16/2020; patient has EGD yesterday and show extensive esophagitis and gastritis, no other findings. Patient is on IV PPI. Her daughter wants psych placement. Psych have evaluated a week ago and put him on fluoxetine and sign off. I have discussed with psych nurse practitioner Juan Pablo yesterday because the daughter wants to be called by psych and explained to her why he is not going to placed inpatient psych. Juan Pablo said he would let his partner Kristina who saw the patient last week to talk with the patient's daughter. 08/17/2020; patient had EGD and showed extensive esophagitis, and patient is on PPI. Patient is not eating well and refused PEG tube placement. Patient has social issues and he is more concerned about financial difficulties and living situations. Case management and social service agency director consulted. Patient has severe depression and is currently on fluoxetine. Daughter has questions about why the patient is not placed to inpatient psych, I reconsulted psych and they try to reach to the daughter to explain that the daughter did not meat pickler the phone. His diet is advanced full liquid diet, patient is on Marinol to increase her appetite. Follow-up with case management. August 18, 2020. EGD showed extensive esophagitis. Placed on PPI most likely reason patient is not eating. Patient does not want a PEG tube placement just wants rehab. Discussed this again. Patient states depression is not causing him not to eat. Currently being treated for depression. Tolerating advancing diet at this point. 08/21/2020 Patient had extensive erosive esophagitis Patient refuses PEG Patient waiting for subacute rehab Coronavirus test ordered in case he gets accepted at any subacute facility May have to be repeated again depending on when he is accepted 08/21/2020. GI with work-up of abnormal weight loss/adult failure to thrive. CT abdomen pelvis was negative. GI recommends continue regular diet and Marinol with evidence of improvement last 48 hours. Continue nutritional supplements and MVI daily. BMI > 20, so no critical need for assisted feeding at present. Inability to eat appears resolved, and GI OK with d/c to Rehab. 08/22/2020. Await rehab placement. 08/24/2020. Awaiting rehab placement. Case management reports meeting with patient's spouse to further discuss subacute rehab placement. Provided spouse a listing of potential facilities who could provide services to patient. Several facilities are reviewing patient's therapy notes to determine whether they can meet her needs. Spouse's preference was [facility], however, upon contact they did not have a female bed available. Continue to follow. 08/25/2020. No new issues overnight. Await rehab placement and recommendations by case management 08/26/2020. Awaiting rehab placement. 08/27/20; awaiting rehab placement. 08/28/2020; patient did not participate with physical therapy yesterday but today he was sitting on side of the bed and willing to participate. Discussed the management plan in detail with the patient and his daughter on the phone. Patient is pending subacute rehab placement. Psych consulted psych and they put him on doxepin and mirtazapine, psych signed off and does not need to be seen as inpatient. Patient can follow-up as an outpatient in 2 weeks. 08/29/2020; patient is declined by subacute rehab. Daughter was notified by general management. She said she will call [place] for the patient to be transferred there. Will follow. 08/30/2020; no change. We will continue to follow with case management Patient has been his longtime, patient was seen by psych and was put on psych medications. Patient was not participating with PT, I have a long discussion with the family and the family decided to take to [place]. Patient declined PEG tube. His oral intake is poor. Patient is worried much about his finances. Patient is noted able to ambulate and the family know about it and plan to take to [place] hospital after he is discharged from here. Disposition: DC-30 STILL A PATIENT Time spent for discharge: 34 minutes - Discharge Diagnoses (1) Major depression Status: Acute (2) Abnormal loss of weight Status: Acute (3) Acute renal failure Status: Acute (4) Dehydration Status: Acute (5) Malnutrition Status: Acute (6) Physical deconditioning Status: Acute (7) NSVT (nonsustained ventricular tachycardia) Status: Acute (8) Duodenitis Status: Acute Core Measure Documentation - Palliative Care Palliative Care/ Comfort Measures: Not Applicable - Core Measures Any of the following diagnoses?: none Exam - Physical Exam Narrative exam: Not in cardiopulmonary distress. The patient appeared well nourished and normally developed. Vital signs as documented. Head exam is unremarkable. No scleral icterus . Neck is without jugular venous distension, thyromegaly, or carotid bruits. Lungs are clear to auscultation. Cardiac exam reveals regular rate and Rhythm. Abdominal exam reveals normal bowel sounds, nontender, no organomegaly. Extremities are nonedematous and both femoral and pedal pulses are normal. WEATHERIZATION SPECIALIST: Alert and oriented 3. No focal weakness. - Constitutional Vitals: Temp Pulse Resp BP Pulse Ox 97.8 F 72 19 123/71 100 08/30/20 07:44 08/30/20 10:00 08/30/20 10:00 08/30/20 07:44 08/30/20 07:44 Plan Activity: advance as tolerated Weight Bearing Status: Weight Bear as Tolerated Diet: regular Additional Instructions: Patient son said he will take him to [place] hospital Plan of Treatment: Home health with [facility] [phone], walker to be delivered at home. Follow up with: PRIMARY CARE, [Primary Care Provider] - 3-5 Days Prescriptions: Mirtazapine [Remeron 30mg TAB] 30 mg PO QHS #30 tablet Amiodarone [Cordarone 200 MG TAB] 200 mg PO DAILY #30 tablet dronabinoL [Marinol] 2.5 mg PO BID@1100,1600 #60 capsule Pantoprazole [Protonix TAB] 40 mg PO QDAC #30 tablet FLUoxetine [Prozac] 20 mg PO QDAY 30 Days #1 oral.liqd Doxepin [SINEquan] 10 mg PO QHS@2129 #30 capsule
== END 2020-08-30 18:02 | disposition home health service (06) | DRG 682 ==
LOC: ED 21:23 → 4A 23:55
PROVIDERS: ADMIT Internal Medicine Geriatric Medicine; ATTEND Internal Medicine
PROC: 0DB98ZX Excision of Duodenum, Via Natural or Artificial Opening Endoscopic, Diagnostic (ICD-10-PCS; principal; 2020-08-15)
PROC: 0DB68ZX Excision of Stomach, Via Natural or Artificial Opening Endoscopic, Diagnostic (ICD-10-PCS; 2020-08-15)
DX: N17.0 Acute kidney failure with tubular necrosis (principal); E43 Unspecified severe protein-calorie malnutrition; I21.A1 Myocardial infarction type 2; E87.0 Hyperosmolality and hypernatremia; I47.2 Ventricular tachycardia; Z68.1 Body mass index [BMI] 19.9 or less, adult; E86.0 Dehydration; E87.6 Hypokalemia; F32.9 Major depressive disorder, single episode, unspecified; I10 Essential (primary) hypertension; E78.2 Mixed hyperlipidemia; E80.6 Other disorders of bilirubin metabolism; E87.8 Other disorders of electrolyte and fluid balance, not elsewhere classified; R74.01 Elevation of levels of liver transaminase levels; G47.00 Insomnia, unspecified; K29.70 Gastritis, unspecified, without bleeding; K29.80 Duodenitis without bleeding; R53.81 Other malaise; F17.200 Nicotine dependence, unspecified, uncomplicated; Z79.899 Other long term (current) drug therapy
CPT/HCPCS: 36415; 74177; 74230; 76700; 80048; 80053; 80061; 80074; 81001; 82533; 82550; 82553; 83690; 83735; 84100; 84443; 84484; 85025; 85610; 88305; 88342; 93005; 96365; 96375; G0378; C9113; J1644; J2405; J2704; J3010; J3475; J3480; J7030; J7040; J7042; J7070; Q0167; Q9967